=== PATIENT | female | born 1985 | race American Indian/Alaskan Native ===

== ENCOUNTER 2018-04-30 15:32 | Inpatient (IN) | payer MEDICAID ==
[2018-04-30] MEDS ORDERED: LACTATED RINGERS 1,000 ML ONE (16:04)
--- NOTE | 2018-04-30 16:22 | History and Physical Report ---
History of Present Illness Date of examination: 04/30/18 Date of admission: 04/30/18 15:32 Chief complaint: SIUP at 26 weeks with labor. History of present illness: Patient is a 32 year old , LMP 10/30/17, EDC 08/06/18 at 26 weeks gestation who was sent from the office for labor. This patient has been co-managed with [facility] for a history of cervical incompetence and she has a cerclage placed 2 months ago. She saw [facility] 2 weeks and sonogram showed funneling. She was offered Shelby and celestone for FLM. She did not start Shelby until today due to insurance issues. She went for a routine visit today and reported that she has been feeling pelvic pressure and abdominal tightening for 2 days. She denied any fluid leakage or bleeding. She reports good movement. Exam in the office showed the cervix to be dilated 3 cm with bulging membranes and the cerclage suture was in place. She was sent immediately to the hospital. She also has chronic HTN and has not been on any medication. 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 Social history: no significant social history - Obstetrical History Expected Date of Delivery: 08/06/18 Actual Gestation: 26 Week(s) 0 Day(s) : 3 Spontaneous Abortions: 2 #1 year: 2,017 Method of Delivery: Vaginal (delivered at 20 weeks, infant was nonviable.) Medications and Allergies Allergies Allergy/AdvReac Type Severity Reaction Status Date / Time No Known Allergies Allergy Unverified 04/30/18 16:04 Active Meds: Active Medications Acetaminophen (Tylenol) 650 mg PO Q4H PRN PRN Reason: Pain MILD(1-3)/Fever >100.5/LANDIN Docusate Sodium (Colace) 100 mg PO Q12H PRN PRN Reason: Constipation Lactated Ringer's (Lactated Ringers) 1,000 mls @ 125 mls/hr IV DIRECT EVELYN Multivitamins/Iron/Calcium ( Vitamin) 1 each PO QDAY EVELYN - Vital Signs Vital signs: Vital Signs Pulse BP 113 H 125/80 04/30/18 15:56 04/30/18 15:56 Temp Pulse Resp BP Pulse Ox 113 H 125/80 04/30/18 15:56 04/30/18 15:56 - Physical Exam Cardiovascular: Normal S1, Normal S2 Vulva: both: normal Results All other labs normal. Assessment and Plan - Patient Problems (1) 26 weeks gestation of Current Visit: Yes Status: Acute (2) labor Current Visit: Yes Status: Acute Plan to address problem: Admit to labor floor. Routine admitting labs. monitoring. Sonogram for presentation, EFW. Celestone for FLM. Magnesium sulfate for neuroprotection and tocolysis. IV antibiotics for GBS prophylaxis. [facility] and NICU consult. (3) Cervical incompetence Current Visit: Yes Status: Acute (4) Cervical cerclage suture present Current Visit: Yes Status: Acute (5) Obesity Current Visit: Yes Status: Acute (6) Chronic hypertension affecting Current Visit: Yes Status: Acute Plan to address problem: BP has been stable. If elevated, will start anti-HTN and do toxemia labs.
[2018-04-30] MEDS ORDERED: MAGNESIUM SULFATE 4GM/100ML 4 GM/100 ML BAG IV ONE (16:23)
[2018-04-30] MEDS ORDERED: DECADRON ONE (16:41)
[2018-04-30 16:44] LABS: Basophils % (Auto) 0.2 % (0.0-1.8); Eosinophils # (Auto) 0.1 K/mm3 (0.0-0.4); Eosinophils % (Auto) 0.7 % (0.0-4.3); Hematocrit 34.6 % (30.3-42.9); Hemoglobin 11.8 gm/dl (10.1-14.3); Lymphocytes # (Auto) 2.1 K/mm3 (1.2-5.4); Lymphocytes % (Auto) 17.9 % (13.4-35.0); Mean Corpuscular HGB Conc 34 % (30-34); Mean Corpuscular Volume 80 fl (79-97); Monocytes # (Auto) 0.7 K/mm3 (0.0-0.8); Monocytes % (Auto) 5.7 % (0.0-7.3); Platelet Count 240 K/mm3 (140-440); Red Blood Count 4.34 M/mm3 (3.65-5.03); Red Cell Distribution Width 15.2 % (13.2-15.2)
[2018-04-30 16:49] LABS: Bacteria,Urine 2+ /HPF (Negative); Bilirubin,Urine NEG (Negative); Blood,Urine SM (Negative); Color,Urine Yellow (Yellow); Mucus,Urine 1+ /HPF; Protein,Urine <15 mg/dL mg/dL (Negative); Urobilinogen,Urine < 2.0 mg/dL (<2.0)
--- NOTE | 2018-04-30 16:56 | Consultation ---
Consult Note - Parent Education I met with parent(s) and discussed the following:: Need for NICU admission, Poss ible need for intubation and surfactant or other resp support, Temperature regulation, Head ultrasounds to evaluate IVH, Eye exams for ROP screening, Possible need for IV fluids/TPN and IV antibiotics, Possible need for umbilical lines, Slow feeding advancement and monitoring of tolerance. NG/OG feeds, Need to monitor for jaundice, Data for survival & survival without significant co- morbidities Parent(s) demonstrated understanding of all the information:: Yes Additional Comment: 32 year old A2 with cervical incompetence. Cerclage in place. 3cm dilated with bulging membranes. Assessment and Plan - Assessment Gestation:: 26 (weeks) Baby's gender: Male Baby's name: Nuria - Plan Plan: Timing of delivery per OB/perinatology Agree with Mag & steroids Will attend delivery Please call NICU with questions
[2018-04-30] MEDS ORDERED: LACTATED RINGERS 1,000 ML IV SCH (17:00)
[2018-04-30] MEDS: LACTATED RINGERS 1,000 ML IV SCH (17:00)
[2018-04-30] MEDS: DECADRON IM SCH (17:01)
[2018-04-30] MEDS: MAGNESIUM SULFATE 40GM/1000ML 40 GM/1,000 ML BAG IV SCH (17:20)
--- NOTE | 2018-04-30 17:59 | Ultrasound Report ---
FINAL REPORT EXAM: US OB FOLLOW UP HISTORY: short cervix TECHNIQUE: Ultrasound obstetrical transabdominal PRIORS: There are no prior studies submitted for comparison FINDINGS: Single live intrauterine gestation present in cephalic position. cardiac activity is present with heart rate 145 beats per minute biometric measurements were obtained Biparietal diameter 27 weeks 3 days Head circumference 27 weeks 2 days Abdominal circumference 26 weeks 1 day Femur length 28 weeks 3 days Based on today's exam estimated gestational age 27 weeks 2 days estimated date of delivery July 28, 2018. Clinical age 26 weeks 0 days Cervix is suboptimally identified IMPRESSION: Single live intrauterine gestation estimated at twenty-seven weeks 2 days
[2018-04-30 18:04] LABS: Alanine Aminotransferase 49 units/L (7-56)
[2018-05-01] MEDS: TYLENOL PO PRN ×2 (00:59→18:51)
[2018-05-01] MEDS: LACTATED RINGERS 1,000 ML IV SCH ×2 (01:05→08:08)
[2018-05-01] MEDS: DECADRON IM SCH ×2 (05:12→17:19)
--- NOTE | 2018-05-01 08:49 | Progress Note ---
Assessment and Plan - Patient Problems (1) 26 weeks gestation of Current Visit: Yes Status: Acute Plan to address problem: steroids for lung maturity x 4 doses in progress Currently on magnesium sulfate for neuroprotection. Patient declines any IV medicine for back pain/contractions. Continuous monitoring Bedrest w bedpain. (2) Cervical incompetence Current Visit: Yes Status: Acute Subjective - Subjective Interval history: She denies loss of fluid, vaginal bleeding and reports good movement. Patient reports: other (episodic back pain) Objective - Vital Signs Vital Signs: Vital Signs - 12hr 04/30/18 04/30/18 04/30/18 20:54 20:59 21:00 Temperature Pulse Rate 120 H 120 H 118 H Respiratory Rate Blood Pressure 144/69 Blood Pressure [Left] O2 Sat by Pulse 98 98 Oximetry 04/30/18 04/30/18 04/30/18 21:04 21:09 21:14 Temperature Pulse Rate 118 H 119 H 121 H Respiratory Rate Blood Pressure Blood Pressure [Left] O2 Sat by Pulse 98 98 98 Oximetry 04/30/18 04/30/18 04/30/18 21:15 21:19 21:24 Temperature Pulse Rate 121 H 124 H 124 H Respiratory Rate Blood Pressure 133/70 Blood Pressure [Left] O2 Sat by Pulse 98 98 Oximetry 04/30/18 04/30/18 04/30/18 21:29 21:30 21:34 Temperature Pulse Rate 124 H 123 H 125 H Respiratory Rate Blood Pressure 123/74 Blood Pressure [Left] O2 Sat by Pulse 98 97 Oximetry 04/30/18 04/30/18 04/30/18 21:39 21:44 21:45 Temperature Pulse Rate 122 H 125 H 121 H Respiratory Rate Blood Pressure 127/68 Blood Pressure [Left] O2 Sat by Pulse 97 98 Oximetry 04/30/18 04/30/18 04/30/18 21:49 21:54 21:59 Temperature Pulse Rate 123 H 119 H 124 H Respiratory Rate Blood Pressure Blood Pressure [Left] O2 Sat by Pulse 98 98 98 Oximetry 04/30/18 04/30/18 04/30/18 22:04 22:09 22:14 Temperature Pulse Rate 121 H 117 H 117 H Respiratory Rate Blood Pressure Blood Pressure [Left] O2 Sat by Pulse 98 98 99 Oximetry 04/30/18 04/30/18 04/30/18 22:15 22:19 22:24 Temperature Pulse Rate 116 H 119 H 116 H Respiratory Rate Blood Pressure 151/71 Blood Pressure [Left] O2 Sat by Pulse 98 98 Oximetry 04/30/18 04/30/18 04/30/18 22:29 22:30 22:34 Temperature Pulse Rate 121 H 120 H 119 H Respiratory Rate Blood Pressure 133/59 Blood Pressure [Left] O2 Sat by Pulse 98 98 Oximetry 04/30/18 04/30/18 04/30/18 22:39 22:44 22:45 Temperature Pulse Rate 121 H 117 H 117 H Respiratory Rate Blood Pressure 94/59 Blood Pressure [Left] O2 Sat by Pulse 98 97 Oximetry 04/30/18 04/30/18 04/30/18 22:49 22:54 22:59 Temperature Pulse Rate 118 H 117 H 118 H Respiratory Rate Blood Pressure Blood Pressure [Left] O2 Sat by Pulse 98 98 98 Oximetry 04/30/18 04/30/18 04/30/18 23:00 23:04 23:09 Temperature Pulse Rate 118 H 118 H 119 H Respiratory Rate Blood Pressure 105/59 Blood Pressure [Left] O2 Sat by Pulse 97 97 Oximetry 04/30/18 04/30/18 04/30/18 23:14 23:15 23:19 Temperature Pulse Rate 116 H 116 H 121 H Respiratory Rate Blood Pressure 99/58 Blood Pressure [Left] O2 Sat by Pulse 97 98 Oximetry 04/30/18 04/30/18 04/30/18 23:24 23:29 23:30 Temperature Pulse Rate 122 H 120 H 122 H Respiratory Rate Blood Pressure 142/69 Blood Pressure [Left] O2 Sat by Pulse 98 98 Oximetry 04/30/18 04/30/18 04/30/18 23:34 23:39 23:44 Temperature Pulse Rate 113 H 111 H 117 H Respiratory Rate Blood Pressure Blood Pressure [Left] O2 Sat by Pulse 99 99 98 Oximetry 04/30/18 04/30/18 04/30/18 23:45 23:49 23:54 Temperature Pulse Rate 113 H 116 H 118 H Respiratory Rate Blood Pressure 132/63 Blood Pressure [Left] O2 Sat by Pulse 98 98 Oximetry 04/30/18 05/01/18 05/01/18 23:59 00:01 00:04 Temperature Pulse Rate 121 H 118 H 117 H Respiratory Rate Blood Pressure 128/65 Blood Pressure [Left] O2 Sat by Pulse 98 98 Oximetry 05/01/18 05/01/18 05/01/18 00:09 00:14 00:15 Temperature Pulse Rate 122 H 120 H 120 H Respiratory Rate Blood Pressure 117/60 Blood Pressure [Left] O2 Sat by Pulse 98 98 Oximetry 05/01/18 05/01/18 05/01/18 00:19 00:24 00:29 Temperature Pulse Rate 119 H 116 H 121 H Respiratory Rate Blood Pressure Blood Pressure [Left] O2 Sat by Pulse 97 98 98 Oximetry 05/01/18 05/01/18 05/01/18 00:30 00:34 00:39 Temperature 97.9 F Pulse Rate 115 H 117 H 116 H Respiratory 20 Rate Blood Pressure 121/59 Blood Pressure [Left] O2 Sat by Pulse 98 97 Oximetry 05/01/18 05/01/18 05/01/18 00:44 00:45 00:49 Temperature Pulse Rate 118 H 116 H 120 H Respiratory Rate Blood Pressure 126/60 Blood Pressure [Left] O2 Sat by Pulse 97 99 Oximetry 05/01/18 05/01/18 05/01/18 00:54 00:59 01:00 Temperature Pulse Rate 115 H 116 H 115 H Respiratory Rate Blood Pressure 111/58 Blood Pressure [Left] O2 Sat by Pulse 98 97 Oximetry 05/01/18 05/01/18 05/01/18 01:04 01:09 01:14 Temperature Pulse Rate 116 H 115 H 112 H Respiratory Rate Blood Pressure Blood Pressure [Left] O2 Sat by Pulse 98 98 97 Oximetry 05/01/18 05/01/18 05/01/18 01:15 01:19 01:24 Temperature Pulse Rate 112 H 110 H 111 H Respiratory Rate Blood Pressure 119/67 Blood Pressure [Left] O2 Sat by Pulse 98 98 Oximetry 05/01/18 05/01/18 05/01/18 01:29 01:30 01:34 Temperature Pulse Rate 111 H 108 H 110 H Respiratory Rate Blood Pressure 120/66 Blood Pressure [Left] O2 Sat by Pulse 97 97 Oximetry 05/01/18 05/01/18 05/01/18 01:39 01:44 01:45 Temperature Pulse Rate 108 H 109 H 107 H Respiratory Rate Blood Pressure 120/65 Blood Pressure [Left] O2 Sat by Pulse 97 97 Oximetry 05/01/18 05/01/18 05/01/18 01:49 01:54 01:59 Temperature Pulse Rate 108 H 106 H 107 H Respiratory Rate Blood Pressure Blood Pressure [Left] O2 Sat by Pulse 97 97 97 Oximetry 05/01/18 05/01/18 05/01/18 02:00 02:04 02:09 Temperature Pulse Rate 107 H 107 H 105 H Respiratory Rate Blood Pressure 123/65 Blood Pressure [Left] O2 Sat by Pulse 98 98 Oximetry 05/01/18 05/01/18 05/01/18 02:14 02:15 02:19 Temperature Pulse Rate 106 H 105 H 105 H Respiratory Rate Blood Pressure 126/71 Blood Pressure [Left] O2 Sat by Pulse 98 98 Oximetry 05/01/18 05/01/18 05/01/18 02:24 02:29 02:30 Temperature Pulse Rate 105 H 105 H 104 H Respiratory Rate Blood Pressure 128/70 Blood Pressure [Left] O2 Sat by Pulse 98 97 Oximetry 05/01/18 05/01/18 05/01/18 02:34 02:39 02:44 Temperature Pulse Rate 105 H 107 H 104 H Respiratory Rate Blood Pressure Blood Pressure [Left] O2 Sat by Pulse 98 97 98 Oximetry 05/01/18 05/01/18 05/01/18 02:45 02:49 02:54 Temperature Pulse Rate 100 H 106 H 102 H Respiratory Rate Blood Pressure 118/62 Blood Pressure [Left] O2 Sat by Pulse 98 98 Oximetry 05/01/18 05/01/18 05/01/18 02:59 03:00 03:04 Temperature Pulse Rate 103 H 61 105 H Respiratory Rate Blood Pressure 114/68 Blood Pressure [Left] O2 Sat by Pulse 98 97 Oximetry 05/01/18 05/01/18 05/01/18 03:09 03:14 03:15 Temperature Pulse Rate 102 H 99 H 99 H Respiratory Rate Blood Pressure 120/68 Blood Pressure [Left] O2 Sat by Pulse 99 98 Oximetry 05/01/18 05/01/18 05/01/18 03:19 03:24 03:29 Temperature Pulse Rate 102 H 101 H 101 H Respiratory Rate Blood Pressure Blood Pressure [Left] O2 Sat by Pulse 98 98 98 Oximetry 05/01/18 05/01/18 05/01/18 03:30 03:34 03:39 Temperature Pulse Rate 100 H 99 H 102 H Respiratory 18 Rate Blood Pressure 126/67 Blood Pressure 126/67 [Left] O2 Sat by Pulse 98 98 Oximetry 05/01/18 05/01/18 05/01/18 03:44 03:45 03:49 Temperature Pulse Rate 101 H 99 H 101 H Respiratory Rate Blood Pressure 131/68 Blood Pressure [Left] O2 Sat by Pulse 98 98 Oximetry 05/01/18 05/01/18 05/01/18 03:54 03:59 04:00 Temperature Pulse Rate 104 H 99 H 99 H Respiratory Rate Blood Pressure 126/67 Blood Pressure [Left] O2 Sat by Pulse 98 98 Oximetry 05/01/18 05/01/18 05/01/18 04:04 04:09 04:14 Temperature Pulse Rate 100 H 95 H 101 H Respiratory Rate Blood Pressure Blood Pressure [Left] O2 Sat by Pulse 98 99 98 Oximetry 05/01/18 05/01/18 05/01/18 04:15 04:19 04:24 Temperature Pulse Rate 98 H 105 H 94 H Respiratory Rate Blood Pressure 112/58 Blood Pressure [Left] O2 Sat by Pulse 99 97 Oximetry 05/01/18 05/01/18 05/01/18 04:29 04:30 04:34 Temperature Pulse Rate 97 H 95 H 98 H Respiratory Rate Blood Pressure 109/59 Blood Pressure [Left] O2 Sat by Pulse 97 97 Oximetry 05/01/18 05/01/18 05/01/18 04:39 04:44 04:45 Temperature Pulse Rate 99 H 98 H 97 H Respiratory Rate Blood Pressure 135/73 Blood Pressure [Left] O2 Sat by Pulse 96 97 Oximetry 05/01/18 05/01/18 05/01/18 04:49 04:54 04:59 Temperature Pulse Rate 99 H 96 H 96 H Respiratory Rate Blood Pressure Blood Pressure [Left] O2 Sat by Pulse 96 97 98 Oximetry 05/01/18 05/01/18 05/01/18 05:00 05:04 05:09 Temperature Pulse Rate 95 H 95 H 99 H Respiratory Rate Blood Pressure 122/64 Blood Pressure [Left] O2 Sat by Pulse 98 98 Oximetry 05/01/18 05/01/18 05/01/18 05:14 05:15 05:16 Temperature 98.2 F Pulse Rate 99 H 97 H 98 H Respiratory 20 Rate Blood Pressure 125/65 Blood Pressure [Left] O2 Sat by Pulse 97 Oximetry 05/01/18 05/01/1819 05:18 05:19 05:30 Temperature Pulse Rate 96 H 95 H 93 H Respiratory Rate Blood Pressure 129/77 Blood Pressure [Left] O2 Sat by Pulse 94 98 Oximetry 05/01/18 05/01/18 05/01/18 05:45 06:00 06:15 Temperature Pulse Rate 95 H 92 H 92 H Respiratory Rate Blood Pressure 123/74 124/71 129/74 Blood Pressure [Left] O2 Sat by Pulse Oximetry 05/01/18 05/01/18 05/01/18 06:30 06:45 07:00 Temperature Pulse Rate 94 H 103 H 96 H Respiratory Rate Blood Pressure 125/68 127/73 130/75 Blood Pressure [Left] O2 Sat by Pulse Oximetry 05/01/18 05/01/18 05/01/18 07:15 07:30 07:33 Temperature Pulse Rate 92 H 92 H 94 H Respiratory Rate Blood Pressure 110/56 124/73 Blood Pressure [Left] O2 Sat by Pulse 98 Oximetry 05/01/18 05/01/18 05/01/18 07:34 07:38 07:43 Temperature 98.0 F Pulse Rate 95 H 94 H Respiratory 18 Rate Blood Pressure Blood Pressure [Left] O2 Sat by Pulse 98 98 Oximetry 05/01/18 05/01/18 05/01/18 07:45 07:48 07:53 Temperature Pulse Rate 96 H 96 H 96 H Respiratory Rate Blood Pressure 122/71 Blood Pressure [Left] O2 Sat by Pulse 98 98 Oximetry 05/01/18 05/01/18 05/01/18 07:58 08:01 08:03 Temperature Pulse Rate 101 H 96 H 98 H Respiratory Rate Blood Pressure 133/65 Blood Pressure [Left] O2 Sat by Pulse 97 98 Oximetry 05/01/18 05/01/18 05/01/18 08:08 08:15 08:28 Temperature Pulse Rate 99 H 101 H 101 H Respiratory Rate Blood Pressure 138/70 Blood Pressure [Left] O2 Sat by Pulse 98 97 Oximetry 05/01/18 05/01/18 05/01/18 08:30 08:33 08:38 Temperature Pulse Rate 99 H 100 H 98 H Respiratory Rate Blood Pressure 126/66 Blood Pressure [Left] O2 Sat by Pulse 98 97 Oximetry 05/01/18 05/01/18 08:43 08:45 Temperature Pulse Rate 98 H 101 H Respiratory Rate Blood Pressure 127/62 Blood Pressure [Left] O2 Sat by Pulse 96 Oximetry - Exam Cervical Dilatation: 3 Cervical Effacement Percentage: 90 - Labs Labs: Abnormal Labs 04/30/18 04/30/18 04/30/18 16:20 16:20 16:20 WBC 11.8 H MCH 27 L Seg Neutrophils % 75.5 H Seg Neutrophils # 8.9 H Creatinine 0.6 L Urine WBC (Auto) 50.0 H U Epithel Cells (Auto) 135.0 H Laboratory Results - last 24 hr 04/30/18 04/30/18 04/30/18 16:20 16:20 16:20 WBC 11.8 H RBC 4.34 Hgb 11.8 Hct 34.6 MCV 80 MCH 27 L MCHC 34 RDW 15.2 Plt Count 240 Lymph % (Auto) 17.9 [place] % (Auto) 5.7 Eos % (Auto) 0.7 Baso % (Auto) 0.2 Lymph # 2.1 [place] # 0.7 Eos # 0.1 Baso # 0.0 Seg Neutrophils % 75.5 H Seg Neutrophils # 8.9 H Creatinine Estimated GFR AST ALT Lactate Dehydrogenase Urine Color Yellow Urine Turbidity Turbid Urine pH 5.0 Ur Specific [place] 1.015 Urine Protein <15 mg/dl Urine Glucose (UA) Neg Urine Ketones Neg Urine Blood Sm Urine Nitrite Neg Urine Bilirubin Neg Urine Urobilinogen < 2.0 Ur Leukocyte Esterase Lg Urine WBC (Auto) 50.0 H Urine RBC (Auto) 8.0 U Epithel Cells (Auto) 135.0 H Urine Bacteria (Auto) 2+ Urine Mucus 1+ Blood Type B POSITIVE Antibody Screen Negative 04/30/18 16:20 WBC RBC Hgb Hct MCV MCH MCHC RDW Plt Count Lymph % (Auto) [place] % (Auto) Eos % (Auto) Baso % (Auto) Lymph # [place] # Eos # Baso # Seg Neutrophils % Seg Neutrophils # Creatinine 0.6 L Estimated GFR > 60 AST 32 ALT 49 Lactate Dehydrogenase 151 Urine Color Urine Turbidity Urine pH Ur Specific [place] Urine Protein Urine Glucose (UA) Urine Ketones Urine Blood Urine Nitrite Urine Bilirubin Urine Urobilinogen Ur Leukocyte Esterase Urine WBC (Auto) Urine RBC (Auto) U Epithel Cells (Auto) Urine Bacteria (Auto) Urine Mucus Blood Type Antibody Screen - Results US- obstetric: report reviewed
[2018-05-01] MEDS: PRENATAL VITAMIN PO SCH (10:38)
--- NOTE | 2018-05-01 13:40 | Consultation ---
History of Present Illness Consult date: 05/01/18 Requesting physician: ASYA DE PAZ Reason for consult: contractions, other (short cervix) History of present illness: This is a 32 yo AA female, 26 1/7 weeks with RAQUEL 08/06/18, who was sent from her primary Ob's office with bulging membrane with cervical dilation of 3 per OB's report. Patient has a hx incompetent cervix and cerclage was placed. Cerclage in situ per OB's notes. Suboptimal view of cervix on ultrasound performed in hospital dated 04/30/18. Patient states that she was ordered 17-P but was unable to start until 2 days ago because of issue with her insurance. Sally denies contractions at present, leakage of fluid, vaginal bleeding. 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 Social history: no significant social history - Obstetrical History : 3 #1 year: 2,017 Method of Delivery: Vaginal (delivered at 20 weeks, was nonviable.) Medications and Allergies Allergies Allergy/AdvReac Type Severity Reaction Status Date / Time No Known Allergies Allergy Unverified 04/30/18 16:04 Home Medications Medication Instructions Recorded Confirmed Last Taken Type Multivitamin Tablet 1 tab PO QDAY 05/01/18 05/01/18 2 Days Ago History ~04/29/18 Active Meds: Active Medications Acetaminophen (Tylenol) 650 mg PO Q4H PRN PRN Reason: Pain MILD(1-3)/Fever >100.5/LANDIN Last Admin: 05/01/18 00:59 Dose: 650 mg Documented by: Dexamethasone (Decadron) 6 mg IM Q12HR EVELYN Stop: 05/02/18 10:01 Last Admin: 05/01/18 05:12 Dose: 6 mg Documented by: Docusate Sodium (Colace) 100 mg PO Q12H PRN PRN Reason: Constipation Lactated Ringer's (Lactated Ringers) 1,000 mls @ 125 mls/hr IV DIRECT EVELYN Last Admin: 05/01/18 08:08 Dose: 75 mls/hr Documented by: Lactated Ringer's (Lactated Ringers) 1,000 mls @ 125 mls/hr IV DIRECT EVELYN Magnesium Sulfate (Magnesium Sulfate 40gm/1000ml) 40 gm in 1,000 mls @ 50 mls/hr IV DIRECT EVELYN Last Admin: 04/30/18 17:20 Dose: 2 gm/hr, 50 mls/hr Documented by: Multivitamins/Iron/Calcium ( Vitamin) 1 each PO QDAY EVELYN Last Admin: 05/01/18 10:38 Dose: 1 each Documented by: Review of Systems Constitutional: other (denies chills, fever) Eyes: deferred Ears, nose, mouth and throat: deferred Cardiovascular: other (denies chest pain, , edema) Respiratory: other (denies shortness of breath) Gastrointestinal: other (gravid, deniea abdominal pain) - Vital Signs Vital signs: Vital Signs Pulse BP 113 H 125/80 04/30/18 15:56 04/30/18 15:56 Temp Pulse Resp BP Pulse Ox 98.0 F 104 H 18 153/79 97 05/01/18 07:34 05/01/18 13:30 05/01/18 07:34 05/01/18 13:30 05/01/18 09:23 - Physical Exam Breasts: Positive: deferred Cardiovascular: Regular rate Lungs: Positive: Normal air movement Abdomen: Positive: normal appearance, other (gravid) Results Result Diagrams: 04/30/18 16:20 04/30/18 16:20 Abnormal lab results 04/30/18 04/30/18 04/30/18 Range/Units 16:20 16:20 16:20 WBC 11.8 H (4.5-11.0) K/mm3 MCH 27 L (28-32) pg Seg Neutrophils % 75.5 H (40.0-70.0) % Seg Neutrophils # 8.9 H (1.8-7.7) K/mm3 Creatinine 0.6 L (0.7-1.2) mg/dL Urine WBC (Auto) 50.0 H (0.0-6.0) /HPF U Epithel Cells (Auto) 135.0 H (0-13.0) /HPF All other labs normal. Assessment and Plan Assessment 1. 26 1/7 weeks 2. Hx Incompetent cervix, cerclage in situ 3. Shelby/17P started 2 days ago 4. Dexamethasone in progress 5. Magnesium Sulfate therapy in progress 6. Short cervix; last exam 3 cm dilated 7. Per OB's report bulging membrane noted in office 8. Hx CHTN; not on meds, stable BPs Recommendations 1. [place] use of tocolytics 2. Antibiotics secondary to bulging membrane: Ampicillin and Erythromycin 3. Agrees with Dexamethasone for lung maturity 4. Agrees with Magnesium Sulfate for neuroprotection 5. [facility] to follow patient 6. Delivery recommended if compromise Call [facility] section leader Dr. Deborah OGLESBY for any questions or concerns.
[2018-05-01] MEDS: MAGNESIUM SULFATE 40GM/1000ML 40 GM/1,000 ML BAG IV SCH (14:30)
[2018-05-01] MEDS: ZITHROMAX 500 MG in NACL 0.9% 250ML 250 ML IV SCH (16:59)
[2018-05-01] MEDS: AMPICILLIN/NS 2 GM/100 ML 2 GM/100 ML BAG IV SCH (18:52)
[2018-05-02] MEDS: AMPICILLIN/NS 2 GM/100 ML 2 GM/100 ML BAG IV SCH ×4 (01:21→18:45)
[2018-05-02] MEDS: DECADRON IM SCH (05:15)
[2018-05-02] MEDS: BENADRYL PO PRN ×2 (05:22→19:51)
[2018-05-02] MEDS: PRENATAL VITAMIN PO SCH (10:18)
[2018-05-02] MEDS: MAGNESIUM SULFATE 40GM/1000ML 40 GM/1,000 ML BAG IV SCH (11:27)
[2018-05-02] MEDS: ZITHROMAX 500 MG in NACL 0.9% 250ML 250 ML IV SCH (11:34)
[2018-05-02] MEDS: LACTATED RINGERS 1,000 ML IV SCH (11:37)
--- NOTE | 2018-05-02 12:18 | Progress Note ---
Assessment and Plan - Patient Problems (1) 26 weeks gestation of Onset Date: 05/02/18 Current Visit: Yes Status: Acute Plan to address problem: A: IUP @ 26 2/7 weeks Hx Incompetent cervix, cerclage in situ [place]/17P started 2 days ago Dexamethasone in progress Magnesium Sulfate therapy in progress Short cervix; last exam 3 cm dilated Per OB's report bulging membrane noted in office Hx CHTN; not on meds, stable BPs P: [place] use of tocolytics Antibiotics secondary to bulging membrane: Ampicillin and Erythromycin Continue with Dexamethasone for lung maturity Continue with Magnesium Sulfate for neuroprotection Delivery recommended if compromise (2) Cervical cerclage suture present Onset Date: 05/02/18 Current Visit: Yes Status: Acute Qualifiers: Trimester: third trimester Qualified Code(s): O34.33 - Maternal care for cervical incompetence, third trimester (3) labor Onset Date: 05/02/18 Current Visit: Yes Status: Acute Qualifiers: labor trimester: third trimester labor delivery status: without delivery Qualified Code(s): O60.03 - labor without delivery, third trimester Subjective - Subjective Date of service: 05/02/18 Principal diagnosis: IUP @ 26 2/7 weeks; Incompetent cervix Interval history: Patient is a 32 year old , LMP 10/30/17, EDC 08/06/18 at 26 2/7weeks gestation who was sent from the office for labor. This patient has been co-managed with [facility] for a history of cervical incompetence and she has a cerclage placed 2 months ago. She saw [facility] 2 weeks and sonogram showed funneling. She was offered [place] and [place] for FLM. She did not start [place] due to insurance issues. She went for a routine visit and reported that she has been feeling pelvic pressure and abdominal tightening for 2 days. She denied any fluid leakage or bleeding. She reports good movement. Exam in the office showed the cervix to be dilated 3 cm with bulging membranes and the cerclage suture was in place. She also has chronic HTN and has not been on any medication. She has been hospitalized and currently on IV Magnesium sulfate , IV Ampicillin, IV Zithromax and IM steroids for FLM and denies contractions. Patient reports: movement normal, other (episodic back pain), no new complaints, no loss of fluid, no vaginal bleeding, no contractions Objective - Vital Signs Vital Signs: Vital Signs - 12hr 05/02/18 05/02/18 05/02/18 01:53 01:58 02:03 Temperature Pulse Rate 94 H 90 98 H Respiratory Rate Blood Pressure Blood Pressure [Left] O2 Sat by Pulse 97 98 98 Oximetry 05/02/18 05/02/18 05/02/18 02:08 02:13 02:18 Temperature Pulse Rate 98 H 96 H 99 H Respiratory Rate Blood Pressure Blood Pressure [Left] O2 Sat by Pulse 96 98 97 Oximetry 05/02/18 05/02/18 05/02/18 04:00 05:31 05:32 Temperature Pulse Rate 90 80 80 Respiratory 18 Rate Blood Pressure 113/55 Blood Pressure 128/78 [Left] O2 Sat by Pulse 98 Oximetry 05/02/18 05/02/18 05/02/18 05:36 05:41 05:45 Temperature Pulse Rate 82 88 78 Respiratory Rate Blood Pressure 115/56 Blood Pressure [Left] O2 Sat by Pulse 98 97 Oximetry 05/02/18 05/02/18 05/02/18 05:46 05:51 05:56 Temperature Pulse Rate 84 80 93 H Respiratory Rate Blood Pressure Blood Pressure [Left] O2 Sat by Pulse 97 97 96 Oximetry 05/02/18 05/02/18 05/02/18 06:00 06:01 06:06 Temperature Pulse Rate 88 83 84 Respiratory Rate Blood Pressure 119/59 Blood Pressure [Left] O2 Sat by Pulse 96 96 Oximetry 05/02/18 05/02/18 05/02/18 06:11 06:15 06:16 Temperature Pulse Rate 82 85 87 Respiratory Rate Blood Pressure 117/58 Blood Pressure [Left] O2 Sat by Pulse 97 97 Oximetry 05/02/18 05/02/18 05/02/18 06:21 06:26 06:30 Temperature Pulse Rate 86 85 81 Respiratory Rate Blood Pressure 110/58 Blood Pressure [Left] O2 Sat by Pulse 97 95 Oximetry 05/02/18 05/02/18 05/02/18 06:31 06:36 06:41 Temperature Pulse Rate 86 86 91 H Respiratory Rate Blood Pressure Blood Pressure [Left] O2 Sat by Pulse 96 96 95 Oximetry 05/02/18 05/02/18 05/02/18 06:45 06:46 06:51 Temperature Pulse Rate 87 86 87 Respiratory Rate Blood Pressure 111/57 Blood Pressure [Left] O2 Sat by Pulse 96 96 Oximetry 05/02/18 05/02/18 05/02/18 06:56 07:00 07:01 Temperature Pulse Rate 92 H 91 H 91 H Respiratory Rate Blood Pressure 112/59 Blood Pressure [Left] O2 Sat by Pulse 95 99 Oximetry 05/02/18 05/02/18 05/02/18 07:06 07:11 07:15 Temperature Pulse Rate 87 88 88 Respiratory Rate Blood Pressure 124/69 Blood Pressure [Left] O2 Sat by Pulse 99 97 Oximetry 05/02/18 05/02/18 05/02/18 07:16 07:21 07:26 Temperature Pulse Rate 85 87 87 Respiratory Rate Blood Pressure Blood Pressure [Left] O2 Sat by Pulse 96 96 96 Oximetry 05/02/18 05/02/18 05/02/18 07:30 07:31 07:35 Temperature Pulse Rate 89 87 86 Respiratory Rate Blood Pressure 127/69 Blood Pressure [Left] O2 Sat by Pulse 96 94 Oximetry 05/02/18 05/02/18 05/02/18 07:36 07:41 07:45 Temperature Pulse Rate 91 H 85 88 Respiratory Rate Blood Pressure 140/70 Blood Pressure [Left] O2 Sat by Pulse 94 94 Oximetry 05/02/18 05/02/18 05/02/18 07:46 07:51 07:56 Temperature Pulse Rate 88 90 91 H Respiratory Rate Blood Pressure Blood Pressure [Left] O2 Sat by Pulse 95 95 96 Oximetry 05/02/18 05/02/18 05/02/18 08:00 08:01 08:06 Temperature Pulse Rate 90 89 95 H Respiratory Rate Blood Pressure 111/62 Blood Pressure [Left] O2 Sat by Pulse 97 96 Oximetry 05/02/18 05/02/18 05/02/18 08:11 08:15 08:16 Temperature Pulse Rate 85 87 86 Respiratory Rate Blood Pressure 110/59 Blood Pressure [Left] O2 Sat by Pulse 95 95 Oximetry 05/02/18 05/02/18 05/02/18 08:21 08:22 08:25 Temperature Pulse Rate 88 92 H 90 Respiratory Rate Blood Pressure 112/66 Blood Pressure [Left] O2 Sat by Pulse 95 94 Oximetry 05/02/18 05/02/18 05/02/18 08:26 08:31 08:36 Temperature 98.3 F Pulse Rate 89 88 89 Respiratory 18 Rate Blood Pressure Blood Pressure 112/66 [Left] O2 Sat by Pulse 97 95 96 Oximetry 05/02/18 05/02/18 05/02/18 08:40 08:41 08:56 Temperature Pulse Rate 86 86 106 H Respiratory Rate Blood Pressure 112/62 131/80 Blood Pressure [Left] O2 Sat by Pulse 96 Oximetry 05/02/18 05/02/18 05/02/18 09:11 09:12 09:25 Temperature Pulse Rate 100 H 96 H 98 H Respiratory Rate Blood Pressure 108/66 109/60 117/69 Blood Pressure [Left] O2 Sat by Pulse Oximetry 05/02/18 05/02/18 05/02/18 09:40 09:57 10:10 Temperature Pulse Rate 97 H 100 H 97 H Respiratory Rate Blood Pressure 108/63 126/70 125/69 Blood Pressure [Left] O2 Sat by Pulse Oximetry 05/02/18 05/02/18 05/02/18 10:25 10:40 10:56 Temperature Pulse Rate 101 H 100 H 93 H Respiratory Rate Blood Pressure 128/68 126/65 108/61 Blood Pressure [Left] O2 Sat by Pulse Oximetry 05/02/18 05/02/18 05/02/18 11:10 11:25 11:41 Temperature Pulse Rate 96 H 93 H 95 H Respiratory Rate Blood Pressure 119/73 117/67 108/53 Blood Pressure [Left] O2 Sat by Pulse Oximetry 05/02/18 05/02/18 05/02/18 11:43 11:55 12:10 Temperature Pulse Rate 92 H 93 H 96 H Respiratory Rate Blood Pressure 95/55 103/58 100/57 Blood Pressure [Left] O2 Sat by Pulse Oximetry - Exam Abdomen: Present: normal appearance, soft FHR: category 1 Uterine Contraction Monitor Mode: External Uterine Contraction Pattern: Absent Uterine Tone Measurement Phase: Contraction - Labs Labs: Abnormal Labs 04/30/18 04/30/18 04/30/18 16:20 16:20 16:20 WBC 11.8 H MCH 27 L Seg Neutrophils % 75.5 H Seg Neutrophils # 8.9 H Creatinine 0.6 L Magnesium Urine WBC (Auto) 50.0 H U Epithel Cells (Auto) 135.0 H 05/01/18 05/01/18 05/02/18 14:32 19:56 07:54 WBC MCH Seg Neutrophils % Seg Neutrophils # Creatinine Magnesium 3.50 H 4.30 H 4.40 H Urine WBC (Auto) U Epithel Cells (Auto) 05/02/18 Unknown WBC MCH Seg Neutrophils % Seg Neutrophils # Creatinine Magnesium 4.30 H Urine WBC (Auto) U Epithel Cells (Auto) Laboratory Results - last 24 hr 05/01/18 05/01/18 05/02/18 14:32 19:56 07:54 Magnesium 3.50 H 4.30 H 4.40 H 05/02/18 Unknown Magnesium 4.30 H
[2018-05-03] MEDS: TYLENOL PO PRN ×3 (00:35→21:20)
[2018-05-03] MEDS: BENADRYL PO PRN ×2 (00:36→06:15)
[2018-05-03] MEDS: AMPICILLIN/NS 2 GM/100 ML 2 GM/100 ML BAG IV SCH ×5 (00:36→23:46)
[2018-05-03] MEDS: LACTATED RINGERS 1,000 ML IV SCH ×2 (06:15→21:39)
[2018-05-03] MEDS: MAGNESIUM SULFATE 40GM/1000ML 40 GM/1,000 ML BAG IV SCH (06:16)
[2018-05-03] MEDS: PRENATAL VITAMIN PO SCH (10:41)
[2018-05-03] MEDS: ZITHROMAX 500 MG in NACL 0.9% 250ML 250 ML IV SCH (10:41)
--- NOTE | 2018-05-03 12:15 | Progress Note ---
Assessment and Plan - Patient Problems (1) 26 weeks gestation of Onset Date: 05/02/18 Current Visit: Yes Status: Acute Plan to address problem: A: IUP @ 26 3/7 weeks Hx Incompetent cervix, cerclage in situ [place]/17P started 4 days ago Dexamethasone in progress Magnesium Sulfate therapy in progress Short cervix; last exam 3 cm dilated Per OB's report bulging membrane noted in office Hx CHTN; not on meds, stable BPs P: [place] use of tocolytics Antibiotics secondary to bulging membrane: Ampicillin and Erythromycin Dexamethasone for lung maturity Decrease Magnesium Sulfate Delivery recommended if compromise (2) Cervical cerclage suture present Onset Date: 05/02/18 Current Visit: Yes Status: Acute Qualifiers: Trimester: third trimester Qualified Code(s): O34.33 - Maternal care for cervical incompetence, third trimester (3) labor Onset Date: 05/02/18 Current Visit: Yes Status: Acute Qualifiers: labor trimester: third trimester labor delivery status: without delivery Qualified Code(s): O60.03 - labor without delivery, third trimester Subjective - Subjective Date of service: 05/03/18 Principal diagnosis: IUP @ 26 3/7 weeks; Incompetent cervix Interval history: Patient is a 32 year old , LMP 10/30/17, EDC 08/06/18 at 26 3/7weeks gestation who was sent from the office for labor. This patient has been co-managed with [facility] for a history of cervical incompetence and she has a cerclage placed 2 months ago. She saw [facility] 2 weeks and sonogram showed funneling. She was offered [place] and celestone for FLM. She did not start [place] due to insurance issues. She went for a routine visit and reported that she has been feeling pelvic pressure and abdominal tightening for 2 days. She denied any fluid leakage or bleeding. She reports good movement. Exam in the office showed the cervix to be dilated 3 cm with bulging membranes and the cerclage suture was in place. She also has chronic HTN and has not been on any medication. She has been hospitalized and currently on IV Magnesium sulfate , IV Ampicillin, IV Zithromax and IM steroids for FLM and denies contractions. Patient reports: movement normal, other (episodic back pain), no new complaints, no loss of fluid, no vaginal bleeding, no contractions Objective - Vital Signs Vital Signs: Vital Signs - 12hr 05/03/18 05/03/18 05/03/18 00:26 00:42 00:56 Temperature Pulse Rate 83 86 84 Respiratory Rate Blood Pressure 115/63 112/93 111/59 Blood Pressure [Left] 05/03/18 05/03/18 05/03/18 01:11 01:26 01:56 Temperature Pulse Rate 85 82 83 Respiratory Rate Blood Pressure 113/62 115/55 109/55 Blood Pressure [Left] 05/03/18 05/03/18 05/03/18 02:11 02:26 02:41 Temperature Pulse Rate 85 85 88 Respiratory Rate Blood Pressure 108/59 116/57 113/57 Blood Pressure [Left] 05/03/18 05/03/18 05/03/18 02:56 03:11 03:26 Temperature Pulse Rate 91 H 91 H 82 Respiratory Rate Blood Pressure 118/55 103/53 109/58 Blood Pressure [Left] 05/03/18 05/03/18 05/03/18 03:41 03:56 04:00 Temperature 98.6 F Pulse Rate 95 H 83 88 Respiratory 18 Rate Blood Pressure 102/51 120/59 Blood Pressure 135/80 [Left] 05/03/18 05/03/18 05/03/18 04:12 04:26 04:41 Temperature Pulse Rate 82 79 83 Respiratory Rate Blood Pressure 105/57 106/56 115/60 Blood Pressure [Left] 05/03/18 05/03/18 05/03/18 04:56 05:11 05:26 Temperature Pulse Rate 87 84 78 Respiratory Rate Blood Pressure 125/71 127/71 128/73 Blood Pressure [Left] 05/03/18 05/03/18 05/03/18 05:41 05:56 06:11 Temperature Pulse Rate 82 82 83 Respiratory Rate Blood Pressure 126/72 113/66 132/75 Blood Pressure [Left] 05/03/18 05/03/18 05/03/18 06:27 06:41 06:56 Temperature Pulse Rate 85 83 85 Respiratory Rate Blood Pressure 111/78 131/75 128/67 Blood Pressure [Left] 05/03/18 05/03/18 05/03/18 07:11 07:26 07:41 Temperature Pulse Rate 81 90 84 Respiratory Rate Blood Pressure 123/64 127/71 127/68 Blood Pressure [Left] 05/03/18 05/03/18 05/03/18 07:52 08:47 09:47 Temperature 97.5 F L Pulse Rate 88 87 Respiratory 18 Rate Blood Pressure 127/72 121/72 Blood Pressure [Left] 05/03/18 10:47 Temperature Pulse Rate 89 Respiratory Rate Blood Pressure 119/77 Blood Pressure [Left] - Exam Abdomen: Present: normal appearance, soft FHR: category 1 Uterine Contraction Monitor Mode: External Uterine Contraction Pattern: Absent - Labs Labs: Abnormal Labs 04/30/18 04/30/18 04/30/18 16:20 16:20 16:20 WBC 11.8 H MCH 27 L Seg Neutrophils % 75.5 H Seg Neutrophils # 8.9 H Creatinine 0.6 L Magnesium Urine WBC (Auto) 50.0 H U Epithel Cells (Auto) 135.0 H 05/01/18 05/01/18 05/02/18 14:32 19:56 07:54 WBC MCH Seg Neutrophils % Seg Neutrophils # Creatinine Magnesium 3.50 H 4.30 H 4.40 H Urine WBC (Auto) U Epithel Cells (Auto) 05/02/18 05/02/18 05/03/18 14:41 Unknown 04:50 WBC MCH Seg Neutrophils % Seg Neutrophils # Creatinine Magnesium 4.20 H 4.30 H 4.30 H Urine WBC (Auto) U Epithel Cells (Auto) 05/03/18 05:33 WBC MCH Seg Neutrophils % Seg Neutrophils # Creatinine Magnesium 4.30 H Urine WBC (Auto) U Epithel Cells (Auto) Laboratory Results - last 24 hr 05/02/18 05/03/18 05/03/18 14:41 04:50 05:33 Magnesium 4.20 H 4.30 H 4.30 H
[2018-05-03] MEDS: COLACE PO PRN ×2 (17:21→23:46)
[2018-05-03] MEDS: AMBIEN PO PRN (23:46)
[2018-05-04] MEDS: AMPICILLIN/NS 2 GM/100 ML 2 GM/100 ML BAG IV SCH ×2 (05:45→11:42)
--- NOTE | 2018-05-04 09:16 | Progress Note ---
Assessment and Plan - Patient Problems (1) 26 weeks gestation of Onset Date: 05/02/18 Current Visit: Yes Status: Acute (2) labor Onset Date: 05/02/18 Current Visit: Yes Status: Acute Qualifiers: labor trimester: third trimester labor delivery status: without delivery Qualified Code(s): O60.03 - labor without delivery, third trimester Plan to address problem: [place] for FLM completed. Magnesium sulfate for neuroprotection and tocolysis. IV antibiotics and PO erythromycin for GBS prophylaxis. [facility] and NICU consult done. Continous monitoring. (3) Cervical incompetence Current Visit: Yes Status: Acute (4) Cervical cerclage suture present Onset Date: 05/02/18 Current Visit: Yes Status: Acute Qualifiers: Trimester: third trimester Qualified Code(s): O34.33 - Maternal care for cervical incompetence, third trimester (5) Obesity Current Visit: Yes Status: Acute (6) Chronic hypertension affecting Current Visit: Yes Status: Acute Plan to address problem: BP has been stable. If elevated, will start anti-HTN and do toxemia labs. Subjective - Subjective Date of service: 05/04/18 Principal diagnosis: IUP @ 26 4/7 weeks; Incompetent cervix Interval history: Patient is a 32 year old , LMP 10/30/17, EDC 08/06/18 at 26 weeks and 4 days gestation who was sent from the office for labor. This patient has been co-managed with [facility] for a history of cervical incompetence and she has a cerclage placed 2 months ago. She saw [facility] 2 weeks and sonogram showed funneling. She was offered [place] and cel[place] for FLM. She did not start [place] until the day of her admission due to insurance issues. She went for a routine visit on 04/30 and reported that she has been feeling pelvic pressure and abdominal tightening for 2 days. She denied any fluid leakage or bleeding. She reports good movement. Exam in the office showed the cervix to be dilated 3 cm with bulging membranes and the cerclage suture was in place. She was sent immediately to the hospital. Sonogram showed the baby to be vertex, normal [id number]. She was treated with magnesium sulfate for tocolysis and neuroprotection, steroids for FLM, IV antibiotics for GBs prophylaxis. [facility] consult was done and agreed with above management. NICU consult was done. She also has chronic HTN and has not been on any medication. This AM, she denies any contractions, fluid leakage or bleeding. She reports good movement. Patient reports: movement normal, other (episodic back pain), no new complaints, no loss of fluid, no vaginal bleeding, no contractions Objective - Vital Signs Vital Signs: Vital Signs - 12hr 05/03/18 05/03/18 05/03/18 21:47 22:47 23:45 Temperature 99 F Pulse Rate 86 83 Respiratory 18 Rate Blood Pressure 107/56 117/71 05/03/18 05/04/18 05/04/18 23:48 00:47 01:47 Temperature Pulse Rate 77 81 85 Respiratory Rate Blood Pressure 111/58 118/59 115/67 05/04/18 05/04/18 05/04/18 02:48 03:44 03:47 Temperature 98.9 F Pulse Rate 86 87 Respiratory 18 Rate Blood Pressure 103/53 116/57 05/04/18 05/04/18 05/04/18 04:47 05:47 06:47 Temperature Pulse Rate 83 96 H 83 Respiratory Rate Blood Pressure 115/60 118/69 117/67 05/04/18 05/04/18 05/04/18 07:47 07:51 08:37 Temperature 97.9 F Pulse Rate 78 85 Respiratory 16 Rate Blood Pressure 123/66 128/70 - Exam Cardiovascular: Normal S1, Normal S2 Lungs: Clear to auscultation Vulva: both: normal FHR: category 1 Uterine Contraction Monitor Mode: External Uterine Contraction Pattern: Absent Deep Tendon Reflex Grade: Normal +2 - Labs Labs: Abnormal Labs 04/30/18 04/30/18 04/30/18 16:20 16:20 16:20 WBC 11.8 H MCH 27 L Seg Neutrophils % 75.5 H Seg Neutrophils # 8.9 H Creatinine 0.6 L Magnesium Urine WBC (Auto) 50.0 H U Epithel Cells (Auto) 135.0 H 05/01/18 05/01/18 05/02/18 14:32 19:56 07:54 WBC MCH Seg Neutrophils % Seg Neutrophils # Creatinine Magnesium 3.50 H 4.30 H 4.40 H Urine WBC (Auto) U Epithel Cells (Auto) 05/02/18 05/02/18 05/03/18 14:41 Unknown 04:50 WBC MCH Seg Neutrophils % Seg Neutrophils # Creatinine Magnesium 4.20 H 4.30 H 4.30 H Urine WBC (Auto) U Epithel Cells (Auto) 05/03/18 05/03/18 05/03/18 05:33 12:51 17:36 WBC MCH Seg Neutrophils % Seg Neutrophils # Creatinine Magnesium 4.30 H 4.10 H 3.40 H Urine WBC (Auto) U Epithel Cells (Auto) 05/04/18 05:58 WBC MCH Seg Neutrophils % Seg Neutrophils # Creatinine Magnesium 3.00 H Urine WBC (Auto) U Epithel Cells (Auto) Laboratory Results - last 24 hr 05/03/18 05/03/18 05/04/18 12:51 17:36 05:58 Magnesium 4.10 H 3.40 H 3.00 H - Results US- obstetric: report reviewed
--- NOTE | 2018-05-04 09:50 | Progress Note ---
Assessment and Plan Assessment 1. 26 4/7 weeks 2. Hx Incompetent cervix, cerclage in situ 3. [place]/17P started 2 days ago 4. Dexamethasone 5. Magnesium Sulfate therapy should be dc 6. Short cervix; last exam 3 cm dilated 7. Per OB's report bulging membrane noted in office 8. Hx CHTN; not on meds, stable BPs Now that the patient is stable she needs to be taken off IV meds, switched to PO and assessed for stability. I did not perform her initial exam was reported she is 3 cm dilated; she should have a repeat exam at some point to document cervical assessment, certainly with any contractions or further PTL the cerclage should be removed if labor is a concern. Once the patient has been assessed for stability from physical exam and standpoint she may be a candidate for DC Recommendations 1. [place] use of tocolytics, may stop Mag, may give indocin through steroid window 2. Antibiotics secondary to bulging membrane: Ampicillin and Erythromycin, may switch to PO 3. Agrees with Dexamethasone for lung maturity 4. Agrees with Magnesium Sulfate for neuroprotection 5. [facility] to follow patient 6. Delivery recommended if compromise 7. with labor remove cerclage 8. Please see above recommendations 9. Further clinical course pending off mag, IV meds, and assessment of patient status for dispo Subjective - Subjective Principal diagnosis: IUP @ 26 4/7 weeks; Incompetent cervix Interval history: patient is doing well and does not have any complaints at the moment, no contractions no LOF VB Patient reports: movement normal, other (episodic back pain), no new complaints, no loss of fluid, no vaginal bleeding, no contractions Objective - Vital Signs Vital Signs: Vital Signs - 12hr 05/03/18 05/03/18 05/03/18 21:47 22:47 23:45 Temperature 99 F Pulse Rate 86 83 Respiratory 18 Rate Blood Pressure 107/56 117/71 05/03/18 05/04/18 05/04/18 23:48 00:47 01:47 Temperature Pulse Rate 77 81 85 Respiratory Rate Blood Pressure 111/58 118/59 115/67 05/04/18 05/04/18 05/04/18 02:48 03:44 03:47 Temperature 98.9 F Pulse Rate 86 87 Respiratory 18 Rate Blood Pressure 103/53 116/57 05/04/18 05/04/18 05/04/18 04:47 05:47 06:47 Temperature Pulse Rate 83 96 H 83 Respiratory Rate Blood Pressure 115/60 118/69 117/67 05/04/18 05/04/18 05/04/18 07:47 07:51 08:37 Temperature 97.9 F Pulse Rate 78 85 Respiratory 16 Rate Blood Pressure 123/66 128/70 - Exam Cardiovascular: Regular rate Lungs: Normal air movement Abdomen: Present: soft. Absent: distention, tenderness, guarding Uterus: Present: normal. Absent: tenderness FHR: category 1 - Labs Labs: Abnormal Labs 04/30/18 04/30/18 04/30/18 16:20 16:20 16:20 WBC 11.8 H MCH 27 L Seg Neutrophils % 75.5 H Seg Neutrophils # 8.9 H Creatinine 0.6 L Magnesium Urine WBC (Auto) 50.0 H U Epithel Cells (Auto) 135.0 H 05/01/18 05/01/18 05/02/18 14:32 19:56 07:54 WBC MCH Seg Neutrophils % Seg Neutrophils # Creatinine Magnesium 3.50 H 4.30 H 4.40 H Urine WBC (Auto) U Epithel Cells (Auto) 05/02/18 05/02/18 05/03/18 14:41 Unknown 04:50 WBC MCH Seg Neutrophils % Seg Neutrophils # Creatinine Magnesium 4.20 H 4.30 H 4.30 H Urine WBC (Auto) U Epithel Cells (Auto) 05/03/18 05/03/18 05/03/18 05:33 12:51 17:36 WBC MCH Seg Neutrophils % Seg Neutrophils # Creatinine Magnesium 4.30 H 4.10 H 3.40 H Urine WBC (Auto) U Epithel Cells (Auto) 05/04/18 05:58 WBC MCH Seg Neutrophils % Seg Neutrophils # Creatinine Magnesium 3.00 H Urine WBC (Auto) U Epithel Cells (Auto) Laboratory Results - last 24 hr 05/03/18 05/03/18 05/04/18 12:51 17:36 05:58 Magnesium 4.10 H 3.40 H 3.00 H
[2018-05-04] MEDS: PRENATAL VITAMIN PO SCH (11:42)
[2018-05-04] MEDS: ZITHROMAX 500 MG in NACL 0.9% 250ML 250 ML IV SCH (12:24)
--- NOTE | 2018-05-04 15:58 | Progress Note ---
Assessment and Plan - Patient Problems (1) 26 weeks gestation of Onset Date: 05/02/18 Current Visit: Yes Status: Acute (2) labor Onset Date: 05/02/18 Current Visit: Yes Status: Acute Qualifiers: labor trimester: third trimester labor delivery status: without delivery Qualified Code(s): O60.03 - labor without delivery, third trimester Plan to address problem: Dexamethasone for FLM completed. Magnesium sulfate for neuroprotection and tocolysis discontinued. Will start procardia. IV antibiotics were switched to PO erythromycin and ampicillin. [facility] and NICU consult done. Continous monitoring. Cervix unchanged from admission. Will do sono to confirm presentation. (3) Cervical incompetence Current Visit: Yes Status: Acute (4) Cervical cerclage suture present Onset Date: 05/02/18 Current Visit: Yes Status: Acute Qualifiers: Trimester: third trimester Qualified Code(s): O34.33 - Maternal care for cervical incompetence, third trimester (5) Obesity Current Visit: Yes Status: Acute (6) Chronic hypertension affecting Current Visit: Yes Status: Acute Plan to address problem: BP has been stable. If elevated, will start anti-HTN and do toxemia labs. Subjective - Subjective Date of service: 05/04/18 Principal diagnosis: IUP @ 26 4/7 weeks; Incompetent cervix Interval history: Patient is a 32 year old , LMP 10/30/17, EDC 08/06/18 at 26 weeks and 4 days gestation who was admitted for labor ( 4days ago). This patient has been co-managed with [facility] for a history of cervical incompetence and she has a cerclage placed 2 months ago. She saw [facility] 2 weeks and sonogram showed funneling. She was offered [place] and [place] for FLM. She did not start [place] until the day of her admission due to insurance issues. She went for a routine visit on 04/30 and reported that she has been feeling pelvic pressure and abdominal tightening for 2 days. She denied any fluid leakage or bleeding. She reports good movement. Exam in the office showed the cervix to be dilated 3 cm with bulging membranes and the cerclage suture was in place. She was sent immediately to the hospital. Sonogram showed the baby to be vertex, normal ZACARIAS. She was treated with magnesium sulfate for tocolysis and neuroprotection which was discontinued yesterday, steroids for FLM completed, IV antibiotics for GBS prophylaxis which was switched to PO ampicillin and erythomycin. [facility] consult was done and agreed with above management. NICU consult was done. She also has chronic HTN and has not been on any medication. This AM, she denies any contractions, fluid leakage or bleeding. She reports good movement. Exam: cervix 3 cm/70%/high, cerclage in place. No more bulging membranes (unchanged from admission). Patient reports: movement normal, other (episodic back pain), no new complaints, no loss of fluid, no vaginal bleeding, no contractions Objective - Vital Signs Vital Signs: Vital Signs - 12hr 05/04/18 05/04/18 05/04/18 04:47 05:47 06:47 Temperature Pulse Rate 83 96 H 83 Respiratory Rate Blood Pressure 115/60 118/69 117/67 Blood Pressure [Left] 05/04/18 05/04/18 05/04/18 07:47 07:51 08:37 Temperature 97.9 F Pulse Rate 78 85 Respiratory 16 Rate Blood Pressure 123/66 128/70 Blood Pressure [Left] 05/04/18 05/04/18 05/04/18 11:42 11:46 15:29 Temperature 99.2 F 99.7 F H Pulse Rate 90 90 91 H Respiratory 18 18 Rate Blood Pressure 122/72 110/67 Blood Pressure 122/72 110/67 [Left] - Exam Cardiovascular: Normal S1, Normal S2 Vulva: both: normal FHR: category 1 Uterine Contraction Monitor Mode: External Cervical Dilatation: 3 Cervical Effacement Percentage: 70 station: -3 Uterine Contraction Pattern: Absent Deep Tendon Reflex Grade: Normal +2 - Labs Labs: Abnormal Labs 04/30/18 04/30/18 04/30/18 16:20 16:20 16:20 WBC 11.8 H MCH 27 L Seg Neutrophils % 75.5 H Seg Neutrophils # 8.9 H Creatinine 0.6 L Magnesium Urine WBC (Auto) 50.0 H U Epithel Cells (Auto) 135.0 H 05/01/18 05/01/18 05/02/18 14:32 19:56 07:54 WBC MCH Seg Neutrophils % Seg Neutrophils # Creatinine Magnesium 3.50 H 4.30 H 4.40 H Urine WBC (Auto) U Epithel Cells (Auto) 05/02/18 05/02/18 05/03/18 14:41 Unknown 04:50 WBC MCH Seg Neutrophils % Seg Neutrophils # Creatinine Magnesium 4.20 H 4.30 H 4.30 H Urine WBC (Auto) U Epithel Cells (Auto) 05/03/18 05/03/18 05/03/18 05:33 12:51 17:36 WBC MCH Seg Neutrophils % Seg Neutrophils # Creatinine Magnesium 4.30 H 4.10 H 3.40 H Urine WBC (Auto) U Epithel Cells (Auto) 05/04/18 05:58 WBC MCH Seg Neutrophils % Seg Neutrophils # Creatinine Magnesium 3.00 H Urine WBC (Auto) U Epithel Cells (Auto) Laboratory Results - last 24 hr 05/03/18 05/04/18 17:36 05:58 Magnesium 3.40 H 3.00 H - Results US- obstetric: report reviewed
[2018-05-04] MEDS: PROCARDIA*For Tocolysis only PO SCH (18:31)
[2018-05-04] MEDS: AMPICILLIN PO SCH (18:55)
--- NOTE | 2018-05-04 21:06 | Ultrasound Report ---
FINAL REPORT PROCEDURE: US OB LIMITED TECHNIQUE: Real-time limited sonographic examination was performed for evaluation of amniotic fluid volume and presentation for each fetus with image documentation (1 or more fetuses). CPT 17195 HISTORY: labor COMPARISON: No prior studies are available for comparison. FINDINGS: A single intrauterine gestation is identified with cephalic presentation. heart rate is 146 alissa ts per minute. Amniotic fluid index is 14.8 centimeters. IMPRESSION: Amniotic fluid index 14.8 centimeters Presentation is cephalic
[2018-05-04] MEDS: ERY-TAB PO SCH (22:11)
[2018-05-04] MEDS: AMBIEN PO PRN (22:12)
[2018-05-05] MEDS: PROCARDIA*For Tocolysis only PO SCH ×5 (00:20→23:33)
[2018-05-05] MEDS: AMPICILLIN PO SCH ×5 (00:20→23:33)
[2018-05-05] MEDS: ERY-TAB PO SCH ×3 (06:07→22:21)
[2018-05-05] MEDS: LACTATED RINGERS 1,000 ML IV SCH (06:09)
--- NOTE | 2018-05-05 09:15 | Progress Note ---
Assessment and Plan - Patient Problems (1) 26 weeks gestation of Onset Date: 05/02/18 Current Visit: Yes Status: Acute Plan to address problem: Continue current management. Ultrasound reveals cephalic presentation ZACARIAS 14.6 No signs of ROM. Will repeat CBC. Monitor WBC. Continue PO antibiotics. Continue Procardia. Expectant management. Monitor for contractions, cervical change. Last check 05/04 3cm, no bulging membranes. (2) Cervical incompetence Current Visit: Yes Status: Acute Subjective - Subjective Principal diagnosis: IUP @ 26 4/7 weeks; Incompetent cervix Interval history: She denies loss of fluid, vaginal bleeding and reports good movement. She denies contractions. She is sleeping comfortably in bed. Patient reports: movement normal, other (episodic back pain), no new complaints, no loss of fluid, no vaginal bleeding, no contractions Objective - Vital Signs Vital Signs: Vital Signs - 12hr 05/05/18 05/05/18 05/05/18 00:20 04:10 08:28 Temperature 98.7 F 98.2 F Pulse Rate 94 H 98 H Respiratory 18 Rate Blood Pressure 99/54 105/60 - Labs Labs: Abnormal Labs 04/30/18 04/30/18 04/30/18 16:20 16:20 16:20 WBC 11.8 H MCH 27 L Seg Neutrophils % 75.5 H Seg Neutrophils # 8.9 H Creatinine 0.6 L Magnesium Urine WBC (Auto) 50.0 H U Epithel Cells (Auto) 135.0 H 05/01/18 05/01/18 05/02/18 14:32 19:56 07:54 WBC MCH Seg Neutrophils % Seg Neutrophils # Creatinine Magnesium 3.50 H 4.30 H 4.40 H Urine WBC (Auto) U Epithel Cells (Auto) 05/02/18 05/02/18 05/03/18 14:41 Unknown 04:50 WBC MCH Seg Neutrophils % Seg Neutrophils # Creatinine Magnesium 4.20 H 4.30 H 4.30 H Urine WBC (Auto) U Epithel Cells (Auto) 05/03/18 05/03/18 05/03/18 05:33 12:51 17:36 WBC MCH Seg Neutrophils % Seg Neutrophils # Creatinine Magnesium 4.30 H 4.10 H 3.40 H Urine WBC (Auto) U Epithel Cells (Auto) 05/04/18 05:58 WBC MCH Seg Neutrophils % Seg Neutrophils # Creatinine Magnesium 3.00 H Urine WBC (Auto) U Epithel Cells (Auto)
[2018-05-05 09:53] LABS: Basophils % (Auto) 0.2 % (0.0-1.8); Eosinophils # (Auto) 0.1 K/mm3 (0.0-0.4); Eosinophils % (Auto) 0.9 % (0.0-4.3); Hematocrit 32.6 % (30.3-42.9); Hemoglobin 10.9 gm/dl (10.1-14.3); Lymphocytes # (Auto) 1.5 K/mm3 (1.2-5.4); Lymphocytes % (Auto) 14.3 % (13.4-35.0); Mean Corpuscular HGB Conc 33 % (30-34); Mean Corpuscular Volume 80 fl (79-97); Monocytes # (Auto) 0.4 K/mm3 (0.0-0.8); Monocytes % (Auto) 4.1 % (0.0-7.3); Platelet Count 214 K/mm3 (140-440); Red Blood Count 4.07 M/mm3 (3.65-5.03); Red Cell Distribution Width 14.9 % (13.2-15.2)
[2018-05-05] MEDS: PRENATAL VITAMIN PO SCH (10:05)
[2018-05-05] MEDS: AMBIEN PO PRN (22:21)
[2018-05-06] MEDS: PROCARDIA*For Tocolysis only PO SCH ×2 (05:45→12:50)
[2018-05-06] MEDS: AMPICILLIN PO SCH ×2 (05:46→12:50)
[2018-05-06] MEDS: ERY-TAB PO SCH ×2 (05:46→21:48)
[2018-05-06] MEDS: PRENATAL VITAMIN PO SCH (10:15)
[2018-05-06] MEDS: LACTATED RINGERS 1,000 ML IV SCH (10:17)
--- NOTE | 2018-05-06 10:46 | Progress Note ---
Assessment and Plan - Patient Problems (1) 26 weeks gestation of Onset Date: 05/02/18 Current Visit: Yes Status: Acute (2) labor Onset Date: 05/02/18 Current Visit: Yes Status: Acute Qualifiers: labor trimester: third trimester labor delivery status: without delivery Qualified Code(s): O60.03 - labor without delivery, third trimester Plan to address problem: Dexamethasone for FLM completed. Magnesium sulfate for neuroprotection and tocolysis discontinued. She is on procardia. IV antibiotics were switched to PO erythromycin and ampicillin. [facility] and NICU consult done. Continous monitoring. Cervix unchanged from admission. Sono done yesterday, baby is vertex, ZACARIAS normal. (3) Cervical incompetence Current Visit: Yes Status: Acute (4) Cervical cerclage suture present Onset Date: 05/02/18 Current Visit: Yes Status: Acute Qualifiers: Trimester: third trimester Qualified Code(s): O34.33 - Maternal care for cervical incompetence, third trimester (5) Obesity Current Visit: Yes Status: Acute (6) Chronic hypertension affecting Current Visit: Yes Status: Acute Plan to address problem: BP has been stable. If elevated, will start anti-HTN and do toxemia labs. Subjective - Subjective Date of service: 05/06/18 Principal diagnosis: IUP @ 26 4/7 weeks; Incompetent cervix Interval history: Patient is a 32 year old , LMP 10/30/17, EDC 08/06/18 at 26 weeks and 6 days gestation who was admitted for labor ( 6 days ago). This patient has been co-managed with [facility] for a history of cervical incompetence and she has a cerclage placed 2 months ago. She saw [facility] 2 weeks and sonogram showed funneling. She was offered [place] and [place] for FLM. She did not start [place] until the day of her admission due to insurance issues. She went for a routine visit on 04/30 and reported that she has been feeling pelvic pressure and abdominal tightening for 2 days. She denied any fluid leakage or bleeding. She reports good movement. Exam in the office showed the cervix to be dilated 3 cm with bulging membranes and the cerclage suture was in place. She was sent immediately to the hospital. Sonogram showed the baby to be vertex, normal ZACARIAS. She was treated with magnesium sulfate for tocolysis and neuroprotection, steroids for FLM completed, IV antibiotics for GBS prophylaxis which was switched to PO ampicillin and erythomycin. [facility] consult was done and agreed with above management. NICU consult was done. She also has chronic HTN and has not been on any medication. This AM, she denies any contractions, fluid leakage or bleeding. She reports good movement. Exam (05/04/18): cervix 3 cm/70%/high, cerclage in place. No more bulging membranes (unchanged from admission). Patient reports: movement normal, other (episodic back pain), no new complaints, no loss of fluid, no vaginal bleeding, no contractions Objective - Vital Signs Vital Signs: Vital Signs - 12hr 05/06/18 05/06/18 05/06/18 01:19 01:25 05:46 Temperature 98.1 F 98.1 F Pulse Rate 100 H 100 H 93 H Respiratory 16 16 Rate Blood Pressure 106/50 Blood Pressure 121/65 [Left] Blood Pressure 106/50 [Right] 05/06/18 05:48 Temperature Pulse Rate 93 H Respiratory Rate Blood Pressure 121/65 Blood Pressure [Left] Blood Pressure [Right] - Exam Cardiovascular: Normal S1, Normal S2 Lungs: Clear to auscultation Vulva: both: normal FHR: category 1 Uterine Contraction Monitor Mode: External Uterine Contraction Pattern: Absent Deep Tendon Reflex Grade: Normal +2 - Labs Labs: Abnormal Labs 04/30/18 04/30/18 04/30/18 16:20 16:20 16:20 WBC 11.8 H MCH 27 L Seg Neutrophils % 75.5 H Seg Neutrophils # 8.9 H Creatinine 0.6 L Magnesium Urine WBC (Auto) 50.0 H U Epithel Cells (Auto) 135.0 H 05/01/18 05/01/18 05/02/18 14:32 19:56 07:54 WBC MCH Seg Neutrophils % Seg Neutrophils # Creatinine Magnesium 3.50 H 4.30 H 4.40 H Urine WBC (Auto) U Epithel Cells (Auto) 05/02/18 05/02/18 05/03/18 14:41 Unknown 04:50 WBC MCH Seg Neutrophils % Seg Neutrophils # Creatinine Magnesium 4.20 H 4.30 H 4.30 H Urine WBC (Auto) U Epithel Cells (Auto) 05/03/18 05/03/18 05/03/18 05:33 12:51 17:36 WBC MCH Seg Neutrophils % Seg Neutrophils # Creatinine Magnesium 4.30 H 4.10 H 3.40 H Urine WBC (Auto) U Epithel Cells (Auto) 05/04/18 05/05/18 05:58 09:37 WBC MCH 27 L Seg Neutrophils % 80.5 H Seg Neutrophils # 8.5 H Creatinine Magnesium 3.00 H Urine WBC (Auto) U Epithel Cells (Auto) - Results US- obstetric: report reviewed
[2018-05-07] MEDS: AMBIEN PO PRN ×2 (00:23→23:53)
[2018-05-07] MEDS: PROCARDIA*For Tocolysis only PO SCH ×4 (00:24→18:22)
[2018-05-07] MEDS: ERY-TAB PO SCH ×3 (06:12→22:04)
[2018-05-07] MEDS: AMPICILLIN PO SCH ×4 (06:12→23:59)
--- NOTE | 2018-05-07 09:57 | Progress Note ---
Assessment and Plan 27 weeks gestation - Patient Problems (1) labor Onset Date: 05/02/18 Current Visit: Yes Status: Acute Qualifiers: labor trimester: third trimester labor delivery status: without delivery Qualified Code(s): O60.03 - labor without delivery, third trimester Plan to address problem: Dexamethasone for FLM completed. Magnesium sulfate for neuroprotection and tocolysis discontinued. She is on procardia. IV antibiotics were switched to PO erythromycin and ampicillin. [facility] and NICU consult done. Continous monitoring. Cervix unchanged from admission. Sono done on 05/05, baby is vertex, ZACARIAS normal. (2) Cervical incompetence Current Visit: Yes Status: Acute (3) Cervical cerclage suture present Onset Date: 05/02/18 Current Visit: Yes Status: Acute Qualifiers: Trimester: third trimester Qualified Code(s): O34.33 - Maternal care for cervical incompetence, third trimester (4) Obesity Current Visit: Yes Status: Acute (5) Chronic hypertension affecting Current Visit: Yes Status: Acute Plan to address problem: BP has been stable. If elevated, will start anti-HTN and do toxemia labs. (6) 27 weeks gestation of Current Visit: Yes Status: Acute Subjective - Subjective Date of service: 05/07/18 Principal diagnosis: IUP @ 26 4/7 weeks; Incompetent cervix Interval history: Patient is a 32 year old , LMP 10/30/17, EDC 08/06/18 at 27 weeks gestation who was admitted for labor (7 days ago). This patient has been co-managed with [facility] for a history of cervical incompetence and she has a cerclage placed 2 months ago. She saw [facility] 3 weeks ago and sonogram showed funneling. She was offered [place] and [place] for FLM. She did not start [place] until the day of her admission due to insurance issues. She went for a routine visit on 04/30 and reported that she has been feeling pelvic pressure and abdominal tightening for 2 days. She denied any fluid leakage or bleeding. She reports good movement. Exam in the office showed the cervix to be dilated 3 cm with bulging membranes and the cerclage suture was in place. She was sent immediately to the hospital. Sonogram showed the baby to be vertex, normal ZACARIAS. She was treated with magnesium sulfate for tocolysis and neuroprotection, steroids for FLM completed, IV antibiotics for GBS prophylaxis which was switched to PO ampicillin and erythomycin. [facility] consult was done and agreed with above management. NICU consult was done. She also has chronic HTN and has not been on any medication. This AM, she denies any contractions, fluid leakage or bleeding. She reports good movement. Exam (05/04/18): cervix 3 cm/70%/high, cerclage in place. No more bulging membranes (unchanged from admission). Patient reports: movement normal, other (episodic back pain), no new complaints, no loss of fluid, no vaginal bleeding, no contractions Objective - Vital Signs Vital Signs: Vital Signs - 12hr 05/07/18 05/07/18 05/07/18 00:31 04:10 04:11 Temperature 97 F L Pulse Rate 88 107 H Respiratory 18 Rate Blood Pressure 103/55 120/60 - Exam Cardiovascular: Normal S1, Normal S2 Lungs: Clear to auscultation Vulva: both: normal FHR: category 1 Uterine Contraction Monitor Mode: External Uterine Contraction Pattern: Absent - Labs Labs: Abnormal Labs 04/30/18 04/30/18 04/30/18 16:20 16:20 16:20 WBC 11.8 H MCH 27 L Seg Neutrophils % 75.5 H Seg Neutrophils # 8.9 H Creatinine 0.6 L Magnesium Urine WBC (Auto) 50.0 H U Epithel Cells (Auto) 135.0 H 05/01/18 05/01/18 05/02/18 14:32 19:56 07:54 WBC MCH Seg Neutrophils % Seg Neutrophils # Creatinine Magnesium 3.50 H 4.30 H 4.40 H Urine WBC (Auto) U Epithel Cells (Auto) 05/02/18 05/02/18 05/03/18 14:41 Unknown 04:50 WBC MCH Seg Neutrophils % Seg Neutrophils # Creatinine Magnesium 4.20 H 4.30 H 4.30 H Urine WBC (Auto) U Epithel Cells (Auto) 05/03/18 05/03/18 05/03/18 05:33 12:51 17:36 WBC MCH Seg Neutrophils % Seg Neutrophils # Creatinine Magnesium 4.30 H 4.10 H 3.40 H Urine WBC (Auto) U Epithel Cells (Auto) 05/04/18 05/05/18 05:58 09:37 WBC MCH 27 L Seg Neutrophils % 80.5 H Seg Neutrophils # 8.5 H Creatinine Magnesium 3.00 H Urine WBC (Auto) U Epithel Cells (Auto) - Results US- obstetric: report reviewed
[2018-05-07] MEDS: PRENATAL VITAMIN PO SCH (12:07)
--- NOTE | 2018-05-07 17:22 | Progress Note ---
Assessment and Plan ASSESSMENT / DIAGNOSIS 1. IUP at 26 weeks 6 days. 2. Hx Incompetent cervix, cerclage in situ 3. [place]/17P started 2 days ago 4. Status post steroids for lung maturity. 5. status post Magnesium Sulfate 6. labor. last exam 3 cm dilated 7. Per OB's report bulging membrane noted in office 8. Hx CHTN; not on meds, stable BPs RECOMMENDATIONS & ORDERS 1. See our previous consult. 2. [place] use of tocolytics consider Procardia. 3. Status post Antibiotics secondary to bulging membrane: Ampicillin and Erythromycin, may switch to PO 4. Status post steroids for lung maturity 5. status post Magnesium Sulfate 6. [facility] to follow patient 7. Delivery recommended if compromise 8. If there is evidence of labor remove cerclage 9. We recommend continued hospitalization at this point; however if patient remains quiescent and has NO change in vaginal exam we would recommend consideration of discharge home and outpatient follow-up. Thank you for allowing us to participate in the care of this patient. We look forward to the opportunity to assist in her continued management. If you have any questions, we may be reached at [phone]. Kushal Bryan M.D. Subjective - Subjective Date of service: 05/07/18 Principal diagnosis: IUP @ 26 4/7 weeks; Incompetent cervix Interval history: As you are aware, this is a 32 year old patient at 26 weeks 5 days gestation for whom I recently provided a perinatology consultation. Patient describes mild ongoing contractions. Patient reports: movement normal, other (episodic back pain), no new complaints, no loss of fluid, no vaginal bleeding, no contractions Objective - Vital Signs Vital Signs: Vital Signs - 12hr 05/07/18 05/07/18 12:12 17:13 Temperature 97.4 F L Pulse Rate 100 H 93 H Blood Pressure 101/62 113/66 Blood Pressure 101/62 [Right] - Labs Labs: Abnormal Labs 04/30/18 04/30/18 04/30/18 16:20 16:20 16:20 WBC 11.8 H MCH 27 L Seg Neutrophils % 75.5 H Seg Neutrophils # 8.9 H Creatinine 0.6 L Magnesium Urine WBC (Auto) 50.0 H U Epithel Cells (Auto) 135.0 H 05/01/18 05/01/18 05/02/18 14:32 19:56 07:54 WBC MCH Seg Neutrophils % Seg Neutrophils # Creatinine Magnesium 3.50 H 4.30 H 4.40 H Urine WBC (Auto) U Epithel Cells (Auto) 05/02/18 05/02/18 05/03/18 14:41 Unknown 04:50 WBC MCH Seg Neutrophils % Seg Neutrophils # Creatinine Magnesium 4.20 H 4.30 H 4.30 H Urine WBC (Auto) U Epithel Cells (Auto) 05/03/18 05/03/18 05/03/18 05:33 12:51 17:36 WBC MCH Seg Neutrophils % Seg Neutrophils # Creatinine Magnesium 4.30 H 4.10 H 3.40 H Urine WBC (Auto) U Epithel Cells (Auto) 05/04/18 05/05/18 05:58 09:37 WBC MCH 27 L Seg Neutrophils % 80.5 H Seg Neutrophils # 8.5 H Creatinine Magnesium 3.00 H Urine WBC (Auto) U Epithel Cells (Auto)
[2018-05-08] MEDS: AMPICILLIN PO SCH ×3 (06:14→20:30)
[2018-05-08] MEDS: ERY-TAB PO SCH ×3 (06:14→21:38)
[2018-05-08] MEDS: PROCARDIA*For Tocolysis only PO SCH ×5 (06:25→23:37)
[2018-05-08] MEDS: PRENATAL VITAMIN PO SCH (11:20)
--- NOTE | 2018-05-08 13:03 | Progress Note ---
Assessment and Plan - Patient Problems (1) Cervical incompetence Current Visit: Yes Status: Acute Plan to address problem: Continue routine care. Continue weekly ultrasounds. Continue Q8 monitoring. No signs of labor progression. Subjective - Subjective Principal diagnosis: IUP @ 26 4/7 weeks; Incompetent cervix Interval history: She denies loss of fluid, vaginal bleeding and reports good movement. She denies contractions. She is sleeping comfortably in bed. Patient reports: movement normal, other (episodic back pain), no new complaints, no loss of fluid, no vaginal bleeding, no contractions Objective - Vital Signs Vital Signs: Vital Signs - 12hr 05/08/18 05/08/18 05/08/18 01:20 01:26 05:53 Temperature 98.4 F Pulse Rate 106 H 94 H Respiratory Rate Blood Pressure 125/53 106/58 Blood Pressure [Right] 05/08/18 05/08/18 05/08/18 05:54 07:59 08:00 Temperature 98.7 F 98.4 F Pulse Rate 97 H 97 H Respiratory 18 Rate Blood Pressure 101/47 Blood Pressure 101/47 [Right] 05/08/18 12:23 Temperature 97.7 F Pulse Rate 99 H Respiratory 18 Rate Blood Pressure 108/53 Blood Pressure 108/53 [Right] - Labs Labs: Abnormal Labs 04/30/18 04/30/18 04/30/18 16:20 16:20 16:20 WBC 11.8 H MCH 27 L Seg Neutrophils % 75.5 H Seg Neutrophils # 8.9 H Creatinine 0.6 L Magnesium Urine WBC (Auto) 50.0 H U Epithel Cells (Auto) 135.0 H 05/01/18 05/01/18 05/02/18 14:32 19:56 07:54 WBC MCH Seg Neutrophils % Seg Neutrophils # Creatinine Magnesium 3.50 H 4.30 H 4.40 H Urine WBC (Auto) U Epithel Cells (Auto) 05/02/18 05/02/18 05/03/18 14:41 Unknown 04:50 WBC MCH Seg Neutrophils % Seg Neutrophils # Creatinine Magnesium 4.20 H 4.30 H 4.30 H Urine WBC (Auto) U Epithel Cells (Auto) 05/03/18 05/03/18 05/03/18 05:33 12:51 17:36 WBC MCH Seg Neutrophils % Seg Neutrophils # Creatinine Magnesium 4.30 H 4.10 H 3.40 H Urine WBC (Auto) U Epithel Cells (Auto) 05/04/18 05/05/18 05:58 09:37 WBC MCH 27 L Seg Neutrophils % 80.5 H Seg Neutrophils # 8.5 H Creatinine Magnesium 3.00 H Urine WBC (Auto) U Epithel Cells (Auto)
[2018-05-08] MEDS: HYDROXYPROGESTERONE CAPROATE IM SCH (21:05)
[2018-05-08] MEDS: MONISTAT-DERM TP SCH (21:42)
[2018-05-08] MEDS: AMBIEN PO PRN (23:43)
[2018-05-09] MEDS: AMPICILLIN PO SCH ×3 (02:37→19:50)
[2018-05-09] MEDS: PROCARDIA*For Tocolysis only PO SCH ×4 (06:24→19:50)
[2018-05-09] MEDS: ERY-TAB PO SCH ×3 (06:24→21:36)
[2018-05-09] MEDS: PRENATAL VITAMIN PO SCH (10:08)
--- NOTE | 2018-05-09 13:07 | Progress Note ---
Assessment and Plan - Patient Problems (1) labor Onset Date: 05/02/18 Current Visit: Yes Status: Acute Qualifiers: labor trimester: third trimester labor delivery status: without delivery Qualified Code(s): O60.03 - labor without delivery, third trimester Plan to address problem: Dexamethasone for FLM completed. Magnesium sulfate for neuroprotection and tocolysis discontinued. She is on procardia. IV antibiotics were switched to PO erythromycin and ampicillin. [facility] and NICU consult done. Continous monitoring. Cervix unchanged from admission. Sono done on 05/05, baby is vertex, ZACARIAS normal. (2) Cervical incompetence Current Visit: Yes Status: Acute (3) Cervical cerclage suture present Onset Date: 05/02/18 Current Visit: Yes Status: Acute Qualifiers: Trimester: third trimester Qualified Code(s): O34.33 - Maternal care for cervical incompetence, third trimester (4) Obesity Current Visit: Yes Status: Acute (5) Chronic hypertension affecting Current Visit: Yes Status: Acute Plan to address problem: BP has been stable. If elevated, will start anti-HTN and do toxemia labs. (6) 27 weeks gestation of Current Visit: Yes Status: Acute Subjective - Subjective Date of service: 05/09/18 Principal diagnosis: IUP @ 27 2/7 weeks; Incompetent cervix Interval history: Patient is a 32 year old , LMP 10/30/17, EDC 08/06/18 at 27 weeks and 2 days gestation who was admitted for labor (9 days ago). This patient has been co-managed with [facility] for a history of cervical incompetence and she has a cerclage placed 2 months ago. She saw [facility] 3 weeks ago and sonogram showed funneling. She was offered [place] and celestone for FLM. She did not start [place] until the day of her admission due to insurance issues. She went for a routine visit on 04/30 and reported that she has been feeling pelvic pressure and abdominal tightening for 2 days. She denied any fluid leakage or bleeding. She reports good movement. Exam in the office showed the cervix to be dilated 3 cm with bulging membranes and the cerclage suture was in place. She was sent immediately to the hospital. Sonogram showed the baby to be vertex, normal ZACARIAS. She was treated with magnesium sulfate for tocolysis and neuroprotection, steroids for FLM completed, IV antibiotics for GBS prophylaxis which was switched to PO ampicillin and erythomycin. [facility] consult was done and agreed with above management. NICU consult was done. She also has chronic HTN and has not been on any medication. This AM, she denies any contractions, fluid leakage or bleeding. She reports good movement. Exam (05/09/18): cervix 3 cm/70%/high, cerclage in place, unchanged from admission). Patient reports: movement normal, other (episodic back pain), no new complaints, no loss of fluid, no vaginal bleeding, no contractions Objective - Vital Signs Vital Signs: Vital Signs - 12hr 05/09/18 05/09/18 05/09/18 06:25 06:26 08:42 Temperature 97.3 F L Pulse Rate 100 H 100 H 108 H Respiratory 16 Rate Blood Pressure 105/62 101/53 Blood Pressure 105/62 [Right] 05/09/18 08:48 Temperature 97.6 F Pulse Rate 108 H Respiratory 18 Rate Blood Pressure Blood Pressure 101/53 [Right] - Exam Cardiovascular: Normal S1, Normal S2 Lungs: Clear to auscultation Vulva: both: normal FHR: category 1 Uterine Contraction Monitor Mode: External Cervical Dilatation: 3 Cervical Effacement Percentage: 70 station: -3 Uterine Contraction Pattern: Absent Deep Tendon Reflex Grade: Normal +2 - Labs Labs: Abnormal Labs 04/30/18 04/30/18 04/30/18 16:20 16:20 16:20 WBC 11.8 H MCH 27 L Seg Neutrophils % 75.5 H Seg Neutrophils # 8.9 H Creatinine 0.6 L Magnesium Urine WBC (Auto) 50.0 H U Epithel Cells (Auto) 135.0 H 05/01/18 05/01/18 05/02/18 14:32 19:56 07:54 WBC MCH Seg Neutrophils % Seg Neutrophils # Creatinine Magnesium 3.50 H 4.30 H 4.40 H Urine WBC (Auto) U Epithel Cells (Auto) 05/02/18 05/02/18 05/03/18 14:41 Unknown 04:50 WBC MCH Seg Neutrophils % Seg Neutrophils # Creatinine Magnesium 4.20 H 4.30 H 4.30 H Urine WBC (Auto) U Epithel Cells (Auto) 05/03/18 05/03/18 05/03/18 05:33 12:51 17:36 WBC MCH Seg Neutrophils % Seg Neutrophils # Creatinine Magnesium 4.30 H 4.10 H 3.40 H Urine WBC (Auto) U Epithel Cells (Auto) 05/04/18 05/05/18 05:58 09:37 WBC MCH 27 L Seg Neutrophils % 80.5 H Seg Neutrophils # 8.5 H Creatinine Magnesium 3.00 H Urine WBC (Auto) U Epithel Cells (Auto) - Results US- obstetric: report reviewed
[2018-05-09] MEDS: AMBIEN PO PRN (23:38)
[2018-05-10] MEDS: PROCARDIA*For Tocolysis only PO SCH ×3 (01:53→19:27)
[2018-05-10] MEDS: AMPICILLIN PO SCH ×4 (01:53→19:27)
[2018-05-10] MEDS: ERY-TAB PO SCH ×3 (05:26→22:37)
[2018-05-10] MEDS: PRENATAL VITAMIN PO SCH (10:12)
--- NOTE | 2018-05-10 10:26 | Progress Note ---
Assessment and Plan - Patient Problems (1) labor Onset Date: 05/02/18 Current Visit: Yes Status: Acute Qualifiers: labor trimester: third trimester labor delivery status: without delivery Qualified Code(s): O60.03 - labor without delivery, third trimester Plan to address problem: Dexamethasone for FLM completed. Magnesium sulfate for neuroprotection and tocolysis discontinued. She is on procardia. IV antibiotics were switched to PO erythromycin and ampicillin. [facility] and NICU consult done. Continous monitoring. Cervix unchanged from admission. Sono done on 05/05, baby is vertex, ZACARIAS normal. (2) Cervical incompetence Current Visit: Yes Status: Acute (3) Cervical cerclage suture present Onset Date: 05/02/18 Current Visit: Yes Status: Acute Qualifiers: Trimester: third trimester Qualified Code(s): O34.33 - Maternal care for cervical incompetence, third trimester (4) Obesity Current Visit: Yes Status: Acute (5) Chronic hypertension affecting Current Visit: Yes Status: Acute Plan to address problem: BP has been stable. If elevated, will start anti-HTN and do toxemia labs. (6) 27 weeks gestation of Current Visit: Yes Status: Acute Subjective - Subjective Date of service: 05/10/18 Principal diagnosis: IUP @ 27 3/7 weeks; Incompetent cervix Interval history: Patient is a 32 year old , LMP 10/30/17, EDC 08/06/18 at 27 weeks and 3 days gestation who was admitted for labor (10 days ago). This patient has been co-managed with [facility] for a history of cervical incompetence and she has a cerclage placed 2 months ago. She saw [facility] 3 weeks ago and sonogram showed funneling. She was offered [place] and [place] for FLM. She did not start [place] until the day of her admission due to insurance issues. She went for a routine visit on 04/30 and reported that she has been feeling pelvic pressure and abdominal tightening for 2 days. She denied any fluid leakage or bleeding. She reports good movement. Exam in the office showed the cervix to be dilated 3 cm with bulging membranes and the cerclage suture was in place. She was sent immediately to the hospital. Sonogram showed the baby to be vertex, normal ZACARIAS. She was treated with magnesium sulfate for tocolysis and neuroprotection, steroids for FLM completed, IV antibiotics for GBS prophylaxis which was switched to PO ampicillin and erythomycin. [facility] consult was done and agreed with above management. NICU consult was done. She also has chronic HTN and has not been on any medication. This AM, she denies any contractions, fluid leakage or bleeding. She reports good movement. Exam (05/09/18): cervix 3 cm/70%/high, cerclage in place, unchanged from admission). Patient reports: movement normal, other (episodic back pain), no new complaints, no loss of fluid, no vaginal bleeding, no contractions Objective - Vital Signs Vital Signs: Vital Signs - 12hr 05/10/18 05/10/18 05/10/18 06:16 06:17 08:07 Temperature 97.3 F L Pulse Rate 96 H 96 H Respiratory 18 Rate Blood Pressure 99/48 120/62 Blood Pressure 99/48 [Right] 05/10/18 05/10/18 08:50 08:57 Temperature 97 F L Pulse Rate 102 H 102 H Respiratory 16 Rate Blood Pressure 103/55 Blood Pressure 103/55 [Right] - Exam Cardiovascular: Normal S1, Normal S2 Lungs: Clear to auscultation Vulva: both: normal FHR: category 1 Uterine Contraction Monitor Mode: External Uterine Contraction Pattern: Absent - Labs Labs: Abnormal Labs 04/30/18 04/30/18 04/30/18 16:20 16:20 16:20 WBC 11.8 H MCH 27 L Seg Neutrophils % 75.5 H Seg Neutrophils # 8.9 H Creatinine 0.6 L Magnesium Urine WBC (Auto) 50.0 H U Epithel Cells (Auto) 135.0 H 05/01/18 05/01/18 05/02/18 14:32 19:56 07:54 WBC MCH Seg Neutrophils % Seg Neutrophils # Creatinine Magnesium 3.50 H 4.30 H 4.40 H Urine WBC (Auto) U Epithel Cells (Auto) 05/02/18 05/02/18 05/03/18 14:41 Unknown 04:50 WBC MCH Seg Neutrophils % Seg Neutrophils # Creatinine Magnesium 4.20 H 4.30 H 4.30 H Urine WBC (Auto) U Epithel Cells (Auto) 05/03/18 05/03/18 05/03/18 05:33 12:51 17:36 WBC MCH Seg Neutrophils % Seg Neutrophils # Creatinine Magnesium 4.30 H 4.10 H 3.40 H Urine WBC (Auto) U Epithel Cells (Auto) 05/04/18 05/05/18 05:58 09:37 WBC MCH 27 L Seg Neutrophils % 80.5 H Seg Neutrophils # 8.5 H Creatinine Magnesium 3.00 H Urine WBC (Auto) U Epithel Cells (Auto) - Results US- obstetric: report reviewed
[2018-05-10] MEDS: MONISTAT-DERM TP SCH (22:44)
[2018-05-11] MEDS: PROCARDIA*For Tocolysis only PO SCH ×4 (00:06→18:19)
[2018-05-11] MEDS: AMPICILLIN PO SCH ×4 (00:06→18:19)
[2018-05-11] MEDS: AMBIEN PO PRN (00:07)
[2018-05-11] MEDS: ERY-TAB PO SCH ×3 (06:17→22:30)
[2018-05-11] MEDS: PRENATAL VITAMIN PO SCH (10:11)
[2018-05-11] MEDS: COLACE PO PRN (12:26)
--- NOTE | 2018-05-11 12:50 | Progress Note ---
Assessment and Plan ASSESSMENT / DIAGNOSIS 1. IUP at 27 weeks 2 days. 2. Hx Incompetent cervix, cerclage in situ 3. [place]/17P started 2 days ago 4. Status post steroids for lung maturity. 5. status post Magnesium Sulfate 6. labor. last exam 3 cm dilated 7. Per OB's report bulging membrane noted in office 8. Hx CHTN; not on meds, stable BPs RECOMMENDATIONS & ORDERS 1. See our previous consult. 2. Drifting use of tocolytics consider Procardia. 3. Status post Antibiotics secondary to bulging membrane: Ampicillin and Erythromycin, may switch to PO 4. Status post steroids for lung maturity 5. status post Magnesium Sulfate 6. [facility] to follow patient 7. Delivery recommended if compromise 8. If there is evidence of labor remove cerclage 9. We recommend continued hospitalization at this point; however if patient remains quiescent and has NO change in vaginal exam we would recommend consideration of discharge home and outpatient follow-up. Thank you for allowing us to participate in the care of this patient. We look forward to the opportunity to assist in her continued management. If you have any questions, we may be reached at [phone]. Subjective - Subjective Date of service: 05/11/18 Principal diagnosis: IUP @ 27 3/7 weeks; Incompetent cervix Interval history: As you are aware, this is a 32 year old patient at 27 weeks 2 days gestation for whom I recently provided a perinatology consultation. Patient describes mild ongoing contractions. Patient reports: movement normal, other (episodic back pain), no new complaints, no loss of fluid, no vaginal bleeding, no contractions Objective - Vital Signs Vital Signs: Vital Signs - 12hr 05/11/18 05/11/18 05/11/18 04:10 04:11 08:26 Temperature 98.9 F 97.3 F L Pulse Rate 106 H 109 H Respiratory 18 18 Rate Blood Pressure 119/83 Blood Pressure 101/54 [Right] 05/11/18 05/11/18 08:27 12:14 Temperature 97.6 F Pulse Rate 109 H 100 H Respiratory 18 Rate Blood Pressure 101/54 104/49 Blood Pressure 104/49 [Right] - Labs Labs: Abnormal Labs 04/30/18 04/30/18 04/30/18 16:20 16:20 16:20 WBC 11.8 H MCH 27 L Seg Neutrophils % 75.5 H Seg Neutrophils # 8.9 H Creatinine 0.6 L Magnesium Urine WBC (Auto) 50.0 H U Epithel Cells (Auto) 135.0 H 05/01/18 05/01/18 05/02/18 14:32 19:56 07:54 WBC MCH Seg Neutrophils % Seg Neutrophils # Creatinine Magnesium 3.50 H 4.30 H 4.40 H Urine WBC (Auto) U Epithel Cells (Auto) 05/02/18 05/02/18 05/03/18 14:41 Unknown 04:50 WBC MCH Seg Neutrophils % Seg Neutrophils # Creatinine Magnesium 4.20 H 4.30 H 4.30 H Urine WBC (Auto) U Epithel Cells (Auto) 05/03/18 05/03/18 05/03/18 05:33 12:51 17:36 WBC MCH Seg Neutrophils % Seg Neutrophils # Creatinine Magnesium 4.30 H 4.10 H 3.40 H Urine WBC (Auto) U Epithel Cells (Auto) 05/04/18 05/05/18 05:58 09:37 WBC MCH 27 L Seg Neutrophils % 80.5 H Seg Neutrophils # 8.5 H Creatinine Magnesium 3.00 H Urine WBC (Auto) U Epithel Cells (Auto)
[2018-05-11] MEDS ORDERED: DIFLUCAN PO ONE (20:00)
[2018-05-12] MEDS: PROCARDIA*For Tocolysis only PO SCH ×5 (00:19→23:48)
[2018-05-12] MEDS: AMPICILLIN PO SCH ×2 (00:20→06:06)
[2018-05-12] MEDS: AMBIEN PO PRN ×2 (00:22→23:50)
[2018-05-12] MEDS: ERY-TAB PO SCH (06:06)
[2018-05-12] MEDS: COLACE PO PRN (10:18)
[2018-05-12] MEDS: PRENATAL VITAMIN PO SCH (10:18)
--- NOTE | 2018-05-12 17:48 | Progress Note ---
Assessment and Plan - Patient Problems (1) Cervical incompetence Current Visit: Yes Status: Acute Plan to address problem: Patient has not had further cervical change. Plan continued inpatient hospitalization. Continue bedrest and weekly 17-OHP injections. Subjective - Subjective Principal diagnosis: IUP @ 27 5/7 weeks; Incompetent cervix Interval history: She denies loss of fluid, vaginal bleeding and reports good movement. She denies contractions. Patient reports: movement normal, other (episodic back pain), no new complaints, no loss of fluid, no vaginal bleeding, no contractions Objective - Vital Signs Vital Signs: Vital Signs - 12hr 05/12/18 05/12/18 05/12/18 07:35 07:36 12:06 Temperature 98.0 F 98.3 F Pulse Rate 106 H 106 H 100 H Respiratory 18 18 Rate Blood Pressure 105/60 122/56 Blood Pressure 105/60 122/56 [Right] 05/12/18 16:10 Temperature 98.9 F Pulse Rate 101 H Respiratory 18 Rate Blood Pressure 105/51 Blood Pressure 105/51 [Right] - Labs Labs: Abnormal Labs 04/30/18 04/30/18 04/30/18 16:20 16:20 16:20 WBC 11.8 H MCH 27 L Seg Neutrophils % 75.5 H Seg Neutrophils # 8.9 H Creatinine 0.6 L Magnesium Urine WBC (Auto) 50.0 H U Epithel Cells (Auto) 135.0 H 05/01/18 05/01/18 05/02/18 14:32 19:56 07:54 WBC MCH Seg Neutrophils % Seg Neutrophils # Creatinine Magnesium 3.50 H 4.30 H 4.40 H Urine WBC (Auto) U Epithel Cells (Auto) 05/02/18 05/02/18 05/03/18 14:41 Unknown 04:50 WBC MCH Seg Neutrophils % Seg Neutrophils # Creatinine Magnesium 4.20 H 4.30 H 4.30 H Urine WBC (Auto) U Epithel Cells (Auto) 05/03/18 05/03/18 05/03/18 05:33 12:51 17:36 WBC MCH Seg Neutrophils % Seg Neutrophils # Creatinine Magnesium 4.30 H 4.10 H 3.40 H Urine WBC (Auto) U Epithel Cells (Auto) 05/04/18 05/05/18 05:58 09:37 WBC MCH 27 L Seg Neutrophils % 80.5 H Seg Neutrophils # 8.5 H Creatinine Magnesium 3.00 H Urine WBC (Auto) U Epithel Cells (Auto)
[2018-05-12] MEDS: MONISTAT-DERM TP SCH (22:00)
[2018-05-13] MEDS: PROCARDIA*For Tocolysis only PO SCH ×4 (05:31→23:26)
[2018-05-13] MEDS: MONISTAT-DERM TP SCH ×2 (06:22→23:27)
[2018-05-13] MEDS: PRENATAL VITAMIN PO SCH (09:59)
--- NOTE | 2018-05-13 11:39 | Progress Note ---
Assessment and Plan - Patient Problems (1) labor Onset Date: 05/02/18 Current Visit: Yes Status: Acute Qualifiers: labor trimester: third trimester labor delivery status: without delivery Qualified Code(s): O60.03 - labor without delivery, third trimester Plan to address problem: Dexamethasone for FLM completed. Magnesium sulfate for neuroprotection and tocolysis discontinued. She is on procardia. IV antibiotics were switched to PO erythromycin and ampicillin. [facility] and NICU consult done. Continous monitoring. Cervix unchanged from admission. Sono done on 05/05, baby is vertex, ZACARIAS normal. (2) Cervical incompetence Current Visit: Yes Status: Acute (3) Cervical cerclage suture present Onset Date: 05/02/18 Current Visit: Yes Status: Acute Qualifiers: Trimester: third trimester Qualified Code(s): O34.33 - Maternal care for cervical incompetence, third trimester (4) Obesity Current Visit: Yes Status: Acute (5) Chronic hypertension affecting Current Visit: Yes Status: Acute Plan to address problem: BP has been stable. If elevated, will start anti-HTN and do toxemia labs. (6) 27 weeks gestation of Current Visit: Yes Status: Acute Subjective - Subjective Date of service: 05/13/18 Principal diagnosis: IUP @ 27 6/7 weeks; Incompetent cervix Interval history: Patient is a 32 year old , LMP 10/30/17, EDC 08/06/18 at 27 weeks and 3 days gestation who was admitted for labor (10 days ago). This patient has been co-managed with [facility] for a history of cervical incompetence and she has a cerclage placed 2 months ago. She saw [facility] 3 weeks ago and sonogram showed funneling. She was offered [place] and [place] for FLM. She did not start [place] until the day of her admission due to insurance issues. She went for a routine visit on 04/30 and reported that she has been feeling pelvic pressure and abdominal tightening for 2 days. She denied any fluid leakage or bleeding. She reports good movement. Exam in the office showed the cervix to be dilated 3 cm with bulging membranes and the cerclage suture was in place. She was sent immediately to the hospital. Sonogram showed the baby to be vertex, normal ZACARIAS. She was treated with magnesium sulfate for tocolysis and neuroprotection, steroids for FLM completed, IV antibiotics for GBS prophylaxis which was switched to PO ampicillin and erythomycin. [facility] consult was done and agreed with above management. NICU consult was done. She also has chronic HTN and has not been on any medication. This AM, she denies any contractions, fluid leakage or bleeding. She reports good movement. Exam (05/09/18): cervix 3 cm/70%/high, cerclage in place, unchanged from admission). Patient reports: movement normal, other (episodic back pain), no new complaints, no loss of fluid, no vaginal bleeding, no contractions Objective - Vital Signs Vital Signs: Vital Signs - 12hr 05/13/18 05/13/18 05/13/18 04:23 08:14 08:16 Temperature 99.1 F 98.1 F Pulse Rate 108 H 99 H 102 H Respiratory 14 Rate Blood Pressure 124/58 106/54 Blood Pressure 124/58 [Left] Blood Pressure 106/54 [Right] O2 Sat by Pulse 100 Oximetry - Exam Cardiovascular: Normal S1, Normal S2 Lungs: Clear to auscultation Vulva: both: normal FHR: category 1 Uterine Contraction Monitor Mode: External Uterine Contraction Pattern: Absent Deep Tendon Reflex Grade: Normal +2 - Labs Labs: Abnormal Labs 04/30/18 04/30/18 04/30/18 16:20 16:20 16:20 WBC 11.8 H MCH 27 L Seg Neutrophils % 75.5 H Seg Neutrophils # 8.9 H Creatinine 0.6 L Magnesium Urine WBC (Auto) 50.0 H U Epithel Cells (Auto) 135.0 H 05/01/18 05/01/18 05/02/18 14:32 19:56 07:54 WBC MCH Seg Neutrophils % Seg Neutrophils # Creatinine Magnesium 3.50 H 4.30 H 4.40 H Urine WBC (Auto) U Epithel Cells (Auto) 05/02/18 05/02/18 05/03/18 14:41 Unknown 04:50 WBC MCH Seg Neutrophils % Seg Neutrophils # Creatinine Magnesium 4.20 H 4.30 H 4.30 H Urine WBC (Auto) U Epithel Cells (Auto) 05/03/18 05/03/18 05/03/18 05:33 12:51 17:36 WBC MCH Seg Neutrophils % Seg Neutrophils # Creatinine Magnesium 4.30 H 4.10 H 3.40 H Urine WBC (Auto) U Epithel Cells (Auto) 05/04/18 05/05/18 05:58 09:37 WBC MCH 27 L Seg Neutrophils % 80.5 H Seg Neutrophils # 8.5 H Creatinine Magnesium 3.00 H Urine WBC (Auto) U Epithel Cells (Auto) - Results US- obstetric: report reviewed
[2018-05-13 12:47] LABS: Basophils % (Auto) 0.3 % (0.0-1.8); Eosinophils # (Auto) 0.1 K/mm3 (0.0-0.4); Eosinophils % (Auto) 1.2 % (0.0-4.3); Hematocrit 35.3 % (30.3-42.9); Hemoglobin 11.7 gm/dl (10.1-14.3); Lymphocytes # (Auto) 1.5 K/mm3 (1.2-5.4); Lymphocytes % (Auto) 13.6 % (13.4-35.0); Mean Corpuscular HGB Conc 33 % (30-34); Mean Corpuscular Volume 80 fl (79-97); Monocytes # (Auto) 0.6 K/mm3 (0.0-0.8); Monocytes % (Auto) 5.9 % (0.0-7.3); Platelet Count 237 K/mm3 (140-440); Red Blood Count 4.44 M/mm3 (3.65-5.03); Red Cell Distribution Width 15.1 % (13.2-15.2)
[2018-05-13] MEDS: COLACE PO PRN (12:54)
[2018-05-13] MEDS: AMBIEN PO PRN (23:26)
[2018-05-14] MEDS: PROCARDIA*For Tocolysis only PO SCH ×3 (05:00→23:48)
--- NOTE | 2018-05-14 09:49 | Progress Note ---
Assessment and Plan - Patient Problems (1) labor Onset Date: 05/02/18 Current Visit: Yes Status: Acute Qualifiers: labor trimester: third trimester labor delivery status: without delivery Qualified Code(s): O60.03 - labor without delivery, third trimester Plan to address problem: Dexamethasone for FLM completed. Magnesium sulfate for neuroprotection and tocolysis discontinued. She is on procardia. IV antibiotics were switched to PO erythromycin and ampicillin. [facility] and NICU consult done. Continous monitoring. Cervix unchanged from admission. Sono done on 05/05, baby is vertex, ZACARIAS normal. (2) Cervical incompetence Current Visit: Yes Status: Acute (3) Cervical cerclage suture present Onset Date: 05/02/18 Current Visit: Yes Status: Acute Qualifiers: Trimester: third trimester Qualified Code(s): O34.33 - Maternal care for cervical incompetence, third trimester (4) Obesity Current Visit: Yes Status: Acute (5) Chronic hypertension affecting Current Visit: Yes Status: Acute Plan to address problem: BP has been stable. If elevated, will start anti-HTN and do toxemia labs. (6) 27 weeks gestation of Current Visit: Yes Status: Acute Subjective - Subjective Date of service: 05/14/18 Principal diagnosis: IUP @ 28 weeks; Incompetent cervix Interval history: Patient is a 32 year old , LMP 10/30/17, EDC 08/06/18 at 27 weeks and 3 days gestation who was admitted for labor (10 days ago). This patient has been co-managed with [facility] for a history of cervical incompetence and she has a cerclage placed 2 months ago. She saw [facility] 3 weeks ago and sonogram showed funneling. She was offered [place] and [place] for FLM. She did not start [place] until the day of her admission due to insurance issues. She went for a routine visit on 04/30 and reported that she has been feeling pelvic pressure and abdominal tightening for 2 days. She denied any fluid leakage or bleeding. She reports good movement. Exam in the office showed the cervix to be dilated 3 cm with bulging membranes and the cerclage suture was in place. She was sent immediately to the hospital. Sonogram showed the baby to be vertex, normal ZACARIAS. She was treated with magnesium sulfate for tocolysis and neuroprotection, steroids for FLM completed, IV antibiotics for GBS prophylaxis which was switched to PO ampicillin and erythomycin. [facility] consult was done and agreed with above management. NICU consult was done. She also has chronic HTN and has not been on any medication. This AM, she denies any contractions, fluid leakage or bleeding. She reports good movement. Exam (05/09/18): cervix 3 cm/70%/high, cerclage in place, unchanged from admission). Patient reports: movement normal, other (episodic back pain), no new complaints, no loss of fluid, no vaginal bleeding, no contractions Objective - Vital Signs Vital Signs: Vital Signs - 12hr 05/14/18 05/14/18 08:27 08:34 Temperature 97.7 F Pulse Rate 102 H Respiratory 16 Rate Blood Pressure 103/54 - Exam Cardiovascular: Normal S1, Normal S2 Lungs: Clear to auscultation Vulva: both: normal FHR: category 1 Uterine Contraction Monitor Mode: External Uterine Contraction Pattern: Absent Deep Tendon Reflex Grade: Normal +2 - Labs Labs: Abnormal Labs 04/30/18 04/30/18 04/30/18 16:20 16:20 16:20 WBC 11.8 H MCH 27 L Seg Neutrophils % 75.5 H Seg Neutrophils # 8.9 H Creatinine 0.6 L Magnesium Urine WBC (Auto) 50.0 H U Epithel Cells (Auto) 135.0 H 05/01/18 05/01/18 05/02/18 14:32 19:56 07:54 WBC MCH Seg Neutrophils % Seg Neutrophils # Creatinine Magnesium 3.50 H 4.30 H 4.40 H Urine WBC (Auto) U Epithel Cells (Auto) 05/02/18 05/02/18 05/03/18 14:41 Unknown 04:50 WBC MCH Seg Neutrophils % Seg Neutrophils # Creatinine Magnesium 4.20 H 4.30 H 4.30 H Urine WBC (Auto) U Epithel Cells (Auto) 05/03/18 05/03/18 05/03/18 05:33 12:51 17:36 WBC MCH Seg Neutrophils % Seg Neutrophils # Creatinine Magnesium 4.30 H 4.10 H 3.40 H Urine WBC (Auto) U Epithel Cells (Auto) 05/04/18 05/05/18 05/13/18 05:58 09:37 12:37 WBC MCH 27 L 26 L Seg Neutrophils % 80.5 H 79.0 H Seg Neutrophils # 8.5 H 8.5 H Creatinine Magnesium 3.00 H Urine WBC (Auto) U Epithel Cells (Auto) Laboratory Results - last 24 hr 05/13/18 12:37 WBC 10.8 RBC 4.44 Hgb 11.7 Hct 35.3 MCV 80 MCH 26 L MCHC 33 RDW 15.1 Plt Count 237 Lymph % (Auto) 13.6 [place] % (Auto) 5.9 Eos % (Auto) 1.2 Baso % (Auto) 0.3 Lymph # 1.5 [place] # 0.6 Eos # 0.1 Baso # 0.0 Seg Neutrophils % 79.0 H Seg Neutrophils # 8.5 H
--- NOTE | 2018-05-14 14:52 | Ultrasound Report ---
ULTRASOUND BIOPHYSICAL PROFILE: History: labor Technique: Transabdominal ultrasound with Doppler interrogation. 2 - breathing movements 2 - movements 2 - posture and tone 2 - Qualitative amniotic fluid volume 8 - TOTAL SCORE OF POSSIBLE 8 Heart Rate (bpm) 141
--- NOTE | 2018-05-14 14:52 | Ultrasound Report ---
ULTRASOUND OB VELOCIMETRY UMBILICAL ARTERY HISTORY: labor. TECHNIQUE: Transabdominal ultrasound. Spectral Doppler interrogation was performed on 3 segments of the umbilical cord. FINDINGS: heart rate measures 141 beats per minute. The spectral waveforms are normal and persistent. No evidence for loss or reversal of end-diastolic flow. The resistive index average measures 0.72. The systolic/diastolic ratio average measures 3.76. IMPRESSION: Elevated resistive indices.
--- NOTE | 2018-05-14 14:57 | Ultrasound Report ---
OB ULTRASOUND History: labor. Technique: Transabdominal ultrasound with Doppler interrogation. Gestation: Single Position: Cephalic Amniotic Fluid: Normal ZACARIAS = 14.6 cm Heart Rate: 141 BPM BPD: 7.2 cm = 28 w 5 d HC: 25.9 cm = 28 w 1 d AC: 22.8 cm = 27 w 2 d FL: 5.4 cm = 28 w 3 d HC/AC Ratio: 1.13 Cephalic Index: 84.2 Estimated Weight: 1129 grams Clinical age = 28 w 0 d EDC: 08/06/18 US Gest. Age = 28 w 1 d EDC: 08/05/18 IMPRESSION: Viable, single intrauterine as described.
[2018-05-14] MEDS: MONISTAT-DERM TP SCH (22:10)
[2018-05-14] MEDS: AMBIEN PO PRN (23:48)
[2018-05-14] MEDS: COLACE PO PRN (23:51)
[2018-05-15] MEDS: PROCARDIA*For Tocolysis only PO SCH ×4 (06:00→23:34)
[2018-05-15] MEDS: PRENATAL VITAMIN PO SCH (10:47)
[2018-05-15] MEDS: COLACE PO PRN (12:31)
--- NOTE | 2018-05-15 14:01 | Progress Note ---
Assessment and Plan Assessment 1. 28 1/7 weeks, SIUP 2. Hx Incompetent cervix, cerclage in situ 3. [place]/17P started 2 days prior to admission 4. S/P steroid for lung maturity 5. S/P Magnesium Sulfate therapy 6. Short cervix; last exam 3 cm dilated 7. Per OB's report bulging membrane noted in office 8. Hx CHTN; not on meds, stable BPs Recommendations 1. [place] use of tocolytics consider Procardia 2. Antibiotics secondary to bulging membrane: Ampicillin and Erythromycin 3. S/P Dexamethasone for lung maturity 4. S/P Magnesium Sulfate for neuroprotection 5. [facility] to follow patient 6. Delivery recommended if compromise 7. Remove cerclage with evidence of labor 8. We recommend continued hospitalization at this point; if no change in vaginal exam we recommend consideration of outpatient follow-up Call [facility] outside installation machinist MD, for any questions or concerns. Subjective - Subjective Date of service: 05/15/18 Principal diagnosis: IUP @ 28 weeks; Incompetent cervix Interval history: Ms Chung is a 32 year old patient at 28 1/7 weeks gestation for whom I recently provided a perinatology consultation secondary to incompetent cervix, cerclage in situ with dilation of 3 cm. Patient describes mild ongoing contractions with episodic back pain. She denies LOF, contraction at present, vaginal bleeding. Patient reports: movement normal, other (episodic back pain), no new complaints, no loss of fluid, no vaginal bleeding, no contractions Objective - Vital Signs Vital Signs: Vital Signs - 12hr 05/15/18 05/15/18 05/15/18 03:55 04:32 07:44 Temperature Pulse Rate 95 H 96 H 102 H Respiratory Rate Blood Pressure 117/66 102/55 Blood Pressure [Right] O2 Sat by Pulse 98 Oximetry 05/15/18 05/15/18 05/15/18 07:49 07:54 12:11 Temperature 100.0 F H 98.7 F Pulse Rate 98 H 98 H 91 H Respiratory 18 18 Rate Blood Pressure 109/66 113/54 Blood Pressure 109/66 113/54 [Right] O2 Sat by Pulse 99 97 Oximetry - Exam Breasts: deferred Cardiovascular: Regular rate Lungs: Normal air movement Abdomen: Present: normal appearance, other (gravid, nontender) Uterus: Present: normal - Labs Labs: Abnormal Labs 0104/30/18 04/30/18 16:20 16:20 16:20 WBC 11.8 H MCH 27 L Seg Neutrophils % 75.5 H Seg Neutrophils # 8.9 H Creatinine 0.6 L Magnesium Urine WBC (Auto) 50.0 H U Epithel Cells (Auto) 135.0 H 05/01/18 05/01/18 05/02/18 14:32 19:56 07:54 WBC MCH Seg Neutrophils % Seg Neutrophils # Creatinine Magnesium 3.50 H 4.30 H 4.40 H Urine WBC (Auto) U Epithel Cells (Auto) 05/02/18 05/02/18 05/03/18 14:41 Unknown 04:50 WBC MCH Seg Neutrophils % Seg Neutrophils # Creatinine Magnesium 4.20 H 4.30 H 4.30 H Urine WBC (Auto) U Epithel Cells (Auto) 05/03/18 05/03/18 05/03/18 05:33 12:51 17:36 WBC MCH Seg Neutrophils % Seg Neutrophils # Creatinine Magnesium 4.30 H 4.10 H 3.40 H Urine WBC (Auto) U Epithel Cells (Auto) 05/04/18 05/05/18 05/13/18 05:58 09:37 12:37 WBC MCH 27 L 26 L Seg Neutrophils % 80.5 H 79.0 H Seg Neutrophils # 8.5 H 8.5 H Creatinine Magnesium 3.00 H Urine WBC (Auto) U Epithel Cells (Auto)
--- NOTE | 2018-05-15 19:17 | Progress Note ---
Assessment and Plan - Patient Problems (1) Cervical incompetence Current Visit: Yes Status: Acute Plan to address problem: Continue routine care. Continue weekly ultrasounds. Continue Q8 monitoring. No signs of labor progression. Continue weekly progesterone injections. Plan 1hr OGTT tomorrow morning. Subjective - Subjective Principal diagnosis: IUP @ 26 4/7 weeks; Incompetent cervix Interval history: She denies loss of fluid, vaginal bleeding and reports good movement. She denies contractions. She is resting comfortably in bed. Patient reports: movement normal, other (episodic back pain), no new complaints, no loss of fluid, no vaginal bleeding, no contractions Objective - Vital Signs Vital Signs: Vital Signs - 12hr 05/15/18 05/15/18 05/15/18 07:44 07:49 07:54 Temperature 100.0 F H Pulse Rate 102 H 98 H 98 H Respiratory 18 Rate Blood Pressure 109/66 Blood Pressure 109/66 [Right] O2 Sat by Pulse 98 99 97 Oximetry 05/15/18 05/15/18 05/15/18 12:11 15:48 15:50 Temperature 98.7 F 98.1 F Pulse Rate 91 H 102 H 102 H Respiratory 18 18 Rate Blood Pressure 113/54 107/59 Blood Pressure 113/54 107/59 [Right] O2 Sat by Pulse Oximetry - Exam FHR: category 1 - Labs Labs: Abnormal Labs 04/30/18 04/30/18 04/30/18 16:20 16:20 16:20 WBC 11.8 H MCH 27 L Seg Neutrophils % 75.5 H Seg Neutrophils # 8.9 H Creatinine 0.6 L Magnesium Urine WBC (Auto) 50.0 H U Epithel Cells (Auto) 135.0 H 05/01/18 05/01/18 05/02/18 14:32 19:56 07:54 WBC MCH Seg Neutrophils % Seg Neutrophils # Creatinine Magnesium 3.50 H 4.30 H 4.40 H Urine WBC (Auto) U Epithel Cells (Auto) 05/02/18 05/02/18 05/03/18 14:41 Unknown 04:50 WBC MCH Seg Neutrophils % Seg Neutrophils # Creatinine Magnesium 4.20 H 4.30 H 4.30 H Urine WBC (Auto) U Epithel Cells (Auto) 05/03/18 05/03/18 05/03/18 05:33 12:51 17:36 WBC MCH Seg Neutrophils % Seg Neutrophils # Creatinine Magnesium 4.30 H 4.10 H 3.40 H Urine WBC (Auto) U Epithel Cells (Auto) 05/04/18 05/05/18 05/13/18 05:58 09:37 12:37 WBC MCH 27 L 26 L Seg Neutrophils % 80.5 H 79.0 H Seg Neutrophils # 8.5 H 8.5 H Creatinine Magnesium 3.00 H Urine WBC (Auto) U Epithel Cells (Auto)
[2018-05-15] MEDS: HYDROXYPROGESTERONE CAPROATE IM SCH (20:27)
[2018-05-15] MEDS: AMBIEN PO PRN (23:35)
[2018-05-16] MEDS: PROCARDIA*For Tocolysis only PO SCH ×3 (06:04→18:10)
[2018-05-16] MEDS: PRENATAL VITAMIN PO SCH ×2 (10:08→10:09)
[2018-05-16] MEDS: TYLENOL PO PRN (10:12)
--- NOTE | 2018-05-16 13:17 | Consultation ---
Consult Note - Parent Education I met with parent(s) and discussed the following:: Need for NICU admission, Poss ible need for intubation and surfactant or other resp support, Temperature regulation, Head ultrasounds to evaluate IVH, Eye exams for ROP screening, Possible need for IV fluids/TPN and IV antibiotics, Possible need for umbilical lines, Importance of providing breast milk & encouraged pumping aft delivery, Donor breast milk if baby meets criteria after , Slow feeding advancement and monitoring of tolerance. NG/OG feeds, Need to monitor for jaundice, Data for survival & survival without significant co-morbidities Parent(s) demonstrated understanding of all the information:: Yes Additional Comment: Second meeting with mother now at 28 weeks gestation Assessment and Plan - Assessment Gestation:: 28 (weeks) Estimated Weight: 1129 grams on 05/04/18 Baby's gender: Male Baby's name: Navi - Plan Plan: Agree with Mag & steroids Will attend delivery Please call NICU with questions
--- NOTE | 2018-05-16 15:17 | Progress Note ---
Assessment and Plan - Patient Problems (1) Cervical incompetence Current Visit: Yes Status: Acute Plan to address problem: Continue routine care. Continue weekly ultrasounds. Continue Q8 monitoring. No signs of labor progression. Continue weekly progesterone injections. Subjective - Subjective Principal diagnosis: IUP @ 26 4/7 weeks; Incompetent cervix Interval history: She denies loss of fluid, vaginal bleeding and reports good movement. She denies contractions. She is resting comfortably in bed. Patient reports: movement normal, other (episodic back pain), no new complaints, no loss of fluid, no vaginal bleeding, no contractions Objective - Vital Signs Vital Signs: Vital Signs - 12hr 05/16/18 05/16/18 05/16/18 05:02 05:07 05:12 Temperature Pulse Rate 110 H 104 H 109 H Respiratory Rate Blood Pressure 115/62 O2 Sat by Pulse 99 98 98 Oximetry 05/16/18 05/16/18 05/16/18 05:17 05:22 07:25 Temperature 97.5 F L Pulse Rate 108 H 102 H Respiratory 18 Rate Blood Pressure O2 Sat by Pulse 99 98 Oximetry 05/16/18 05/16/18 07:27 12:33 Temperature Pulse Rate 91 H 99 H Respiratory Rate Blood Pressure 131/60 131/69 O2 Sat by Pulse Oximetry - Labs Labs: Abnormal Labs 04/30/18 04/30/18 04/30/18 16:20 16:20 16:20 WBC 11.8 H MCH 27 L Seg Neutrophils % 75.5 H Seg Neutrophils # 8.9 H Creatinine 0.6 L Magnesium Urine WBC (Auto) 50.0 H U Epithel Cells (Auto) 135.0 H 05/01/18 05/01/18 05/02/18 14:32 19:56 07:54 WBC MCH Seg Neutrophils % Seg Neutrophils # Creatinine Magnesium 3.50 H 4.30 H 4.40 H Urine WBC (Auto) U Epithel Cells (Auto) 05/02/18 05/02/18 05/03/18 14:41 Unknown 04:50 WBC MCH Seg Neutrophils % Seg Neutrophils # Creatinine Magnesium 4.20 H 4.30 H 4.30 H Urine WBC (Auto) U Epithel Cells (Auto) 05/03/18 05/03/18 05/03/18 05:33 12:51 17:36 WBC MCH Seg Neutrophils % Seg Neutrophils # Creatinine Magnesium 4.30 H 4.10 H 3.40 H Urine WBC (Auto) U Epithel Cells (Auto) 05/04/18 05/05/18 05/13/18 05:58 09:37 12:37 WBC MCH 27 L 26 L Seg Neutrophils % 80.5 H 79.0 H Seg Neutrophils # 8.5 H 8.5 H Creatinine Magnesium 3.00 H Urine WBC (Auto) U Epithel Cells (Auto) Laboratory Results - last 24 hr 05/16/18 07:20 Gest Glucose Tolerance
[2018-05-16] MEDS: AMBIEN PO PRN (20:40)
[2018-05-17] MEDS: PROCARDIA*For Tocolysis only PO SCH ×4 (00:10→18:13)
[2018-05-17] MEDS: PRENATAL VITAMIN PO SCH (10:15)
[2018-05-17] MEDS: TYLENOL PO PRN (12:10)
--- NOTE | 2018-05-17 19:25 | Progress Note ---
Assessment and Plan - Patient Problems (1) Cervical incompetence Current Visit: Yes Status: Acute Plan to address problem: Continue routine care. Continue weekly ultrasounds. Continue Q8 monitoring. No signs of labor progression. Continue weekly progesterone injections. NPO after midnight. Plan 3hr OGTT tomorrow morning. Subjective - Subjective Principal diagnosis: IUP @ 28 3/7 weeks; Incompetent cervix Interval history: She denies loss of fluid, vaginal bleeding and reports good movement. She denies contractions. She was notified of abnormal 1hr glucose tolerance test and need for 3hr glucose tolerance test. Discussed diet. Patient reports: movement normal, other (episodic back pain), no new complaints, no loss of fluid, no vaginal bleeding, no contractions Objective - Vital Signs Vital Signs: Vital Signs - 12hr 05/17/18 05/17/18 05/17/18 08:14 08:15 12:18 Temperature 99.4 F Pulse Rate 100 H 99 H Respiratory 18 Rate Blood Pressure 134/63 106/54 Blood Pressure [Right] O2 Sat by Pulse Oximetry 05/17/18 05/17/18 05/17/18 12:22 15:46 15:47 Temperature 97.5 F L 97.4 F L Pulse Rate 98 H 98 H Respiratory 18 20 Rate Blood Pressure 131/72 Blood Pressure 131/72 [Right] O2 Sat by Pulse 99 Oximetry - Exam Uterine Contraction Pattern: Absent - Labs Labs: Abnormal Labs 04/30/18 04/30/18 04/30/18 16:20 16:20 16:20 WBC 11.8 H MCH 27 L Seg Neutrophils % 75.5 H Seg Neutrophils # 8.9 H Creatinine 0.6 L Magnesium Urine WBC (Auto) 50.0 H U Epithel Cells (Auto) 135.0 H 05/01/18 05/01/18 05/02/18 14:32 19:56 07:54 WBC MCH Seg Neutrophils % Seg Neutrophils # Creatinine Magnesium 3.50 H 4.30 H 4.40 H Urine WBC (Auto) U Epithel Cells (Auto) 05/02/18 05/02/18 05/03/18 14:41 Unknown 04:50 WBC MCH Seg Neutrophils % Seg Neutrophils # Creatinine Magnesium 4.20 H 4.30 H 4.30 H Urine WBC (Auto) U Epithel Cells (Auto) 05/03/18 05/03/18 05/03/18 05:33 12:51 17:36 WBC MCH Seg Neutrophils % Seg Neutrophils # Creatinine Magnesium 4.30 H 4.10 H 3.40 H Urine WBC (Auto) U Epithel Cells (Auto) 05/04/18 05/05/18 05/13/18 05:58 09:37 12:37 WBC MCH 27 L 26 L Seg Neutrophils % 80.5 H 79.0 H Seg Neutrophils # 8.5 H 8.5 H Creatinine Magnesium 3.00 H Urine WBC (Auto) U Epithel Cells (Auto)
[2018-05-18] MEDS: AMBIEN PO PRN (00:01)
[2018-05-18] MEDS: PROCARDIA*For Tocolysis only PO SCH ×3 (00:01→12:18)
--- NOTE | 2018-05-18 08:21 | Progress Note ---
Assessment and Plan - Patient Problems (1) Cervical cerclage suture present Onset Date: 05/02/18 Current Visit: Yes Status: Acute Qualifiers: Trimester: third trimester Qualified Code(s): O34.33 - Maternal care for cervical incompetence, third trimester (2) labor Onset Date: 05/02/18 Current Visit: Yes Status: Acute Qualifiers: labor trimester: third trimester labor delivery status: without delivery Qualified Code(s): O60.03 - labor without delivery, third trimester (3) 28 weeks gestation of Onset Date: 05/18/18 Current Visit: Yes Status: Acute Plan to address problem: A: IUP @ 28 4/7 weeks Hx Incompetent cervix, cerclage in situ [place]/17P started 2 days prior to admission S/P steroid for lung maturity S/P Magnesium Sulfate therapy Short cervix; last exam 3 cm dilated Per OB's report bulging membrane noted in office Hx CHTN; not on meds, stable BPs P: Continue present management and use of tocolytics consider Procardia Antibiotics secondary to bulging membrane: Ampicillin and Erythromycin S/P Dexamethasone for lung maturity S/P Magnesium Sulfate for neuroprotection [facility] to follow patient Delivery recommended if compromise Remove cerclage with evidence of labor Continued hospitalization at this point; if no change in vaginal exam we recommend consideration of outpatient follow-up Subjective - Subjective Date of service: 05/18/18 Principal diagnosis: IUP @ 28 4/7 weeks; Incompetent cervix Interval history: Patient is a 32 year old , LMP 10/30/17, EDC 08/06/18 at 28 4/7weeks gestation who was sent from the office for labor. This patient has been co-managed with [facility] for a history of cervical incompetence and she has a cerclage placed 2 months ago. She saw [facility] 2 weeks and sonogram showed funneling. She was offered [place] and [place] for FLM. She did not start [place] due to insurance issues. She went for a routine visit and reported that she has been feeling pelvic pressure and abdominal tightening for 2 days. She denied any fluid leakage or bleeding. She reports good movement. Exam in the office showed the cervix to be dilated 3 cm with bulging membranes and the cerclage suture was in place. She also has chronic HTN and has not been on any medication. She has been hospitalized and currently s/p IV Magnesium sulfate , IV Ampicillin, IV Zithromax and IM steroids for FLM and denies contractions. Today she tolerated the 3 OGTT Glucola. Patient reports: movement normal, other (episodic back pain), no new complaints, no loss of fluid, no vaginal bleeding, no contractions Objective - Vital Signs Vital Signs: Vital Signs - 12hr 05/17/18 05/17/18 05/17/18 20:26 20:31 20:36 Temperature Pulse Rate 93 H 98 H 101 H Respiratory Rate Blood Pressure O2 Sat by Pulse 98 99 99 Oximetry 05/17/18 05/17/18 05/17/18 20:41 20:46 23:55 Temperature 99 F Pulse Rate 96 H 96 H Respiratory 16 Rate Blood Pressure O2 Sat by Pulse 99 98 Oximetry 05/17/18 05/17/18 05/18/18 23:57 23:58 00:03 Temperature Pulse Rate 100 H 99 H 99 H Respiratory Rate Blood Pressure 120/59 O2 Sat by Pulse 99 99 Oximetry 05/18/18 05/18/18 05/18/18 00:08 00:13 00:18 Temperature Pulse Rate 93 H 94 H 95 H Respiratory Rate Blood Pressure O2 Sat by Pulse 100 99 100 Oximetry 05/18/18 05/18/18 05/18/18 04:20 04:22 04:27 Temperature 97.7 F Pulse Rate 96 H 102 H 101 H Respiratory 18 Rate Blood Pressure 102/55 O2 Sat by Pulse 99 99 Oximetry 05/18/18 05/18/18 05/18/18 04:32 04:36 07:36 Temperature Pulse Rate 103 H 95 H 105 H Respiratory Rate Blood Pressure O2 Sat by Pulse 99 99 98 Oximetry 05/18/18 05/18/18 07:37 07:51 Temperature Pulse Rate 100 H 100 H Respiratory Rate Blood Pressure 152/56 118/58 O2 Sat by Pulse Oximetry - Exam Abdomen: Present: normal appearance, soft Uterus: Present: normal FHR: category 1 Uterine Contraction Monitor Mode: External Uterine Contraction Pattern: Absent - Labs Labs: Abnormal Labs 04/30/18 04/30/18 04/30/18 16:20 16:20 16:20 WBC 11.8 H MCH 27 L Seg Neutrophils % 75.5 H Seg Neutrophils # 8.9 H Creatinine 0.6 L Magnesium Urine WBC (Auto) 50.0 H U Epithel Cells (Auto) 135.0 H 05/01/18 05/01/18 05/02/18 14:32 19:56 07:54 WBC MCH Seg Neutrophils % Seg Neutrophils # Creatinine Magnesium 3.50 H 4.30 H 4.40 H Urine WBC (Auto) U Epithel Cells (Auto) 05/02/18 05/02/18 05/03/18 14:41 Unknown 04:50 WBC MCH Seg Neutrophils % Seg Neutrophils # Creatinine Magnesium 4.20 H 4.30 H 4.30 H Urine WBC (Auto) U Epithel Cells (Auto) 05/03/18 05/03/18 05/03/18 05:33 12:51 17:36 WBC MCH Seg Neutrophils % Seg Neutrophils # Creatinine Magnesium 4.30 H 4.10 H 3.40 H Urine WBC (Auto) U Epithel Cells (Auto) 05/04/18 05/05/18 05/13/18 05:58 09:37 12:37 WBC MCH 27 L 26 L Seg Neutrophils % 80.5 H 79.0 H Seg Neutrophils # 8.5 H 8.5 H Creatinine Magnesium 3.00 H Urine WBC (Auto) U Epithel Cells (Auto) Laboratory Results - last 24 hr 05/18/18 06:00 Gest Glucose Tolerance
[2018-05-18] MEDS: PRENATAL VITAMIN PO SCH (12:16)
[2018-05-18] MEDS: COLACE PO PRN (12:16)
--- NOTE | 2018-05-18 13:19 | Progress Note ---
Assessment and Plan A: IUP @ 28 4/7 weeks History of Incompetent cervix, Cerclage in situ 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 05/14/18 [facility] BPP 805/14/18 [facility] U/S VTX 28.1 weeks ( AUA) EFW 1129 gm @ 31 % ZACARIAS of 14.6cm P: Continue present management and use of tocolytics consider Procardia Antibiotics secondary to bulging membrane: Ampicillin and Erythromycin Speculum Pelvic exam for Clinical assessment of reported vaginal discharge and for cervical dilation assessment PO antibiotics Document her baseline PIH labs Document negative cultures Continue [place] until 36 weeks Delivery recommended if compromise Remove cerclage with evidence of labor Continued hospitalization at this point; if no change in vaginal exam and contraction remains quiescent we recommend consideration of outpatient follow- up Subjective - Subjective Principal diagnosis: IUP @ 28 4/7 weeks; Incompetent cervix Patient reports: movement normal, other (Patient reports vaginal discharge ), no new complaints, no loss of fluid, no vaginal bleeding, no contractions Objective - Vital Signs Vital Signs: Vital Signs - 12hr 05/18/18 05/18/18 05/18/18 04:20 04:22 04:27 Temperature 97.7 F Pulse Rate 96 H 102 H 101 H Respiratory 18 Rate Blood Pressure 102/55 Blood Pressure [Right] O2 Sat by Pulse 99 99 Oximetry 05/18/18 05/18/18 05/18/18 04:32 04:36 07:35 Temperature 98.5 F Pulse Rate 103 H 95 H 100 H Respiratory 20 Rate Blood Pressure Blood Pressure 118/58 [Right] O2 Sat by Pulse 99 99 97 Oximetry 05/18/18 05/18/18 05/18/18 07:36 07:37 07:51 Temperature Pulse Rate 105 H 100 H 100 H Respiratory Rate Blood Pressure 152/56 118/58 Blood Pressure [Right] O2 Sat by Pulse 98 Oximetry 05/18/18 05/18/18 12:10 12:12 Temperature 97.8 F Pulse Rate 90 90 Respiratory 20 Rate Blood Pressure 127/74 Blood Pressure 127/74 [Right] O2 Sat by Pulse Oximetry - Exam Breasts: deferred Cardiovascular: Regular rate Lungs: Normal air movement Abdomen: Present: other (gravid). Absent: tenderness, guarding Uterus: Absent: tenderness FHR: category 1 (for 28 weeks ) Uterine Contraction Pattern: Absent (during consult this am) Uterine Contraction Intensity: Mild - Labs Labs: Abnormal Labs 04/30/18 04/30/18 04/30/18 16:20 16:20 16:20 WBC 11.8 H MCH 27 L Seg Neutrophils % 75.5 H Seg Neutrophils # 8.9 H Creatinine 0.6 L Magnesium Urine WBC (Auto) 50.0 H U Epithel Cells (Auto) 135.0 H 05/01/18 05/01/18 05/02/18 14:32 19:56 07:54 WBC MCH Seg Neutrophils % Seg Neutrophils # Creatinine Magnesium 3.50 H 4.30 H 4.40 H Urine WBC (Auto) U Epithel Cells (Auto) 05/02/18 05/02/18 05/03/18 14:41 Unknown 04:50 WBC MCH Seg Neutrophils % Seg Neutrophils # Creatinine Magnesium 4.20 H 4.30 H 4.30 H Urine WBC (Auto) U Epithel Cells (Auto) 05/03/18 05/03/18 05/03/18 05:33 12:51 17:36 WBC MCH Seg Neutrophils % Seg Neutrophils # Creatinine Magnesium 4.30 H 4.10 H 3.40 H Urine WBC (Auto) U Epithel Cells (Auto) 05/04/18 05/05/18 05/13/18 05:58 09:37 12:37 WBC MCH 27 L 26 L Seg Neutrophils % 80.5 H 79.0 H Seg Neutrophils # 8.5 H 8.5 H Creatinine Magnesium 3.00 H Urine WBC (Auto) U Epithel Cells (Auto) Laboratory Results - last 24 hr 05/18/18 06:00 Gest Glucose Tolerance - Results US- obstetric: report reviewed (please see [facility] for full report )
[2018-05-19] MEDS: PROCARDIA*For Tocolysis only PO SCH ×4 (00:03→18:01)
[2018-05-19] MEDS: AMBIEN PO PRN (00:07)
--- NOTE | 2018-05-19 08:40 | Progress Note ---
Assessment and Plan - Patient Problems (1) Cervical incompetence Current Visit: Yes Status: Acute Plan to address problem: Continue routine care. Continue weekly ultrasounds. Continue Q8 monitoring. No signs of labor progression. Continue weekly progesterone injections. NPO after midnight. Plan 3hr OGTT tomorrow morning. (2) Gestational diabetes mellitus (GDM) Current Visit: Yes Status: Acute Plan to address problem: 1. ADA, 2200kcal diet 2. Project Control Analyst consult 3. Begin glucose checks fasting and 2hr postprandial. 4. Will evaluate for medication after glucose log obtained. (3) Chronic hypertension affecting Current Visit: Yes Status: Acute Plan to address problem: BP stable. No medications. Subjective - Subjective Principal diagnosis: IUP @ 28 4/7 weeks; Incompetent cervix Interval history: She denies loss of fluid, vaginal bleeding and reports good movement. She denies contractions. She was notified of abnormal 1hr glucose tolerance test and need for 3hr glucose tolerance test. Discussed diet. Patient reports: movement normal, other (Patient reports vaginal discharge ), no new complaints, no loss of fluid, no vaginal bleeding, no contractions Objective - Vital Signs Vital Signs: Vital Signs - 12hr 05/18/18 05/18/18 05/18/18 20:49 20:54 20:59 Temperature 98.1 F Pulse Rate 93 H 98 H Respiratory 18 Rate Blood Pressure 121/60 Blood Pressure [Right] O2 Sat by Pulse 99 98 Oximetry 05/18/18 05/18/18 05/18/18 21:04 21:09 21:14 Temperature Pulse Rate 97 H 91 H 90 Respiratory Rate Blood Pressure Blood Pressure [Right] O2 Sat by Pulse 98 99 98 Oximetry 05/18/18 05/18/18 05/18/18 21:19 23:53 23:59 Temperature 99.1 F Pulse Rate 88 96 H Respiratory 18 Rate Blood Pressure 125/56 Blood Pressure [Right] O2 Sat by Pulse 99 Oximetry 05/19/18 05/19/18 05/19/18 00:01 00:06 00:11 Temperature Pulse Rate 95 H 100 H 94 H Respiratory Rate Blood Pressure Blood Pressure [Right] O2 Sat by Pulse 98 99 100 Oximetry 05/19/18 05/19/18 05/19/18 00:16 04:42 04:43 Temperature 97.2 F L Pulse Rate 93 H 89 90 Respiratory 18 Rate Blood Pressure 101/59 Blood Pressure [Right] O2 Sat by Pulse 100 100 Oximetry 05/19/18 05/19/18 04:48 07:45 Temperature 97.7 F Pulse Rate 92 H 96 H Respiratory 18 Rate Blood Pressure 96/50 Blood Pressure 96/50 [Right] O2 Sat by Pulse 99 99 Oximetry - Labs Labs: Abnormal Labs 04/30/18 04/30/18 04/30/18 16:20 16:20 16:20 WBC 11.8 H MCH 27 L Seg Neutrophils % 75.5 H Seg Neutrophils # 8.9 H Creatinine 0.6 L Magnesium Urine WBC (Auto) 50.0 H U Epithel Cells (Auto) 135.0 H 05/01/18 05/01/18 05/02/18 14:32 19:56 07:54 WBC MCH Seg Neutrophils % Seg Neutrophils # Creatinine Magnesium 3.50 H 4.30 H 4.40 H Urine WBC (Auto) U Epithel Cells (Auto) 05/02/18 05/02/18 05/03/18 14:41 Unknown 04:50 WBC MCH Seg Neutrophils % Seg Neutrophils # Creatinine Magnesium 4.20 H 4.30 H 4.30 H Urine WBC (Auto) U Epithel Cells (Auto) 05/03/18 05/03/18 05/03/18 05:33 12:51 17:36 WBC MCH Seg Neutrophils % Seg Neutrophils # Creatinine Magnesium 4.30 H 4.10 H 3.40 H Urine WBC (Auto) U Epithel Cells (Auto) 05/04/18 05/05/18 05/13/18 05:58 09:37 12:37 WBC MCH 27 L 26 L Seg Neutrophils % 80.5 H 79.0 H Seg Neutrophils # 8.5 H 8.5 H Creatinine Magnesium 3.00 H Urine WBC (Auto) U Epithel Cells (Auto) Laboratory Results - last 24 hr 05/18/18 06:00 Gest Glucose Tolerance
[2018-05-19] MEDS: PRENATAL VITAMIN PO SCH (10:52)
[2018-05-19] MEDS: COLACE PO PRN (12:35)
[2018-05-20] MEDS: PROCARDIA*For Tocolysis only PO SCH ×6 (06:14→23:38)
[2018-05-20] MEDS: LACTATED RINGERS 1,000 ML IV SCH ×2 (06:30→20:18)
--- NOTE | 2018-05-20 08:59 | Progress Note ---
Assessment and Plan - Patient Problems (1) labor Onset Date: 05/02/18 Current Visit: Yes Status: Acute Qualifiers: labor trimester: third trimester labor delivery status: without delivery Qualified Code(s): O60.03 - labor without delivery, third trimester Plan to address problem: Dexamethasone for FLM completed. Magnesium sulfate for neuroprotection and tocolysis discontinued. She is on procardia. Continue PO erythromycin and ampicillin. [facility] and NICU consult done. Continous monitoring. Cervix unchanged from admission. Sono done on 05/14, baby is vertex, ZACARIAS normal, BPP 8/8. (2) Cervical incompetence Current Visit: Yes Status: Acute (3) Cervical cerclage suture present Onset Date: 05/02/18 Current Visit: Yes Status: Acute Qualifiers: Trimester: third trimester Qualified Code(s): O34.33 - Maternal care for cervical incompetence, third trimester (4) Obesity Current Visit: Yes Status: Acute (5) Chronic hypertension affecting Current Visit: Yes Status: Acute Plan to address problem: BP has been stable. If elevated, will start anti-HTN and do toxemia labs. (6) 27 weeks gestation of Current Visit: Yes Status: Acute (7) Gestational diabetes Current Visit: Yes Status: Acute Plan to address problem: Continue FS monitoring fasting and 2-hr PP. Continue ADA diet. Subjective - Subjective Date of service: 05/20/18 Principal diagnosis: IUP @ 28 6/7 weeks; Incompetent cervix Interval history: Patient is a 32 year old , LMP 10/30/17, EDC 08/06/18 at 27 weeks and 3 days gestation who was admitted for labor (10 days ago). This patient has been co-managed with [facility] for a history of cervical incompetence and she has a cerclage placed 2 months ago. She saw [facility] 3 weeks ago and sonogram showed funneling. She was offered [place] and celestone for FLM. She did not start [place] until the day of her admission due to insurance issues. She went for a routine visit on 04/30 and reported that she has been feeling pelvic pressure and abdominal tightening for 2 days. She denied any fluid leakage or bleeding. She reports good movement. Exam in the office showed the cervix to be dilated 3 cm with bulging membranes and the cerclage suture was in place. She was sent immediately to the hospital. Sonogram showed the baby to be vertex, normal ZACARIAS. She was treated with magnesium sulfate for tocolysis and neuroprotection, steroids for FLM completed, IV antibiotics for GBS prophylaxis which was switched to PO ampicillin and erythomycin. [facility] consult was done and agreed with above management. NICU consult was done. She also has chronic HTN and has not been on any medication. This AM, she denies any contractions, fluid leakage or bleeding. She reports good movement. Exam (05/09/18): cervix 3 cm/70%/high, cerclage in place, unchanged from admission). She also was diagnosed with GDM. Glucose has been controlled with ADA diet. Patient reports: movement normal, other (Patient reports vaginal discharge ), no new complaints, no loss of fluid, no vaginal bleeding, no contractions Objective - Vital Signs Vital Signs: Vital Signs - 12hr 05/19/18 05/19/18 05/20/18 21:45 23:00 00:09 Temperature 98.6 F Pulse Rate 99 H Respiratory 18 18 Rate Blood Pressure 115/70 Blood Pressure [Right] O2 Sat by Pulse Oximetry 05/20/18 05/20/18 05/20/18 00:15 00:45 04:10 Temperature 98.6 F 98.6 F Pulse Rate 93 H Respiratory 18 20 Rate Blood Pressure 106/59 Blood Pressure [Right] O2 Sat by Pulse Oximetry 05/20/18 05/20/18 05/20/18 04:15 06:30 08:12 Temperature 98.4 F 97.8 F 98.5 F Pulse Rate 74 Respiratory 20 18 16 Rate Blood Pressure Blood Pressure 112/68 [Right] O2 Sat by Pulse 98 Oximetry - Exam Cardiovascular: Normal S1, Normal S2 Lungs: Clear to auscultation Vulva: both: normal FHR: category 1 Uterine Contraction Monitor Mode: External Uterine Contraction Pattern: Absent Deep Tendon Reflex Grade: Normal +2 - Labs Labs: Abnormal Labs 04/30/18 04/30/18 04/30/18 16:20 16:20 16:20 WBC 11.8 H MCH 27 L Seg Neutrophils % 75.5 H Seg Neutrophils # 8.9 H Creatinine 0.6 L POC Glucose Magnesium Urine WBC (Auto) 50.0 H U Epithel Cells (Auto) 135.0 H 05/01/18 05/01/1819 14:32 19:56 07:54 WBC MCH Seg Neutrophils % Seg Neutrophils # Creatinine POC Glucose Magnesium 3.50 H 4.30 H 4.40 H Urine WBC (Auto) U Epithel Cells (Auto) 05/02/18 05/02/18 05/03/18 14:41 Unknown 04:50 WBC MCH Seg Neutrophils % Seg Neutrophils # Creatinine POC Glucose Magnesium 4.20 H 4.30 H 4.30 H Urine WBC (Auto) U Epithel Cells (Auto) 05/03/18 05/03/18 05/03/18 05:33 12:51 17:36 WBC MCH Seg Neutrophils % Seg Neutrophils # Creatinine POC Glucose Magnesium 4.30 H 4.10 H 3.40 H Urine WBC (Auto) U Epithel Cells (Auto) 05/04/18 05/05/18 05/13/18 05:58 09:37 12:37 WBC MCH 27 L 26 L Seg Neutrophils % 80.5 H 79.0 H Seg Neutrophils # 8.5 H 8.5 H Creatinine POC Glucose Magnesium 3.00 H Urine WBC (Auto) U Epithel Cells (Auto) 05/20/18 06:56 WBC MCH Seg Neutrophils % Seg Neutrophils # Creatinine POC Glucose 61 L Magnesium Urine WBC (Auto) U Epithel Cells (Auto) Laboratory Results - last 24 hr 05/19/18 05/19/18 05/19/18 10:51 14:37 18:53 POC Glucose 85 73 99 05/19/18 05/20/18 22:18 06:56 POC Glucose 81 61 L - Results US- obstetric: report reviewed
[2018-05-20] MEDS: PRENATAL VITAMIN PO SCH (10:54)
--- NOTE | 2018-05-20 13:35 | Ultrasound Report ---
ULTRASOUND OB VELOCIMETRY UMBILICAL ARTERY HISTORY: labor. TECHNIQUE: Transabdominal ultrasound. Spectral Doppler interrogation was performed on 3 segments of the umbilical cord. FINDINGS: heart rate measures 144 beats per minute. The spectral waveforms are normal and persistent. No evidence for loss or reversal of end-diastolic flow. The resistive index average measures 0.7. The systolic/diastolic ratio average measures 3.42. IMPRESSION: Mildly elevated resistive indices.
--- NOTE | 2018-05-20 13:46 | Progress Note ---
Assessment and Plan Assessment 1. 28 6/7 weeks, SIUP 2. Hx Incompetent cervix, cerclage in situ 3. [place]/17P started 2 days prior to admission 4. S/P steroid for lung maturity 5. S/P Magnesium Sulfate therapy 6. Short cervix; last exam 3 cm dilated 7. Per OB's report bulging membrane noted in office 8. Hx CHTN; not on meds, stable BPs 9. GDM; glucose 85-99 Recommendations 1. [place] use of tocolytics consider Procardia 2. Antibiotics secondary to bulging membrane: Ampicillin and Erythromycin 3. S/P Dexamethasone for lung maturity 4. S/P Magnesium Sulfate for neuroprotection 5. [facility] to follow patient 6. Delivery recommended if compromise 7. Remove cerclage with evidence of labor 8. We recommend continued hospitalization at this point; if no change in vaginal exam we recommend consideration of outpatient follow-up 9. Diabetic Teaching/education 10. Monitor blood glucose 2 hours after meals and fasting 11. Continue [place]/17-P to 36 weeks Call [facility] lubrication supervisor MD, for any questions or concerns. Subjective - Subjective Principal diagnosis: IUP @ 28 6/7 weeks; Incompetent cervix Interval history: Ms Chung is a 32 year old patient at 28 6/7 weeks gestation for whom I recently provided a perinatology consultation secondary to incompetent cervix, cerclage in situ with dilation of 3 cm. Patient newly diagnosed with GDM and currently on ADA diet. Blood glucose has been 85-99. Reports that she has been receiving [place] weekly. Patient denies contractions, leakage of fluid, contraction at present, vaginal bleeding. Patient reports: movement normal, other (Patient reports vaginal discharge ), no new complaints, no loss of fluid, no vaginal bleeding, no contractions Objective - Vital Signs Vital Signs: Vital Signs - 12hr 05/20/18 05/20/18 05/20/18 04:10 04:15 06:30 Temperature 98.4 F 97.8 F Pulse Rate 93 H Respiratory 20 18 Rate Blood Pressure 106/59 Blood Pressure [Right] O2 Sat by Pulse Oximetry 05/20/18 08:12 Temperature 98.5 F Pulse Rate 74 Respiratory 16 Rate Blood Pressure Blood Pressure 112/68 [Right] O2 Sat by Pulse 98 Oximetry - Exam Breasts: deferred Cardiovascular: Regular rate Lungs: Normal air movement Abdomen: Present: normal appearance, other (gravid) Uterine Contraction Pattern: Absent - Labs Labs: Abnormal Labs 04/30/18 04/30/18 04/30/18 16:20 16:20 16:20 WBC 11.8 H MCH 27 L Seg Neutrophils % 75.5 H Seg Neutrophils # 8.9 H Creatinine 0.6 L POC Glucose Magnesium Urine WBC (Auto) 50.0 H U Epithel Cells (Auto) 135.0 H 05/01/18 05/01/18 05/02/18 14:32 19:56 07:54 WBC MCH Seg Neutrophils % Seg Neutrophils # Creatinine POC Glucose Magnesium 3.50 H 4.30 H 4.40 H Urine WBC (Auto) U Epithel Cells (Auto) 05/02/18 05/02/18 05/03/18 14:41 Unknown 04:50 WBC MCH Seg Neutrophils % Seg Neutrophils # Creatinine POC Glucose Magnesium 4.20 H 4.30 H 4.30 H Urine WBC (Auto) U Epithel Cells (Auto) 05/03/18 05/03/18 05/03/18 05:33 12:51 17:36 WBC MCH Seg Neutrophils % Seg Neutrophils # Creatinine POC Glucose Magnesium 4.30 H 4.10 H 3.40 H Urine WBC (Auto) U Epithel Cells (Auto) 05/04/18 05/05/18 05/13/18 05:58 09:37 12:37 WBC MCH 27 L 26 L Seg Neutrophils % 80.5 H 79.0 H Seg Neutrophils # 8.5 H 8.5 H Creatinine POC Glucose Magnesium 3.00 H Urine WBC (Auto) U Epithel Cells (Auto) 05/20/18 06:56 WBC MCH Seg Neutrophils % Seg Neutrophils # Creatinine POC Glucose 61 L Magnesium Urine WBC (Auto) U Epithel Cells (Auto) Laboratory Results - last 24 hr 05/19/18 05/19/18 05/19/18 14:37 18:53 22:18 POC Glucose 73 99 81 05/20/18 06:56 POC Glucose 61 L
[2018-05-20] MEDS: COLACE PO PRN (14:59)
--- NOTE | 2018-05-20 15:12 | Ultrasound Report ---
OB ULTRASOUND History: labor. Technique: Transabdominal ultrasound with Doppler interrogation. Gestation: Single Position: Cephalic Amniotic Fluid: Normal ZACARIAS = 9.9 cm Placenta: Anterior Placental Grade: 1 Heart Rate: 145 BPM BPD: 7.3 cm = 29 w 3 d HC: 26.5 cm = 28 w 6 d AC: 24.8 cm = 29 w 0 d FL: 5.9 cm = 30 w 4 d HC/AC Ratio: 1.1 Cephalic Index: 85.0 Estimated Weight: 1412 grams Clinical age = 28 w 6 d EDC: 08/06/18 US Gest. Age = 29 w 3 d EDC: 08/02/18 IMPRESSION: Viable, single intrauterine as described.
[2018-05-20] MEDS: AMBIEN PO PRN (23:38)
[2018-05-21] MEDS: LACTATED RINGERS 1,000 ML IV SCH ×3 (03:40→22:38)
[2018-05-21] MEDS: PROCARDIA*For Tocolysis only PO SCH ×4 (05:34→23:43)
--- NOTE | 2018-05-21 09:12 | Progress Note ---
Assessment and Plan - Patient Problems (1) labor Onset Date: 05/02/18 Current Visit: Yes Status: Acute Qualifiers: labor trimester: third trimester labor delivery status: without delivery Qualified Code(s): O60.03 - labor without delivery, third trimester Plan to address problem: Dexamethasone for FLM completed. Magnesium sulfate for neuroprotection and tocolysis discontinued. She is on procardia. Continue PO erythromycin and ampicillin. [facility] and NICU consult done. Continous monitoring. Cervix unchanged from admission. Sono done on 05/20, baby is vertex, ZACARIAS normal, BPP 8/8. (2) Cervical incompetence Current Visit: Yes Status: Acute (3) Cervical cerclage suture present Onset Date: 05/02/18 Current Visit: Yes Status: Acute Qualifiers: Trimester: third trimester Qualified Code(s): O34.33 - Maternal care for cervical incompetence, third trimester (4) Obesity Current Visit: Yes Status: Acute (5) Chronic hypertension affecting Current Visit: Yes Status: Acute Plan to address problem: BP has been stable. If elevated, will start anti-HTN and do toxemia labs. (6) 27 weeks gestation of Current Visit: Yes Status: Acute (7) Gestational diabetes Current Visit: Yes Status: Acute Plan to address problem: Continue FS monitoring fasting and 2-hr PP. Continue ADA diet. Subjective - Subjective Date of service: 05/21/18 Principal diagnosis: IUP @ 29 weeks; Incompetent cervix Interval history: Patient is a 32 year old , LMP 10/30/17, EDC 08/06/18 at 29 weeks gestation who was admitted for labor. This patient has been co-managed with [facility] for a history of cervical incompetence and she has a cerclage placed 2 months ago. She saw [facility] 3 weeks ago and sonogram showed funneling. She was offered [place] and celestone for FLM. She did not start [place] until the day of her admission due to insurance issues. She went for a routine visit on 04/30 and reported that she has been feeling pelvic pressure and abdominal tightening for 2 days. She denied any fluid leakage or bleeding. She reports good movement. Exam in the office showed the cervix to be dilated 3 cm with bulging membranes and the cerclage suture was in place. She was sent immediately to the hospital. Sonogram showed the baby to be vertex, normal ZACARIAS. She was treated with magnesium sulfate for tocolysis and neuroprotection, steroids for FLM completed, IV antibiotics for GBS prophylaxis which was switched to PO ampicillin and erythomycin. [facility] consult was done and agreed with above management. NICU consult was done. She also has chronic HTN and has not been on any medication. This AM, she denies any contractions, fluid leakage or bleeding. She reports good movement. Exam (05/09/18): cervix 3 cm/70%/high, cerclage in place, unchanged from admission). She also was diagnosed with GDM. Glucose has been controlled with ADA diet. Patient reports: movement normal, other (Patient reports vaginal discharge ), no new complaints, no loss of fluid, no vaginal bleeding, no contractions Objective - Vital Signs Vital Signs: Vital Signs - 12hr 05/20/18 05/21/18 05/21/18 23:37 03:46 07:30 Temperature 98.6 F 98.2 F 98 F Pulse Rate 99 H 100 H 96 H Respiratory 20 20 20 Rate Blood Pressure 108/56 120/63 Blood Pressure 108/56 120/63 140/77 [Right] 05/21/18 07:34 Temperature Pulse Rate 96 H Respiratory Rate Blood Pressure 140/77 Blood Pressure [Right] - Exam Cardiovascular: Normal S1, Normal S2 Lungs: Clear to auscultation Vulva: both: normal FHR: category 1 Uterine Contraction Monitor Mode: External Deep Tendon Reflex Grade: Normal +2 - Labs Labs: Abnormal Labs 04/30/18 04/30/18 04/30/18 16:20 16:20 16:20 WBC 11.8 H MCH 27 L Seg Neutrophils % 75.5 H Seg Neutrophils # 8.9 H Creatinine 0.6 L POC Glucose Magnesium Urine WBC (Auto) 50.0 H U Epithel Cells (Auto) 135.0 H 05/01/18 05/01/18 05/02/18 14:32 19:56 07:54 WBC MCH Seg Neutrophils % Seg Neutrophils # Creatinine POC Glucose Magnesium 3.50 H 4.30 H 4.40 H Urine WBC (Auto) U Epithel Cells (Auto) 05/02/18 05/02/18 05/03/18 14:41 Unknown 04:50 WBC MCH Seg Neutrophils % Seg Neutrophils # Creatinine POC Glucose Magnesium 4.20 H 4.30 H 4.30 H Urine WBC (Auto) U Epithel Cells (Auto) 05/03/18 05/03/18 05/03/18 05:33 12:51 17:36 WBC MCH Seg Neutrophils % Seg Neutrophils # Creatinine POC Glucose Magnesium 4.30 H 4.10 H 3.40 H Urine WBC (Auto) U Epithel Cells (Auto) 05/04/18 05/05/18 05/13/18 05:58 09:37 12:37 WBC MCH 27 L 26 L Seg Neutrophils % 80.5 H 79.0 H Seg Neutrophils # 8.5 H 8.5 H Creatinine POC Glucose Magnesium 3.00 H Urine WBC (Auto) U Epithel Cells (Auto) 05/20/18 05/20/18 05/21/18 06:56 17:01 06:15 WBC MCH Seg Neutrophils % Seg Neutrophils # Creatinine POC Glucose 61 L 62 L 68 L Magnesium Urine WBC (Auto) U Epithel Cells (Auto) Laboratory Results - last 24 hr 05/20/18 05/20/18 05/21/18 17:01 21:59 06:15 POC Glucose 62 L 105 68 L - Results US- obstetric: report reviewed
[2018-05-21] MEDS: PRENATAL VITAMIN PO SCH (11:40)
[2018-05-22] MEDS: PROCARDIA*For Tocolysis only PO SCH ×3 (07:33→18:02)
[2018-05-22] MEDS: LACTATED RINGERS 1,000 ML IV SCH (07:33)
--- NOTE | 2018-05-22 08:49 | Progress Note ---
Assessment and Plan - Patient Problems (1) Cervical incompetence Current Visit: Yes Status: Acute Plan to address problem: Continue routine care. Continue weekly ultrasounds. Continue Q8 monitoring. No signs of labor progression. Continue weekly progesterone injections. (2) Gestational diabetes mellitus (GDM) Current Visit: Yes Status: Acute Plan to address problem: Glucose log - blood sugar stable. One elevation after breakfast 128. Fasting 68, Postprandial 67-91 (3) Chronic hypertension affecting Current Visit: Yes Status: Acute Plan to address problem: BP Stable - no meds Subjective - Subjective Principal diagnosis: IUP @ 28 6/7 weeks; Incompetent cervix, CHTN, gestational DMA1 Interval history: She denies loss of fluid, vaginal bleeding and reports good movement. She denies contractions. She states she is following a strict diet. Patient reports: movement normal, other (Patient reports vaginal discharge ), no new complaints, no loss of fluid, no vaginal bleeding, no contractions Objective - Vital Signs Vital Signs: Vital Signs - 12hr 05/21/18 05/22/18 05/22/18 23:45 04:44 08:36 Temperature 98.6 F 98.2 F Pulse Rate 92 H 96 H 96 H Respiratory 18 18 Rate Blood Pressure 107/59 102/62 122/55 Blood Pressure 107/59 102/62 [Right] - Exam FHR: auscultation normal Uterine Contraction Pattern: Absent - Labs Labs: Abnormal Labs 04/30/18 04/30/18 04/30/18 16:20 16:20 16:20 WBC 11.8 H MCH 27 L Seg Neutrophils % 75.5 H Seg Neutrophils # 8.9 H Creatinine 0.6 L POC Glucose Magnesium Urine WBC (Auto) 50.0 H U Epithel Cells (Auto) 135.0 H 05/01/18 05/01/18 05/02/18 14:32 19:56 07:54 WBC MCH Seg Neutrophils % Seg Neutrophils # Creatinine POC Glucose Magnesium 3.50 H 4.30 H 4.40 H Urine WBC (Auto) U Epithel Cells (Auto) 05/02/18 05/02/18 05/03/18 14:41 Unknown 04:50 WBC MCH Seg Neutrophils % Seg Neutrophils # Creatinine POC Glucose Magnesium 4.20 H 4.30 H 4.30 H Urine WBC (Auto) U Epithel Cells (Auto) 0105/03/18 05/03/18 05:33 12:51 17:36 WBC MCH Seg Neutrophils % Seg Neutrophils # Creatinine POC Glucose Magnesium 4.30 H 4.10 H 3.40 H Urine WBC (Auto) U Epithel Cells (Auto) 05/04/18 05/05/18 05/13/18 05:58 09:37 12:37 WBC MCH 27 L 26 L Seg Neutrophils % 80.5 H 79.0 H Seg Neutrophils # 8.5 H 8.5 H Creatinine POC Glucose Magnesium 3.00 H Urine WBC (Auto) U Epithel Cells (Auto) 05/20/18 05/20/18 05/21/18 06:56 17:01 06:15 WBC MCH Seg Neutrophils % Seg Neutrophils # Creatinine POC Glucose 61 L 62 L 68 L Magnesium Urine WBC (Auto) U Epithel Cells (Auto) 05/21/18 05/21/18 11:12 16:45 WBC MCH Seg Neutrophils % Seg Neutrophils # Creatinine POC Glucose 128 H 67 L Magnesium Urine WBC (Auto) U Epithel Cells (Auto) Laboratory Results - last 24 hr 05/21/18 05/21/18 05/21/18 11:12 16:45 23:57 POC Glucose 128 H 67 L 91
[2018-05-22] MEDS: PRENATAL VITAMIN PO SCH (12:39)
--- NOTE | 2018-05-22 13:37 | Progress Note ---
Assessment and Plan Assessment 1. 29 1/7 weeks, SIUP 2. Hx Incompetent cervix, cerclage in situ 3. [place]/17P started 2 days prior to admission 4. S/P steroid for lung maturity 5. S/P Magnesium Sulfate therapy 6. Short cervix; last exam 3 cm dilated 7. Per OB's report bulging membrane noted in office 8. Hx CHTN; not on meds, stable BPs 9. GDM; glucose 91-105 (outlier 128) Recommendations 1. [place] use of tocolytics consider Procardia 2. Antibiotics secondary to bulging membrane: Ampicillin and Erythromycin 3. S/P Dexamethasone for lung maturity 4. S/P Magnesium Sulfate for neuroprotection 5. [facility] to follow patient 6. Delivery recommended if compromise 7. Remove cerclage with evidence of labor 8. We recommend continued hospitalization at this point; if no change in vaginal exam we recommend consideration of outpatient follow-up 9. S/P Diabetic Teaching/education 10. Continue blood glucose monitoring 2 hours after meals and fasting 11. Continue [place]/17-P to 36 weeks Call [facility] sharepoint application developer MD, for any questions or concerns. Subjective - Subjective Principal diagnosis: IUP @ 28 6/7 weeks; Incompetent cervix, CHTN, gestational DMA1 Interval history: Ms Chung is a 32 year old patient at 29 1/7 weeks gestation for whom I recently provided a perinatology consultation secondary to incompetent cervix, cerclage in situ with dilation of 3 cm. Patient has GDM and currently on ADA diet. Blood glucose 91-105 (outlier 128). Receiving [place] weekly. Patient denies contractions, leakage of fluid, contraction at present, vaginal bleeding. Patient reports: movement normal, other (Patient reports vaginal discharge ), no new complaints, no loss of fluid, no vaginal bleeding, no contractions Objective - Vital Signs Vital Signs: Vital Signs - 12hr 05/22/18 05/22/18 05/22/18 04:44 08:35 08:36 Temperature 98.2 F 98.4 F Pulse Rate 96 H 96 H Respiratory 18 18 Rate Blood Pressure 102/62 122/55 Blood Pressure 102/62 [Right] 05/22/18 12:36 Temperature Pulse Rate 96 H Respiratory Rate Blood Pressure 113/68 Blood Pressure [Right] - Exam Cardiovascular: Normal S1 Lungs: Normal air movement Abdomen: Present: normal appearance (gravid) - Labs Labs: Abnormal Labs 04/30/18 04/30/18 04/30/18 16:20 16:20 16:20 WBC 11.8 H MCH 27 L Seg Neutrophils % 75.5 H Seg Neutrophils # 8.9 H Creatinine 0.6 L POC Glucose Magnesium Urine WBC (Auto) 50.0 H U Epithel Cells (Auto) 135.0 H 05/01/18 05/01/18 05/02/18 14:32 19:56 07:54 WBC MCH Seg Neutrophils % Seg Neutrophils # Creatinine POC Glucose Magnesium 3.50 H 4.30 H 4.40 H Urine WBC (Auto) U Epithel Cells (Auto) 05/02/18 05/02/18 05/03/18 14:41 Unknown 04:50 WBC MCH Seg Neutrophils % Seg Neutrophils # Creatinine POC Glucose Magnesium 4.20 H 4.30 H 4.30 H Urine WBC (Auto) U Epithel Cells (Auto) 05/03/18 05/03/18 05/03/18 05:33 12:51 17:36 WBC MCH Seg Neutrophils % Seg Neutrophils # Creatinine POC Glucose Magnesium 4.30 H 4.10 H 3.40 H Urine WBC (Auto) U Epithel Cells (Auto) 05/04/18 05/05/18 05/13/18 05:58 09:37 12:37 WBC MCH 27 L 26 L Seg Neutrophils % 80.5 H 79.0 H Seg Neutrophils # 8.5 H 8.5 H Creatinine POC Glucose Magnesium 3.00 H Urine WBC (Auto) U Epithel Cells (Auto) 05/20/18 05/20/18 05/21/18 06:56 17:01 06:15 WBC MCH Seg Neutrophils % Seg Neutrophils # Creatinine POC Glucose 61 L 62 L 68 L Magnesium Urine WBC (Auto) U Epithel Cells (Auto) 05/21/18 05/21/18 11:12 16:45 WBC MCH Seg Neutrophils % Seg Neutrophils # Creatinine POC Glucose 128 H 67 L Magnesium Urine WBC (Auto) U Epithel Cells (Auto) Laboratory Results - last 24 hr 05/21/18 05/21/18 16:45 23:57 POC Glucose 67 L 91
[2018-05-23] MEDS: PRENATAL VITAMIN PO SCH (10:12)
--- NOTE | 2018-05-23 11:12 | Progress Note ---
Assessment and Plan - Patient Problems (1) Cervical cerclage suture present Onset Date: 05/02/18 Current Visit: Yes Status: Acute Qualifiers: Trimester: third trimester Qualified Code(s): O34.33 - Maternal care for cervical incompetence, third trimester (2) labor Onset Date: 05/02/18 Current Visit: Yes Status: Acute Qualifiers: labor trimester: third trimester labor delivery status: without delivery Qualified Code(s): O60.03 - labor without delivery, third trimester (3) 28 weeks gestation of Onset Date: 05/18/18 Current Visit: Yes Status: Resolved (4) 29 weeks gestation of Onset Date: 05/23/18 Current Visit: Yes Status: Acute Plan to address problem: Assessment 1. 29 2/7 weeks, SIUP 2. Hx Incompetent cervix, cerclage in situ 3. [place]/17P started 2 days prior to admission 4. S/P steroid for lung maturity 5. S/P Magnesium Sulfate therapy 6. Short cervix; last exam 3 cm dilated 7. Per OB's report bulging membrane noted in office 8. Hx CHTN; not on meds, stable BPs 9. GDM; glucose 91-105 (outlier 128) Recommendations 1. [place] use of tocolytics consider Procardia 2. Antibiotics secondary to bulging membrane: Ampicillin and Erythromycin 3. S/P Dexamethasone for lung maturity 4. S/P Magnesium Sulfate for neuroprotection 5. [facility] to follow patient 6. Delivery recommended if compromise 7. Remove cerclage with evidence of labor 8. We recommend continued hospitalization at this point; if no change in vaginal exam we recommend consideration of outpatient follow-up 9. S/P Diabetic Teaching/education 10. Continue blood glucose monitoring 2 hours after meals and fasting 11. Continue [place]/17-P to 36 weeks (5) Gestational diabetes mellitus (GDM) Onset Date: 05/23/18 Current Visit: Yes Status: Acute Qualifiers: Gestational diabetes mellitus control: diet-controlled Subjective - Subjective Date of service: 05/23/18 Principal diagnosis: IUP @ 29 2/7 weeks; Incompetent cervix, CHTN, gestational DMA1 Interval history: Patient is a 32 year old , LMP 10/30/17, EDC 08/06/18 at 29 2/7weeks gestation who was sent from the office for labor. This patient has been co-managed with VERONICA for a history of cervical incompetence and she has a cerclage placed 2 months ago. She saw [facility] 2 weeks and sonogram showed funneling. She was offered [place] and cel[place] for FLM. She did not start [place] due to insurance issues. She went for a routine visit and reported that she has been feeling pelvic pressure and abdominal tightening for 2 days. She denied any fluid leakage or bleeding. She reports good movement. Exam in the office showed the cervix to be dilated 3 cm with bulging membranes and the cerclage suture was in place. She also has chronic HTN and has not been on any medication. She has been hospitalized and currently s/p IV Magnesium sulfate , IV Ampicillin, IV Zithromax and IM steroids for FLM and denies contractions. This morning she denies any contractions, fluid leakage or bleeding. She reports good movement, but complains of round ligament pains. Exam (05/09/18): cervix 3 cm/70%/high, cerclage in place, unchanged from admission). She also was diagnosed with GDM. Glucose has been controlled with ADA diet. Patient reports: movement normal, other (Patient reports vaginal discharge ), no new complaints, no loss of fluid, no vaginal bleeding, no contractions Objective - Vital Signs Vital Signs: Vital Signs - 12hr 05/23/18 05/23/18 05/23/18 00:37 04:15 04:16 Temperature 98.6 F Pulse Rate 101 H 100 H 73 Respiratory 14 Rate Blood Pressure 129/75 115/57 Blood Pressure 115/57 [Right] 05/23/18 05/23/18 08:30 08:35 Temperature 97.8 F Pulse Rate 96 H Respiratory Rate Blood Pressure 122/58 Blood Pressure [Right] - Exam Abdomen: Present: normal appearance, soft Uterus: Present: normal FHR: category 1 Uterine Contraction Monitor Mode: External Uterine Contraction Pattern: Absent - Labs Labs: Abnormal Labs 04/30/18 04/30/18 04/30/18 16:20 16:20 16:20 WBC 11.8 H MCH 27 L Seg Neutrophils % 75.5 H Seg Neutrophils # 8.9 H Creatinine 0.6 L POC Glucose Magnesium Urine WBC (Auto) 50.0 H U Epithel Cells (Auto) 135.0 H 0105/01/18 05/02/18 14:32 19:56 07:54 WBC MCH Seg Neutrophils % Seg Neutrophils # Creatinine POC Glucose Magnesium 3.50 H 4.30 H 4.40 H Urine WBC (Auto) U Epithel Cells (Auto) 05/02/18 05/02/18 05/03/18 14:41 Unknown 04:50 WBC MCH Seg Neutrophils % Seg Neutrophils # Creatinine POC Glucose Magnesium 4.20 H 4.30 H 4.30 H Urine WBC (Auto) U Epithel Cells (Auto) 05/03/18 05/03/18 05/03/18 05:33 12:51 17:36 WBC MCH Seg Neutrophils % Seg Neutrophils # Creatinine POC Glucose Magnesium 4.30 H 4.10 H 3.40 H Urine WBC (Auto) U Epithel Cells (Auto) 05/04/18 05/05/18 05/13/18 05:58 09:37 12:37 WBC MCH 27 L 26 L Seg Neutrophils % 80.5 H 79.0 H Seg Neutrophils # 8.5 H 8.5 H Creatinine POC Glucose Magnesium 3.00 H Urine WBC (Auto) U Epithel Cells (Auto) 05/20/18 05/20/18 05/21/18 06:56 17:01 06:15 WBC MCH Seg Neutrophils % Seg Neutrophils # Creatinine POC Glucose 61 L 62 L 68 L Magnesium Urine WBC (Auto) U Epithel Cells (Auto) 05/21/18 05/21/18 05/22/18 11:12 16:45 19:02 WBC MCH Seg Neutrophils % Seg Neutrophils # Creatinine POC Glucose 128 H 67 L 129 H Magnesium Urine WBC (Auto) U Epithel Cells (Auto) 05/23/18 08:43 WBC MCH Seg Neutrophils % Seg Neutrophils # Creatinine POC Glucose 129 H Magnesium Urine WBC (Auto) U Epithel Cells (Auto) Laboratory Results - last 24 hr 05/22/18 05/23/18 19:02 08:43 POC Glucose 129 H 129 H
[2018-05-23] MEDS: PROCARDIA*For Tocolysis only PO SCH ×2 (12:00→19:04)
[2018-05-24] MEDS: AMBIEN PO PRN (00:40)
[2018-05-24] MEDS: PRENATAL VITAMIN PO SCH (10:02)
[2018-05-24] MEDS: COLACE PO PRN (10:02)
--- NOTE | 2018-05-24 10:13 | Progress Note ---
Assessment and Plan - Patient Problems (1) Cervical cerclage suture present Onset Date: 05/02/18 Current Visit: Yes Status: Acute Qualifiers: Trimester: third trimester Qualified Code(s): O34.33 - Maternal care for cervical incompetence, third trimester (2) labor Onset Date: 05/02/18 Current Visit: Yes Status: Acute Qualifiers: labor trimester: third trimester labor delivery status: without delivery Qualified Code(s): O60.03 - labor without delivery, third trimester (3) 28 weeks gestation of Onset Date: 05/18/18 Current Visit: Yes Status: Resolved (4) 29 weeks gestation of Onset Date: 05/23/18 Current Visit: Yes Status: Acute Plan to address problem: Assessment 1. 29 3/7 weeks, SIUP 2. Hx Incompetent cervix, cerclage in situ 3. [place]/17P started 2 days prior to admission 4. S/P steroid for lung maturity 5. S/P Magnesium Sulfate therapy 6. Short cervix; last exam 3 cm dilated 7. Per OB's report bulging membrane noted in office 8. Hx CHTN; not on meds, stable BPs 9. GDM; glucose 91-105 (outlier 128) Recommendations 1. [place] use of tocolytics consider Procardia 2. Antibiotics secondary to bulging membrane: Ampicillin and Erythromycin 3. S/P Dexamethasone for lung maturity 4. S/P Magnesium Sulfate for neuroprotection 5. [facility] to follow patient 6. Delivery recommended if compromise 7. Remove cerclage with evidence of labor 8. We recommend continued hospitalization at this point; if no change in vaginal exam we recommend consideration of outpatient follow-up 9. S/P Diabetic Teaching/education 10. Continue blood glucose monitoring 2 hours after meals and fasting 11. Continue [place]/17-P to 36 weeks (5) Gestational diabetes mellitus (GDM) Onset Date: 05/23/18 Current Visit: Yes Status: Acute Qualifiers: Gestational diabetes mellitus control: diet-controlled Subjective - Subjective Date of service: 05/24/18 Principal diagnosis: IUP @ 29 3/7 weeks; Incompetent cervix, CHTN, gestational DMA1 Interval history: Patient is a 32 year old , LMP 10/30/17, EDC 08/06/18 at 29 3/7weeks gestation who was sent from the office for labor. This patient has been co-managed with VERONICA for a history of cervical incompetence and she has a cerclage placed 2 months ago. She saw [facility] 2 weeks and sonogram showed funneling. She was offered [place] and [place] for FLM. She did not start [place] due to insurance issues. She went for a routine visit and reported that she has been feeling pelvic pressure and abdominal tightening for 2 days. She denied any fluid leakage or bleeding. She reports good movement. Exam in the office showed the cervix to be dilated 3 cm with bulging membranes and the cerclage suture was in place. She also has chronic HTN and has not been on any medication. She has been hospitalized and currently s/p IV Magnesium sulfate , IV Ampicillin, IV Zithromax and IM steroids for FLM and denies contractions. This morning she denies any contractions, fluid leakage or bleeding. She reports good movement, but complains of round ligament pains. Exam (05/09/18): cervix 3 cm/70%/high, cerclage in place, unchanged from admission). She also was diagnosed with GDM. Glucose has been controlled with ADA diet. Patient reports: movement normal, other (Patient reports vaginal discharge ), no new complaints, no loss of fluid, no vaginal bleeding, no contractions Objective - Vital Signs Vital Signs: Vital Signs - 12hr 05/24/18 05/24/18 07:46 07:47 Temperature 98.8 F Pulse Rate 95 H 95 H Respiratory 18 Rate Blood Pressure 108/51 Blood Pressure 108/51 [Right] - Exam Abdomen: Present: normal appearance, soft FHR: category 1 Uterine Contraction Monitor Mode: External Uterine Contraction Pattern: Absent - Labs Labs: Abnormal Labs 04/30/18 04/30/18 04/30/18 16:20 16:20 16:20 WBC 11.8 H MCH 27 L Seg Neutrophils % 75.5 H Seg Neutrophils # 8.9 H Creatinine 0.6 L POC Glucose Magnesium Urine WBC (Auto) 50.0 H U Epithel Cells (Auto) 135.0 H 05/01/18 05/01/18 05/02/18 14:32 19:56 07:54 WBC MCH Seg Neutrophils % Seg Neutrophils # Creatinine POC Glucose Magnesium 3.50 H 4.30 H 4.40 H Urine WBC (Auto) U Epithel Cells (Auto) 05/02/18 05/02/18 05/03/18 14:41 Unknown 04:50 WBC MCH Seg Neutrophils % Seg Neutrophils # Creatinine POC Glucose Magnesium 4.20 H 4.30 H 4.30 H Urine WBC (Auto) U Epithel Cells (Auto) 05/03/18 05/03/18 05/03/18 05:33 12:51 17:36 WBC MCH Seg Neutrophils % Seg Neutrophils # Creatinine POC Glucose Magnesium 4.30 H 4.10 H 3.40 H Urine WBC (Auto) U Epithel Cells (Auto) 05/04/18 05/05/18 05/13/18 05:58 09:37 12:37 WBC MCH 27 L 26 L Seg Neutrophils % 80.5 H 79.0 H Seg Neutrophils # 8.5 H 8.5 H Creatinine POC Glucose Magnesium 3.00 H Urine WBC (Auto) U Epithel Cells (Auto) 05/20/18 05/20/18 05/21/18 06:56 17:01 06:15 WBC MCH Seg Neutrophils % Seg Neutrophils # Creatinine POC Glucose 61 L 62 L 68 L Magnesium Urine WBC (Auto) U Epithel Cells (Auto) 05/21/18 05/21/18 05/22/18 11:12 16:45 19:02 WBC MCH Seg Neutrophils % Seg Neutrophils # Creatinine POC Glucose 128 H 67 L 129 H Magnesium Urine WBC (Auto) U Epithel Cells (Auto) 05/23/18 05/23/18 05/24/18 08:43 16:52 07:59 WBC MCH Seg Neutrophils % Seg Neutrophils # Creatinine POC Glucose 129 H 68 L 63 L Magnesium Urine WBC (Auto) U Epithel Cells (Auto) 05/24/18 10:09 WBC MCH Seg Neutrophils % Seg Neutrophils # Creatinine POC Glucose 117 H Magnesium Urine WBC (Auto) U Epithel Cells (Auto) Laboratory Results - last 24 hr 05/23/18 05/23/18 05/24/18 16:52 21:16 07:59 POC Glucose 68 L 95 63 L 05/24/18 10:09 POC Glucose 117 H
[2018-05-24] MEDS: PROCARDIA*For Tocolysis only PO SCH ×2 (12:17→18:03)
[2018-05-25] MEDS: PROCARDIA*For Tocolysis only PO SCH ×3 (00:38→18:04)
[2018-05-25] MEDS: AMBIEN PO PRN (01:00)
--- NOTE | 2018-05-25 09:31 | Progress Note ---
Assessment and Plan - Patient Problems (1) labor Onset Date: 05/02/18 Current Visit: Yes Status: Acute Qualifiers: labor trimester: third trimester labor delivery status: without delivery Qualified Code(s): O60.03 - labor without delivery, third trimester Plan to address problem: Dexamethasone for FLM completed. Magnesium sulfate for neuroprotection and tocolysis discontinued. She is on procardia. Continue PO erythromycin and ampicillin. [facility] and NICU consult done. Continous monitoring. Cervix unchanged from admission. Sono done on 05/20, baby is vertex, ZACARIAS normal, BPP 8/8. (2) Cervical incompetence Current Visit: Yes Status: Acute (3) Cervical cerclage suture present Onset Date: 05/02/18 Current Visit: Yes Status: Acute Qualifiers: Trimester: third trimester Qualified Code(s): O34.33 - Maternal care for cervical incompetence, third trimester (4) Obesity Current Visit: Yes Status: Acute (5) Chronic hypertension affecting Current Visit: Yes Status: Acute Plan to address problem: BP has been stable. If elevated, will start anti-HTN and do toxemia labs. (6) 27 weeks gestation of Current Visit: Yes Status: Acute (7) Gestational diabetes Current Visit: Yes Status: Acute Plan to address problem: Continue FS monitoring fasting and 2-hr PP. Continue ADA diet. Subjective - Subjective Date of service: 05/25/18 Principal diagnosis: IUP @ 29 4/7 weeks; Incompetent cervix, CHTN, gestational DMA1 Interval history: Patient is a 32 year old , LMP 10/30/17, EDC 08/06/18 at 29 weeks and 4 days gestation who was admitted for labor. This patient has been co- managed with VERONICA for a history of cervical incompetence and she has a cerclage placed 2 months ago. She saw [facility] 3 weeks ago and sonogram showed funneling. She was offered [place] and [place] for FLM. She did not start [place] until the day of her admission due to insurance issues. She went for a routine visit on 04/30 and reported that she has been feeling pelvic pressure and abdominal tightening for 2 days. She denied any fluid leakage or bleeding. She reports good movement. Exam in the office showed the cervix to be dilated 3 cm with bulging membranes and the cerclage suture was in place. She was sent immediately to the hospital. Sonogram showed the baby to be vertex, normal ZACARIAS. She was treated with magnesium sulfate for tocolysis and neuroprotection, steroids for FLM completed, IV antibiotics for GBS prophylaxis which was switched to PO ampicillin and erythomycin. [facility] consult was done and agreed with above management. NICU consult was done. She also has chronic HTN and has not been on any medication. This AM, she denies any contractions, fluid leakage or bleeding. She reports good movement. Exam (05/09/18): cervix 3 cm/70%/high, cerclage in place, unchanged from admission). She also was diagnosed with GDM. Glucose has been controlled with ADA diet. Patient reports: movement normal, other (Patient reports vaginal discharge ), no new complaints, no loss of fluid, no vaginal bleeding, no contractions Objective - Vital Signs Vital Signs: Vital Signs - 12hr 05/25/18 05/25/18 05/25/18 00:29 00:33 04:02 Temperature 98.4 F Pulse Rate 103 H 101 H Respiratory 18 Rate Blood Pressure 128/61 124/56 Blood Pressure [Right] O2 Sat by Pulse Oximetry 05/25/18 05/25/18 04:05 07:41 Temperature 97.9 F 98.2 F Pulse Rate 97 H Respiratory 16 18 Rate Blood Pressure 117/57 Blood Pressure 117/57 [Right] O2 Sat by Pulse 99 Oximetry - Exam Cardiovascular: Normal S1, Normal S2 Lungs: Clear to auscultation Vulva: both: normal FHR: category 1 Uterine Contraction Monitor Mode: External Deep Tendon Reflex Grade: Normal +2 - Labs Labs: Abnormal Labs 04/30/18 04/30/18 04/30/18 16:20 16:20 16:20 WBC 11.8 H MCH 27 L Seg Neutrophils % 75.5 H Seg Neutrophils # 8.9 H Creatinine 0.6 L POC Glucose Magnesium Urine WBC (Auto) 50.0 H U Epithel Cells (Auto) 135.0 H 05/01/18 05/01/18 05/02/18 14:32 19:56 07:54 WBC MCH Seg Neutrophils % Seg Neutrophils # Creatinine POC Glucose Magnesium 3.50 H 4.30 H 4.40 H Urine WBC (Auto) U Epithel Cells (Auto) 05/02/18 05/02/18 05/03/18 14:41 Unknown 04:50 WBC MCH Seg Neutrophils % Seg Neutrophils # Creatinine POC Glucose Magnesium 4.20 H 4.30 H 4.30 H Urine WBC (Auto) U Epithel Cells (Auto) 05/03/18 05/03/18 05/03/18 05:33 12:51 17:36 WBC MCH Seg Neutrophils % Seg Neutrophils # Creatinine POC Glucose Magnesium 4.30 H 4.10 H 3.40 H Urine WBC (Auto) U Epithel Cells (Auto) 05/04/18 05/05/18 05/13/18 05:58 09:37 12:37 WBC MCH 27 L 26 L Seg Neutrophils % 80.5 H 79.0 H Seg Neutrophils # 8.5 H 8.5 H Creatinine POC Glucose Magnesium 3.00 H Urine WBC (Auto) U Epithel Cells (Auto) 05/20/18 05/20/18 05/21/18 06:56 17:01 06:15 WBC MCH Seg Neutrophils % Seg Neutrophils # Creatinine POC Glucose 61 L 62 L 68 L Magnesium Urine WBC (Auto) U Epithel Cells (Auto) 05/21/18 05/21/18 05/22/18 11:12 16:45 19:02 WBC MCH Seg Neutrophils % Seg Neutrophils # Creatinine POC Glucose 128 H 67 L 129 H Magnesium Urine WBC (Auto) U Epithel Cells (Auto) 05/23/18 05/23/18 05/24/18 08:43 16:52 07:59 WBC MCH Seg Neutrophils % Seg Neutrophils # Creatinine POC Glucose 129 H 68 L 63 L Magnesium Urine WBC (Auto) U Epithel Cells (Auto) 05/24/18 05/24/18 05/25/18 10:09 14:56 07:45 WBC MCH Seg Neutrophils % Seg Neutrophils # Creatinine POC Glucose 117 H 120 H 48 L Magnesium Urine WBC (Auto) U Epithel Cells (Auto) Laboratory Results - last 24 hr 05/24/18 05/24/18 05/24/18 10:09 14:56 19:01 POC Glucose 117 H 120 H 83 05/25/18 07:45 POC Glucose 48 L - Results US- obstetric: report reviewed
[2018-05-25] MEDS: PRENATAL VITAMIN PO SCH (10:44)
[2018-05-25] MEDS: COLACE PO PRN (10:45)
[2018-05-26] MEDS: AMBIEN PO PRN (00:01)
[2018-05-26] MEDS: PROCARDIA*For Tocolysis only PO SCH ×3 (05:57→23:59)
--- NOTE | 2018-05-26 09:08 | Progress Note ---
Assessment and Plan - Patient Problems (1) Cervical incompetence Current Visit: Yes Status: Acute Plan to address problem: Continue routine care. Continue weekly ultrasounds. Continue Q8 monitoring. No signs of labor progression. Continue weekly progesterone injections. (2) Gestational diabetes mellitus (GDM) Onset Date: 05/23/18 Current Visit: Yes Status: Acute Qualifiers: Gestational diabetes mellitus control: diet-controlled Plan to address problem: No medications. Blood glucose well controlled. Repeat US/BPP for well being, presentation. (3) Chronic hypertension affecting Current Visit: Yes Status: Acute Plan to address problem: BP Stable - continue Labetolol Subjective - Subjective Principal diagnosis: IUP @ 29 6/7 weeks; Incompetent cervix, CHTN, gestational DMA1 Interval history: She denies loss of fluid, vaginal bleeding and reports good movement. She denies contractions. She states her cousin had a in the family and has to leave the state and she wants to be discharged home so she can take care of her children. Patient reports: movement normal, other (Patient reports vaginal discharge ), no new complaints, no loss of fluid, no vaginal bleeding, no contractions Objective - Vital Signs Vital Signs: Vital Signs - 12hr 05/26/18 07:29 Pulse Rate 92 H Blood Pressure 125/71 - Exam Cervical Dilatation: 3 Cervical Effacement Percentage: 90 station: -4 - Labs Labs: Abnormal Labs 04/30/18 04/30/18 04/30/18 16:20 16:20 16:20 WBC 11.8 H MCH 27 L Seg Neutrophils % 75.5 H Seg Neutrophils # 8.9 H Creatinine 0.6 L POC Glucose Magnesium Urine WBC (Auto) 50.0 H U Epithel Cells (Auto) 135.0 H 05/01/18 05/01/18 05/02/18 14:32 19:56 07:54 WBC MCH Seg Neutrophils % Seg Neutrophils # Creatinine POC Glucose Magnesium 3.50 H 4.30 H 4.40 H Urine WBC (Auto) U Epithel Cells (Auto) 05/02/18 05/02/18 05/03/18 14:41 Unknown 04:50 WBC MCH Seg Neutrophils % Seg Neutrophils # Creatinine POC Glucose Magnesium 4.20 H 4.30 H 4.30 H Urine WBC (Auto) U Epithel Cells (Auto) 01/05/03/18 05/03/18 05:33 12:51 17:36 WBC MCH Seg Neutrophils % Seg Neutrophils # Creatinine POC Glucose Magnesium 4.30 H 4.10 H 3.40 H Urine WBC (Auto) U Epithel Cells (Auto) 05/04/18 05/05/18 05/13/18 05:58 09:37 12:37 WBC MCH 27 L 26 L Seg Neutrophils % 80.5 H 79.0 H Seg Neutrophils # 8.5 H 8.5 H Creatinine POC Glucose Magnesium 3.00 H Urine WBC (Auto) U Epithel Cells (Auto) 05/20/18 05/20/18 05/21/18 06:56 17:01 06:15 WBC MCH Seg Neutrophils % Seg Neutrophils # Creatinine POC Glucose 61 L 62 L 68 L Magnesium Urine WBC (Auto) U Epithel Cells (Auto) 05/21/18 05/21/18 05/22/18 11:12 16:45 19:02 WBC MCH Seg Neutrophils % Seg Neutrophils # Creatinine POC Glucose 128 H 67 L 129 H Magnesium Urine WBC (Auto) U Epithel Cells (Auto) 05/23/18 05/23/18 05/24/18 08:43 16:52 07:59 WBC MCH Seg Neutrophils % Seg Neutrophils # Creatinine POC Glucose 129 H 68 L 63 L Magnesium Urine WBC (Auto) U Epithel Cells (Auto) 05/24/18 05/24/18 05/25/18 10:09 14:56 07:45 WBC MCH Seg Neutrophils % Seg Neutrophils # Creatinine POC Glucose 117 H 120 H 48 L Magnesium Urine WBC (Auto) U Epithel Cells (Auto) 05/25/18 05/25/18 05/26/18 10:42 22:08 08:28 WBC MCH Seg Neutrophils % Seg Neutrophils # Creatinine POC Glucose 126 H 112 H 63 L Magnesium Urine WBC (Auto) U Epithel Cells (Auto) Laboratory Results - last 24 hr 05/25/18 05/25/18 05/25/18 10:42 14:33 20:12 POC Glucose 126 H 101 88 05/25/18 05/26/18 05/26/18 22:08 06:03 08:28 POC Glucose 112 H 70 63 L
--- NOTE | 2018-05-27 09:13 | Progress Note ---
Assessment and Plan - Patient Problems (1) labor Onset Date: 05/02/18 Current Visit: Yes Status: Acute Qualifiers: labor trimester: third trimester labor delivery status: without delivery Qualified Code(s): O60.03 - labor without delivery, third trimester Plan to address problem: Dexamethasone for FLM completed. Magnesium sulfate for neuroprotection and tocolysis discontinued. She is on procardia. Continue PO erythromycin and ampicillin. [facility] and NICU consult done. Continous monitoring. Continue M[place] weekly. Cervix unchanged from admission. Sono done on 05/20, baby is vertex, ZACARIAS normal, BPP 8/8. Follow sono today for BPP, ZACARIAS. (2) Cervical incompetence Current Visit: Yes Status: Acute (3) Cervical cerclage suture present Onset Date: 05/02/18 Current Visit: Yes Status: Acute Qualifiers: Trimester: third trimester Qualified Code(s): O34.33 - Maternal care for c ervical incompetence, third trimester (4) Obesity Current Visit: Yes Status: Acute (5) Chronic hypertension affecting Current Visit: Yes Status: Acute Plan to address problem: BP has been stable. If elevated, will start anti-HTN and do toxemia labs. (6) 27 weeks gestation of Current Visit: Yes Status: Acute (7) Gestational diabetes Current Visit: Yes Status: Acute Plan to address problem: Continue FS monitoring fasting and 2-hr PP. Continue ADA diet. Subjective - Subjective Date of service: 05/27/18 Principal diagnosis: IUP @ 29 6/7 weeks; Incompetent cervix, CHTN, gestational DMA1 Interval history: Patient is a 32 year old , LMP 10/30/17, EDC 08/06/18 at 29 weeks and 6 days gestation who was admitted for labor. This patient has been co- managed with [facility] for a history of cervical incompetence and she has a cerclage placed 2 months ago. She saw [facility] 3 weeks ago and sonogram showed funneling. She was offered [place] and celestone for FLM. She did not start [place] until the day of her admission due to insurance issues. She went for a routine visit on 04/30 and reported that she has been feeling pelvic pressure and abdominal tightening for 2 days. She denied any fluid leakage or bleeding. She reports good movement. Exam in the office showed the cervix to be dilated 3 cm with bulging membranes and the cerclage suture was in place. She was sent immediately to the hospital. Sonogram showed the baby to be vertex, normal ZACARIAS. She was treated with magnesium sulfate for tocolysis and neuroprotection, steroids for FLM completed, IV antibiotics for GBS prophylaxis which was switched to PO ampicillin and erythomycin. [facility] consult was done and agreed with above management. NICU consult was done. She also has chronic HTN and has not been on any medication. This AM, she denies any contractions, fluid leakage or bleeding. She reports good movement. Exam (05/26/18): cervix 3 cm/70%/high, cerclage in place, unchanged from admission). She also was diagnosed with GDM. Glucose has been controlled with ADA diet. Patient reports: movement normal, other (Patient reports vaginal discharge ), no new complaints, no loss of fluid, no vaginal bleeding, no contractions Objective - Vital Signs Vital Signs: Vital Signs - 12hr 05/27/18 05/27/18 07:10 08:31 Temperature 98.5 F Pulse Rate 90 Respiratory 18 Rate Blood Pressure 109/63 - Exam Cardiovascular: Normal S1, Normal S2 Lungs: Clear to auscultation Vulva: both: normal FHR: category 1 Uterine Contraction Monitor Mode: External Uterine Contraction Pattern: Absent Deep Tendon Reflex Grade: Normal +2 - Labs Labs: Abnormal Labs 04/30/18 04/30/18 04/30/18 16:20 16:20 16:20 WBC 11.8 H MCH 27 L Seg Neutrophils % 75.5 H Seg Neutrophils # 8.9 H Creatinine 0.6 L POC Glucose Magnesium Urine WBC (Auto) 50.0 H U Epithel Cells (Auto) 135.0 H 05/01/18 05/01/18 05/02/18 14:32 19:56 07:54 WBC MCH Seg Neutrophils % Seg Neutrophils # Creatinine POC Glucose Magnesium 3.50 H 4.30 H 4.40 H Urine WBC (Auto) U Epithel Cells (Auto) 05/02/18 05/02/18 05/03/18 14:41 Unknown 04:50 WBC MCH Seg Neutrophils % Seg Neutrophils # Creatinine POC Glucose Magnesium 4.20 H 4.30 H 4.30 H Urine WBC (Auto) U Epithel Cells (Auto) 05/03/18 05/03/1819 05:33 12:51 17:36 WBC MCH Seg Neutrophils % Seg Neutrophils # Creatinine POC Glucose Magnesium 4.30 H 4.10 H 3.40 H Urine WBC (Auto) U Epithel Cells (Auto) 05/04/18 05/05/18 05/13/18 05:58 09:37 12:37 WBC MCH 27 L 26 L Seg Neutrophils % 80.5 H 79.0 H Seg Neutrophils # 8.5 H 8.5 H Creatinine POC Glucose Magnesium 3.00 H Urine WBC (Auto) U Epithel Cells (Auto) 05/20/18 05/20/18 05/21/18 06:56 17:01 06:15 WBC MCH Seg Neutrophils % Seg Neutrophils # Creatinine POC Glucose 61 L 62 L 68 L Magnesium Urine WBC (Auto) U Epithel Cells (Auto) 05/21/18 05/21/18 05/22/18 11:12 16:45 19:02 WBC MCH Seg Neutrophils % Seg Neutrophils # Creatinine POC Glucose 128 H 67 L 129 H Magnesium Urine WBC (Auto) U Epithel Cells (Auto) 05/23/18 05/23/18 05/24/18 08:43 16:52 07:59 WBC MCH Seg Neutrophils % Seg Neutrophils # Creatinine POC Glucose 129 H 68 L 63 L Magnesium Urine WBC (Auto) U Epithel Cells (Auto) 05/24/18 05/24/18 05/25/18 10:09 14:56 07:45 WBC MCH Seg Neutrophils % Seg Neutrophils # Creatinine POC Glucose 117 H 120 H 48 L Magnesium Urine WBC (Auto) U Epithel Cells (Auto) 05/25/18 05/25/18 05/26/18 10:42 22:08 08:28 WBC MCH Seg Neutrophils % Seg Neutrophils # Creatinine POC Glucose 126 H 112 H 63 L Magnesium Urine WBC (Auto) U Epithel Cells (Auto) Laboratory Results - last 24 hr 05/26/18 05/26/18 05/26/18 12:19 17:53 21:00 POC Glucose 83 103 84 05/27/18 06:08 POC Glucose 77 - Results US- obstetric: pending
[2018-05-27] MEDS: PRENATAL VITAMIN PO SCH (11:52)
[2018-05-27] MEDS: PROCARDIA*For Tocolysis only PO SCH ×2 (11:52→18:51)
--- NOTE | 2018-05-27 11:59 | Ultrasound Report ---
BIOPHYSICAL PROFILE: INDICATION: well being. COMPARISON: 05/20/2018. TECHNIQUE: Transabdominal ultrasound with Doppler interrogation. 2 - breathing movements 2 - movements 2 - posture and tone 2 - Qualitative amniotic fluid volume 8 - TOTAL SCORE OF POSSIBLE 8 Heart Rate (bpm) 133 CONCLUSION: Findings, as above.
--- NOTE | 2018-05-27 14:35 | Ultrasound Report ---
OB ULTRASOUND GREATER THAN 14 WEEKS INDICATION: ZACARIAS, presentation, EFW. COMPARISON: 05/20/2018 TECHNIQUE: Transabdominal grayscale ultrasound with Doppler interrogation. Gestation: Price Position: Cephalic Amniotic Fluid: WNL (7-24 cm) ZACARIAS = 8.8 cm Heart Rate: 138 BPM BPD: 7.45 cm = 29 w 6 d HC: 27.8 cm = 30 w 3 d AC: 25.34 cm = 29 w 4 d FL: 5.76 cm = 30 w 1 d HC/AC Ratio: 1.1 Cephalic Index: 84.2 Estimated Weight: 1465 grams LMP: 10/30/2017 Clinical age = 29 w 6 d EDC: 08/06/2018 US Gest. Age = 30 w 0 d EDC: 08/05/2018 CONCLUSION: Single, viable intrauterine gestation with ultrasound estimated age of 30 weeks and zero days and EDC of 08/05/2018, currently in cephalic lie with details, as above. Thank you for the opportunity to participate in this patient's care.
[2018-05-27 15:41] LABS: Basophils % (Auto) 0.2 % (0.0-1.8); Eosinophils # (Auto) 0.2 K/mm3 (0.0-0.4); Eosinophils % (Auto) 1.8 % (0.0-4.3); Hematocrit 33.4 % (30.3-42.9); Hemoglobin 11.1 gm/dl (10.1-14.3); Lymphocytes # (Auto) 1.5 K/mm3 (1.2-5.4); Lymphocytes % (Auto) 17.9 % (13.4-35.0); Mean Corpuscular HGB Conc 33 % (30-34); Mean Corpuscular Volume 81 fl (79-97); Monocytes # (Auto) 0.6 K/mm3 (0.0-0.8); Monocytes % (Auto) 6.8 % (0.0-7.3); Platelet Count 228 K/mm3 (140-440); Red Blood Count 4.12 M/mm3 (3.65-5.03); Red Cell Distribution Width 15.1 % (13.2-15.2)
[2018-05-28] MEDS: PROCARDIA*For Tocolysis only PO SCH ×11 (00:41→20:08)
[2018-05-28] MEDS: AMBIEN PO PRN (00:41)
--- NOTE | 2018-05-28 10:17 | Progress Note ---
Assessment and Plan - Patient Problems (1) labor Onset Date: 05/02/18 Current Visit: Yes Status: Acute Qualifiers: labor trimester: third trimester labor delivery status: without delivery Qualified Code(s): O60.03 - labor without delivery, third trimester Plan to address problem: Dexamethasone for FLM completed. Magnesium sulfate for neuroprotection and tocolysis discontinued. She is on procardia. Continue PO erythromycin and ampicillin. [facility] and NICU consult done. Continous monitoring. Continue Mekena weekly. Cervix unchanged from admission. Sono done on 05/27, baby is vertex, ZACARIAS normal, BPP 8/8. (2) Cervical incompetence Current Visit: Yes Status: Acute (3) Cervical cerclage suture present Onset Date: 05/02/18 Current Visit: Yes Status: Acute Qualifiers: Trimester: third trimester Qualified Code(s): O34.33 - Maternal care for cervical incompetence, third trimester (4) Obesity Current Visit: Yes Status: Acute (5) Chronic hypertension affecting Current Visit: Yes Status: Acute Plan to address problem: BP has been stable. If elevated, will start anti-HTN and do toxemia labs. (6) 27 weeks gestation of Current Visit: Yes Status: Acute (7) Gestational diabetes Current Visit: Yes Status: Acute Plan to address problem: Continue FS monitoring fasting and 2-hr PP. Continue ADA diet. Subjective - Subjective Date of service: 05/28/18 Principal diagnosis: IUP @ 30 weeks; Incompetent cervix, CHTN, gestational DMA1 Interval history: Patient is a 32 year old , LMP 10/30/17, EDC 08/06/18 at 30 weeks gestation who was admitted for labor. This patient has been co-managed with [facility] for a history of cervical incompetence and she has a cerclage placed 2 months ago. She saw [facility] 3 weeks ago and sonogram showed funneling. She was offered [place] and celestone for FLM. She did not start [place] until the day of her admission due to insurance issues. She went for a routine visit on 04/30 and reported that she has been feeling pelvic pressure and abdominal tightening for 2 days. She denied any fluid leakage or bleeding. She reports good movement. Exam in the office showed the cervix to be dilated 3 cm with bulging membranes and the cerclage suture was in place. She was sent immediately to the hospital. Sonogram showed the baby to be vertex, normal ZACARIAS. She was treated with magnesium sulfate for tocolysis and neuroprotection, steroids for FLM completed, IV antibiotics for GBS prophylaxis which was switched to PO ampicillin and erythomycin. [facility] consult was done and agreed with above management. NICU consult was done. She also has chronic HTN and has not been on any medication. This AM, she denies any contractions, fluid leakage or bleeding. She reports good movement. Exam (05/26/18): cervix 3 cm/70%/high, cerclage in place, unchanged from admis tata). She also was diagnosed with GDM. Glucose has been controlled with ADA diet. Patient reports: movement normal, other (Patient reports vaginal discharge ), no new complaints, no loss of fluid, no vaginal bleeding, no contractions Objective - Vital Signs Vital Signs: Vital Signs - 12hr 05/28/18 05/28/18 00:39 05:55 Pulse Rate 96 H 92 H Blood Pressure 106/59 119/64 - Exam Cardiovascular: Normal S1, Normal S2 Lungs: Clear to auscultation Vulva: both: normal FHR: category 1 Uterine Contraction Monitor Mode: External Uterine Contraction Pattern: Absent Deep Tendon Reflex Grade: Normal +2 - Labs Labs: Abnormal Labs 04/30/18 04/30/18 04/30/18 16:20 16:20 16:20 WBC 11.8 H MCH 27 L Seg Neutrophils % 75.5 H Seg Neutrophils # 8.9 H Creatinine 0.6 L POC Glucose Magnesium Urine WBC (Auto) 50.0 H U Epithel Cells (Auto) 135.0 H 05/01/18 05/01/18 05/02/18 14:32 19:56 07:54 WBC MCH Seg Neutrophils % Seg Neutrophils # Creatinine POC Glucose Magnesium 3.50 H 4.30 H 4.40 H Urine WBC (Auto) U Epithel Cells (Auto) 05/02/18 05/02/18 05/03/18 14:41 Unknown 04:50 WBC MCH Seg Neutrophils % Seg Neutrophils # Creatinine POC Glucose Magnesium 4.20 H 4.30 H 4.30 H Urine WBC (Auto) U Epithel Cells (Auto) 05/03/18 05/03/18 05/03/18 05:33 12:51 17:36 WBC MCH Seg Neutrophils % Seg Neutrophils # Creatinine POC Glucose Magnesium 4.30 H 4.10 H 3.40 H Urine WBC (Auto) U Epithel Cells (Auto) 05/04/18 05/05/18 05/13/18 05:58 09:37 12:37 WBC MCH 27 L 26 L Seg Neutrophils % 80.5 H 79.0 H Seg Neutrophils # 8.5 H 8.5 H Creatinine POC Glucose Magnesium 3.00 H Urine WBC (Auto) U Epithel Cells (Auto) 05/20/18 05/20/18 05/21/18 06:56 17:01 06:15 WBC MCH Seg Neutrophils % Seg Neutrophils # Creatinine POC Glucose 61 L 62 L 68 L Magnesium Urine WBC (Auto) U Epithel Cells (Auto) 05/21/18 05/21/18 05/22/18 11:12 16:45 19:02 WBC MCH Seg Neutrophils % Seg Neutrophils # Creatinine POC Glucose 128 H 67 L 129 H Magnesium Urine WBC (Auto) U Epithel Cells (Auto) 05/23/18 05/23/18 05/24/18 08:43 16:52 07:59 WBC MCH Seg Neutrophils % Seg Neutrophils # Creatinine POC Glucose 129 H 68 L 63 L Magnesium Urine WBC (Auto) U Epithel Cells (Auto) 05/24/18 05/24/18 05/25/18 10:09 14:56 07:45 WBC MCH Seg Neutrophils % Seg Neutrophils # Creatinine POC Glucose 117 H 120 H 48 L Magnesium Urine WBC (Auto) U Epithel Cells (Auto) 05/25/18 05/25/18 05/26/18 10:42 22:08 08:28 WBC MCH Seg Neutrophils % Seg Neutrophils # Creatinine POC Glucose 126 H 112 H 63 L Magnesium Urine WBC (Auto) U Epithel Cells (Auto) 05/27/18 05/27/18 08:32 15:08 WBC MCH 27 L Seg Neutrophils % 73.3 H Seg Neutrophils # Creatinine POC Glucose 67 L Magnesium Urine WBC (Auto) U Epithel Cells (Auto) Laboratory Results - last 24 hr 05/27/18 05/27/18 05/27/18 08:32 12:39 15:08 WBC 8.5 RBC 4.12 Hgb 11.1 Hct 33.4 MCV 81 MCH 27 L MCHC 33 RDW 15.1 Plt Count 228 Lymph % (Auto) 17.9 George % (Auto) 6.8 Eos % (Auto) 1.8 Baso % (Auto) 0.2 Lymph # 1.5 George # 0.6 Eos # 0.2 Baso # 0.0 Seg Neutrophils % 73.3 H Seg Neutrophils # 6.3 POC Glucose 67 L 82 05/27/18 05/27/18 05/28/18 16:42 21:47 08:15 WBC RBC Hgb Hct MCV MCH MCHC RDW Plt Count Lymph % (Auto) George % (Auto) Eos % (Auto) Baso % (Auto) Lymph # George # Eos # Baso # Seg Neutrophils % Seg Neutrophils # POC Glucose 77 73 70 - Results US- obstetric: report reviewed
[2018-05-28] MEDS: PRENATAL VITAMIN PO SCH (10:30)
[2018-05-29] MEDS: AMBIEN PO PRN (00:59)
[2018-05-29] MEDS: PROCARDIA*For Tocolysis only PO SCH ×4 (07:24→23:18)
--- NOTE | 2018-05-29 09:06 | Progress Note ---
Assessment and Plan - Patient Problems (1) Cervical incompetence Current Visit: Yes Status: Acute Plan to address problem: Continue routine care. Continue weekly ultrasounds. Continue Q8 monitoring. No signs of labor progression. Continue weekly progesterone injections. (2) Gestational diabetes mellitus (GDM) Onset Date: 05/23/18 Current Visit: Yes Status: Acute Qualifiers: Gestational diabetes mellitus control: diet-controlled Plan to address problem: No medications. Blood glucose well controlled. . (3) Chronic hypertension affecting Current Visit: Yes Status: Acute Plan to address problem: BP Stable - continue Labetolol (4) 30 weeks gestation of Current Visit: Yes Status: Acute Plan to address problem: Low normal ZACARIAS - trending down 14--> 9--> 8.8 Start IVF continuous Subjective - Subjective Principal diagnosis: IUP @ 30 weeks; Incompetent cervix, CHTN, gestational DMA1 Interval history: She denies loss of fluid, vaginal bleeding and reports good movement. She denies contractions. Patient reports: movement normal, other (Patient reports vaginal discharge ), no new complaints, no loss of fluid, no vaginal bleeding, no contractions Objective - Vital Signs Vital Signs: Vital Signs - 12hr 05/28/18 05/29/18 05/29/18 23:15 00:54 04:10 Temperature 97.3 F L 97.6 F Pulse Rate 95 H Respiratory 20 18 Rate Blood Pressure 117/63 Blood Pressure [Right] 05/29/18 05/29/18 05/29/18 06:15 06:37 08:20 Temperature 97.1 F L 98.1 F Pulse Rate 89 93 H Respiratory 18 Rate Blood Pressure 116/70 119/56 Blood Pressure 119/56 [Right] - Exam FHR: auscultation normal - Labs Labs: Abnormal Labs 04/30/18 04/30/18 04/30/18 16:20 16:20 16:20 WBC 11.8 H MCH 27 L Seg Neutrophils % 75.5 H Seg Neutrophils # 8.9 H Creatinine 0.6 L POC Glucose Magnesium Urine WBC (Auto) 50.0 H U Epithel Cells (Auto) 135.0 H 05/01/18 05/01/18 05/02/18 14:32 19:56 07:54 WBC MCH Seg Neutrophils % Seg Neutrophils # Creatinine POC Glucose Magnesium 3.50 H 4.30 H 4.40 H Urine WBC (Auto) U Epithel Cells (Auto) 05/02/18 05/02/18 05/03/18 14:41 Unknown 04:50 WBC MCH Seg Neutrophils % Seg Neutrophils # Creatinine POC Glucose Magnesium 4.20 H 4.30 H 4.30 H Urine WBC (Auto) U Epithel Cells (Auto) 05/03/18 05/03/18 05/03/18 05:33 12:51 17:36 WBC MCH Seg Neutrophils % Seg Neutrophils # Creatinine POC Glucose Magnesium 4.30 H 4.10 H 3.40 H Urine WBC (Auto) U Epithel Cells (Auto) 05/04/18 05/05/18 05/13/18 05:58 09:37 12:37 WBC MCH 27 L 26 L Seg Neutrophils % 80.5 H 79.0 H Seg Neutrophils # 8.5 H 8.5 H Creatinine POC Glucose Magnesium 3.00 H Urine WBC (Auto) U Epithel Cells (Auto) 05/20/18 05/20/18 05/21/18 06:56 17:01 06:15 WBC MCH Seg Neutrophils % Seg Neutrophils # Creatinine POC Glucose 61 L 62 L 68 L Magnesium Urine WBC (Auto) U Epithel Cells (Auto) 05/21/18 05/21/18 05/22/18 11:12 16:45 19:02 WBC MCH Seg Neutrophils % Seg Neutrophils # Creatinine POC Glucose 128 H 67 L 129 H Magnesium Urine WBC (Auto) U Epithel Cells (Auto) 05/23/18 05/23/18 05/24/18 08:43 16:52 07:59 WBC MCH Seg Neutrophils % Seg Neutrophils # Creatinine POC Glucose 129 H 68 L 63 L Magnesium Urine WBC (Auto) U Epithel Cells (Auto) 05/24/18 05/24/18 05/25/18 10:09 14:56 07:45 WBC MCH Seg Neutrophils % Seg Neutrophils # Creatinine POC Glucose 117 H 120 H 48 L Magnesium Urine WBC (Auto) U Epithel Cells (Auto) 05/25/18 05/25/18 05/26/18 10:42 22:08 08:28 WBC MCH Seg Neutrophils % Seg Neutrophils # Creatinine POC Glucose 126 H 112 H 63 L Magnesium Urine WBC (Auto) U Epithel Cells (Auto) 05/27/18 05/27/18 05/29/18 08:32 15:08 07:26 WBC MCH 27 L Seg Neutrophils % 73.3 H Seg Neutrophils # Creatinine POC Glucose 67 L 68 L Magnesium Urine WBC (Auto) U Epithel Cells (Auto) Laboratory Results - last 24 hr 05/28/18 05/29/18 17:13 07:26 POC Glucose 76 68 L
[2018-05-29] MEDS: PRENATAL VITAMIN PO SCH (10:55)
[2018-05-29 11:51] LABS: Bilirubin,Urine NEG (Negative); Blood,Urine NEG (Negative); Color,Urine Straw (Yellow); Protein,Urine <15 mg/dL mg/dL (Negative); Urobilinogen,Urine < 2.0 mg/dL (<2.0)
[2018-05-29 11:56] LABS: RBC,Urine < 1.0 /HPF (0.0-6.0)
[2018-05-29] MEDS: HYDROXYPROGESTERONE CAPROATE IM SCH (20:18)
[2018-05-29] MEDS: LACTATED RINGERS 1,000 ML IV SCH (20:28)
[2018-05-29] MEDS: PEPCID PO SCH (23:19)
[2018-05-30] MEDS: AMBIEN PO PRN ×2 (01:09→23:33)
[2018-05-30] MEDS: LACTATED RINGERS 1,000 ML IV SCH ×3 (02:59→18:38)
[2018-05-30] MEDS: PROCARDIA*For Tocolysis only PO SCH ×3 (05:39→23:32)
[2018-05-30] MEDS: PRENATAL VITAMIN PO SCH (11:06)
--- NOTE | 2018-05-30 12:47 | Progress Note ---
Assessment and Plan - Patient Problems (1) Cervical cerclage suture present Onset Date: 05/02/18 Current Visit: Yes Status: Acute Qualifiers: Trimester: third trimester Qualified Code(s): O34.33 - Maternal care for cervical incompetence, third trimester (2) labor Onset Date: 05/02/18 Current Visit: Yes Status: Acute Qualifiers: labor trimester: third trimester labor delivery status: without delivery Qualified Code(s): O60.03 - labor without delivery, third trimester (3) 28 weeks gestation of Onset Date: 05/18/18 Current Visit: Yes Status: Resolved (4) 29 weeks gestation of Onset Date: 05/23/18 Current Visit: Yes Status: Resolved (5) Gestational diabetes mellitus (GDM) Onset Date: 05/23/18 Current Visit: Yes Status: Acute Qualifiers: Gestational diabetes mellitus control: diet-controlled (6) 30 weeks gestation of Onset Date: 05/30/18 Current Visit: Yes Status: Acute Plan to address problem: Assessment 1. 30 2/7 weeks, SIUP 2. Hx Incompetent cervix, cerclage in situ 3. [place]/17P started 2 days prior to admission 4. S/P steroid for lung maturity 5. S/P Magnesium Sulfate therapy 6. Short cervix; last exam 3 cm dilated 7. Per OB's report bulging membrane noted in office 8. Hx CHTN; not on meds, stable BPs 9. GDM; glucose 91-105 (outlier 128) Recommendations 1. Presently on Procardia 2. Antibiotics secondary to bulging membrane: Ampicillin and Erythromycin 3. S/P Dexamethasone for lung maturity 4. S/P Magnesium Sulfate for neuroprotection 5. [facility] to follow patient 6. Delivery recommended if compromise 7. Remove cerclage with evidence of labor 8. We recommend continued hospitalization at this point; if no change in vaginal exam we recommend consideration of outpatient follow-up 9. S/P Diabetic Teaching/education 10. Continue blood glucose monitoring 2 hours after meals and fasting 11. Continue [place]/17-P to 36 weeks Subjective - Subjective Date of service: 05/30/18 Principal diagnosis: IUP @ 30 2/7weeks; Incompetent cervix, CHTN, gestational DMA1 Interval history: Patient is a 32 year old , LMP 10/30/17, EDC 08/06/18 at 30 2/7weeks gestation who was sent from the office for labor. This patient has been co-managed with [facility] for a history of cervical incompetence and she has a cerclage placed 2 months ago. She saw [facility] 2 weeks and sonogram showed funneling. She was offered [place] and celestone for FLM. She did not start [place] due to insurance issues. She went for a routine visit and reported that she has been feeling pelvic pressure and abdominal tightening for 2 days. She denied any fluid leakage or bleeding. She reports good movement. Exam in the office showed the cervix to be dilated 3 cm with bulging membranes and the cerclage suture was in place. She also has chronic HTN and has not been on any medication. She has been hospitalized and currently s/p IV Magnesium sulfate , IV Ampicillin, IV Zithromax and IM steroids for FLM and denies contractions. This morning she denies any contractions, fluid leakage or bleeding. She reports good movement, but complains of round ligament pains. Exam (05/09/18): cervix 3 cm/70%/high, cerclage in place, unchanged from admission). She also was diagnosed with GDM. Glucose has been controlled with ADA diet. Patient reports: movement normal, other (Patient reports vaginal discharge ), no new complaints, no loss of fluid, no vaginal bleeding, no contractions Objective - Vital Signs Vital Signs: Vital Signs - 12hr 05/30/18 05/30/18 05:42 08:40 Pulse Rate 93 H 91 H Blood Pressure 133/88 117/75 - Exam Abdomen: Present: normal appearance, soft Uterus: Present: normal FHR: category 1 Uterine Contraction Monitor Mode: External Uterine Contraction Pattern: Absent - Labs Labs: Abnormal Labs 04/30/18 04/30/18 04/30/18 16:20 16:20 16:20 WBC 11.8 H MCH 27 L Seg Neutrophils % 75.5 H Seg Neutrophils # 8.9 H Creatinine 0.6 L POC Glucose Magnesium Urine pH Ur Specific [place] Urine WBC (Auto) 50.0 H U Epithel Cells (Auto) 135.0 H 05/01/18 05/01/18 05/02/18 14:32 19:56 07:54 WBC MCH Seg Neutrophils % Seg Neutrophils # Creatinine POC Glucose Magnesium 3.50 H 4.30 H 4.40 H Urine pH Ur Specific [place] Urine WBC (Auto) U Epithel Cells (Auto) 05/02/18 05/02/18 05/03/18 14:41 Unknown 04:50 WBC MCH Seg Neutrophils % Seg Neutrophils # Creatinine POC Glucose Magnesium 4.20 H 4.30 H 4.30 H Urine pH Ur Specific [place] Urine WBC (Auto) U Epithel Cells (Auto) 05/03/18 05/03/18 05/03/18 05:33 12:51 17:36 WBC MCH Seg Neutrophils % Seg Neutrophils # Creatinine POC Glucose Magnesium 4.30 H 4.10 H 3.40 H Urine pH Ur Specific [place] Urine WBC (Auto) U Epithel Cells (Auto) 05/04/18 05/05/18 05/13/18 05:58 09:37 12:37 WBC MCH 27 L 26 L Seg Neutrophils % 80.5 H 79.0 H Seg Neutrophils # 8.5 H 8.5 H Creatinine POC Glucose Magnesium 3.00 H Urine pH Ur Specific [place] Urine WBC (Auto) U Epithel Cells (Auto) 05/20/18 05/20/18 05/21/18 06:56 17:01 06:15 WBC MCH Seg Neutrophils % Seg Neutrophils # Creatinine POC Glucose 61 L 62 L 68 L Magnesium Urine pH Ur Specific [place] Urine WBC (Auto) U Epithel Cells (Auto) 05/21/18 05/21/18 05/22/18 11:12 16:45 19:02 WBC MCH Seg Neutrophils % Seg Neutrophils # Creatinine POC Glucose 128 H 67 L 129 H Magnesium Urine pH Ur Specific [place] Urine WBC (Auto) U Epithel Cells (Auto) 05/23/18 05/23/18 05/24/18 08:43 16:52 07:59 WBC MCH Seg Neutrophils % Seg Neutrophils # Creatinine POC Glucose 129 H 68 L 63 L Magnesium Urine pH Ur Specific [place] Urine WBC (Auto) U Epithel Cells (Auto) 05/24/18 05/24/18 05/25/18 10:09 14:56 07:45 WBC MCH Seg Neutrophils % Seg Neutrophils # Creatinine POC Glucose 117 H 120 H 48 L Magnesium Urine pH Ur Specific [place] Urine WBC (Auto) U Epithel Cells (Auto) 05/25/18 05/25/18 05/26/18 10:42 22:08 08:28 WBC MCH Seg Neutrophils % Seg Neutrophils # Creatinine POC Glucose 126 H 112 H 63 L Magnesium Urine pH Ur Specific [place] Urine WBC (Auto) U Epithel Cells (Auto) 05/27/18 05/27/18 05/29/18 08:32 15:08 07:26 WBC MCH 27 L Seg Neutrophils % 73.3 H Seg Neutrophils # Creatinine POC Glucose 67 L 68 L Magnesium Urine pH Ur Specific [place] Urine WBC (Auto) U Epithel Cells (Auto) 05/29/18 05/29/18 05/30/18 11:26 19:03 05:53 WBC MCH Seg Neutrophils % Seg Neutrophils # Creatinine POC Glucose 115 H 63 L Magnesium Urine pH 8.0 H Ur Specific [place] 1.001 L Urine WBC (Auto) U Epithel Cells (Auto) Laboratory Results - last 24 hr 05/29/18 05/29/18 05/29/18 15:36 19:03 23:26 POC Glucose 99 115 H 78 05/30/18 05/30/18 05:53 12:30 POC Glucose 63 L 75
[2018-05-30] MEDS: PEPCID PO SCH ×2 (18:24→23:33)
[2018-05-31] MEDS: LACTATED RINGERS 1,000 ML IV SCH (05:57)
[2018-05-31] MEDS: PROCARDIA*For Tocolysis only PO SCH ×2 (05:57→13:33)
[2018-05-31] MEDS: PEPCID PO SCH (10:55)
[2018-05-31] MEDS: PRENATAL VITAMIN PO SCH (10:55)
--- NOTE | 2018-05-31 12:27 | Progress Note ---
Assessment and Plan - Patient Problems (1) Cervical cerclage suture present Onset Date: 05/02/18 Current Visit: Yes Status: Acute Qualifiers: Trimester: third trimester Qualified Code(s): O34.33 - Maternal care for cervical incompetence, third trimester (2) labor Onset Date: 05/02/18 Current Visit: Yes Status: Acute Qualifiers: labor trimester: third trimester labor delivery status: without delivery Qualified Code(s): O60.03 - labor without delivery, third trimester (3) 28 weeks gestation of Onset Date: 05/18/18 Current Visit: Yes Status: Resolved (4) 29 weeks gestation of Onset Date: 05/23/18 Current Visit: Yes Status: Resolved (5) Gestational diabetes mellitus (GDM) Onset Date: 05/23/18 Current Visit: Yes Status: Acute Qualifiers: Gestational diabetes mellitus control: diet-controlled (6) 30 weeks gestation of Onset Date: 05/30/18 Current Visit: Yes Status: Acute Plan to address problem: Assessment 1. 30 3/7 weeks, SIUP 2. Hx Incompetent cervix, cerclage in situ 3. [place]/17P started 2 days prior to admission 4. S/P steroid for lung maturity 5. S/P Magnesium Sulfate therapy 6. Short cervix; last exam 3 cm dilated 7. Per OB's report bulging membrane noted in office 8. Hx CHTN; not on meds, stable BPs 9. GDM; glucose 91-105 (outlier 128) Recommendations 1. Presently on Procardia 2. Antibiotics secondary to bulging membrane: Ampicillin and Erythromycin 3. S/P Dexamethasone for lung maturity 4. S/P Magnesium Sulfate for neuroprotection 5. [facility] to follow patient 6. Delivery recommended if compromise 7. Remove cerclage with evidence of labor 8. We recommend continued hospitalization at this point; if no change in vaginal exam we recommend consideration of outpatient follow-up 9. S/P Diabetic Teaching/education 10. Continue blood glucose monitoring 2 hours after meals and fasting 11. Continue [place]/17-P to 36 weeks Subjective - Subjective Date of service: 05/31/18 Principal diagnosis: IUP @ 30 3/7weeks; Incompetent cervix, CHTN, gestational DMA1 Interval history: Patient is a 32 year old , LMP 10/30/17, EDC 08/06/18 at 30 3/7weeks gestation who was sent from the office for labor. This patient has been co-managed with VERONICA for a history of cervical incompetence and she has a cerclage placed 2 months ago. She saw [facility] 2 weeks and sonogram showed funneling. She was offered [place] and celestone for FLM. She did not start [place] due to insurance issues. She went for a routine visit and reported that she has been feeling pelvic pressure and abdominal tightening for 2 days. She denied any fluid leakage or bleeding. She reports good movement. Exam in the office showed the cervix to be dilated 3 cm with bulging membranes and the cerclage suture was in place. She also has chronic HTN and has not been on any medication. She has been hospitalized and currently s/p IV Magnesium sulfate , IV Ampicillin, IV Zithromax and IM steroids for FLM and denies contractions. This morning she denies any contractions, fluid leakage or bleeding. She reports good movement, but complains of round ligament pains. Exam (05/09/18): cervix 3 cm/70%/high, cerclage in place, unchanged from admission). She also was diagnosed with GDM. Glucose has been controlled with ADA diet. Patient reports: movement normal, other (Patient reports vaginal discharge ), no new complaints, no loss of fluid, no vaginal bleeding, no contractions Objective - Vital Signs Vital Signs: Vital Signs - 12hr 05/31/18 05/31/18 05/31/18 06:05 06:08 10:58 Temperature 97.6 F 97.6 F Pulse Rate 85 85 83 Respiratory 20 15 Rate Blood Pressure 111/68 Blood Pressure 111/68 100/58 [Right] 05/31/18 10:59 Temperature Pulse Rate 83 Respiratory Rate Blood Pressure 100/58 Blood Pressure [Right] - Exam Abdomen: Present: normal appearance, soft Uterus: Present: normal FHR: category 1 Uterine Contraction Monitor Mode: External Uterine Contraction Pattern: Absent - Labs Labs: Abnormal Labs 04/30/18 04/30/18 04/30/18 16:20 16:20 16:20 WBC 11.8 H MCH 27 L Seg Neutrophils % 75.5 H Seg Neutrophils # 8.9 H Creatinine 0.6 L POC Glucose Magnesium Urine pH Ur Specific [place] Urine WBC (Auto) 50.0 H U Epithel Cells (Auto) 135.0 H 05/01/18 05/01/18 05/02/18 14:32 19:56 07:54 WBC MCH Seg Neutrophils % Seg Neutrophils # Creatinine POC Glucose Magnesium 3.50 H 4.30 H 4.40 H Urine pH Ur Specific [place] Urine WBC (Auto) U Epithel Cells (Auto) 05/02/18 05/02/18 05/03/18 14:41 Unknown 04:50 WBC MCH Seg Neutrophils % Seg Neutrophils # Creatinine POC Glucose Magnesium 4.20 H 4.30 H 4.30 H Urine pH Ur Specific [place] Urine WBC (Auto) U Epithel Cells (Auto) 05/03/18 05/03/18 05/03/18 05:33 12:51 17:36 WBC MCH Seg Neutrophils % Seg Neutrophils # Creatinine POC Glucose Magnesium 4.30 H 4.10 H 3.40 H Urine pH Ur Specific [place] Urine WBC (Auto) U Epithel Cells (Auto) 05/04/18 05/05/18 05/13/18 05:58 09:37 12:37 WBC MCH 27 L 26 L Seg Neutrophils % 80.5 H 79.0 H Seg Neutrophils # 8.5 H 8.5 H Creatinine POC Glucose Magnesium 3.00 H Urine pH Ur Specific [place] Urine WBC (Auto) U Epithel Cells (Auto) 05/20/18 05/20/18 05/21/18 06:56 17:01 06:15 WBC MCH Seg Neutrophils % Seg Neutrophils # Creatinine POC Glucose 61 L 62 L 68 L Magnesium Urine pH Ur Specific [place] Urine WBC (Auto) U Epithel Cells (Auto) 05/21/18 05/21/18 05/22/18 11:12 16:45 19:02 WBC MCH Seg Neutrophils % Seg Neutrophils # Creatinine POC Glucose 128 H 67 L 129 H Magnesium Urine pH Ur Specific [place] Urine WBC (Auto) U Epithel Cells (Auto) 05/23/18 05/23/18 05/24/18 08:43 16:52 07:59 WBC MCH Seg Neutrophils % Seg Neutrophils # Creatinine POC Glucose 129 H 68 L 63 L Magnesium Urine pH Ur Specific [place] Urine WBC (Auto) U Epithel Cells (Auto) 05/24/18 05/24/18 05/25/18 10:09 14:56 07:45 WBC MCH Seg Neutrophils % Seg Neutrophils # Creatinine POC Glucose 117 H 120 H 48 L Magnesium Urine pH Ur Specific [place] Urine WBC (Auto) U Epithel Cells (Auto) 05/25/18 05/25/18 05/26/18 10:42 22:08 08:28 WBC MCH Seg Neutrophils % Seg Neutrophils # Creatinine POC Glucose 126 H 112 H 63 L Magnesium Urine pH Ur Specific [place] Urine WBC (Auto) U Epithel Cells (Auto) 05/27/18 05/27/18 05/29/18 08:32 15:08 07:26 WBC MCH 27 L Seg Neutrophils % 73.3 H Seg Neutrophils # Creatinine POC Glucose 67 L 68 L Magnesium Urine pH Ur Specific [place] Urine WBC (Auto) U Epithel Cells (Auto) 05/29/18 05/29/18 05/30/18 11:26 19:03 05:53 WBC MCH Seg Neutrophils % Seg Neutrophils # Creatinine POC Glucose 115 H 63 L Magnesium Urine pH 8.0 H Ur Specific [place] 1.001 L Urine WBC (Auto) U Epithel Cells (Auto) 05/30/18 23:41 WBC MCH Seg Neutrophils % Seg Neutrophils # Creatinine POC Glucose 56 L Magnesium Urine pH Ur Specific [place] Urine WBC (Auto) U Epithel Cells (Auto) Laboratory Results - last 24 hr 05/30/18 05/30/18 05/30/18 12:30 17:08 23:41 POC Glucose 75 74 56 L 05/31/18 08:10 POC Glucose 88
[2018-06-01] MEDS: AMBIEN PO PRN ×2 (00:18→23:46)
[2018-06-01] MEDS: PROCARDIA*For Tocolysis only PO SCH ×5 (00:18→23:47)
[2018-06-01] MEDS: LACTATED RINGERS 1,000 ML IV SCH ×3 (04:30→22:51)
--- NOTE | 2018-06-01 09:06 | Progress Note ---
Assessment and Plan - Patient Problems (1) Cervical incompetence Current Visit: Yes Status: Acute Plan to address problem: Continue routine care. Continue weekly ultrasounds. Continue Q8 monitoring. No signs of labor progression. Continue weekly progesterone injections. (2) Gestational diabetes mellitus (GDM) Onset Date: 05/23/18 Current Visit: Yes Status: Acute Qualifiers: Gestational diabetes mellitus control: diet-controlled Plan to address problem: No medications. Blood glucose well controlled. . (3) Chronic hypertension affecting Current Visit: Yes Status: Acute (4) 30 weeks gestation of Onset Date: 05/30/18 Current Visit: Yes Status: Acute Plan to address problem: Subjective - Subjective Principal diagnosis: IUP @ 30 3/7weeks; Incompetent cervix, CHTN, gestational DMA1 Interval history: She denies loss of fluid, vaginal bleeding and reports good movement. She denies contractions. She reports an intermittent headache and pelvic pressure when getting up to use restroom. Patient reports: movement normal, other (Patient reports vaginal discharge ), no new complaints, no loss of fluid, no vaginal bleeding, no contractions Objective - Vital Signs Vital Signs: Vital Signs - 12hr 06/01/18 06/01/18 06/01/18 00:17 00:21 04:15 Temperature 98.5 F 98.2 F Pulse Rate 96 H Respiratory 18 16 Rate Blood Pressure 113/72 Blood Pressure [Right] O2 Sat by Pulse Oximetry 06/01/18 06/01/18 06/01/18 04:20 07:52 07:56 Temperature 97.9 F Pulse Rate 85 86 86 Respiratory 18 Rate Blood Pressure 111/68 Blood Pressure 135/72 [Right] O2 Sat by Pulse 99 99 Oximetry 06/01/18 07:57 Temperature Pulse Rate 88 Respiratory Rate Blood Pressure 135/72 Blood Pressure [Right] O2 Sat by Pulse Oximetry - Exam FHR: auscultation normal - Labs Labs: Abnormal Labs 04/30/18 04/30/18 04/30/18 16:20 16:20 16:20 WBC 11.8 H MCH 27 L Seg Neutrophils % 75.5 H Seg Neutrophils # 8.9 H Creatinine 0.6 L POC Glucose Magnesium Urine pH Ur Specific [place] Urine WBC (Auto) 50.0 H U Epithel Cells (Auto) 135.0 H 05/01/18 05/01/18 05/02/18 14:32 19:56 07:54 WBC MCH Seg Neutrophils % Seg Neutrophils # Creatinine POC Glucose Magnesium 3.50 H 4.30 H 4.40 H Urine pH Ur Specific [place] Urine WBC (Auto) U Epithel Cells (Auto) 05/02/18 05/02/18 05/03/18 14:41 Unknown 04:50 WBC MCH Seg Neutrophils % Seg Neutrophils # Creatinine POC Glucose Magnesium 4.20 H 4.30 H 4.30 H Urine pH Ur Specific [place] Urine WBC (Auto) U Epithel Cells (Auto) 05/03/18 05/03/18 05/03/18 05:33 12:51 17:36 WBC MCH Seg Neutrophils % Seg Neutrophils # Creatinine POC Glucose Magnesium 4.30 H 4.10 H 3.40 H Urine pH Ur Specific [place] Urine WBC (Auto) U Epithel Cells (Auto) 05/04/18 05/05/18 05/13/18 05:58 09:37 12:37 WBC MCH 27 L 26 L Seg Neutrophils % 80.5 H 79.0 H Seg Neutrophils # 8.5 H 8.5 H Creatinine POC Glucose Magnesium 3.00 H Urine pH Ur Specific [place] Urine WBC (Auto) U Epithel Cells (Auto) 05/20/18 05/20/18 05/21/18 06:56 17:01 06:15 WBC MCH Seg Neutrophils % Seg Neutrophils # Creatinine POC Glucose 61 L 62 L 68 L Magnesium Urine pH Ur Specific [place] Urine WBC (Auto) U Epithel Cells (Auto) 05/21/18 05/21/18 05/22/18 11:12 16:45 19:02 WBC MCH Seg Neutrophils % Seg Neutrophils # Creatinine POC Glucose 128 H 67 L 129 H Magnesium Urine pH Ur Specific [place] Urine WBC (Auto) U Epithel Cells (Auto) 05/23/18 05/23/18 05/24/18 08:43 16:52 07:59 WBC MCH Seg Neutrophils % Seg Neutrophils # Creatinine POC Glucose 129 H 68 L 63 L Magnesium Urine pH Ur Specific [place] Urine WBC (Auto) U Epithel Cells (Auto) 05/24/18 05/24/18 05/25/18 10:09 14:56 07:45 WBC MCH Seg Neutrophils % Seg Neutrophils # Creatinine POC Glucose 117 H 120 H 48 L Magnesium Urine pH Ur Specific [place] Urine WBC (Auto) U Epithel Cells (Auto) 05/25/18 05/25/18 05/26/18 10:42 22:08 08:28 WBC MCH Seg Neutrophils % Seg Neutrophils # Creatinine POC Glucose 126 H 112 H 63 L Magnesium Urine pH Ur Specific [place] Urine WBC (Auto) U Epithel Cells (Auto) 05/27/18 05/27/18 05/29/18 08:32 15:08 07:26 WBC MCH 27 L Seg Neutrophils % 73.3 H Seg Neutrophils # Creatinine POC Glucose 67 L 68 L Magnesium Urine pH Ur Specific [place] Urine WBC (Auto) U Epithel Cells (Auto) 05/29/18 05/29/18 05/30/18 11:26 19:03 05:53 WBC MCH Seg Neutrophils % Seg Neutrophils # Creatinine POC Glucose 115 H 63 L Magnesium Urine pH 8.0 H Ur Specific [place] 1.001 L Urine WBC (Auto) U Epithel Cells (Auto) 05/30/18 05/31/18 23:41 23:17 WBC MCH Seg Neutrophils % Seg Neutrophils # Creatinine POC Glucose 56 L 68 L Magnesium Urine pH Ur Specific [place] Urine WBC (Auto) U Epithel Cells (Auto) Laboratory Results - last 24 hr 05/31/18 05/31/18 05/31/18 12:05 17:14 23:17 POC Glucose 75 91 68 L 06/01/18 08:09 POC Glucose 73
[2018-06-01] MEDS: PRENATAL VITAMIN PO SCH (10:57)
[2018-06-01] MEDS: PEPCID PO SCH ×2 (10:57→22:51)
[2018-06-01] MEDS: COLACE PO PRN (10:58)
[2018-06-01] MEDS: TYLENOL PO PRN (17:17)
[2018-06-02] MEDS: LACTATED RINGERS 1,000 ML IV SCH ×2 (06:02→13:43)
[2018-06-02] MEDS: PROCARDIA*For Tocolysis only PO SCH ×3 (06:03→18:53)
--- NOTE | 2018-06-02 09:34 | Progress Note ---
Assessment and Plan - Patient Problems (1) Cervical incompetence Current Visit: Yes Status: Acute Plan to address problem: Continue routine care. Continue weekly ultrasounds. Continue Q8 monitoring. No signs of labor progression. Continue weekly progesterone injections. (2) Gestational diabetes mellitus (GDM) Onset Date: 05/23/18 Current Visit: Yes Status: Acute Qualifiers: Gestational diabetes mellitus control: diet-controlled Plan to address problem: No medications. Blood glucose well controlled. . (3) Chronic hypertension affecting Current Visit: Yes Status: Acute Plan to address problem: BP Stable - continue Labetolol (4) 30 weeks gestation of Onset Date: 05/30/18 Current Visit: Yes Status: Acute Subjective - Subjective Principal diagnosis: IUP @ 30 3/7weeks; Incompetent cervix, CHTN, gestational DMA1 Interval history: She denies loss of fluid, vaginal bleeding and reports good movement. She denies contractions. Patient reports: movement normal, other (Patient reports vaginal discharge ), no new complaints, no loss of fluid, no vaginal bleeding, no contractions Objective - Vital Signs Vital Signs: Vital Signs - 12hr 06/01/18 06/02/18 06/02/18 23:50 04:55 04:57 Temperature 98.2 F 98.7 F Pulse Rate 85 83 83 Respiratory 18 18 Rate Blood Pressure 121/56 114/58 Blood Pressure 121/56 114/58 [Right] 06/02/18 07:52 Temperature 98.2 F Pulse Rate 90 Respiratory 18 Rate Blood Pressure 115/59 Blood Pressure 115/59 [Right] - Labs Labs: Abnormal Labs 04/30/18 04/30/18 04/30/18 16:20 16:20 16:20 WBC 11.8 H MCH 27 L Seg Neutrophils % 75.5 H Seg Neutrophils # 8.9 H Creatinine 0.6 L POC Glucose Magnesium Urine pH Ur Specific [place] Urine WBC (Auto) 50.0 H U Epithel Cells (Auto) 135.0 H 05/01/18 05/01/18 05/02/18 14:32 19:56 07:54 WBC MCH Seg Neutrophils % Seg Neutrophils # Creatinine POC Glucose Magnesium 3.50 H 4.30 H 4.40 H Urine pH Ur Specific [place] Urine WBC (Auto) U Epithel Cells (Auto) 05/02/18 05/02/18 05/03/18 14:41 Unknown 04:50 WBC MCH Seg Neutrophils % Seg Neutrophils # Creatinine POC Glucose Magnesium 4.20 H 4.30 H 4.30 H Urine pH Ur Specific [place] Urine WBC (Auto) U Epithel Cells (Auto) 05/03/18 05/03/18 05/03/18 05:33 12:51 17:36 WBC MCH Seg Neutrophils % Seg Neutrophils # Creatinine POC Glucose Magnesium 4.30 H 4.10 H 3.40 H Urine pH Ur Specific [place] Urine WBC (Auto) U Epithel Cells (Auto) 05/04/18 05/05/18 05/13/18 05:58 09:37 12:37 WBC MCH 27 L 26 L Seg Neutrophils % 80.5 H 79.0 H Seg Neutrophils # 8.5 H 8.5 H Creatinine POC Glucose Magnesium 3.00 H Urine pH Ur Specific [place] Urine WBC (Auto) U Epithel Cells (Auto) 05/20/18 05/20/18 05/21/18 06:56 17:01 06:15 WBC MCH Seg Neutrophils % Seg Neutrophils # Creatinine POC Glucose 61 L 62 L 68 L Magnesium Urine pH Ur Specific [place] Urine WBC (Auto) U Epithel Cells (Auto) 05/21/18 05/21/18 05/22/18 11:12 16:45 19:02 WBC MCH Seg Neutrophils % Seg Neutrophils # Creatinine POC Glucose 128 H 67 L 129 H Magnesium Urine pH Ur Specific [place] Urine WBC (Auto) U Epithel Cells (Auto) 05/23/18 05/23/18 05/24/18 08:43 16:52 07:59 WBC MCH Seg Neutrophils % Seg Neutrophils # Creatinine POC Glucose 129 H 68 L 63 L Magnesium Urine pH Ur Specific [place] Urine WBC (Auto) U Epithel Cells (Auto) 05/24/18 05/24/18 05/25/18 10:09 14:56 07:45 WBC MCH Seg Neutrophils % Seg Neutrophils # Creatinine POC Glucose 117 H 120 H 48 L Magnesium Urine pH Ur Specific [place] Urine WBC (Auto) U Epithel Cells (Auto) 05/25/18 05/25/18 05/26/18 10:42 22:08 08:28 WBC MCH Seg Neutrophils % Seg Neutrophils # Creatinine POC Glucose 126 H 112 H 63 L Magnesium Urine pH Ur Specific [place] Urine WBC (Auto) U Epithel Cells (Auto) 05/27/18 05/27/18 05/29/18 08:32 15:08 07:26 WBC MCH 27 L Seg Neutrophils % 73.3 H Seg Neutrophils # Creatinine POC Glucose 67 L 68 L Magnesium Urine pH Ur Specific [place] Urine WBC (Auto) U Epithel Cells (Auto) 05/29/18 05/29/18 05/30/18 11:26 19:03 05:53 WBC MCH Seg Neutrophils % Seg Neutrophils # Creatinine POC Glucose 115 H 63 L Magnesium Urine pH 8.0 H Ur Specific [place] 1.001 L Urine WBC (Auto) U Epithel Cells (Auto) 05/30/18 05/31/18 06/02/18 23:41 23:17 06:12 WBC MCH Seg Neutrophils % Seg Neutrophils # Creatinine POC Glucose 56 L 68 L 61 L Magnesium Urine pH Ur Specific [place] Urine WBC (Auto) U Epithel Cells (Auto) Laboratory Results - last 24 hr 06/01/18 06/01/18 06/01/18 11:11 14:48 20:36 POC Glucose 93 86 99 06/01/18 06/02/18 23:00 06:12 POC Glucose 79 61 L
[2018-06-02] MEDS: COLACE PO PRN (10:11)
[2018-06-02] MEDS: PRENATAL VITAMIN PO SCH (10:11)
[2018-06-02] MEDS: PEPCID PO SCH (10:11)
[2018-06-02] MEDS: ALUM-MAG HYDROX-SIMETH 200-200-20MG/5ML PO PRN (12:57)
[2018-06-03] MEDS: PROCARDIA*For Tocolysis only PO SCH ×3 (07:45→18:23)
--- NOTE | 2018-06-03 08:59 | Progress Note ---
Assessment and Plan - Patient Problems (1) labor Onset Date: 05/02/18 Current Visit: Yes Status: Acute Qualifiers: labor trimester: third trimester labor delivery status: without delivery Qualified Code(s): O60.03 - labor without delivery, third trimester Plan to address problem: Dexamethasone for FLM completed. Magnesium sulfate for neuroprotection and tocolysis discontinued. She is on procardia. S/P PO erythromycin and ampicillin. [facility] and NICU consult done. Continous monitoring. Continue [place] weekly. Cervix unchanged from admission. Sono done on 05/27, baby is vertex, ZACARIAS normal, BPP 8/8. F/U sono today with ZACARIAS. (2) Cervical incompetence Current Visit: Yes Status: Acute (3) Cervical cerclage suture present Onset Date: 05/02/18 Current Visit: Yes Status: Acute Qualifiers: Trimester: third trimester Qualified Code(s): O34.33 - Maternal care for cervical incompetence, third trimester (4) Obesity Current Visit: Yes Status: Acute (5) Chronic hypertension affecting Current Visit: Yes Status: Acute Plan to address problem: BP has been stable. If elevated, will start anti-HTN and do toxemia labs. (6) 27 weeks gestation of Current Visit: Yes Status: Acute (7) Gestational diabetes Current Visit: Yes Status: Acute Plan to address problem: Continue FS monitoring fasting and 2-hr PP. Continue ADA diet. (8) UTI (urinary tract infection) Current Visit: Yes Status: Acute Plan to address problem: Urine culture. Ancef IV Q8 hrs x 3 doses. Subjective - Subjective Date of service: 06/03/18 Principal diagnosis: IUP @ 30 6/7weeks; Incompetent cervix, CHTN, gestational DMA1 Interval history: Patient is a 32 year old , LMP 10/30/17, EDC 08/06/18 at 30 weeks and 6 days gestation who was admitted for labor at 26 weeks gestation. This patient has been co-managed with VERONICA for a history of cervical incompetence and she has a cerclage placed 2 months ago. She saw [facility] 3 weeks ago and sonogram showed funneling. She was offered [place] and [place] for FLM. She did not start [place] until the day of her admission due to insurance issues. She went for a routine visit on 04/30 and reported that she has been feeling pelvic pressure and abdominal tightening for 2 days. She denied any fluid leakage or bleeding. She reports good movement. Exam in the office showed the cervix to be dilated 3 cm with bulging membranes and the cerclage suture was in place. She was sent immediately to the hospital. Sonogram showed the baby to be vertex, normal ZACARIAS. She was treated with magnesium sulfate for tocolysis and neuroprotection, steroids for FLM completed, IV antibiotics for GBS prophylaxis which was switched to PO ampicillin and erythomycin. [facility] consult was done and agreed with above management. NICU consult was done. She also has chronic HTN and has not been on any medication. This AM, she complains of lower abdominal cramps, but denies fluid leakage or bleeding. She reports good movement. Exam (06/03/18): cervix 3 cm/70%/high, cerclage in place (unchanged from admission). She also was diagnosed with GDM. Glucose has been controlled with ADA diet. Patient reports: movement normal, other (Patient reports vaginal discharge ), no new complaints, no loss of fluid, no vaginal bleeding, no contractions Objective - Vital Signs Vital Signs: Vital Signs - 12hr 06/03/18 07:19 Temperature 97.7 F Pulse Rate 86 Respiratory 18 Rate Blood Pressure 104/55 Blood Pressure 104/55 [Right] - Exam Cardiovascular: Normal S1, Normal S2 Lungs: Clear to auscultation Vulva: both: normal FHR: category 1 Uterine Contraction Monitor Mode: External Cervical Dilatation: 3 Cervical Effacement Percentage: 70 station: -3 Uterine Contraction Pattern: Absent Deep Tendon Reflex Grade: Normal +2 - Labs Labs: Abnormal Labs 04/30/18 04/30/18 04/30/18 16:20 16:20 16:20 WBC 11.8 H MCH 27 L Seg Neutrophils % 75.5 H Seg Neutrophils # 8.9 H Creatinine 0.6 L POC Glucose Magnesium Urine pH Ur Specific [place] Urine WBC (Auto) 50.0 H U Epithel Cells (Auto) 135.0 H 05/01/18 05/01/18 05/02/18 14:32 19:56 07:54 WBC MCH Seg Neutrophils % Seg Neutrophils # Creatinine POC Glucose Magnesium 3.50 H 4.30 H 4.40 H Urine pH Ur Specific [place] Urine WBC (Auto) U Epithel Cells (Auto) 05/02/18 05/02/18 05/03/18 14:41 Unknown 04:50 WBC MCH Seg Neutrophils % Seg Neutrophils # Creatinine POC Glucose Magnesium 4.20 H 4.30 H 4.30 H Urine pH Ur Specific [place] Urine WBC (Auto) U Epithel Cells (Auto) 05/03/18 05/03/18 05/03/18 05:33 12:51 17:36 WBC MCH Seg Neutrophils % Seg Neutrophils # Creatinine POC Glucose Magnesium 4.30 H 4.10 H 3.40 H Urine pH Ur Specific [place] Urine WBC (Auto) U Epithel Cells (Auto) 05/04/18 05/05/18 05/13/18 05:58 09:37 12:37 WBC MCH 27 L 26 L Seg Neutrophils % 80.5 H 79.0 H Seg Neutrophils # 8.5 H 8.5 H Creatinine POC Glucose Magnesium 3.00 H Urine pH Ur Specific [place] Urine WBC (Auto) U Epithel Cells (Auto) 05/20/18 05/20/18 05/21/18 06:56 17:01 06:15 WBC MCH Seg Neutrophils % Seg Neutrophils # Creatinine POC Glucose 61 L 62 L 68 L Magnesium Urine pH Ur Specific [place] Urine WBC (Auto) U Epithel Cells (Auto) 05/21/18 05/21/18 05/22/18 11:12 16:45 19:02 WBC MCH Seg Neutrophils % Seg Neutrophils # Creatinine POC Glucose 128 H 67 L 129 H Magnesium Urine pH Ur Specific [place] Urine WBC (Auto) U Epithel Cells (Auto) 05/23/18 05/23/18 05/24/18 08:43 16:52 07:59 WBC MCH Seg Neutrophils % Seg Neutrophils # Creatinine POC Glucose 129 H 68 L 63 L Magnesium Urine pH Ur Specific [place] Urine WBC (Auto) U Epithel Cells (Auto) 05/24/18 05/24/18 05/25/18 10:09 14:56 07:45 WBC MCH Seg Neutrophils % Seg Neutrophils # Creatinine POC Glucose 117 H 120 H 48 L Magnesium Urine pH Ur Specific [place] Urine WBC (Auto) U Epithel Cells (Auto) 05/25/18 05/25/18 05/26/18 10:42 22:08 08:28 WBC MCH Seg Neutrophils % Seg Neutrophils # Creatinine POC Glucose 126 H 112 H 63 L Magnesium Urine pH Ur Specific [place] Urine WBC (Auto) U Epithel Cells (Auto) 05/27/18 05/27/18 05/29/18 08:32 15:08 07:26 WBC MCH 27 L Seg Neutrophils % 73.3 H Seg Neutrophils # Creatinine POC Glucose 67 L 68 L Magnesium Urine pH Ur Specific [place] Urine WBC (Auto) U Epithel Cells (Auto) 05/29/18 05/29/18 05/30/18 11:26 19:03 05:53 WBC MCH Seg Neutrophils % Seg Neutrophils # Creatinine POC Glucose 115 H 63 L Magnesium Urine pH 8.0 H Ur Specific [place] 1.001 L Urine WBC (Auto) U Epithel Cells (Auto) 05/30/18 05/31/18 06/02/18 23:41 23:17 06:12 WBC MCH Seg Neutrophils % Seg Neutrophils # Creatinine POC Glucose 56 L 68 L 61 L Magnesium Urine pH Ur Specific [place] Urine WBC (Auto) U Epithel Cells (Auto) 06/02/18 06/03/18 19:43 07:30 WBC MCH Seg Neutrophils % Seg Neutrophils # Creatinine POC Glucose 107 H 64 L Magnesium Urine pH Ur Specific [place] Urine WBC (Auto) U Epithel Cells (Auto) Laboratory Results - last 24 hr 06/02/18 06/02/18 06/02/18 10:21 14:07 19:43 POC Glucose 91 84 107 H 06/03/18 07:30 POC Glucose 64 L - Results US- obstetric: report reviewed
[2018-06-03] MEDS: PEPCID PO SCH ×2 (10:28→22:00)
[2018-06-03] MEDS: PRENATAL VITAMIN PO SCH (10:28)
[2018-06-03] MEDS ORDERED: ceFAZolin 2 GM in NACL 0.9% 100 ML IV ONE (10:30)
--- NOTE | 2018-06-03 13:03 | Ultrasound Report ---
OB ULTRASOUND History: labor. Technique: Transabdominal ultrasound with Doppler interrogation. Gestation: Single Position: Cephalic Amniotic Fluid: Normal ZACARIAS = 15.9 cm Heart Rate: 138 BPM BPD: 7.7 cm = 31 w 0 d HC: 27.8 cm = 30 w 3 d AC: 27.7 cm = 31 w 5 d FL: 5.8 cm = 30 w 2 d HC/AC Ratio: 1.01 Cephalic Index: 87.3 Estimated Weight: 1703 grams Clinical age = 30 w 6 d EDC: 08/06/18 US Gest. Age = 30 w 6 d EDC: 08/06/18 IMPRESSION: Viable, single intrauterine as described.
[2018-06-03] MEDS: ANCEF/NS 1 GM/50 ML 1 GM/50 ML BAG IV SCH (19:30)
[2018-06-04] MEDS: PROCARDIA*For Tocolysis only PO SCH ×8 (00:07→18:21)
[2018-06-04] MEDS: PEPCID PO SCH ×3 (00:07→23:45)
[2018-06-04] MEDS: AMBIEN PO PRN (01:03)
[2018-06-04] MEDS: ANCEF/NS 1 GM/50 ML 1 GM/50 ML BAG IV SCH (03:27)
--- NOTE | 2018-06-04 09:35 | Progress Note ---
Assessment and Plan - Patient Problems (1) labor Onset Date: 05/02/18 Current Visit: Yes Status: Acute Qualifiers: labor trimester: third trimester labor delivery status: without delivery Qualified Code(s): O60.03 - labor without delivery, third trimester Plan to address problem: Dexamethasone for FLM completed. Magnesium sulfate for neuroprotection and tocolysis discontinued. She is on procardia. S/P PO erythromycin and ampicillin. [facility] and NICU consult done. Continous monitoring. Continue M[place] weekly. Cervix unchanged from admission. Sono done on 06/03, baby is vertex, ZACARIAS normal, BPP 8/8. (2) Cervical incompetence Current Visit: Yes Status: Acute (3) Cervical cerclage suture present Onset Date: 05/02/18 Current Visit: Yes Status: Acute Qualifiers: Trimester: third trimester Qualified Code(s): O34.33 - Maternal care for cervical incompetence, third trimester (4) Obesity Current Visit: Yes Status: Acute (5) Chronic hypertension affecting Current Visit: Yes Status: Acute Plan to address problem: BP has been stable. If elevated, will start anti-HTN and do toxemia labs. (6) 27 weeks gestation of Current Visit: Yes Status: Acute (7) Gestational diabetes Current Visit: Yes Status: Acute Plan to address problem: Continue FS monitoring fasting and 2-hr PP. Continue ADA diet. (8) UTI (urinary tract infection) Current Visit: Yes Status: Acute Plan to address problem: Urine culture. Ancef IV was given. Symptoms have subsided. Subjective - Subjective Date of service: 06/04/18 Principal diagnosis: IUP @ 31 weeks; Incompetent cervix, CHTN, gestational DMA1 Interval history: Patient is a 32 year old , LMP 10/30/17, EDC 08/06/18 at 31 weeks gestation who was admitted for labor at 26 weeks gestation. This patient has been co-managed with VERONICA for a history of cervical incompetence and she has a cerclage placed 2 months ago. She saw [facility] 3 weeks ago and sonogram showed funneling. She was offered [place] and [place] for FLM. She did not start [place] until the day of her admission due to insurance issues. She went for a routine visit on 04/30 and reported that she has been feeling pelvic pressure and abdominal tightening for 2 days. She denied any fluid leakage or bleeding. She reports good movement. Exam in the office showed the cervix to be dilated 3 cm with bulging membranes and the cerclage suture was in place. She was sent immediately to the hospital. Sonogram showed the baby to be vertex, normal ZACARIAS. She was treated with magnesium sulfate for tocolysis and neuroprotection, steroids for FLM completed, IV antibiotics for GBS prophylaxis which was switched to PO ampicillin and erythomycin. [facility] consult was done and agreed with above management. NICU consult was done. She also has chronic HTN and has not been on any medication. This AM, she complains of lower abdominal cramps, but denies fluid leakage or bleeding. She reports good movement. Exam (06/03/18): cervix 3 cm/70%/high, cerclage in place (unchanged from admission). She also was diagnosed with GDM. Glucose has been controlled with ADA diet. Patient reports: movement normal, other (Patient reports vaginal discharge ), no new complaints, no loss of fluid, no vaginal bleeding, no contractions Objective - Vital Signs Vital Signs: Vital Signs - 12hr 06/04/18 00:18 Pulse Rate 88 Blood Pressure 111/53 - Exam Cardiovascular: Normal S1, Normal S2 Lungs: Clear to auscultation Vulva: both: normal FHR: category 1 Uterine Contraction Monitor Mode: External Uterine Contraction Pattern: Absent Deep Tendon Reflex Grade: Normal +2 - Labs Labs: Abnormal Labs 04/30/18 04/30/18 04/30/18 16:20 16:20 16:20 WBC 11.8 H MCH 27 L Seg Neutrophils % 75.5 H Seg Neutrophils # 8.9 H Creatinine 0.6 L POC Glucose Magnesium Urine pH Ur Specific [place] Urine WBC (Auto) 50.0 H U Epithel Cells (Auto) 135.0 H 05/01/18 05/01/18 05/02/18 14:32 19:56 07:54 WBC MCH Seg Neutrophils % Seg Neutrophils # Creatinine POC Glucose Magnesium 3.50 H 4.30 H 4.40 H Urine pH Ur Specific [place] Urine WBC (Auto) U Epithel Cells (Auto) 05/02/18 05/02/18 05/03/18 14:41 Unknown 04:50 WBC MCH Seg Neutrophils % Seg Neutrophils # Creatinine POC Glucose Magnesium 4.20 H 4.30 H 4.30 H Urine pH Ur Specific [place] Urine WBC (Auto) U Epithel Cells (Auto) 05/03/18 05/03/18 05/03/18 05:33 12:51 17:36 WBC MCH Seg Neutrophils % Seg Neutrophils # Creatinine POC Glucose Magnesium 4.30 H 4.10 H 3.40 H Urine pH Ur Specific [place] Urine WBC (Auto) U Epithel Cells (Auto) 05/04/18 05/05/18 05/13/18 05:58 09:37 12:37 WBC MCH 27 L 26 L Seg Neutrophils % 80.5 H 79.0 H Seg Neutrophils # 8.5 H 8.5 H Creatinine POC Glucose Magnesium 3.00 H Urine pH Ur Specific [place] Urine WBC (Auto) U Epithel Cells (Auto) 05/20/18 05/20/18 05/21/18 06:56 17:01 06:15 WBC MCH Seg Neutrophils % Seg Neutrophils # Creatinine POC Glucose 61 L 62 L 68 L Magnesium Urine pH Ur Specific [place] Urine WBC (Auto) U Epithel Cells (Auto) 05/21/18 05/21/18 05/22/18 11:12 16:45 19:02 WBC MCH Seg Neutrophils % Seg Neutrophils # Creatinine POC Glucose 128 H 67 L 129 H Magnesium Urine pH Ur Specific [place] Urine WBC (Auto) U Epithel Cells (Auto) 05/23/18 05/23/18 05/24/18 08:43 16:52 07:59 WBC MCH Seg Neutrophils % Seg Neutrophils # Creatinine POC Glucose 129 H 68 L 63 L Magnesium Urine pH Ur Specific [place] Urine WBC (Auto) U Epithel Cells (Auto) 05/24/18 05/24/18 05/25/18 10:09 14:56 07:45 WBC MCH Seg Neutrophils % Seg Neutrophils # Creatinine POC Glucose 117 H 120 H 48 L Magnesium Urine pH Ur Specific [place] Urine WBC (Auto) U Epithel Cells (Auto) 05/25/18 05/25/18 05/26/18 10:42 22:08 08:28 WBC MCH Seg Neutrophils % Seg Neutrophils # Creatinine POC Glucose 126 H 112 H 63 L Magnesium Urine pH Ur Specific [place] Urine WBC (Auto) U Epithel Cells (Auto) 05/27/18 05/27/18 05/29/18 08:32 15:08 07:26 WBC MCH 27 L Seg Neutrophils % 73.3 H Seg Neutrophils # Creatinine POC Glucose 67 L 68 L Magnesium Urine pH Ur Specific [place] Urine WBC (Auto) U Epithel Cells (Auto) 05/29/18 05/29/18 05/30/18 11:26 19:03 05:53 WBC MCH Seg Neutrophils % Seg Neutrophils # Creatinine POC Glucose 115 H 63 L Magnesium Urine pH 8.0 H Ur Specific [place] 1.001 L Urine WBC (Auto) U Epithel Cells (Auto) 05/30/18 05/31/18 06/02/18 23:41 23:17 06:12 WBC MCH Seg Neutrophils % Seg Neutrophils # Creatinine POC Glucose 56 L 68 L 61 L Magnesium Urine pH Ur Specific [place] Urine WBC (Auto) U Epithel Cells (Auto) 06/02/18 06/03/18 06/03/18 19:43 07:30 10:47 WBC MCH Seg Neutrophils % Seg Neutrophils # Creatinine POC Glucose 107 H 64 L 135 H Magnesium Urine pH Ur Specific [place] Urine WBC (Auto) U Epithel Cells (Auto) 06/04/18 00:08 WBC MCH Seg Neutrophils % Seg Neutrophils # Creatinine POC Glucose 111 H Magnesium Urine pH Ur Specific [place] Urine WBC (Auto) U Epithel Cells (Auto) Laboratory Results - last 24 hr 06/03/18 06/03/18 06/03/18 10:47 14:38 19:52 POC Glucose 135 H 95 95 06/04/18 00:08 POC Glucose 111 H - Results US- obstetric: report reviewed
[2018-06-04] MEDS: PRENATAL VITAMIN PO SCH (09:44)
[2018-06-05] MEDS: AMBIEN PO PRN (00:30)
[2018-06-05] MEDS: PROCARDIA*For Tocolysis only PO SCH ×4 (00:41→18:42)
[2018-06-05] MEDS: PEPCID PO SCH (10:27)
[2018-06-05] MEDS: PRENATAL VITAMIN PO SCH (10:27)
[2018-06-05] MEDS: COLACE PO PRN (10:28)
--- NOTE | 2018-06-05 10:57 | Progress Note ---
Assessment and Plan - Patient Problems (1) labor Onset Date: 05/02/18 Current Visit: Yes Status: Acute Qualifiers: labor trimester: third trimester labor delivery status: without delivery Qualified Code(s): O60.03 - labor without delivery, third trimester Plan to address problem: Dexamethasone for FLM completed. Magnesium sulfate for neuroprotection and tocolysis discontinued. She is on procardia. S/P PO erythromycin and ampicillin. [facility] and NICU consult done. Continous monitoring. Continue [place] weekly. Cervix unchanged from admission. Sono done on 06/03, baby is vertex, ZACARIAS normal, BPP 8/8. (2) Cervical incompetence Current Visit: Yes Status: Acute (3) Cervical cerclage suture present Onset Date: 05/02/18 Current Visit: Yes Status: Acute Qualifiers: Trimester: third trimester Qualified Code(s): O34.33 - Maternal care for cervical incompetence, third trimester (4) Obesity Current Visit: Yes Status: Acute (5) Chronic hypertension affecting Current Visit: Yes Status: Acute Plan to address problem: BP has been stable. If elevated, will start anti-HTN and do toxemia labs. (6) 27 weeks gestation of Current Visit: Yes Status: Acute (7) Gestational diabetes Current Visit: Yes Status: Acute Plan to address problem: Continue FS monitoring fasting and 2-hr PP. Continue ADA diet. (8) UTI (urinary tract infection) Current Visit: Yes Status: Acute Plan to address problem: Urine culture. Ancef IV was given. Symptoms have subsided. Subjective - Subjective Date of service: 06/05/18 Principal diagnosis: IUP @ 31 weeks; Incompetent cervix, CHTN, gestational DMA1 Interval history: Patient is a 32 year old , LMP 10/30/17, EDC 08/06/18 at 31 weeks gestation who was admitted for labor at 26 weeks gestation. This patient has been co-managed with VERONICA for a history of cervical incompetence and she has a cerclage placed 2 months ago. She saw [facility] 3 weeks ago and sonogram showed funneling. She was offered [place] and [place] for FLM. She did not start [place] until the day of her admission due to insurance issues. She went for a routine visit on 04/30 and reported that she has been feeling pelvic pressure and abdominal tightening for 2 days. She denied any fluid leakage or bleeding. She reports good movement. Exam in the office showed the cervix to be dilated 3 cm with bulging membranes and the cerclage suture was in place. She was sent immediately to the hospital. Sonogram showed the baby to be vertex, normal ZACARIAS. She was treated with magnesium sulfate for tocolysis and neuroprotection, steroids for FLM completed, IV antibiotics for GBS prophylaxis which was switched to PO ampicillin and erythomycin. [facility] consult was done and agreed with above management. NICU consult was done. She also has chronic HTN and has not been on any medication. This AM, she denies any contractions, fluid leakage or bleeding. She reports good movement. Exam (06/03/18): cervix 3 cm/70%/high, cerclage in place (unchanged from admission). She also was diagnosed with GDM. Glucose has been controlled with ADA diet. Patient reports: movement normal, other (Patient reports vaginal discharge ), no new complaints, no loss of fluid, no vaginal bleeding, no contractions Objective - Vital Signs Vital Signs: Vital Signs - 12hr 06/05/18 06/05/18 00:34 08:02 Pulse Rate 89 90 Blood Pressure 124/63 121/62 O2 Sat by Pulse 99 Oximetry - Exam Cardiovascular: Normal S1, Normal S2 Lungs: Clear to auscultation Vulva: both: normal FHR: category 1 Uterine Contraction Monitor Mode: External Uterine Contraction Pattern: Absent Deep Tendon Reflex Grade: Normal +2 - Labs Labs: Abnormal Labs 04/30/18 04/30/18 04/30/18 16:20 16:20 16:20 WBC 11.8 H MCH 27 L Seg Neutrophils % 75.5 H Seg Neutrophils # 8.9 H Creatinine 0.6 L POC Glucose Magnesium Urine pH Ur Specific [place] Urine WBC (Auto) 50.0 H U Epithel Cells (Auto) 135.0 H 05/01/18 05/01/18 05/02/18 14:32 19:56 07:54 WBC MCH Seg Neutrophils % Seg Neutrophils # Creatinine POC Glucose Magnesium 3.50 H 4.30 H 4.40 H Urine pH Ur Specific [place] Urine WBC (Auto) U Epithel Cells (Auto) 05/02/18 05/02/18 05/03/18 14:41 Unknown 04:50 WBC MCH Seg Neutrophils % Seg Neutrophils # Creatinine POC Glucose Magnesium 4.20 H 4.30 H 4.30 H Urine pH Ur Specific [place] Urine WBC (Auto) U Epithel Cells (Auto) 05/03/18 05/03/18 05/03/18 05:33 12:51 17:36 WBC MCH Seg Neutrophils % Seg Neutrophils # Creatinine POC Glucose Magnesium 4.30 H 4.10 H 3.40 H Urine pH Ur Specific [place] Urine WBC (Auto) U Epithel Cells (Auto) 05/04/18 05/05/18 05/13/18 05:58 09:37 12:37 WBC MCH 27 L 26 L Seg Neutrophils % 80.5 H 79.0 H Seg Neutrophils # 8.5 H 8.5 H Creatinine POC Glucose Magnesium 3.00 H Urine pH Ur Specific [place] Urine WBC (Auto) U Epithel Cells (Auto) 05/20/18 05/20/18 05/21/18 06:56 17:01 06:15 WBC MCH Seg Neutrophils % Seg Neutrophils # Creatinine POC Glucose 61 L 62 L 68 L Magnesium Urine pH Ur Specific [place] Urine WBC (Auto) U Epithel Cells (Auto) 05/21/18 05/21/18 05/22/18 11:12 16:45 19:02 WBC MCH Seg Neutrophils % Seg Neutrophils # Creatinine POC Glucose 128 H 67 L 129 H Magnesium Urine pH Ur Specific [place] Urine WBC (Auto) U Epithel Cells (Auto) 05/23/18 05/23/18 05/24/18 08:43 16:52 07:59 WBC MCH Seg Neutrophils % Seg Neutrophils # Creatinine POC Glucose 129 H 68 L 63 L Magnesium Urine pH Ur Specific [place] Urine WBC (Auto) U Epithel Cells (Auto) 05/24/18 05/24/18 05/25/18 10:09 14:56 07:45 WBC MCH Seg Neutrophils % Seg Neutrophils # Creatinine POC Glucose 117 H 120 H 48 L Magnesium Urine pH Ur Specific [place] Urine WBC (Auto) U Epithel Cells (Auto) 05/25/18 05/25/18 05/26/18 10:42 22:08 08:28 WBC MCH Seg Neutrophils % Seg Neutrophils # Creatinine POC Glucose 126 H 112 H 63 L Magnesium Urine pH Ur Specific [place] Urine WBC (Auto) U Epithel Cells (Auto) 05/27/18 05/27/18 05/29/18 08:32 15:08 07:26 WBC MCH 27 L Seg Neutrophils % 73.3 H Seg Neutrophils # Creatinine POC Glucose 67 L 68 L Magnesium Urine pH Ur Specific [place] Urine WBC (Auto) U Epithel Cells (Auto) 05/29/18 05/29/18 05/30/18 11:26 19:03 05:53 WBC MCH Seg Neutrophils % Seg Neutrophils # Creatinine POC Glucose 115 H 63 L Magnesium Urine pH 8.0 H Ur Specific [place] 1.001 L Urine WBC (Auto) U Epithel Cells (Auto) 05/30/18 05/31/18 06/02/18 23:41 23:17 06:12 WBC MCH Seg Neutrophils % Seg Neutrophils # Creatinine POC Glucose 56 L 68 L 61 L Magnesium Urine pH Ur Specific [place] Urine WBC (Auto) U Epithel Cells (Auto) 06/02/18 06/03/18 06/03/18 19:43 07:30 10:47 WBC MCH Seg Neutrophils % Seg Neutrophils # Creatinine POC Glucose 107 H 64 L 135 H Magnesium Urine pH Ur Specific [place] Urine WBC (Auto) U Epithel Cells (Auto) 06/04/18 06/04/18 00:08 20:55 WBC MCH Seg Neutrophils % Seg Neutrophils # Creatinine POC Glucose 111 H 132 H Magnesium Urine pH Ur Specific [place] Urine WBC (Auto) U Epithel Cells (Auto) Laboratory Results - last 24 hr 06/04/18 06/04/18 06/04/18 12:00 14:15 20:55 POC Glucose 84 98 132 H 06/05/18 00:32 POC Glucose 93 - Results US- obstetric: report reviewed
[2018-06-05] MEDS: HYDROXYPROGESTERONE CAPROATE IM SCH (12:29)
[2018-06-05] MEDS ORDERED: DIFLUCAN PO ONE (20:00)
[2018-06-06] MEDS: AMBIEN PO PRN (00:07)
[2018-06-06] MEDS: PEPCID PO SCH ×3 (00:08→22:15)
[2018-06-06] MEDS: PROCARDIA*For Tocolysis only PO SCH ×4 (00:08→18:44)
[2018-06-06] MEDS: PRENATAL VITAMIN PO SCH (12:32)
--- NOTE | 2018-06-06 14:47 | Progress Note ---
Assessment and Plan - Patient Problems (1) Cervical cerclage suture present Onset Date: 05/02/18 Current Visit: Yes Status: Acute Qualifiers: Trimester: third trimester Qualified Code(s): O34.33 - Maternal care for cervical incompetence, third trimester (2) labor Onset Date: 05/02/18 Current Visit: Yes Status: Acute Qualifiers: labor trimester: third trimester labor delivery status: without delivery Qualified Code(s): O60.03 - labor without delivery, third trimester (3) 28 weeks gestation of Onset Date: 05/18/18 Current Visit: Yes Status: Resolved (4) 29 weeks gestation of Onset Date: 05/23/18 Current Visit: Yes Status: Resolved (5) Gestational diabetes mellitus (GDM) Onset Date: 05/23/18 Current Visit: Yes Status: Acute Qualifiers: Gestational diabetes mellitus control: diet-controlled (6) 30 weeks gestation of Onset Date: 05/30/18 Current Visit: Yes Status: Resolved (7) 31 weeks gestation of Onset Date: 06/06/18 Current Visit: Yes Status: Acute Plan to address problem: Assessment 1. 31 2/7 weeks, SIUP 2. Hx Incompetent cervix, cerclage in situ 3. [place]/17P started 2 days prior to admission 4. S/P steroid for lung maturity 5. S/P Magnesium Sulfate therapy 6. Short cervix; last exam 3 cm dilated 7. Per OB's report bulging membrane noted in office 8. Hx CHTN; not on meds, stable BPs 9. GDM; glucose 91-105 (outlier 128) Recommendations 1. Presently on Procardia 2. Antibiotics secondary to bulging membrane: Ampicillin and Erythromycin 3. S/P Dexamethasone for lung maturity 4. S/P Magnesium Sulfate for neuroprotection 5. [facility] to follow patient 6. Delivery recommended if compromise 7. Remove cerclage with evidence of labor 8. We recommend continued hospitalization at this point; if no change in vaginal exam we recommend consideration of outpatient follow-up 9. S/P Diabetic Teaching/education 10. Continue blood glucose monitoring 2 hours after meals and fasting 11. Continue [place]/17-P to 36 weeks Subjective - Subjective Date of service: 06/06/18 Principal diagnosis: IUP @ 31 2/7 weeks; Incompetent cervix, CHTN, gestational DMA1 Interval history: Patient is a 32 year old , LMP 10/30/17, EDC 08/06/18 at 31 2/7weeks gestation who was sent from the office for labor. This patient has been co-managed with VERONICA for a history of cervical incompetence and she has a cerclage placed 2 months ago. She saw [facility] 2 weeks and sonogram showed funneling. She was offered [place] and [place] for FLM. She did not start [place] due to insurance issues. She went for a routine visit and reported that she has been feeling pelvic pressure and abdominal tightening for 2 days. She denied any fluid leakage or bleeding. She reports good movement. Exam in the office showed the cervix to be dilated 3 cm with bulging membranes and the cerclage suture was in place. She also has chronic HTN and has not been on any medication. She has been hospitalized and currently s/p IV Magnesium sulfate , IV Ampicillin, IV Zithromax and IM steroids for FLM and denies contractions. This morning she denies any contractions, fluid leakage or bleeding. She reports good movement, but complains of round ligament pains. Exam (05/09/18): cervix 3 cm/70%/high, cerclage in place, unchanged from admi ssion). She also was diagnosed with GDM. Glucose has been controlled with ADA diet. Patient reports: movement normal, other (Patient reports vaginal discharge ), no new complaints, no loss of fluid, no vaginal bleeding, no contractions Objective - Vital Signs Vital Signs: Vital Signs - 12hr 06/06/18 06/06/18 06/06/18 04:10 04:12 12:30 Temperature 98.1 F 98.1 F Pulse Rate 100 H Respiratory 18 Rate Blood Pressure 113/60 06/06/18 14:24 Temperature Pulse Rate 100 H Respiratory Rate Blood Pressure 111/54 - Exam Abdomen: Present: normal appearance, soft Uterus: Present: normal FHR: category 1 Uterine Contraction Monitor Mode: External Uterine Contraction Pattern: Absent - Labs Labs: Abnormal Labs 04/30/18 04/30/18 04/30/18 16:20 16:20 16:20 WBC 11.8 H MCH 27 L Seg Neutrophils % 75.5 H Seg Neutrophils # 8.9 H Creatinine 0.6 L POC Glucose Magnesium Urine pH Ur Specific [place] Urine WBC (Auto) 50.0 H U Epithel Cells (Auto) 135.0 H 05/01/18 05/01/18 05/02/18 14:32 19:56 07:54 WBC MCH Seg Neutrophils % Seg Neutrophils # Creatinine POC Glucose Magnesium 3.50 H 4.30 H 4.40 H Urine pH Ur Specific [place] Urine WBC (Auto) U Epithel Cells (Auto) 05/02/18 05/02/18 05/03/18 14:41 Unknown 04:50 WBC MCH Seg Neutrophils % Seg Neutrophils # Creatinine POC Glucose Magnesium 4.20 H 4.30 H 4.30 H Urine pH Ur Specific [place] Urine WBC (Auto) U Epithel Cells (Auto) 05/03/18 05/03/18 05/03/18 05:33 12:51 17:36 WBC MCH Seg Neutrophils % Seg Neutrophils # Creatinine POC Glucose Magnesium 4.30 H 4.10 H 3.40 H Urine pH Ur Specific [place] Urine WBC (Auto) U Epithel Cells (Auto) 05/04/18 05/05/18 05/13/18 05:58 09:37 12:37 WBC MCH 27 L 26 L Seg Neutrophils % 80.5 H 79.0 H Seg Neutrophils # 8.5 H 8.5 H Creatinine POC Glucose Magnesium 3.00 H Urine pH Ur Specific [place] Urine WBC (Auto) U Epithel Cells (Auto) 05/20/18 05/20/18 05/21/18 06:56 17:01 06:15 WBC MCH Seg Neutrophils % Seg Neutrophils # Creatinine POC Glucose 61 L 62 L 68 L Magnesium Urine pH Ur Specific [place] Urine WBC (Auto) U Epithel Cells (Auto) 05/21/18 05/21/18 05/22/18 11:12 16:45 19:02 WBC MCH Seg Neutrophils % Seg Neutrophils # Creatinine POC Glucose 128 H 67 L 129 H Magnesium Urine pH Ur Specific [place] Urine WBC (Auto) U Epithel Cells (Auto) 05/23/18 05/23/18 05/24/18 08:43 16:52 07:59 WBC MCH Seg Neutrophils % Seg Neutrophils # Creatinine POC Glucose 129 H 68 L 63 L Magnesium Urine pH Ur Specific [place] Urine WBC (Auto) U Epithel Cells (Auto) 05/24/18 05/24/18 05/25/18 10:09 14:56 07:45 WBC MCH Seg Neutrophils % Seg Neutrophils # Creatinine POC Glucose 117 H 120 H 48 L Magnesium Urine pH Ur Specific [place] Urine WBC (Auto) U Epithel Cells (Auto) 05/25/18 05/25/18 05/26/18 10:42 22:08 08:28 WBC MCH Seg Neutrophils % Seg Neutrophils # Creatinine POC Glucose 126 H 112 H 63 L Magnesium Urine pH Ur Specific [place] Urine WBC (Auto) U Epithel Cells (Auto) 05/27/18 05/27/18 05/29/18 08:32 15:08 07:26 WBC MCH 27 L Seg Neutrophils % 73.3 H Seg Neutrophils # Creatinine POC Glucose 67 L 68 L Magnesium Urine pH Ur Specific [place] Urine WBC (Auto) U Epithel Cells (Auto) 05/29/18 05/29/18 05/30/18 11:26 19:03 05:53 WBC MCH Seg Neutrophils % Seg Neutrophils # Creatinine POC Glucose 115 H 63 L Magnesium Urine pH 8.0 H Ur Specific [place] 1.001 L Urine WBC (Auto) U Epithel Cells (Auto) 05/30/18 05/31/18 06/02/18 23:41 23:17 06:12 WBC MCH Seg Neutrophils % Seg Neutrophils # Creatinine POC Glucose 56 L 68 L 61 L Magnesium Urine pH Ur Specific [place] Urine WBC (Auto) U Epithel Cells (Auto) 06/02/18 06/03/18 06/03/18 19:43 07:30 10:47 WBC MCH Seg Neutrophils % Seg Neutrophils # Creatinine POC Glucose 107 H 64 L 135 H Magnesium Urine pH Ur Specific [place] Urine WBC (Auto) U Epithel Cells (Auto) 06/04/18 06/04/18 06/05/18 00:08 20:55 10:23 WBC MCH Seg Neutrophils % Seg Neutrophils # Creatinine POC Glucose 111 H 132 H 117 H Magnesium Urine pH Ur Specific [place] Urine WBC (Auto) U Epithel Cells (Auto) 06/06/18 06/06/18 06:40 14:24 WBC MCH Seg Neutrophils % Seg Neutrophils # Creatinine POC Glucose 62 L 113 H Magnesium Urine pH Ur Specific [place] Urine WBC (Auto) U Epithel Cells (Auto) Laboratory Results - last 24 hr 06/05/18 06/05/18 06/06/18 14:25 20:57 06:40 POC Glucose 73 73 62 L 06/06/18 14:24 POC Glucose 113 H
[2018-06-07] MEDS: AMBIEN PO PRN (00:01)
[2018-06-07] MEDS: PROCARDIA*For Tocolysis only PO SCH ×3 (05:32→12:07)
[2018-06-07] MEDS: PRENATAL VITAMIN PO SCH (10:57)
--- NOTE | 2018-06-07 12:35 | Progress Note ---
Assessment and Plan - Patient Problems (1) Cervical cerclage suture present Onset Date: 05/02/18 Current Visit: Yes Status: Acute Qualifiers: Trimester: third trimester Qualified Code(s): O34.33 - Maternal care for cervical incompetence, third trimester (2) labor Onset Date: 05/02/18 Current Visit: Yes Status: Acute Qualifiers: labor trimester: third trimester labor delivery status: without delivery Qualified Code(s): O60.03 - labor without delivery, third trimester (3) 28 weeks gestation of Onset Date: 05/18/18 Current Visit: Yes Status: Resolved (4) 29 weeks gestation of Onset Date: 05/23/18 Current Visit: Yes Status: Resolved (5) Gestational diabetes mellitus (GDM) Onset Date: 05/23/18 Current Visit: Yes Status: Acute Qualifiers: Gestational diabetes mellitus control: diet-controlled (6) 30 weeks gestation of Onset Date: 05/30/18 Current Visit: Yes Status: Resolved (7) 31 weeks gestation of Onset Date: 06/06/18 Current Visit: Yes Status: Acute Plan to address problem: Assessment 1. 31 3/7 weeks, SIUP 2. Hx Incompetent cervix, cerclage in situ 3. [place]/17P started 2 days prior to admission 4. S/P steroid for lung maturity 5. S/P Magnesium Sulfate therapy 6. Short cervix; last exam 3 cm dilated 7. Per OB's report bulging membrane noted in office 8. Hx CHTN; not on meds, stable BPs 9. GDM; glucose 91-105 (outlier 128) Recommendations 1. Presently on Procardia 2. Antibiotics secondary to bulging membrane: Ampicillin and Erythromycin 3. S/P Dexamethasone for lung maturity 4. S/P Magnesium Sulfate for neuroprotection 5. [facility] to follow patient 6. Delivery recommended if compromise 7. Remove cerclage with evidence of labor 8. We recommend continued hospitalization at this point; if no change in vaginal exam we recommend consideration of outpatient follow-up 9. S/P Diabetic Teaching/education 10. Continue blood glucose monitoring 2 hours after meals and fasting 11. Continue [place]/17-P to 36 weeks Subjective - Subjective Date of service: 06/07/18 Principal diagnosis: IUP @ 31 3/7 weeks; Incompetent cervix, CHTN, gestational DMA1 Interval history: Patient is a 32 year old , LMP 10/30/17, EDC 08/06/18 at 31 3/7weeks gestation who was sent from the office for labor. This patient has been co-managed with VERONICA for a history of cervical incompetence and she has a cerclage placed 2 months ago. She saw [facility] 2 weeks and sonogram showed funneling. She was offered [facility] for FLM. She did not start [place] due to insurance issues. She went for a routine visit and reported that she has been feeling pelvic pressure and abdominal tightening for 2 days. She denied any fluid leakage or bleeding. She reports good movement. Exam in the office showed the cervix to be dilated 3 cm with bulging membranes and the cerclage suture was in place. She also has chronic HTN and has not been on any medication. She has been hospitalized and currently s/p IV Magnesium sulfate , IV Ampicillin, IV Zithromax and IM steroids for FLM and denies contractions. This morning she denies any contractions, fluid leakage or bleeding. She reports good movement, but complains of round ligament pains. Exam (05/09/18): cervix 3 cm/70%/high, cerclage in place, unchanged from admi ssion). She also was diagnosed with GDM. Glucose has been controlled with ADA diet. Patient reports: movement normal, other (Patient reports vaginal discharge ), no new complaints, no loss of fluid, no vaginal bleeding, no contractions Objective - Vital Signs Vital Signs: Vital Signs - 12hr 06/07/18 06/07/18 06/07/18 05:30 05:42 05:43 Temperature 97.9 F Pulse Rate 88 90 Respiratory 18 Rate Blood Pressure 111/60 O2 Sat by Pulse 98 Oximetry 06/07/18 06/07/18 06/07/18 05:47 05:52 05:57 Temperature Pulse Rate 96 H 94 H 89 Respiratory Rate Blood Pressure O2 Sat by Pulse 97 98 100 Oximetry 06/07/18 06/07/18 06:02 11:53 Temperature Pulse Rate 84 94 H Respiratory Rate Blood Pressure 110/60 O2 Sat by Pulse 99 97 Oximetry - Exam Abdomen: Present: normal appearance, soft Uterus: Present: normal FHR: category 1 Uterine Contraction Monitor Mode: External Uterine Contraction Pattern: Absent - Labs Labs: Abnormal Labs 04/30/18 04/30/18 04/30/18 16:20 16:20 16:20 WBC 11.8 H MCH 27 L Seg Neutrophils % 75.5 H Seg Neutrophils # 8.9 H Creatinine 0.6 L POC Glucose Magnesium Urine pH Ur Specific [place] Urine WBC (Auto) 50.0 H U Epithel Cells (Auto) 135.0 H 05/01/18 05/01/18 05/02/18 14:32 19:56 07:54 WBC MCH Seg Neutrophils % Seg Neutrophils # Creatinine POC Glucose Magnesium 3.50 H 4.30 H 4.40 H Urine pH Ur Specific [place] Urine WBC (Auto) U Epithel Cells (Auto) 05/02/18 05/02/18 05/03/18 14:41 Unknown 04:50 WBC MCH Seg Neutrophils % Seg Neutrophils # Creatinine POC Glucose Magnesium 4.20 H 4.30 H 4.30 H Urine pH Ur Specific [place] Urine WBC (Auto) U Epithel Cells (Auto) 05/03/18 05/03/18 05/03/18 05:33 12:51 17:36 WBC MCH Seg Neutrophils % Seg Neutrophils # Creatinine POC Glucose Magnesium 4.30 H 4.10 H 3.40 H Urine pH Ur Specific [place] Urine WBC (Auto) U Epithel Cells (Auto) 05/04/18 05/05/18 05/13/18 05:58 09:37 12:37 WBC MCH 27 L 26 L Seg Neutrophils % 80.5 H 79.0 H Seg Neutrophils # 8.5 H 8.5 H Creatinine POC Glucose Magnesium 3.00 H Urine pH Ur Specific [place] Urine WBC (Auto) U Epithel Cells (Auto) 05/20/18 05/20/18 05/21/18 06:56 17:01 06:15 WBC MCH Seg Neutrophils % Seg Neutrophils # Creatinine POC Glucose 61 L 62 L 68 L Magnesium Urine pH Ur Specific [place] Urine WBC (Auto) U Epithel Cells (Auto) 05/21/18 05/21/18 05/22/18 11:12 16:45 19:02 WBC MCH Seg Neutrophils % Seg Neutrophils # Creatinine POC Glucose 128 H 67 L 129 H Magnesium Urine pH Ur Specific [place] Urine WBC (Auto) U Epithel Cells (Auto) 05/23/18 05/23/18 05/24/18 08:43 16:52 07:59 WBC MCH Seg Neutrophils % Seg Neutrophils # Creatinine POC Glucose 129 H 68 L 63 L Magnesium Urine pH Ur Specific [place] Urine WBC (Auto) U Epithel Cells (Auto) 05/24/18 05/24/18 05/25/18 10:09 14:56 07:45 WBC MCH Seg Neutrophils % Seg Neutrophils # Creatinine POC Glucose 117 H 120 H 48 L Magnesium Urine pH Ur Specific [place] Urine WBC (Auto) U Epithel Cells (Auto) 05/25/18 05/25/18 05/26/18 10:42 22:08 08:28 WBC MCH Seg Neutrophils % Seg Neutrophils # Creatinine POC Glucose 126 H 112 H 63 L Magnesium Urine pH Ur Specific [place] Urine WBC (Auto) U Epithel Cells (Auto) 05/27/18 05/27/18 05/29/18 08:32 15:08 07:26 WBC MCH 27 L Seg Neutrophils % 73.3 H Seg Neutrophils # Creatinine POC Glucose 67 L 68 L Magnesium Urine pH Ur Specific [place] Urine WBC (Auto) U Epithel Cells (Auto) 05/29/18 05/29/18 05/30/18 11:26 19:03 05:53 WBC MCH Seg Neutrophils % Seg Neutrophils # Creatinine POC Glucose 115 H 63 L Magnesium Urine pH 8.0 H Ur Specific [place] 1.001 L Urine WBC (Auto) U Epithel Cells (Auto) 05/30/18 05/31/18 06/02/18 23:41 23:17 06:12 WBC MCH Seg Neutrophils % Seg Neutrophils # Creatinine POC Glucose 56 L 68 L 61 L Magnesium Urine pH Ur Specific [place] Urine WBC (Auto) U Epithel Cells (Auto) 06/02/18 06/03/18 06/03/18 19:43 07:30 10:47 WBC MCH Seg Neutrophils % Seg Neutrophils # Creatinine POC Glucose 107 H 64 L 135 H Magnesium Urine pH Ur Specific [place] Urine WBC (Auto) U Epithel Cells (Auto) 06/04/18 06/04/18 06/05/18 00:08 20:55 10:23 WBC MCH Seg Neutrophils % Seg Neutrophils # Creatinine POC Glucose 111 H 132 H 117 H Magnesium Urine pH Ur Specific [place] Urine WBC (Auto) U Epithel Cells (Auto) 06/06/18 06/06/18 06/06/18 06:40 14:24 18:24 WBC MCH Seg Neutrophils % Seg Neutrophils # Creatinine POC Glucose 62 L 113 H 126 H Magnesium Urine pH Ur Specific [place] Urine WBC (Auto) U Epithel Cells (Auto) 06/06/18 06/07/18 22:24 05:41 WBC MCH Seg Neutrophils % Seg Neutrophils # Creatinine POC Glucose 56 L 64 L Magnesium Urine pH Ur Specific [place] Urine WBC (Auto) U Epithel Cells (Auto) Laboratory Results - last 24 hr 06/06/18 06/06/18 06/06/18 14:24 18:24 22:24 POC Glucose 113 H 126 H 56 L 06/07/18 05:41 POC Glucose 64 L
[2018-06-07] MEDS: PEPCID PO SCH ×2 (12:58→22:05)
[2018-06-07] MEDS: COLACE PO PRN (21:09)
[2018-06-08] MEDS: PROCARDIA*For Tocolysis only PO SCH ×3 (00:38→12:20)
[2018-06-08] MEDS: AMBIEN PO PRN (00:38)
--- NOTE | 2018-06-08 09:17 | Progress Note ---
Assessment and Plan - Patient Problems (1) Cervical incompetence Current Visit: Yes Status: Acute Plan to address problem: Continue routine care. Continue weekly ultrasounds. Continue Q8 monitoring. No signs of labor progression. Continue weekly progesterone injections. (2) Gestational diabetes mellitus (GDM) Onset Date: 05/23/18 Current Visit: Yes Status: Acute Qualifiers: Gestational diabetes mellitus control: diet-controlled Plan to address problem: No medications. Blood glucose well controlled. . (3) Chronic hypertension affecting Current Visit: Yes Status: Acute Plan to address problem: BP Stable - continue Labetolol (4) 30 weeks gestation of Onset Date: 05/30/18 Current Visit: Yes Status: Resolved Subjective - Subjective Principal diagnosis: IUP @ 31 3/7 weeks; Incompetent cervix, CHTN, gestational DMA1 Interval history: She denies loss of fluid, vaginal bleeding and reports good movement. She denies contractions. Patient reports: movement normal, other (Patient reports vaginal discharge ), no new complaints, no loss of fluid, no vaginal bleeding, no contractions Objective - Vital Signs Vital Signs: Vital Signs - 12hr 06/08/18 06/08/18 06/08/18 00:38 00:43 04:03 Temperature 98.5 F Pulse Rate 88 96 H Respiratory 18 Rate Blood Pressure 112/58 118/65 O2 Sat by Pulse Oximetry 06/08/18 06/08/18 06/08/18 04:04 04:09 04:14 Temperature Pulse Rate 94 H 97 H 94 H Respiratory Rate Blood Pressure O2 Sat by Pulse 99 98 99 Oximetry 06/08/18 06/08/18 06/08/18 04:19 04:24 04:29 Temperature Pulse Rate 92 H 94 H 99 H Respiratory Rate Blood Pressure O2 Sat by Pulse 98 98 98 Oximetry 06/08/18 07:30 Temperature 98.2 F Pulse Rate Respiratory Rate Blood Pressure O2 Sat by Pulse Oximetry - Labs Labs: Abnormal Labs 04/30/18 04/30/18 04/30/18 16:20 16:20 16:20 WBC 11.8 H MCH 27 L Seg Neutrophils % 75.5 H Seg Neutrophils # 8.9 H Creatinine 0.6 L POC Glucose Magnesium Urine pH Ur Specific [place] Urine WBC (Auto) 50.0 H U Epithel Cells (Auto) 135.0 H 05/01/18 05/01/1819 14:32 19:56 07:54 WBC MCH Seg Neutrophils % Seg Neutrophils # Creatinine POC Glucose Magnesium 3.50 H 4.30 H 4.40 H Urine pH Ur Specific [place] Urine WBC (Auto) U Epithel Cells (Auto) 05/02/18 05/02/18 05/03/18 14:41 Unknown 04:50 WBC MCH Seg Neutrophils % Seg Neutrophils # Creatinine POC Glucose Magnesium 4.20 H 4.30 H 4.30 H Urine pH Ur Specific [place] Urine WBC (Auto) U Epithel Cells (Auto) 05/03/18 05/03/18 05/03/18 05:33 12:51 17:36 WBC MCH Seg Neutrophils % Seg Neutrophils # Creatinine POC Glucose Magnesium 4.30 H 4.10 H 3.40 H Urine pH Ur Specific [place] Urine WBC (Auto) U Epithel Cells (Auto) 05/04/18 05/05/18 05/13/18 05:58 09:37 12:37 WBC MCH 27 L 26 L Seg Neutrophils % 80.5 H 79.0 H Seg Neutrophils # 8.5 H 8.5 H Creatinine POC Glucose Magnesium 3.00 H Urine pH Ur Specific [place] Urine WBC (Auto) U Epithel Cells (Auto) 05/20/18 05/20/18 05/21/18 06:56 17:01 06:15 WBC MCH Seg Neutrophils % Seg Neutrophils # Creatinine POC Glucose 61 L 62 L 68 L Magnesium Urine pH Ur Specific [place] Urine WBC (Auto) U Epithel Cells (Auto) 05/21/18 05/21/18 05/22/18 11:12 16:45 19:02 WBC MCH Seg Neutrophils % Seg Neutrophils # Creatinine POC Glucose 128 H 67 L 129 H Magnesium Urine pH Ur Specific [place] Urine WBC (Auto) U Epithel Cells (Auto) 05/23/18 05/23/18 05/24/18 08:43 16:52 07:59 WBC MCH Seg Neutrophils % Seg Neutrophils # Creatinine POC Glucose 129 H 68 L 63 L Magnesium Urine pH Ur Specific [place] Urine WBC (Auto) U Epithel Cells (Auto) 05/24/18 05/24/18 05/25/18 10:09 14:56 07:45 WBC MCH Seg Neutrophils % Seg Neutrophils # Creatinine POC Glucose 117 H 120 H 48 L Magnesium Urine pH Ur Specific [place] Urine WBC (Auto) U Epithel Cells (Auto) 05/25/18 05/25/18 05/26/18 10:42 22:08 08:28 WBC MCH Seg Neutrophils % Seg Neutrophils # Creatinine POC Glucose 126 H 112 H 63 L Magnesium Urine pH Ur Specific [place] Urine WBC (Auto) U Epithel Cells (Auto) 05/27/18 05/27/18 05/29/18 08:32 15:08 07:26 WBC MCH 27 L Seg Neutrophils % 73.3 H Seg Neutrophils # Creatinine POC Glucose 67 L 68 L Magnesium Urine pH Ur Specific [place] Urine WBC (Auto) U Epithel Cells (Auto) 05/29/18 05/29/18 05/30/18 11:26 19:03 05:53 WBC MCH Seg Neutrophils % Seg Neutrophils # Creatinine POC Glucose 115 H 63 L Magnesium Urine pH 8.0 H Ur Specific [place] 1.001 L Urine WBC (Auto) U Epithel Cells (Auto) 05/30/18 05/31/18 06/02/18 23:41 23:17 06:12 WBC MCH Seg Neutrophils % Seg Neutrophils # Creatinine POC Glucose 56 L 68 L 61 L Magnesium Urine pH Ur Specific [place] Urine WBC (Auto) U Epithel Cells (Auto) 06/02/18 06/03/18 06/03/18 19:43 07:30 10:47 WBC MCH Seg Neutrophils % Seg Neutrophils # Creatinine POC Glucose 107 H 64 L 135 H Magnesium Urine pH Ur Specific [place] Urine WBC (Auto) U Epithel Cells (Auto) 06/04/18 06/04/18 06/05/18 00:08 20:55 10:23 WBC MCH Seg Neutrophils % Seg Neutrophils # Creatinine POC Glucose 111 H 132 H 117 H Magnesium Urine pH Ur Specific [place] Urine WBC (Auto) U Epithel Cells (Auto) 06/06/18 06/06/18 06/06/18 06:40 14:24 18:24 WBC MCH Seg Neutrophils % Seg Neutrophils # Creatinine POC Glucose 62 L 113 H 126 H Magnesium Urine pH Ur Specific [place] Urine WBC (Auto) U Epithel Cells (Auto) 06/06/18 06/07/18 06/07/18 22:24 05:41 22:12 WBC MCH Seg Neutrophils % Seg Neutrophils # Creatinine POC Glucose 56 L 64 L 52 L Magnesium Urine pH Ur Specific [place] Urine WBC (Auto) U Epithel Cells (Auto) Laboratory Results - last 24 hr 06/07/18 06/07/18 11:55 22:12 POC Glucose 73 52 L
[2018-06-08] MEDS: PRENATAL VITAMIN PO SCH (09:51)
[2018-06-08] MEDS: PEPCID PO SCH (09:51)
[2018-06-09] MEDS: PROCARDIA*For Tocolysis only PO SCH ×2 (00:14→12:24)
[2018-06-09] MEDS: AMBIEN PO PRN (00:14)
--- NOTE | 2018-06-09 08:49 | Progress Note ---
Assessment and Plan - Patient Problems (1) Cervical incompetence Current Visit: Yes Status: Acute Plan to address problem: Continue routine care. Continue weekly ultrasounds. Continue Q8 monitoring. No signs of labor progression. Continue weekly progesterone injections. (2) Gestational diabetes mellitus (GDM) Onset Date: 05/23/18 Current Visit: Yes Status: Acute Qualifiers: Gestational diabetes mellitus control: diet-controlled Plan to address problem: No medications. Blood glucose well controlled. . (3) Chronic hypertension affecting Current Visit: Yes Status: Acute Subjective - Subjective Principal diagnosis: IUP @ 31 3/7 weeks; Incompetent cervix, CHTN, gestational DMA1 Interval history: She denies loss of fluid, vaginal bleeding and reports good movement. She denies contractions. Patient reports: movement normal, other (Patient reports vaginal discharge ), no new complaints, no loss of fluid, no vaginal bleeding, no contractions Objective - Vital Signs Vital Signs: Vital Signs - 12hr 06/09/18 07:12 Temperature 97.4 F L Pulse Rate 89 Respiratory 16 Rate Blood Pressure 117/70 - Labs Labs: Abnormal Labs 04/30/18 04/30/18 04/30/18 16:20 16:20 16:20 WBC 11.8 H MCH 27 L Seg Neutrophils % 75.5 H Seg Neutrophils # 8.9 H Creatinine 0.6 L POC Glucose Magnesium Urine pH Ur Specific [place] Urine WBC (Auto) 50.0 H U Epithel Cells (Auto) 135.0 H 05/01/18 05/01/18 05/02/18 14:32 19:56 07:54 WBC MCH Seg Neutrophils % Seg Neutrophils # Creatinine POC Glucose Magnesium 3.50 H 4.30 H 4.40 H Urine pH Ur Specific [place] Urine WBC (Auto) U Epithel Cells (Auto) 05/02/18 05/02/18 05/03/18 14:41 Unknown 04:50 WBC MCH Seg Neutrophils % Seg Neutrophils # Creatinine POC Glucose Magnesium 4.20 H 4.30 H 4.30 H Urine pH Ur Specific [place] Urine WBC (Auto) U Epithel Cells (Auto) 05/03/18 05/03/18 05/03/18 05:33 12:51 17:36 WBC MCH Seg Neutrophils % Seg Neutrophils # Creatinine POC Glucose Magnesium 4.30 H 4.10 H 3.40 H Urine pH Ur Specific [place] Urine WBC (Auto) U Epithel Cells (Auto) 05/04/18 05/05/18 05/13/18 05:58 09:37 12:37 WBC MCH 27 L 26 L Seg Neutrophils % 80.5 H 79.0 H Seg Neutrophils # 8.5 H 8.5 H Creatinine POC Glucose Magnesium 3.00 H Urine pH Ur Specific [place] Urine WBC (Auto) U Epithel Cells (Auto) 05/20/18 05/20/18 05/21/18 06:56 17:01 06:15 WBC MCH Seg Neutrophils % Seg Neutrophils # Creatinine POC Glucose 61 L 62 L 68 L Magnesium Urine pH Ur Specific [place] Urine WBC (Auto) U Epithel Cells (Auto) 05/21/18 05/21/18 05/22/18 11:12 16:45 19:02 WBC MCH Seg Neutrophils % Seg Neutrophils # Creatinine POC Glucose 128 H 67 L 129 H Magnesium Urine pH Ur Specific [place] Urine WBC (Auto) U Epithel Cells (Auto) 05/23/18 05/23/18 05/24/18 08:43 16:52 07:59 WBC MCH Seg Neutrophils % Seg Neutrophils # Creatinine POC Glucose 129 H 68 L 63 L Magnesium Urine pH Ur Specific [place] Urine WBC (Auto) U Epithel Cells (Auto) 05/24/18 05/24/18 05/25/18 10:09 14:56 07:45 WBC MCH Seg Neutrophils % Seg Neutrophils # Creatinine POC Glucose 117 H 120 H 48 L Magnesium Urine pH Ur Specific [place] Urine WBC (Auto) U Epithel Cells (Auto) 05/25/18 05/25/18 05/26/18 10:42 22:08 08:28 WBC MCH Seg Neutrophils % Seg Neutrophils # Creatinine POC Glucose 126 H 112 H 63 L Magnesium Urine pH Ur Specific [place] Urine WBC (Auto) U Epithel Cells (Auto) 05/27/18 05/27/18 05/29/18 08:32 15:08 07:26 WBC MCH 27 L Seg Neutrophils % 73.3 H Seg Neutrophils # Creatinine POC Glucose 67 L 68 L Magnesium Urine pH Ur Specific [place] Urine WBC (Auto) U Epithel Cells (Auto) 05/29/18 05/29/18 05/30/18 11:26 19:03 05:53 WBC MCH Seg Neutrophils % Seg Neutrophils # Creatinine POC Glucose 115 H 63 L Magnesium Urine pH 8.0 H Ur Specific [place] 1.001 L Urine WBC (Auto) U Epithel Cells (Auto) 05/30/18 05/31/18 06/02/18 23:41 23:17 06:12 WBC MCH Seg Neutrophils % Seg Neutrophils # Creatinine POC Glucose 56 L 68 L 61 L Magnesium Urine pH Ur Specific [place] Urine WBC (Auto) U Epithel Cells (Auto) 06/02/18 06/03/18 06/03/18 19:43 07:30 10:47 WBC MCH Seg Neutrophils % Seg Neutrophils # Creatinine POC Glucose 107 H 64 L 135 H Magnesium Urine pH Ur Specific [place] Urine WBC (Auto) U Epithel Cells (Auto) 06/04/18 06/04/18 06/05/18 00:08 20:55 10:23 WBC MCH Seg Neutrophils % Seg Neutrophils # Creatinine POC Glucose 111 H 132 H 117 H Magnesium Urine pH Ur Specific [place] Urine WBC (Auto) U Epithel Cells (Auto) 06/06/18 06/06/18 06/06/18 06:40 14:24 18:24 WBC MCH Seg Neutrophils % Seg Neutrophils # Creatinine POC Glucose 62 L 113 H 126 H Magnesium Urine pH Ur Specific [place] Urine WBC (Auto) U Epithel Cells (Auto) 06/06/18 06/07/18 06/07/18 22:24 05:41 22:12 WBC MCH Seg Neutrophils % Seg Neutrophils # Creatinine POC Glucose 56 L 64 L 52 L Magnesium Urine pH Ur Specific [place] Urine WBC (Auto) U Epithel Cells (Auto) 06/08/18 17:36 WBC MCH Seg Neutrophils % Seg Neutrophils # Creatinine POC Glucose 110 H Magnesium Urine pH Ur Specific [place] Urine WBC (Auto) U Epithel Cells (Auto) Laboratory Results - last 24 hr 06/08/18 06/08/18 06/08/18 08:57 12:22 17:36 POC Glucose 70 88 110 H 06/08/18 06/09/18 22:37 07:15 POC Glucose 101 70
[2018-06-09] MEDS: PRENATAL VITAMIN PO SCH (09:45)
[2018-06-09] MEDS: PEPCID PO SCH ×4 (09:45→23:04)
[2018-06-09] MEDS: COLACE PO PRN ×2 (09:51→21:12)
[2018-06-10] MEDS: PROCARDIA*For Tocolysis only PO SCH ×4 (00:38→19:10)
[2018-06-10] MEDS: AMBIEN PO PRN (00:38)
[2018-06-10] MEDS: PRENATAL VITAMIN PO SCH (10:10)
[2018-06-10] MEDS: PEPCID PO SCH ×2 (10:10→22:39)
--- NOTE | 2018-06-10 11:24 | Progress Note ---
Assessment and Plan - Patient Problems (1) Cervical cerclage suture present Onset Date: 05/02/18 Current Visit: Yes Status: Acute Qualifiers: Trimester: third trimester Qualified Code(s): O34.33 - Maternal care for cervical incompetence, third trimester (2) labor Onset Date: 05/02/18 Current Visit: Yes Status: Acute Qualifiers: labor trimester: third trimester labor delivery status: without delivery Qualified Code(s): O60.03 - labor without delivery, third trimester (3) 28 weeks gestation of Onset Date: 05/18/18 Current Visit: Yes Status: Resolved (4) 29 weeks gestation of Onset Date: 05/23/18 Current Visit: Yes Status: Resolved (5) Gestational diabetes mellitus (GDM) Onset Date: 05/23/18 Current Visit: Yes Status: Acute Qualifiers: Gestational diabetes mellitus control: diet-controlled (6) 30 weeks gestation of Onset Date: 05/30/18 Current Visit: Yes Status: Resolved (7) 31 weeks gestation of Onset Date: 06/06/18 Current Visit: Yes Status: Acute Plan to address problem: Assessment 1. 31 6/7 weeks, SIUP 2. Hx Incompetent cervix, cerclage in situ 3. [place]/17P started 2 days prior to admission 4. S/P steroid for lung maturity 5. S/P Magnesium Sulfate therapy 6. Short cervix; last exam 3 cm dilated 7. Per OB's report bulging membrane noted in office 8. Hx CHTN; not on meds, stable BPs 9. GDM; glucose 91-105 (outlier 128) Recommendations 1. Presently on Procardia 2. Antibiotics secondary to bulging membrane: Ampicillin and Erythromycin 3. S/P Dexamethasone for lung maturity 4. S/P Magnesium Sulfate for neuroprotection 5. [facility] to follow patient 6. Delivery recommended if compromise 7. Remove cerclage with evidence of labor 8. We recommend continued hospitalization at this point; if no change in vaginal exam we recommend consideration of outpatient follow-up 9. S/P Diabetic Teaching/education 10. Continue blood glucose monitoring 2 hours after meals and fasting 11. Continue [place]/17-P to 36 weeks Subjective - Subjective Date of service: 06/10/18 Principal diagnosis: IUP @ 31 6/7 weeks; Incompetent cervix, CHTN, gestational DMA1 Interval history: Patient is a 32 year old , LMP 10/30/17, EDC 08/06/18 at 31 6/7weeks gestation who was sent from the office for labor. This patient has been co-managed with VERONICA for a history of cervical incompetence and she has a cerclage placed 2 months ago. She saw [facility] 2 weeks and sonogram showed funneling. She was offered [place] [facility] for FLM. She did not start [place] due to insurance issues. She went for a routine visit and reported that she has been feeling pelvic pressure and abdominal tightening for 2 days. She denied any fluid leakage or bleeding. She reports good movement. Exam in the office showed the cervix to be dilated 3 cm with bulging membranes and the cerclage suture was in place. She also has chronic HTN and has not been on any medication. She has been hospitalized and currently s/p IV Magnesium sulfate , IV Ampicillin, IV Zithromax and IM steroids for FLM and denies contractions. This morning she denies any contractions, fluid leakage or bleeding. She reports good movement, but complains of round ligament pains. Exam (05/09/18): cervix 3 cm/70%/high, cerclage in place, unchanged from admi ssion). She also was diagnosed with GDM. Glucose has been controlled with ADA diet. Patient reports: movement normal, other (Patient reports vaginal discharge ), no new complaints, no loss of fluid, no vaginal bleeding, no contractions Objective - Vital Signs Vital Signs: Vital Signs - 12hr 06/10/18 06/10/18 06/10/18 00:32 03:45 06:07 Temperature 98.6 F Pulse Rate 96 H 98 H 97 H Blood Pressure 119/59 107/58 109/65 O2 Sat by Pulse Oximetry 06/10/18 06/10/18 06/10/18 08:25 08:26 08:30 Temperature Pulse Rate 102 H 98 H 98 H Blood Pressure 111/62 O2 Sat by Pulse 99 99 Oximetry 06/10/18 06/10/18 06/10/18 08:35 08:40 08:45 Temperature Pulse Rate 101 H 96 H 102 H Blood Pressure O2 Sat by Pulse 99 98 99 Oximetry 06/10/18 08:50 Temperature Pulse Rate 97 H Blood Pressure O2 Sat by Pulse 98 Oximetry - Exam Abdomen: Present: normal appearance, soft Uterus: Present: normal FHR: category 1 Uterine Contraction Monitor Mode: External Uterine Contraction Pattern: Absent - Labs Labs: Abnormal Labs 04/30/18 04/30/18 04/30/18 16:20 16:20 16:20 WBC 11.8 H MCH 27 L Seg Neutrophils % 75.5 H Seg Neutrophils # 8.9 H Creatinine 0.6 L POC Glucose Magnesium Urine pH Ur Specific [place] Urine WBC (Auto) 50.0 H U Epithel Cells (Auto) 135.0 H 05/01/18 05/01/18 05/02/18 14:32 19:56 07:54 WBC MCH Seg Neutrophils % Seg Neutrophils # Creatinine POC Glucose Magnesium 3.50 H 4.30 H 4.40 H Urine pH Ur Specific [place] Urine WBC (Auto) U Epithel Cells (Auto) 05/02/18 05/02/18 05/03/18 14:41 Unknown 04:50 WBC MCH Seg Neutrophils % Seg Neutrophils # Creatinine POC Glucose Magnesium 4.20 H 4.30 H 4.30 H Urine pH Ur Specific [place] Urine WBC (Auto) U Epithel Cells (Auto) 05/03/18 05/03/18 05/03/18 05:33 12:51 17:36 WBC MCH Seg Neutrophils % Seg Neutrophils # Creatinine POC Glucose Magnesium 4.30 H 4.10 H 3.40 H Urine pH Ur Specific [place] Urine WBC (Auto) U Epithel Cells (Auto) 05/04/18 05/05/18 05/13/18 05:58 09:37 12:37 WBC MCH 27 L 26 L Seg Neutrophils % 80.5 H 79.0 H Seg Neutrophils # 8.5 H 8.5 H Creatinine POC Glucose Magnesium 3.00 H Urine pH Ur Specific [place] Urine WBC (Auto) U Epithel Cells (Auto) 05/20/18 05/20/18 05/21/18 06:56 17:01 06:15 WBC MCH Seg Neutrophils % Seg Neutrophils # Creatinine POC Glucose 61 L 62 L 68 L Magnesium Urine pH Ur Specific [place] Urine WBC (Auto) U Epithel Cells (Auto) 05/21/18 05/21/18 05/22/18 11:12 16:45 19:02 WBC MCH Seg Neutrophils % Seg Neutrophils # Creatinine POC Glucose 128 H 67 L 129 H Magnesium Urine pH Ur Specific [place] Urine WBC (Auto) U Epithel Cells (Auto) 05/23/18 05/23/18 05/24/18 08:43 16:52 07:59 WBC MCH Seg Neutrophils % Seg Neutrophils # Creatinine POC Glucose 129 H 68 L 63 L Magnesium Urine pH Ur Specific [place] Urine WBC (Auto) U Epithel Cells (Auto) 05/24/18 05/24/18 05/25/18 10:09 14:56 07:45 WBC MCH Seg Neutrophils % Seg Neutrophils # Creatinine POC Glucose 117 H 120 H 48 L Magnesium Urine pH Ur Specific [place] Urine WBC (Auto) U Epithel Cells (Auto) 05/25/18 05/25/18 05/26/18 10:42 22:08 08:28 WBC MCH Seg Neutrophils % Seg Neutrophils # Creatinine POC Glucose 126 H 112 H 63 L Magnesium Urine pH Ur Specific [place] Urine WBC (Auto) U Epithel Cells (Auto) 05/27/18 05/27/18 05/29/18 08:32 15:08 07:26 WBC MCH 27 L Seg Neutrophils % 73.3 H Seg Neutrophils # Creatinine POC Glucose 67 L 68 L Magnesium Urine pH Ur Specific [place] Urine WBC (Auto) U Epithel Cells (Auto) 05/29/18 05/29/18 05/30/18 11:26 19:03 05:53 WBC MCH Seg Neutrophils % Seg Neutrophils # Creatinine POC Glucose 115 H 63 L Magnesium Urine pH 8.0 H Ur Specific [place] 1.001 L Urine WBC (Auto) U Epithel Cells (Auto) 05/30/18 05/31/18 06/02/18 23:41 23:17 06:12 WBC MCH Seg Neutrophils % Seg Neutrophils # Creatinine POC Glucose 56 L 68 L 61 L Magnesium Urine pH Ur Specific [place] Urine WBC (Auto) U Epithel Cells (Auto) 06/02/18 06/03/18 06/03/18 19:43 07:30 10:47 WBC MCH Seg Neutrophils % Seg Neutrophils # Creatinine POC Glucose 107 H 64 L 135 H Magnesium Urine pH Ur Specific [place] Urine WBC (Auto) U Epithel Cells (Auto) 06/04/18 06/04/18 06/05/18 00:08 20:55 10:23 WBC MCH Seg Neutrophils % Seg Neutrophils # Creatinine POC Glucose 111 H 132 H 117 H Magnesium Urine pH Ur Specific [place] Urine WBC (Auto) U Epithel Cells (Auto) 06/06/18 06/06/18 06/06/18 06:40 14:24 18:24 WBC MCH Seg Neutrophils % Seg Neutrophils # Creatinine POC Glucose 62 L 113 H 126 H Magnesium Urine pH Ur Specific [place] Urine WBC (Auto) U Epithel Cells (Auto) 06/06/18 06/07/18 06/07/18 22:24 05:41 22:12 WBC MCH Seg Neutrophils % Seg Neutrophils # Creatinine POC Glucose 56 L 64 L 52 L Magnesium Urine pH Ur Specific [place] Urine WBC (Auto) U Epithel Cells (Auto) 06/08/18 06/10/18 17:36 06:40 WBC MCH Seg Neutrophils % Seg Neutrophils # Creatinine POC Glucose 110 H 64 L Magnesium Urine pH Ur Specific [place] Urine WBC (Auto) U Epithel Cells (Auto) Laboratory Results - last 24 hr 06/09/18 06/09/18 06/09/18 10:52 17:10 21:21 POC Glucose 105 84 79 Blood Type Antibody Screen 06/10/18 06/10/18 06:10 06:40 POC Glucose 64 L Blood Type B POSITIVE Antibody Screen Negative
[2018-06-10 11:40] LABS: Hematocrit 30.8 % (30.3-42.9); Hemoglobin 10.5 gm/dl (10.1-14.3); Mean Corpuscular HGB Conc 34 % (30-34); Mean Corpuscular Volume 80 fl (79-97); Platelet Count 202 K/mm3 (140-440); Red Blood Count 3.88 M/mm3 (3.65-5.03); Red Cell Distribution Width 14.8 % (13.2-15.2)
[2018-06-11] MEDS: PROCARDIA*For Tocolysis only PO SCH ×4 (00:26→21:01)
[2018-06-11] MEDS: AMBIEN PO PRN (00:26)
[2018-06-11] MEDS: COLACE PO PRN ×2 (00:28→09:19)
[2018-06-11] MEDS: PEPCID PO SCH ×2 (09:18→22:30)
[2018-06-11] MEDS: PRENATAL VITAMIN PO SCH (09:18)
--- NOTE | 2018-06-11 10:38 | Progress Note ---
Assessment and Plan - Patient Problems (1) Cervical incompetence Current Visit: Yes Status: Acute Plan to address problem: Continue routine care. Continue weekly ultrasounds. Continue Q8 monitoring. No signs of labor progression. Continue weekly progesterone injections. (2) Gestational diabetes mellitus (GDM) Onset Date: 05/23/18 Current Visit: Yes Status: Acute Qualifiers: Gestational diabetes mellitus control: diet-controlled Plan to address problem: No medications. Blood glucose well controlled. Weekly BPP today (3) Chronic hypertension affecting Current Visit: Yes Status: Acute Plan to address problem: BP Stable - continue Labetolol (4) 32 weeks gestation of Current Visit: Yes Status: Acute Subjective - Subjective Principal diagnosis: IUP @ 31 6/7 weeks; Incompetent cervix, CHTN, gestational DMA1 Interval history: She denies loss of fluid, vaginal bleeding and reports good movement. She denies contractions. Patient reports: movement normal, other (Patient reports vaginal discharge ), no new complaints, no loss of fluid, no vaginal bleeding, no contractions Objective - Vital Signs Vital Signs: Vital Signs - 12hr 06/11/18 06/11/18 06:25 07:00 Temperature 98.0 F Pulse Rate 83 Blood Pressure 116/67 - Labs Labs: Abnormal Labs 04/30/18 04/30/18 04/30/18 16:20 16:20 16:20 WBC 11.8 H MCH 27 L Seg Neutrophils % 75.5 H Seg Neutrophils # 8.9 H Creatinine 0.6 L POC Glucose Magnesium Urine pH Ur Specific [place] Urine WBC (Auto) 50.0 H U Epithel Cells (Auto) 135.0 H 05/01/18 05/01/18 05/02/18 14:32 19:56 07:54 WBC MCH Seg Neutrophils % Seg Neutrophils # Creatinine POC Glucose Magnesium 3.50 H 4.30 H 4.40 H Urine pH Ur Specific [place] Urine WBC (Auto) U Epithel Cells (Auto) 05/02/18 05/02/18 05/03/18 14:41 Unknown 04:50 WBC MCH Seg Neutrophils % Seg Neutrophils # Creatinine POC Glucose Magnesium 4.20 H 4.30 H 4.30 H Urine pH Ur Specific [place] Urine WBC (Auto) U Epithel Cells (Auto) 05/03/18 05/03/18 05/03/18 05:33 12:51 17:36 WBC MCH Seg Neutrophils % Seg Neutrophils # Creatinine POC Glucose Magnesium 4.30 H 4.10 H 3.40 H Urine pH Ur Specific [place] Urine WBC (Auto) U Epithel Cells (Auto) 05/04/18 05/05/18 05/13/18 05:58 09:37 12:37 WBC MCH 27 L 26 L Seg Neutrophils % 80.5 H 79.0 H Seg Neutrophils # 8.5 H 8.5 H Creatinine POC Glucose Magnesium 3.00 H Urine pH Ur Specific [place] Urine WBC (Auto) U Epithel Cells (Auto) 05/20/18 05/20/18 05/21/18 06:56 17:01 06:15 WBC MCH Seg Neutrophils % Seg Neutrophils # Creatinine POC Glucose 61 L 62 L 68 L Magnesium Urine pH Ur Specific [place] Urine WBC (Auto) U Epithel Cells (Auto) 05/21/18 05/21/18 05/22/18 11:12 16:45 19:02 WBC MCH Seg Neutrophils % Seg Neutrophils # Creatinine POC Glucose 128 H 67 L 129 H Magnesium Urine pH Ur Specific [place] Urine WBC (Auto) U Epithel Cells (Auto) 05/23/18 05/23/18 05/24/18 08:43 16:52 07:59 WBC MCH Seg Neutrophils % Seg Neutrophils # Creatinine POC Glucose 129 H 68 L 63 L Magnesium Urine pH Ur Specific [place] Urine WBC (Auto) U Epithel Cells (Auto) 05/24/18 05/24/18 05/25/18 10:09 14:56 07:45 WBC MCH Seg Neutrophils % Seg Neutrophils # Creatinine POC Glucose 117 H 120 H 48 L Magnesium Urine pH Ur Specific [place] Urine WBC (Auto) U Epithel Cells (Auto) 05/25/18 05/25/18 05/26/18 10:42 22:08 08:28 WBC MCH Seg Neutrophils % Seg Neutrophils # Creatinine POC Glucose 126 H 112 H 63 L Magnesium Urine pH Ur Specific [place] Urine WBC (Auto) U Epithel Cells (Auto) 05/27/18 05/27/18 05/29/18 08:32 15:08 07:26 WBC MCH 27 L Seg Neutrophils % 73.3 H Seg Neutrophils # Creatinine POC Glucose 67 L 68 L Magnesium Urine pH Ur Specific [place] Urine WBC (Auto) U Epithel Cells (Auto) 05/29/18 05/29/18 05/30/18 11:26 19:03 05:53 WBC MCH Seg Neutrophils % Seg Neutrophils # Creatinine POC Glucose 115 H 63 L Magnesium Urine pH 8.0 H Ur Specific [place] 1.001 L Urine WBC (Auto) U Epithel Cells (Auto) 05/30/18 05/31/18 06/02/18 23:41 23:17 06:12 WBC MCH Seg Neutrophils % Seg Neutrophils # Creatinine POC Glucose 56 L 68 L 61 L Magnesium Urine pH Ur Specific [place] Urine WBC (Auto) U Epithel Cells (Auto) 06/02/18 06/03/18 06/03/18 19:43 07:30 10:47 WBC MCH Seg Neutrophils % Seg Neutrophils # Creatinine POC Glucose 107 H 64 L 135 H Magnesium Urine pH Ur Specific [place] Urine WBC (Auto) U Epithel Cells (Auto) 06/04/18 06/04/18 06/05/18 00:08 20:55 10:23 WBC MCH Seg Neutrophils % Seg Neutrophils # Creatinine POC Glucose 111 H 132 H 117 H Magnesium Urine pH Ur Specific [place] Urine WBC (Auto) U Epithel Cells (Auto) 06/06/18 06/06/18 06/06/18 06:40 14:24 18:24 WBC MCH Seg Neutrophils % Seg Neutrophils # Creatinine POC Glucose 62 L 113 H 126 H Magnesium Urine pH Ur Specific [place] Urine WBC (Auto) U Epithel Cells (Auto) 06/06/18 06/07/18 06/07/18 22:24 05:41 22:12 WBC MCH Seg Neutrophils % Seg Neutrophils # Creatinine POC Glucose 56 L 64 L 52 L Magnesium Urine pH Ur Specific [place] Urine WBC (Auto) U Epithel Cells (Auto) 06/08/18 06/10/18 06/10/18 17:36 06:40 11:23 WBC MCH 27 L Seg Neutrophils % Seg Neutrophils # Creatinine POC Glucose 110 H 64 L Magnesium Urine pH Ur Specific [place] Urine WBC (Auto) U Epithel Cells (Auto) 06/10/18 06/11/18 14:49 08:37 WBC MCH Seg Neutrophils % Seg Neutrophils # Creatinine POC Glucose 112 H 69 L Magnesium Urine pH Ur Specific [place] Urine WBC (Auto) U Epithel Cells (Auto) Laboratory Results - last 24 hr 06/10/18 06/10/18 06/10/18 11:23 11:26 14:49 WBC 8.9 RBC 3.88 Hgb 10.5 Hct 30.8 MCV 80 MCH 27 L MCHC 34 RDW 14.8 Plt Count 202 POC Glucose 83 112 H 06/10/18 06/11/18 21:04 08:37 WBC RBC Hgb Hct MCV MCH MCHC RDW Plt Count POC Glucose 77 69 L
[2018-06-12] MEDS: AMBIEN PO PRN (00:17)
--- NOTE | 2018-06-12 01:50 | Ultrasound Report ---
PROCEDURE: US OB BPP WO NON-STRESS HISTORY: well being FINDINGS: Ultrasound the pelvis was performed with attention to the gravid uterus. There is a live intrauterine gestation. Biophysical profile was 8 out of 8. cardiac activity is present 133 bpm. IMPRESSION: Biophysical profile 8 out of 8 This document is electronically signed by Torin Quinones MD., June 12 2018 01:48:13 AM ET
[2018-06-12] MEDS: PROCARDIA*For Tocolysis only PO SCH ×3 (06:06→18:31)
[2018-06-12] MEDS: PRENATAL VITAMIN PO SCH (10:00)
[2018-06-12] MEDS: PEPCID PO SCH (10:00)
[2018-06-12] MEDS: COLACE PO PRN (10:00)
--- NOTE | 2018-06-12 11:29 | Progress Note ---
Assessment and Plan - Patient Problems (1) Cervical incompetence Current Visit: Yes Status: Acute Plan to address problem: Continue routine care. Continue weekly ultrasounds. Continue Q8 monitoring. No signs of labor progression. Continue weekly progesterone injections. (2) Gestational diabetes mellitus (GDM) Onset Date: 05/23/18 Current Visit: Yes Status: Acute Qualifiers: Gestational diabetes mellitus control: diet-controlled Plan to address problem: No medications. Blood glucose well controlled. Weekly BPP today (3) Chronic hypertension affecting Current Visit: Yes Status: Acute (4) 32 weeks gestation of Onset Date: 06/14/18 Current Visit: Yes Status: Acute Subjective - Subjective Principal diagnosis: IUP @ 31 6/7 weeks; Incompetent cervix, CHTN, gestational DMA1 Interval history: She denies loss of fluid, vaginal bleeding and reports good movement. She denies contractions. Patient reports: movement normal, other (Patient reports vaginal discharge ), no new complaints, no loss of fluid, no vaginal bleeding, no contractions Objective - Vital Signs Vital Signs: Vital Signs - 12hr 06/12/18 06/12/18 06/12/18 05:56 06:00 10:00 Temperature 98.1 F 98.7 F Pulse Rate 87 87 Respiratory 20 18 Rate Blood Pressure 120/79 Blood Pressure 120/79 [Right] 06/12/18 10:02 Temperature Pulse Rate 86 Respiratory Rate Blood Pressure 113/55 Blood Pressure [Right] - Labs Labs: Abnormal Labs 04/30/18 04/30/18 04/30/18 16:20 16:20 16:20 WBC 11.8 H MCH 27 L Seg Neutrophils % 75.5 H Seg Neutrophils # 8.9 H Creatinine 0.6 L POC Glucose Magnesium Urine pH Ur Specific [place] Urine WBC (Auto) 50.0 H U Epithel Cells (Auto) 135.0 H 05/01/18 05/01/18 05/02/18 14:32 19:56 07:54 WBC MCH Seg Neutrophils % Seg Neutrophils # Creatinine POC Glucose Magnesium 3.50 H 4.30 H 4.40 H Urine pH Ur Specific [place] Urine WBC (Auto) U Epithel Cells (Auto) 05/02/18 05/02/18 05/03/18 14:41 Unknown 04:50 WBC MCH Seg Neutrophils % Seg Neutrophils # Creatinine POC Glucose Magnesium 4.20 H 4.30 H 4.30 H Urine pH Ur Specific [place] Urine WBC (Auto) U Epithel Cells (Auto) 05/03/18 05/03/18 05/03/18 05:33 12:51 17:36 WBC MCH Seg Neutrophils % Seg Neutrophils # Creatinine POC Glucose Magnesium 4.30 H 4.10 H 3.40 H Urine pH Ur Specific [place] Urine WBC (Auto) U Epithel Cells (Auto) 05/04/18 05/05/18 05/13/18 05:58 09:37 12:37 WBC MCH 27 L 26 L Seg Neutrophils % 80.5 H 79.0 H Seg Neutrophils # 8.5 H 8.5 H Creatinine POC Glucose Magnesium 3.00 H Urine pH Ur Specific [place] Urine WBC (Auto) U Epithel Cells (Auto) 05/20/18 05/20/18 05/21/18 06:56 17:01 06:15 WBC MCH Seg Neutrophils % Seg Neutrophils # Creatinine POC Glucose 61 L 62 L 68 L Magnesium Urine pH Ur Specific [place] Urine WBC (Auto) U Epithel Cells (Auto) 05/21/18 05/21/18 05/22/18 11:12 16:45 19:02 WBC MCH Seg Neutrophils % Seg Neutrophils # Creatinine POC Glucose 128 H 67 L 129 H Magnesium Urine pH Ur Specific [place] Urine WBC (Auto) U Epithel Cells (Auto) 05/23/18 05/23/18 05/24/18 08:43 16:52 07:59 WBC MCH Seg Neutrophils % Seg Neutrophils # Creatinine POC Glucose 129 H 68 L 63 L Magnesium Urine pH Ur Specific [place] Urine WBC (Auto) U Epithel Cells (Auto) 05/24/18 05/24/18 05/25/18 10:09 14:56 07:45 WBC MCH Seg Neutrophils % Seg Neutrophils # Creatinine POC Glucose 117 H 120 H 48 L Magnesium Urine pH Ur Specific [place] Urine WBC (Auto) U Epithel Cells (Auto) 05/25/18 05/25/18 05/26/18 10:42 22:08 08:28 WBC MCH Seg Neutrophils % Seg Neutrophils # Creatinine POC Glucose 126 H 112 H 63 L Magnesium Urine pH Ur Specific [place] Urine WBC (Auto) U Epithel Cells (Auto) 05/27/18 05/27/18 05/29/18 08:32 15:08 07:26 WBC MCH 27 L Seg Neutrophils % 73.3 H Seg Neutrophils # Creatinine POC Glucose 67 L 68 L Magnesium Urine pH Ur Specific [place] Urine WBC (Auto) U Epithel Cells (Auto) 05/29/18 05/29/18 05/30/18 11:26 19:03 05:53 WBC MCH Seg Neutrophils % Seg Neutrophils # Creatinine POC Glucose 115 H 63 L Magnesium Urine pH 8.0 H Ur Specific [place] 1.001 L Urine WBC (Auto) U Epithel Cells (Auto) 05/30/18 05/31/18 06/02/18 23:41 23:17 06:12 WBC MCH Seg Neutrophils % Seg Neutrophils # Creatinine POC Glucose 56 L 68 L 61 L Magnesium Urine pH Ur Specific [place] Urine WBC (Auto) U Epithel Cells (Auto) 06/02/18 06/03/18 06/03/18 19:43 07:30 10:47 WBC MCH Seg Neutrophils % Seg Neutrophils # Creatinine POC Glucose 107 H 64 L 135 H Magnesium Urine pH Ur Specific [place] Urine WBC (Auto) U Epithel Cells (Auto) 06/04/18 06/04/18 06/05/18 00:08 20:55 10:23 WBC MCH Seg Neutrophils % Seg Neutrophils # Creatinine POC Glucose 111 H 132 H 117 H Magnesium Urine pH Ur Specific [place] Urine WBC (Auto) U Epithel Cells (Auto) 06/06/18 06/06/18 06/06/18 06:40 14:24 18:24 WBC MCH Seg Neutrophils % Seg Neutrophils # Creatinine POC Glucose 62 L 113 H 126 H Magnesium Urine pH Ur Specific [place] Urine WBC (Auto) U Epithel Cells (Auto) 06/06/18 06/07/18 06/07/18 22:24 05:41 22:12 WBC MCH Seg Neutrophils % Seg Neutrophils # Creatinine POC Glucose 56 L 64 L 52 L Magnesium Urine pH Ur Specific [place] Urine WBC (Auto) U Epithel Cells (Auto) 06/08/18 06/10/18 06/10/18 17:36 06:40 11:23 WBC MCH 27 L Seg Neutrophils % Seg Neutrophils # Creatinine POC Glucose 110 H 64 L Magnesium Urine pH Ur Specific [place] Urine WBC (Auto) U Epithel Cells (Auto) 06/10/18 06/11/18 06/12/18 14:49 08:37 05:59 WBC MCH Seg Neutrophils % Seg Neutrophils # Creatinine POC Glucose 112 H 69 L 61 L Magnesium Urine pH Ur Specific [place] Urine WBC (Auto) U Epithel Cells (Auto) Laboratory Results - last 24 hr 06/11/18 06/12/18 06/12/18 19:46 05:59 10:15 POC Glucose 101 61 L 98
[2018-06-12] MEDS: ALUM-MAG HYDROX-SIMETH 200-200-20MG/5ML PO PRN ×2 (12:09→16:00)
[2018-06-13] MEDS: ALUM-MAG HYDROX-SIMETH 200-200-20MG/5ML PO PRN ×2 (08:13→19:26)
[2018-06-13] MEDS: PRENATAL VITAMIN PO SCH (10:29)
[2018-06-13] MEDS: PEPCID PO SCH ×2 (10:30→22:07)
[2018-06-13] MEDS: PROCARDIA*For Tocolysis only PO SCH ×2 (12:02→18:16)
--- NOTE | 2018-06-13 12:02 | Progress Note ---
Assessment and Plan - Patient Problems (1) 31 weeks gestation of Onset Date: 06/06/18 Current Visit: Yes Status: Acute Plan to address problem: Assessment 1. 32 2/7 weeks, SIUP 2. Hx Incompetent cervix, cerclage in situ 3. [place]/17P started 2 days prior to admission 4. S/P steroid for lung maturity 5. S/P Magnesium Sulfate therapy 6. Short cervix; last exam 3 cm dilated 7. Per OB's report bulging membrane noted in office 8. Hx CHTN; not on meds, stable BPs 9. GDM; glucose 91-105 (outlier 128) Recommendations 1. Presently on Procardia 2. Antibiotics secondary to bulging membrane: Ampicillin and Erythromycin 3. S/P Dexamethasone for lung maturity 4. S/P Magnesium Sulfate for neuroprotection 5. [facility] to follow patient 6. Delivery recommended if compromise 7. Remove cerclage with evidence of labor 8. We recommend continued hospitalization at this point; if no change in vaginal exam we recommend consideration of outpatient follow-up 9. S/P Diabetic Teaching/education 10. Continue blood glucose monitoring 2 hours after meals and fasting 11. Continue [place]/17-P to 36 weeks (2) Cervical cerclage suture present Onset Date: 05/02/18 Current Visit: Yes Status: Acute Qualifiers: Trimester: third trimester Qualified Code(s): O34.33 - Maternal care for cervical incompetence, third trimester (3) labor Onset Date: 05/02/18 Current Visit: Yes Status: Acute Qualifiers: labor trimester: third trimester labor delivery status: [facility] delivery Qualified Code(s): O60.03 - labor without delivery, third trimester (4) 28 weeks gestation of Onset Date: 05/18/18 Current Visit: Yes Status: Resolved (5) 29 weeks gestation of Onset Date: 05/23/18 Current Visit: Yes Status: Resolved (6) Gestational diabetes mellitus (GDM) Onset Date: 05/23/18 Current Visit: Yes Status: Acute Qualifiers: Gestational diabetes mellitus control: diet-controlled (7) 30 weeks gestation of Onset Date: 05/30/18 Current Visit: Yes Status: Resolved Subjective - Subjective Date of service: 06/13/18 Principal diagnosis: IUP @ 32 2/7 weeks; Incompetent cervix, CHTN, gestational DMA1 Interval history: Patient is a 32 year old , LMP 10/30/17, EDC 08/06/18 at 32 2/7weeks gestation who was sent from the office for labor. This patient has been co-managed with [facility] for a history of cervical incompetence and she has a cerclage placed 2 months ago. She saw [facility] 2 weeks and sonogram showed funneling. She was offered Shelby and celestone for FLM. She did not start Shelby due to insurance issues. She went for a routine visit and reported that she has been feeling pelvic pressure and abdominal tightening for 2 days. She denied any fluid leakage or bleeding. She reports good movement. Exam in the office showed the cervix to be dilated 3 cm with bulging membranes and the cerclage suture was in place. She also has chronic HTN and has not been on any medication. She has been hospitalized and currently s/p IV Magnesium sulfate , IV Ampicillin, IV Zithromax and IM steroids for FLM and denies contractions. This morning she denies any contractions, fluid leakage or bleeding. She reports good movement, but complains of round ligament pains. Exam (05/09/18): cervix 3 cm/70%/high, cerclage in place, unchanged from admi ssion). She also was diagnosed with GDM. Glucose has been controlled with ADA diet. Patient reports: movement normal, other (Patient reports vaginal discharge ), no new complaints, no loss of fluid, no vaginal bleeding, no contractions Objective - Vital Signs Vital Signs: Vital Signs - 12hr 06/13/18 06/13/18 06/13/18 06:27 10:38 10:41 Temperature 97.6 F Pulse Rate 88 90 Respiratory 16 Rate Blood Pressure 122/55 97/54 - Exam Abdomen: Present: normal appearance, soft Uterus: Present: normal FHR: category 1 Uterine Contraction Monitor Mode: External - Labs Labs: Abnormal Labs 04/30/18 04/30/18 04/30/18 16:20 16:20 16:20 WBC 11.8 H MCH 27 L Seg Neutrophils % 75.5 H Seg Neutrophils # 8.9 H Creatinine 0.6 L POC Glucose Magnesium Urine pH Ur Specific [place] Urine WBC (Auto) 50.0 H U Epithel Cells (Auto) 135.0 H 05/01/18 05/01/1805/02/19 14:32 19:56 07:54 WBC MCH Seg Neutrophils % Seg Neutrophils # Creatinine POC Glucose Magnesium 3.50 H 4.30 H 4.40 H Urine pH Ur Specific [place] Urine WBC (Auto) U Epithel Cells (Auto) 05/02/18 05/02/18 05/03/18 14:41 Unknown 04:50 WBC MCH Seg Neutrophils % Seg Neutrophils # Creatinine POC Glucose Magnesium 4.20 H 4.30 H 4.30 H Urine pH Ur Specific [place] Urine WBC (Auto) U Epithel Cells (Auto) 05/03/18 05/03/18 05/03/18 05:33 12:51 17:36 WBC MCH Seg Neutrophils % Seg Neutrophils # Creatinine POC Glucose Magnesium 4.30 H 4.10 H 3.40 H Urine pH Ur Specific [place] Urine WBC (Auto) U Epithel Cells (Auto) 05/04/18 05/05/18 05/13/18 05:58 09:37 12:37 WBC MCH 27 L 26 L Seg Neutrophils % 80.5 H 79.0 H Seg Neutrophils # 8.5 H 8.5 H Creatinine POC Glucose Magnesium 3.00 H Urine pH Ur Specific [place] Urine WBC (Auto) U Epithel Cells (Auto) 05/20/18 05/20/18 05/21/18 06:56 17:01 06:15 WBC MCH Seg Neutrophils % Seg Neutrophils # Creatinine POC Glucose 61 L 62 L 68 L Magnesium Urine pH Ur Specific [place] Urine WBC (Auto) U Epithel Cells (Auto) 05/21/18 05/21/18 05/22/18 11:12 16:45 19:02 WBC MCH Seg Neutrophils % Seg Neutrophils # Creatinine POC Glucose 128 H 67 L 129 H Magnesium Urine pH Ur Specific [place] Urine WBC (Auto) U Epithel Cells (Auto) 05/23/18 05/23/18 05/24/18 08:43 16:52 07:59 WBC MCH Seg Neutrophils % Seg Neutrophils # Creatinine POC Glucose 129 H 68 L 63 L Magnesium Urine pH Ur Specific [place] Urine WBC (Auto) U Epithel Cells (Auto) 05/24/18 05/24/18 05/25/18 10:09 14:56 07:45 WBC MCH Seg Neutrophils % Seg Neutrophils # Creatinine POC Glucose 117 H 120 H 48 L Magnesium Urine pH Ur Specific [place] Urine WBC (Auto) U Epithel Cells (Auto) 05/25/18 05/25/18 05/26/18 10:42 22:08 08:28 WBC MCH Seg Neutrophils % Seg Neutrophils # Creatinine POC Glucose 126 H 112 H 63 L Magnesium Urine pH Ur Specific [place] Urine WBC (Auto) U Epithel Cells (Auto) 05/27/18 05/27/18 05/29/18 08:32 15:08 07:26 WBC MCH 27 L Seg Neutrophils % 73.3 H Seg Neutrophils # Creatinine POC Glucose 67 L 68 L Magnesium Urine pH Ur Specific [place] Urine WBC (Auto) U Epithel Cells (Auto) 05/29/18 05/29/18 05/30/18 11:26 19:03 05:53 WBC MCH Seg Neutrophils % Seg Neutrophils # Creatinine POC Glucose 115 H 63 L Magnesium Urine pH 8.0 H Ur Specific [place] 1.001 L Urine WBC (Auto) U Epithel Cells (Auto) 05/30/18 05/31/18 06/02/18 23:41 23:17 06:12 WBC MCH Seg Neutrophils % Seg Neutrophils # Creatinine POC Glucose 56 L 68 L 61 L Magnesium Urine pH Ur Specific [place] Urine WBC (Auto) U Epithel Cells (Auto) 06/02/18 06/03/18 06/03/18 19:43 07:30 10:47 WBC MCH Seg Neutrophils % Seg Neutrophils # Creatinine POC Glucose 107 H 64 L 135 H Magnesium Urine pH Ur Specific [place] Urine WBC (Auto) U Epithel Cells (Auto) 06/04/18 06/04/18 06/05/18 00:08 20:55 10:23 WBC MCH Seg Neutrophils % Seg Neutrophils # Creatinine POC Glucose 111 H 132 H 117 H Magnesium Urine pH Ur Specific [place] Urine WBC (Auto) U Epithel Cells (Auto) 06/06/18 06/06/18 06/06/18 06:40 14:24 18:24 WBC MCH Seg Neutrophils % Seg Neutrophils # Creatinine POC Glucose 62 L 113 H 126 H Magnesium Urine pH Ur Specific [place] Urine WBC (Auto) U Epithel Cells (Auto) 06/06/18 06/07/18 06/07/18 22:24 05:41 22:12 WBC MCH Seg Neutrophils % Seg Neutrophils # Creatinine POC Glucose 56 L 64 L 52 L Magnesium Urine pH Ur Specific [place] Urine WBC (Auto) U Epithel Cells (Auto) 06/08/18 06/10/18 06/10/18 17:36 06:40 11:23 WBC MCH 27 L Seg Neutrophils % Seg Neutrophils # Creatinine POC Glucose 110 H 64 L Magnesium Urine pH Ur Specific [place] Urine WBC (Auto) U Epithel Cells (Auto) 06/10/18 06/11/18 06/12/18 14:49 08:37 05:59 WBC MCH Seg Neutrophils % Seg Neutrophils # Creatinine POC Glucose 112 H 69 L 61 L Magnesium Urine pH Ur Specific [place] Urine WBC (Auto) U Epithel Cells (Auto) 06/12/18 06/13/18 14:04 06:24 WBC MCH Seg Neutrophils % Seg Neutrophils # Creatinine POC Glucose 109 H 68 L Magnesium Urine pH Ur Specific [place] Urine WBC (Auto) U Epithel Cells (Auto) Laboratory Results - last 24 hr 06/12/18 06/13/18 06/13/18 14:04 06:24 10:41 POC Glucose 109 H 68 L 92 - Results US- obstetric: report reviewed ([facility] 11/12 on 06/11/18)
[2018-06-14] MEDS: AMBIEN PO PRN (00:06)
[2018-06-14] MEDS: PROCARDIA*For Tocolysis only PO SCH ×4 (00:06→18:56)
[2018-06-14] MEDS: PRENATAL VITAMIN PO SCH (10:08)
--- NOTE | 2018-06-14 10:08 | Progress Note ---
Assessment and Plan - Patient Problems (1) 31 weeks gestation of Onset Date: 06/06/18 Current Visit: Yes Status: Resolved (2) Cervical cerclage suture present Onset Date: 05/02/18 Current Visit: Yes Status: Acute Qualifiers: Trimester: third trimester Qualified Code(s): O34.33 - Maternal care for cervical incompetence, third trimester (3) labor Onset Date: 05/02/18 Current Visit: Yes Status: Acute Qualifiers: labor trimester: third trimester labor delivery status: without delivery Qualified Code(s): O60.03 - labor without delivery, third trimester (4) 28 weeks gestation of Onset Date: 05/18/18 Current Visit: Yes Status: Resolved (5) 29 weeks gestation of Onset Date: 05/23/18 Current Visit: Yes Status: Resolved (6) Gestational diabetes mellitus (GDM) Onset Date: 05/23/18 Current Visit: Yes Status: Acute Qualifiers: Gestational diabetes mellitus control: diet-controlled (7) 30 weeks gestation of Onset Date: 05/30/18 Current Visit: Yes Status: Resolved (8) 32 weeks gestation of Onset Date: 06/14/18 Current Visit: Yes Status: Acute Plan to address problem: Assessment 1. 32 3/7 weeks, SIUP 2. Hx Incompetent cervix, cerclage in situ 3. [place]/17P started 2 days prior to admission 4. S/P steroid for lung maturity 5. S/P Magnesium Sulfate therapy 6. Short cervix; last exam 3 cm dilated 7. Per OB's report bulging membrane noted in office 8. Hx CHTN; not on meds, stable BPs 9. GDM; glucose 91-105 (outlier 128) Recommendations 1. Presently on Procardia 2. Antibiotics secondary to bulging membrane: Ampicillin and Erythromycin 3. S/P Dexamethasone for lung maturity 4. S/P Magnesium Sulfate for neuroprotection 5. [facility] to follow patient 6. Delivery recommended if compromise 7. Remove cerclage with evidence of labor 8. We recommend continued hospitalization at this point; if no change in vaginal exam we recommend consideration of outpatient follow-up 9. S/P Diabetic Teaching/education 10. Continue blood glucose monitoring 2 hours after meals and fasting 11. Continue [place]/17-P to 36 weeks Subjective - Subjective Date of service: 06/14/18 Principal diagnosis: IUP @ 32 3/7 weeks; Incompetent cervix, CHTN, gestational DMA1 Interval history: Patient is a 32 year old , LMP 10/30/17, EDC 08/06/18 at 32 3/7weeks gestation who was sent from the office for labor. This patient has been co-managed with [facility] for a history of cervical incompetence and she has a cerclage placed 2 months ago. She saw [facility] 2 weeks and sonogram showed funneling. She was offered Shelby and celestone for FLM. She did not start Shelby due to insurance issues. She went for a routine visit and reported that she has been feeling pelvic pressure and abdominal tightening for 2 days. She denied any fluid leakage or bleeding. She reports good movement. Exam in the office showed the cervix to be dilated 3 cm with bulging membranes and the cerclage suture was in place. She also has chronic HTN and has not been on any medication. She has been hospitalized and currently s/p IV Magnesium sulfate , IV Ampicillin, IV Zithromax and IM steroids for FLM and denies contractions. This morning she denies any contractions, fluid leakage or bleeding. She reports good movement, but complains of round ligament pains. Exam (05/09/18): cervix 3 cm/70%/high, cerclage in place, unchanged from admission). She also was diagnosed with GDM. Glucose has been controlled with ADA diet. Patient reports: movement normal, other (Patient reports vaginal discharge ), no new complaints, no loss of fluid, no vaginal bleeding, no contractions Objective - Exam Abdomen: Present: normal appearance Uterus: Present: normal FHR: category 1 Uterine Contraction Monitor Mode: External Uterine Contraction Pattern: Absent - Labs Labs: Abnormal Labs 04/30/18 04/30/18 04/30/18 16:20 16:20 16:20 WBC 11.8 H MCH 27 L Seg Neutrophils % 75.5 H Seg Neutrophils # 8.9 H Creatinine 0.6 L POC Glucose Magnesium Urine pH Ur Specific [place] Urine WBC (Auto) 50.0 H U Epithel Cells (Auto) 135.0 H 05/01/18 05/01/18 05/02/18 14:32 19:56 07:54 WBC MCH Seg Neutrophils % Seg Neutrophils # Creatinine POC Glucose Magnesium 3.50 H 4.30 H 4.40 H Urine pH Ur Specific [place] Urine WBC (Auto) U Epithel Cells (Auto) 05/02/18 05/02/18 05/03/18 14:41 Unknown 04:50 WBC MCH Seg Neutrophils % Seg Neutrophils # Creatinine POC Glucose Magnesium 4.20 H 4.30 H 4.30 H Urine pH Ur Specific [place] Urine WBC (Auto) U Epithel Cells (Auto) 05/03/18 05/03/18 05/03/18 05:33 12:51 17:36 WBC MCH Seg Neutrophils % Seg Neutrophils # Creatinine POC Glucose Magnesium 4.30 H 4.10 H 3.40 H Urine pH Ur Specific [place] Urine WBC (Auto) U Epithel Cells (Auto) 05/04/18 05/05/18 05/13/18 05:58 09:37 12:37 WBC MCH 27 L 26 L Seg Neutrophils % 80.5 H 79.0 H Seg Neutrophils # 8.5 H 8.5 H Creatinine POC Glucose Magnesium 3.00 H Urine pH Ur Specific [place] Urine WBC (Auto) U Epithel Cells (Auto) 05/20/18 05/20/18 05/21/18 06:56 17:01 06:15 WBC MCH Seg Neutrophils % Seg Neutrophils # Creatinine POC Glucose 61 L 62 L 68 L Magnesium Urine pH Ur Specific [place] Urine WBC (Auto) U Epithel Cells (Auto) 05/21/18 05/21/18 05/22/18 11:12 16:45 19:02 WBC MCH Seg Neutrophils % Seg Neutrophils # Creatinine POC Glucose 128 H 67 L 129 H Magnesium Urine pH Ur Specific [place] Urine WBC (Auto) U Epithel Cells (Auto) 05/23/18 05/23/18 05/24/18 08:43 16:52 07:59 WBC MCH Seg Neutrophils % Seg Neutrophils # Creatinine POC Glucose 129 H 68 L 63 L Magnesium Urine pH Ur Specific [place] Urine WBC (Auto) U Epithel Cells (Auto) 05/24/18 05/24/18 05/25/18 10:09 14:56 07:45 WBC MCH Seg Neutrophils % Seg Neutrophils # Creatinine POC Glucose 117 H 120 H 48 L Magnesium Urine pH Ur Specific [place] Urine WBC (Auto) U Epithel Cells (Auto) 05/25/18 05/25/18 05/26/18 10:42 22:08 08:28 WBC MCH Seg Neutrophils % Seg Neutrophils # Creatinine POC Glucose 126 H 112 H 63 L Magnesium Urine pH Ur Specific [place] Urine WBC (Auto) U Epithel Cells (Auto) 05/27/18 05/27/18 05/29/18 08:32 15:08 07:26 WBC MCH 27 L Seg Neutrophils % 73.3 H Seg Neutrophils # Creatinine POC Glucose 67 L 68 L Magnesium Urine pH Ur Specific [place] Urine WBC (Auto) U Epithel Cells (Auto) 05/29/18 05/29/18 05/30/18 11:26 19:03 05:53 WBC MCH Seg Neutrophils % Seg Neutrophils # Creatinine POC Glucose 115 H 63 L Magnesium Urine pH 8.0 H Ur Specific [place] 1.001 L Urine WBC (Auto) U Epithel Cells (Auto) 05/30/18 05/31/18 06/02/18 23:41 23:17 06:12 WBC MCH Seg Neutrophils % Seg Neutrophils # Creatinine POC Glucose 56 L 68 L 61 L Magnesium Urine pH Ur Specific [place] Urine WBC (Auto) U Epithel Cells (Auto) 06/02/18 06/03/18 06/03/18 19:43 07:30 10:47 WBC MCH Seg Neutrophils % Seg Neutrophils # Creatinine POC Glucose 107 H 64 L 135 H Magnesium Urine pH Ur Specific [place] Urine WBC (Auto) U Epithel Cells (Auto) 06/04/18 06/04/18 06/05/18 00:08 20:55 10:23 WBC MCH Seg Neutrophils % Seg Neutrophils # Creatinine POC Glucose 111 H 132 H 117 H Magnesium Urine pH Ur Specific [place] Urine WBC (Auto) U Epithel Cells (Auto) 06/06/18 06/06/18 06/06/18 06:40 14:24 18:24 WBC MCH Seg Neutrophils % Seg Neutrophils # Creatinine POC Glucose 62 L 113 H 126 H Magnesium Urine pH Ur Specific [place] Urine WBC (Auto) U Epithel Cells (Auto) 06/06/18 06/07/18 06/07/18 22:24 05:41 22:12 WBC MCH Seg Neutrophils % Seg Neutrophils # Creatinine POC Glucose 56 L 64 L 52 L Magnesium Urine pH Ur Specific [place] Urine WBC (Auto) U Epithel Cells (Auto) 06/08/18 06/10/18 06/10/18 17:36 06:40 11:23 WBC MCH 27 L Seg Neutrophils % Seg Neutrophils # Creatinine POC Glucose 110 H 64 L Magnesium Urine pH Ur Specific [place] Urine WBC (Auto) U Epithel Cells (Auto) 06/10/18 06/11/18 06/12/18 14:49 08:37 05:59 WBC MCH Seg Neutrophils % Seg Neutrophils # Creatinine POC Glucose 112 H 69 L 61 L Magnesium Urine pH Ur Specific [place] Urine WBC (Auto) U Epithel Cells (Auto) 06/12/18 06/13/18 06/13/18 14:04 06:24 14:31 WBC MCH Seg Neutrophils % Seg Neutrophils # Creatinine POC Glucose 109 H 68 L 134 H Magnesium Urine pH Ur Specific [place] Urine WBC (Auto) U Epithel Cells (Auto) Laboratory Results - last 24 hr 06/13/18 06/13/18 06/13/18 10:41 14:31 21:15 POC Glucose 92 134 H 94
[2018-06-14] MEDS: PEPCID PO SCH ×2 (10:09→22:16)
[2018-06-15] MEDS: PROCARDIA*For Tocolysis only PO SCH ×5 (00:11→21:32)
[2018-06-15] MEDS: AMBIEN PO PRN (00:12)
[2018-06-15] MEDS: LACTATED RINGERS 1,000 ML IV SCH ×2 (05:21→13:26)
--- NOTE | 2018-06-15 09:24 | Progress Note ---
Assessment and Plan - Patient Problems (1) Cervical incompetence Current Visit: Yes Status: Acute Plan to address problem: Continue routine care. Continue weekly ultrasounds. Continue Q8 monitoring. No signs of labor progression. Continue weekly progesterone injections. (2) Gestational diabetes mellitus (GDM) Onset Date: 05/23/18 Current Visit: Yes Status: Acute Qualifiers: Gestational diabetes mellitus control: diet-controlled (3) Chronic hypertension affecting Current Visit: Yes Status: Acute Plan to address problem: BP Stable - continue Labetolol (4) 32 weeks gestation of Onset Date: 06/14/18 Current Visit: Yes Status: Acute Subjective - Subjective Principal diagnosis: IUP @ 32 3/7 weeks; Incompetent cervix, CHTN, gestational DMA1 Interval history: She denies loss of fluid, vaginal bleeding and reports good movement. She denies contractions. Patient reports: movement normal, other (Patient reports vaginal discharge ), no new complaints, no loss of fluid, no vaginal bleeding, no contractions Objective - Vital Signs Vital Signs: Vital Signs - 12hr 06/15/18 06/15/18 06/15/18 00:16 04:25 04:29 Temperature 98 F 98.2 F Pulse Rate 101 H 96 H Respiratory 16 18 Rate Blood Pressure 136/65 122/65 O2 Sat by Pulse Oximetry 06/15/18 06/15/18 06/15/18 04:33 04:38 04:43 Temperature Pulse Rate 97 H 99 H 98 H Respiratory Rate Blood Pressure O2 Sat by Pulse 99 99 98 Oximetry 06/15/18 04:48 Temperature Pulse Rate 97 H Respiratory Rate Blood Pressure O2 Sat by Pulse 99 Oximetry - Labs Labs: Abnormal Labs 04/30/18 04/30/18 04/30/18 16:20 16:20 16:20 WBC 11.8 H MCH 27 L Seg Neutrophils % 75.5 H Seg Neutrophils # 8.9 H Creatinine 0.6 L POC Glucose Magnesium Urine pH Ur Specific [place] Urine WBC (Auto) 50.0 H U Epithel Cells (Auto) 135.0 H 05/01/18 05/01/18 05/02/18 14:32 19:56 07:54 WBC MCH Seg Neutrophils % Seg Neutrophils # Creatinine POC Glucose Magnesium 3.50 H 4.30 H 4.40 H Urine pH Ur Specific [place] Urine WBC (Auto) U Epithel Cells (Auto) 05/02/18 05/02/18 05/03/18 14:41 Unknown 04:50 WBC MCH Seg Neutrophils % Seg Neutrophils # Creatinine POC Glucose Magnesium 4.20 H 4.30 H 4.30 H Urine pH Ur Specific [place] Urine WBC (Auto) U Epithel Cells (Auto) 05/03/18 05/03/18 05/03/18 05:33 12:51 17:36 WBC MCH Seg Neutrophils % Seg Neutrophils # Creatinine POC Glucose Magnesium 4.30 H 4.10 H 3.40 H Urine pH Ur Specific [place] Urine WBC (Auto) U Epithel Cells (Auto) 05/04/18 05/05/18 05/13/18 05:58 09:37 12:37 WBC MCH 27 L 26 L Seg Neutrophils % 80.5 H 79.0 H Seg Neutrophils # 8.5 H 8.5 H Creatinine POC Glucose Magnesium 3.00 H Urine pH Ur Specific [place] Urine WBC (Auto) U Epithel Cells (Auto) 05/20/18 05/20/18 05/21/18 06:56 17:01 06:15 WBC MCH Seg Neutrophils % Seg Neutrophils # Creatinine POC Glucose 61 L 62 L 68 L Magnesium Urine pH Ur Specific [place] Urine WBC (Auto) U Epithel Cells (Auto) 05/21/18 05/21/18 05/22/18 11:12 16:45 19:02 WBC MCH Seg Neutrophils % Seg Neutrophils # Creatinine POC Glucose 128 H 67 L 129 H Magnesium Urine pH Ur Specific [place] Urine WBC (Auto) U Epithel Cells (Auto) 05/23/18 05/23/18 05/24/18 08:43 16:52 07:59 WBC MCH Seg Neutrophils % Seg Neutrophils # Creatinine POC Glucose 129 H 68 L 63 L Magnesium Urine pH Ur Specific [place] Urine WBC (Auto) U Epithel Cells (Auto) 05/24/18 05/24/18 05/25/18 10:09 14:56 07:45 WBC MCH Seg Neutrophils % Seg Neutrophils # Creatinine POC Glucose 117 H 120 H 48 L Magnesium Urine pH Ur Specific [place] Urine WBC (Auto) U Epithel Cells (Auto) 05/25/18 05/25/18 05/26/18 10:42 22:08 08:28 WBC MCH Seg Neutrophils % Seg Neutrophils # Creatinine POC Glucose 126 H 112 H 63 L Magnesium Urine pH Ur Specific [place] Urine WBC (Auto) U Epithel Cells (Auto) 05/27/18 05/27/18 05/29/18 08:32 15:08 07:26 WBC MCH 27 L Seg Neutrophils % 73.3 H Seg Neutrophils # Creatinine POC Glucose 67 L 68 L Magnesium Urine pH Ur Specific [place] Urine WBC (Auto) U Epithel Cells (Auto) 05/29/18 05/29/18 05/30/18 11:26 19:03 05:53 WBC MCH Seg Neutrophils % Seg Neutrophils # Creatinine POC Glucose 115 H 63 L Magnesium Urine pH 8.0 H Ur Specific [place] 1.001 L Urine WBC (Auto) U Epithel Cells (Auto) 05/30/18 05/31/18 06/02/18 23:41 23:17 06:12 WBC MCH Seg Neutrophils % Seg Neutrophils # Creatinine POC Glucose 56 L 68 L 61 L Magnesium Urine pH Ur Specific [place] Urine WBC (Auto) U Epithel Cells (Auto) 06/02/18 06/03/18 06/03/18 19:43 07:30 10:47 WBC MCH Seg Neutrophils % Seg Neutrophils # Creatinine POC Glucose 107 H 64 L 135 H Magnesium Urine pH Ur Specific [place] Urine WBC (Auto) U Epithel Cells (Auto) 06/04/18 06/04/18 06/05/18 00:08 20:55 10:23 WBC MCH Seg Neutrophils % Seg Neutrophils # Creatinine POC Glucose 111 H 132 H 117 H Magnesium Urine pH Ur Specific [place] Urine WBC (Auto) U Epithel Cells (Auto) 06/06/18 06/06/18 06/06/18 06:40 14:24 18:24 WBC MCH Seg Neutrophils % Seg Neutrophils # Creatinine POC Glucose 62 L 113 H 126 H Magnesium Urine pH Ur Specific [place] Urine WBC (Auto) U Epithel Cells (Auto) 06/06/18 06/07/18 06/07/18 22:24 05:41 22:12 WBC MCH Seg Neutrophils % Seg Neutrophils # Creatinine POC Glucose 56 L 64 L 52 L Magnesium Urine pH Ur Specific [place] Urine WBC (Auto) U Epithel Cells (Auto) 06/08/18 06/10/18 06/10/18 17:36 06:40 11:23 WBC MCH 27 L Seg Neutrophils % Seg Neutrophils # Creatinine POC Glucose 110 H 64 L Magnesium Urine pH Ur Specific [place] Urine WBC (Auto) U Epithel Cells (Auto) 06/10/18 06/11/18 06/12/18 14:49 08:37 05:59 WBC MCH Seg Neutrophils % Seg Neutrophils # Creatinine POC Glucose 112 H 69 L 61 L Magnesium Urine pH Ur Specific [place] Urine WBC (Auto) U Epithel Cells (Auto) 06/12/18 06/13/18 06/13/18 14:04 06:24 14:31 WBC MCH Seg Neutrophils % Seg Neutrophils # Creatinine POC Glucose 109 H 68 L 134 H Magnesium Urine pH Ur Specific [place] Urine WBC (Auto) U Epithel Cells (Auto) 06/14/18 09:21 WBC MCH Seg Neutrophils % Seg Neutrophils # Creatinine POC Glucose 116 H Magnesium Urine pH Ur Specific [place] Urine WBC (Auto) U Epithel Cells (Auto) Laboratory Results - last 24 hr 06/14/18 06/14/18 06/14/18 05:20 09:21 15:32 POC Glucose 85 116 H 81
[2018-06-15] MEDS: PRENATAL VITAMIN PO SCH (10:25)
[2018-06-15] MEDS: PEPCID PO SCH ×2 (10:31→13:29)
[2018-06-15] MEDS: TYLENOL PO PRN ×2 (13:30→22:05)
[2018-06-16] MEDS: LACTATED RINGERS 1,000 ML IV SCH (05:40)
[2018-06-16] MEDS: PEPCID PO SCH ×3 (05:43→23:40)
[2018-06-16] MEDS: PROCARDIA*For Tocolysis only PO SCH ×6 (05:55→23:39)
[2018-06-16] MEDS: PRENATAL VITAMIN PO SCH (10:26)
[2018-06-16] MEDS: AMBIEN PO PRN ×2 (23:38)
[2018-06-17] MEDS: PRENATAL VITAMIN PO SCH (10:12)
[2018-06-17] MEDS: PEPCID PO SCH ×2 (10:13→22:00)
--- NOTE | 2018-06-17 13:48 | Progress Note ---
Assessment and Plan - Patient Problems (1) 31 weeks gestation of Onset Date: 06/06/18 Current Visit: Yes Status: Resolved (2) Cervical cerclage suture present Onset Date: 05/02/18 Current Visit: Yes Status: Acute Qualifiers: Trimester: third trimester Qualified Code(s): O34.33 - Maternal care for cervical incompetence, third trimester (3) labor Onset Date: 05/02/18 Current Visit: Yes Status: Acute Qualifiers: labor trimester: third trimester labor delivery status: without delivery Qualified Code(s): O60.03 - labor without delivery, third trimester (4) 28 weeks gestation of Onset Date: 05/18/18 Current Visit: Yes Status: Resolved (5) 29 weeks gestation of Onset Date: 05/23/18 Current Visit: Yes Status: Resolved (6) Gestational diabetes mellitus (GDM) Onset Date: 05/23/18 Current Visit: Yes Status: Acute Qualifiers: Gestational diabetes mellitus control: diet-controlled (7) 30 weeks gestation of Onset Date: 05/30/18 Current Visit: Yes Status: Resolved (8) 32 weeks gestation of Onset Date: 06/14/18 Current Visit: Yes Status: Acute Plan to address problem: Assessment 1. 32 6/7 weeks, SIUP 2. Hx Incompetent cervix, cerclage in situ 3. [place]/17P started 2 days prior to admission 4. S/P steroid for lung maturity 5. S/P Magnesium Sulfate therapy 6. Short cervix; last exam 3 cm dilated 7. Per OB's report bulging membrane noted in office 8. Hx CHTN; not on meds, stable BPs 9. GDM; glucose 91-105 (outlier 128) Recommendations 1. Presently on Procardia 2. Antibiotics secondary to bulging membrane: Ampicillin and Erythromycin 3. S/P Dexamethasone for lung maturity 4. S/P Magnesium Sulfate for neuroprotection 5. [facility] to follow patient 6. Delivery recommended if compromise 7. Remove cerclage with evidence of labor 8. We recommend continued hospitalization at this point; if no change in vaginal exam we recommend consideration of outpatient follow-up 9. S/P Diabetic Teaching/education 10. Continue blood glucose monitoring 2 hours after meals and fasting 11. Continue [place]/17-P to 36 weeks Subjective - Subjective Date of service: 06/17/18 Principal diagnosis: IUP @ 32 6/7 weeks; Incompetent cervix, CHTN, gestational DMA1 Interval history: Patient is a 32 year old , LMP 10/30/17, EDC 08/06/18 at 32 6/7weeks gestation who was sent from the office for labor. This patient has been co-managed with [facility] for a history of cervical incompetence and she has a cerclage placed 2 months ago. She saw [facility] 2 weeks and sonogram showed funneling. She was offered Shelby and celestone for FLM. She did not start Shelby due to insurance issues. She went for a routine visit and reported that she has been feeling pelvic pressure and abdominal tightening for 2 days. She denied any fluid leakage or bleeding. She reports good movement. Exam in the office showed the cervix to be dilated 3 cm with bulging membranes and the cerclage suture was in place. She also has chronic HTN and has not been on any medication. She has been hospitalized and currently s/p IV Magnesium sulfate , IV Ampicillin, IV Zithromax and IM steroids for FLM and denies contractions. This morning she denies any contractions, fluid leakage or bleeding. She reports good movement, but complains of round ligament pains. Exam (05/09/18): cervix 3 cm/70%/high, cerclage in place, unchanged from admission). She also was diagnosed with GDM. Glucose has been controlled with ADA diet. Patient reports: movement normal, other (Patient reports vaginal discharge ), no new complaints, no loss of fluid, no vaginal bleeding, no contractions Objective - Vital Signs Vital Signs: Vital Signs - 12hr 06/17/18 06/17/18 06/17/18 07:47 07:49 12:40 Temperature 99.6 F Pulse Rate 97 H 89 Respiratory 20 Rate Blood Pressure 112/60 92/52 - Exam Abdomen: Present: normal appearance, soft FHR: category 1 Uterine Contraction Monitor Mode: External Uterine Contraction Pattern: Absent - Labs Labs: Abnormal Labs 04/30/18 04/30/18 04/30/18 16:20 16:20 16:20 WBC 11.8 H MCH 27 L Seg Neutrophils % 75.5 H Seg Neutrophils # 8.9 H Creatinine 0.6 L POC Glucose Magnesium Urine pH Ur Specific [place] Urine WBC (Auto) 50.0 H U Epithel Cells (Auto) 135.0 H 05/01/18 05/01/18 05/02/18 14:32 19:56 07:54 WBC MCH Seg Neutrophils % Seg Neutrophils # Creatinine POC Glucose Magnesium 3.50 H 4.30 H 4.40 H Urine pH Ur Specific [place] Urine WBC (Auto) U Epithel Cells (Auto) 05/02/18 05/02/18 05/03/18 14:41 Unknown 04:50 WBC MCH Seg Neutrophils % Seg Neutrophils # Creatinine POC Glucose Magnesium 4.20 H 4.30 H 4.30 H Urine pH Ur Specific [place] Urine WBC (Auto) U Epithel Cells (Auto) 05/03/18 05/03/18 05/03/18 05:33 12:51 17:36 WBC MCH Seg Neutrophils % Seg Neutrophils # Creatinine POC Glucose Magnesium 4.30 H 4.10 H 3.40 H Urine pH Ur Specific [place] Urine WBC (Auto) U Epithel Cells (Auto) 05/04/18 05/05/18 05/13/18 05:58 09:37 12:37 WBC MCH 27 L 26 L Seg Neutrophils % 80.5 H 79.0 H Seg Neutrophils # 8.5 H 8.5 H Creatinine POC Glucose Magnesium 3.00 H Urine pH Ur Specific [place] Urine WBC (Auto) U Epithel Cells (Auto) 05/20/18 05/20/18 05/21/18 06:56 17:01 06:15 WBC MCH Seg Neutrophils % Seg Neutrophils # Creatinine POC Glucose 61 L 62 L 68 L Magnesium Urine pH Ur Specific [place] Urine WBC (Auto) U Epithel Cells (Auto) 05/21/18 05/21/18 05/22/18 11:12 16:45 19:02 WBC MCH Seg Neutrophils % Seg Neutrophils # Creatinine POC Glucose 128 H 67 L 129 H Magnesium Urine pH Ur Specific [place] Urine WBC (Auto) U Epithel Cells (Auto) 05/23/18 05/23/18 05/24/18 08:43 16:52 07:59 WBC MCH Seg Neutrophils % Seg Neutrophils # Creatinine POC Glucose 129 H 68 L 63 L Magnesium Urine pH Ur Specific [place] Urine WBC (Auto) U Epithel Cells (Auto) 05/24/18 05/24/18 05/25/18 10:09 14:56 07:45 WBC MCH Seg Neutrophils % Seg Neutrophils # Creatinine POC Glucose 117 H 120 H 48 L Magnesium Urine pH Ur Specific [place] Urine WBC (Auto) U Epithel Cells (Auto) 05/25/18 05/25/18 05/26/18 10:42 22:08 08:28 WBC MCH Seg Neutrophils % Seg Neutrophils # Creatinine POC Glucose 126 H 112 H 63 L Magnesium Urine pH Ur Specific [place] Urine WBC (Auto) U Epithel Cells (Auto) 05/27/18 05/27/18 05/29/18 08:32 15:08 07:26 WBC MCH 27 L Seg Neutrophils % 73.3 H Seg Neutrophils # Creatinine POC Glucose 67 L 68 L Magnesium Urine pH Ur Specific [place] Urine WBC (Auto) U Epithel Cells (Auto) 05/29/18 05/29/18 05/30/18 11:26 19:03 05:53 WBC MCH Seg Neutrophils % Seg Neutrophils # Creatinine POC Glucose 115 H 63 L Magnesium Urine pH 8.0 H Ur Specific [place] 1.001 L Urine WBC (Auto) U Epithel Cells (Auto) 05/30/18 05/31/18 06/02/18 23:41 23:17 06:12 WBC MCH Seg Neutrophils % Seg Neutrophils # Creatinine POC Glucose 56 L 68 L 61 L Magnesium Urine pH Ur Specific [place] Urine WBC (Auto) U Epithel Cells (Auto) 06/02/18 06/03/18 06/03/18 19:43 07:30 10:47 WBC MCH Seg Neutrophils % Seg Neutrophils # Creatinine POC Glucose 107 H 64 L 135 H Magnesium Urine pH Ur Specific [place] Urine WBC (Auto) U Epithel Cells (Auto) 06/04/18 06/04/18 06/05/18 00:08 20:55 10:23 WBC MCH Seg Neutrophils % Seg Neutrophils # Creatinine POC Glucose 111 H 132 H 117 H Magnesium Urine pH Ur Specific [place] Urine WBC (Auto) U Epithel Cells (Auto) 06/06/18 06/06/18 06/06/18 06:40 14:24 18:24 WBC MCH Seg Neutrophils % Seg Neutrophils # Creatinine POC Glucose 62 L 113 H 126 H Magnesium Urine pH Ur Specific [place] Urine WBC (Auto) U Epithel Cells (Auto) 06/06/18 06/07/18 06/07/18 22:24 05:41 22:12 WBC MCH Seg Neutrophils % Seg Neutrophils # Creatinine POC Glucose 56 L 64 L 52 L Magnesium Urine pH Ur Specific [place] Urine WBC (Auto) U Epithel Cells (Auto) 06/08/18 06/10/18 06/10/18 17:36 06:40 11:23 WBC MCH 27 L Seg Neutrophils % Seg Neutrophils # Creatinine POC Glucose 110 H 64 L Magnesium Urine pH Ur Specific [place] Urine WBC (Auto) U Epithel Cells (Auto) 06/10/18 06/11/18 06/12/18 14:49 08:37 05:59 WBC MCH Seg Neutrophils % Seg Neutrophils # Creatinine POC Glucose 112 H 69 L 61 L Magnesium Urine pH Ur Specific [place] Urine WBC (Auto) U Epithel Cells (Auto) 06/12/18 06/13/18 06/13/18 14:04 06:24 14:31 WBC MCH Seg Neutrophils % Seg Neutrophils # Creatinine POC Glucose 109 H 68 L 134 H Magnesium Urine pH Ur Specific [place] Urine WBC (Auto) U Epithel Cells (Auto) 06/14/18 09:21 WBC MCH Seg Neutrophils % Seg Neutrophils # Creatinine POC Glucose 116 H Magnesium Urine pH Ur Specific [place] Urine WBC (Auto) U Epithel Cells (Auto)
[2018-06-17] MEDS: PROCARDIA*For Tocolysis only PO SCH ×2 (15:39→18:03)
[2018-06-17] MEDS ORDERED: ZOFRAN ONE (17:58)
[2018-06-17] MEDS: COLACE PO PRN (18:04)
[2018-06-17] MEDS ORDERED: ZOFRAN IV ONE (18:04)
[2018-06-18] MEDS: PEPCID PO SCH ×3 (00:12→23:37)
[2018-06-18] MEDS: PROCARDIA*For Tocolysis only PO SCH ×6 (00:12→23:37)
[2018-06-18] MEDS: AMBIEN PO PRN ×2 (00:19→23:37)
--- NOTE | 2018-06-18 09:35 | Progress Note ---
Assessment and Plan - Patient Problems (1) Cervical incompetence Current Visit: Yes Status: Acute Plan to address problem: Continue routine care. Continue weekly ultrasounds. Continue Q8 monitoring. No signs of labor progression. Continue weekly progesterone injections. (2) Gestational diabetes mellitus (GDM) Onset Date: 05/23/18 Current Visit: Yes Status: Acute Qualifiers: Gestational diabetes mellitus control: diet-controlled Plan to address problem: No medications. Blood glucose well controlled. Weekly BPP today (3) Chronic hypertension affecting Current Visit: Yes Status: Acute (4) 32 weeks gestation of Onset Date: 06/14/18 Current Visit: Yes Status: Acute Subjective - Subjective Principal diagnosis: IUP @ 31 6/7 weeks; Incompetent cervix, CHTN, gestational DMA1 Interval history: She denies loss of fluid, vaginal bleeding and reports good movement. She denies contractions. Patient reports: movement normal, other (Patient reports vaginal discharge ), no new complaints, no loss of fluid, no vaginal bleeding, no contractions Objective - Vital Signs Vital Signs: Vital Signs - 12hr 06/18/18 06/18/18 00:24 07:07 Temperature 98.9 F 98.3 F Pulse Rate 91 H Respiratory 20 Rate Blood Pressure 134/71 Blood Pressure 134/71 [Right] - Labs Labs: Abnormal Labs 04/30/18 04/30/18 04/30/18 16:20 16:20 16:20 WBC 11.8 H MCH 27 L Seg Neutrophils % 75.5 H Seg Neutrophils # 8.9 H Creatinine 0.6 L POC Glucose Magnesium Urine pH Ur Specific [place] Urine WBC (Auto) 50.0 H U Epithel Cells (Auto) 135.0 H 05/01/18 05/01/18 05/02/18 14:32 19:56 07:54 WBC MCH Seg Neutrophils % Seg Neutrophils # Creatinine POC Glucose Magnesium 3.50 H 4.30 H 4.40 H Urine pH Ur Specific [place] Urine WBC (Auto) U Epithel Cells (Auto) 05/02/18 05/02/18 05/03/18 14:41 Unknown 04:50 WBC MCH Seg Neutrophils % Seg Neutrophils # Creatinine POC Glucose Magnesium 4.20 H 4.30 H 4.30 H Urine pH Ur Specific [place] Urine WBC (Auto) U Epithel Cells (Auto) 05/03/18 05/03/18 05/03/18 05:33 12:51 17:36 WBC MCH Seg Neutrophils % Seg Neutrophils # Creatinine POC Glucose Magnesium 4.30 H 4.10 H 3.40 H Urine pH Ur Specific [place] Urine WBC (Auto) U Epithel Cells (Auto) 05/04/18 05/05/18 05/13/18 05:58 09:37 12:37 WBC MCH 27 L 26 L Seg Neutrophils % 80.5 H 79.0 H Seg Neutrophils # 8.5 H 8.5 H Creatinine POC Glucose Magnesium 3.00 H Urine pH Ur Specific [place] Urine WBC (Auto) U Epithel Cells (Auto) 05/20/18 05/20/18 05/21/18 06:56 17:01 06:15 WBC MCH Seg Neutrophils % Seg Neutrophils # Creatinine POC Glucose 61 L 62 L 68 L Magnesium Urine pH Ur Specific [place] Urine WBC (Auto) U Epithel Cells (Auto) 05/21/18 05/21/18 05/22/18 11:12 16:45 19:02 WBC MCH Seg Neutrophils % Seg Neutrophils # Creatinine POC Glucose 128 H 67 L 129 H Magnesium Urine pH Ur Specific [place] Urine WBC (Auto) U Epithel Cells (Auto) 05/23/18 05/23/18 05/24/18 08:43 16:52 07:59 WBC MCH Seg Neutrophils % Seg Neutrophils # Creatinine POC Glucose 129 H 68 L 63 L Magnesium Urine pH Ur Specific [place] Urine WBC (Auto) U Epithel Cells (Auto) 05/24/18 05/24/18 05/25/18 10:09 14:56 07:45 WBC MCH Seg Neutrophils % Seg Neutrophils # Creatinine POC Glucose 117 H 120 H 48 L Magnesium Urine pH Ur Specific [place] Urine WBC (Auto) U Epithel Cells (Auto) 05/25/18 05/25/18 05/26/18 10:42 22:08 08:28 WBC MCH Seg Neutrophils % Seg Neutrophils # Creatinine POC Glucose 126 H 112 H 63 L Magnesium Urine pH Ur Specific [place] Urine WBC (Auto) U Epithel Cells (Auto) 05/27/18 05/27/18 05/29/18 08:32 15:08 07:26 WBC MCH 27 L Seg Neutrophils % 73.3 H Seg Neutrophils # Creatinine POC Glucose 67 L 68 L Magnesium Urine pH Ur Specific [place] Urine WBC (Auto) U Epithel Cells (Auto) 05/29/18 05/29/18 05/30/18 11:26 19:03 05:53 WBC MCH Seg Neutrophils % Seg Neutrophils # Creatinine POC Glucose 115 H 63 L Magnesium Urine pH 8.0 H Ur Specific [place] 1.001 L Urine WBC (Auto) U Epithel Cells (Auto) 05/30/18 05/31/18 06/02/18 23:41 23:17 06:12 WBC MCH Seg Neutrophils % Seg Neutrophils # Creatinine POC Glucose 56 L 68 L 61 L Magnesium Urine pH Ur Specific [place] Urine WBC (Auto) U Epithel Cells (Auto) 06/02/18 06/03/18 06/03/18 19:43 07:30 10:47 WBC MCH Seg Neutrophils % Seg Neutrophils # Creatinine POC Glucose 107 H 64 L 135 H Magnesium Urine pH Ur Specific [place] Urine WBC (Auto) U Epithel Cells (Auto) 06/04/18 06/04/18 06/05/18 00:08 20:55 10:23 WBC MCH Seg Neutrophils % Seg Neutrophils # Creatinine POC Glucose 111 H 132 H 117 H Magnesium Urine pH Ur Specific [place] Urine WBC (Auto) U Epithel Cells (Auto) 06/06/18 06/06/18 06/06/18 06:40 14:24 18:24 WBC MCH Seg Neutrophils % Seg Neutrophils # Creatinine POC Glucose 62 L 113 H 126 H Magnesium Urine pH Ur Specific [place] Urine WBC (Auto) U Epithel Cells (Auto) 06/06/18 06/07/18 06/07/18 22:24 05:41 22:12 WBC MCH Seg Neutrophils % Seg Neutrophils # Creatinine POC Glucose 56 L 64 L 52 L Magnesium Urine pH Ur Specific [place] Urine WBC (Auto) U Epithel Cells (Auto) 06/08/18 06/10/18 06/10/18 17:36 06:40 11:23 WBC MCH 27 L Seg Neutrophils % Seg Neutrophils # Creatinine POC Glucose 110 H 64 L Magnesium Urine pH Ur Specific [place] Urine WBC (Auto) U Epithel Cells (Auto) 06/10/18 06/11/18 06/12/18 14:49 08:37 05:59 WBC MCH Seg Neutrophils % Seg Neutrophils # Creatinine POC Glucose 112 H 69 L 61 L Magnesium Urine pH Ur Specific [place] Urine WBC (Auto) U Epithel Cells (Auto) 06/12/18 06/13/18 06/13/18 14:04 06:24 14:31 WBC MCH Seg Neutrophils % Seg Neutrophils # Creatinine POC Glucose 109 H 68 L 134 H Magnesium Urine pH Ur Specific [place] Urine WBC (Auto) U Epithel Cells (Auto) 06/14/18 06/15/18 06/15/18 09:21 05:55 21:59 WBC MCH Seg Neutrophils % Seg Neutrophils # Creatinine POC Glucose 116 H 56 L 113 H Magnesium Urine pH Ur Specific [place] Urine WBC (Auto) U Epithel Cells (Auto) 06/16/18 06/17/18 06/17/18 19:03 05:58 20:13 WBC MCH Seg Neutrophils % Seg Neutrophils # Creatinine POC Glucose 108 H 54 L 69 L Magnesium Urine pH Ur Specific [place] Urine WBC (Auto) U Epithel Cells (Auto) 06/18/18 06:23 WBC MCH Seg Neutrophils % Seg Neutrophils # Creatinine POC Glucose 59 L Magnesium Urine pH Ur Specific [place] Urine WBC (Auto) U Epithel Cells (Auto) Laboratory Results - last 24 hr 06/15/18 06/15/18 06/16/18 05:55 21:59 11:06 POC Glucose 56 L 113 H 99 06/16/18 06/16/18 06/17/18 15:08 19:03 05:58 POC Glucose 103 108 H 54 L 06/17/18 06/17/18 06/18/18 06:57 20:13 06:23 POC Glucose 98 69 L 59 L
[2018-06-18] MEDS: PRENATAL VITAMIN PO SCH (11:11)
--- NOTE | 2018-06-18 14:47 | Ultrasound Report ---
ULTRASOUND BIOPHYSICAL PROFILE: History: well being Technique: Transabdominal ultrasound with Doppler interrogation. 2 - breathing movements 2 - movements 2 - posture and tone 2 - Qualitative amniotic fluid volume 8 - TOTAL SCORE OF POSSIBLE 8 Heart Rate (bpm) 135
--- NOTE | 2018-06-18 14:48 | Ultrasound Report ---
ULTRASOUND OB VELOCIMETRY UMBILICAL ARTERY HISTORY: IUP at 34 weeks. TECHNIQUE: Transabdominal ultrasound. Spectral Doppler interrogation was performed on 3 segments of the umbilical cord. FINDINGS: heart rate measures 137 beats per minute. The spectral waveforms are normal and persistent. No evidence for loss or reversal of end-diastolic flow. The resistive index average measures 0.7. The systolic/diastolic ratio average measures 3.5. IMPRESSION: Mildly elevated resistive indices.
[2018-06-18] MEDS: MILK OF MAGNESIA PO PRN (23:39)
[2018-06-19] MEDS: PROCARDIA*For Tocolysis only PO SCH ×4 (05:59→23:32)
[2018-06-19] MEDS: PEPCID PO SCH ×2 (09:34→22:27)
[2018-06-19] MEDS: PRENATAL VITAMIN PO SCH (09:34)
--- NOTE | 2018-06-19 10:33 | Progress Note ---
Assessment and Plan - Patient Problems (1) Cervical incompetence Current Visit: Yes Status: Acute Plan to address problem: Continue routine care. Continue weekly ultrasounds. Continue Q8 monitoring. No signs of labor progression. Continue weekly progesterone injections. (2) Gestational diabetes mellitus (GDM) Onset Date: 05/23/18 Current Visit: Yes Status: Acute Qualifiers: Gestational diabetes mellitus control: diet-controlled Plan to address problem: No medications. Blood glucose well controlled. Weekly BPPs (3) Chronic hypertension affecting Current Visit: Yes Status: Acute Plan to address problem: BP Stable - continue Labetolol (4) 33 weeks gestation of Current Visit: Yes Status: Acute Plan to address problem: [facility] consult for recommendation on timing of delivery requested. Subjective - Subjective Principal diagnosis: IUP @ 33 2/7 weeks; Incompetent cervix, CHTN, gestational DMA1 Interval history: She denies loss of fluid, vaginal bleeding and reports good movement. She denies contractions. Patient reports: movement normal, other (Patient reports vaginal discharge ), no new complaints, no loss of fluid, no vaginal bleeding, no contractions Objective - Vital Signs Vital Signs: Vital Signs - 12hr 06/19/18 06/19/18 06/19/18 00:04 06:13 07:55 Temperature 98.4 F 98.4 F 98.2 F Pulse Rate 94 H 94 H 95 H Respiratory 20 20 18 Rate Blood Pressure 112/61 130/74 111/62 Blood Pressure 112/61 130/74 111/62 [Right] - Exam FHR: auscultation normal - Labs Labs: Abnormal Labs 04/30/18 04/30/18 04/30/18 16:20 16:20 16:20 WBC 11.8 H MCH 27 L Seg Neutrophils % 75.5 H Seg Neutrophils # 8.9 H Creatinine 0.6 L POC Glucose Magnesium Urine pH Ur Specific [place] Urine WBC (Auto) 50.0 H U Epithel Cells (Auto) 135.0 H 05/01/18 05/01/18 05/02/18 14:32 19:56 07:54 WBC MCH Seg Neutrophils % Seg Neutrophils # Creatinine POC Glucose Magnesium 3.50 H 4.30 H 4.40 H Urine pH Ur Specific [place] Urine WBC (Auto) U Epithel Cells (Auto) 05/02/18 05/02/18 05/03/18 14:41 Unknown 04:50 WBC MCH Seg Neutrophils % Seg Neutrophils # Creatinine POC Glucose Magnesium 4.20 H 4.30 H 4.30 H Urine pH Ur Specific [place] Urine WBC (Auto) U Epithel Cells (Auto) 05/03/18 05/03/18 05/03/18 05:33 12:51 17:36 WBC MCH Seg Neutrophils % Seg Neutrophils # Creatinine POC Glucose Magnesium 4.30 H 4.10 H 3.40 H Urine pH Ur Specific [place] Urine WBC (Auto) U Epithel Cells (Auto) 05/04/18 05/05/18 05/13/18 05:58 09:37 12:37 WBC MCH 27 L 26 L Seg Neutrophils % 80.5 H 79.0 H Seg Neutrophils # 8.5 H 8.5 H Creatinine POC Glucose Magnesium 3.00 H Urine pH Ur Specific [place] Urine WBC (Auto) U Epithel Cells (Auto) 05/20/18 05/20/18 05/21/18 06:56 17:01 06:15 WBC MCH Seg Neutrophils % Seg Neutrophils # Creatinine POC Glucose 61 L 62 L 68 L Magnesium Urine pH Ur Specific [place] Urine WBC (Auto) U Epithel Cells (Auto) 05/21/18 05/21/18 05/22/18 11:12 16:45 19:02 WBC MCH Seg Neutrophils % Seg Neutrophils # Creatinine POC Glucose 128 H 67 L 129 H Magnesium Urine pH Ur Specific [place] Urine WBC (Auto) U Epithel Cells (Auto) 05/23/18 05/23/18 05/24/18 08:43 16:52 07:59 WBC MCH Seg Neutrophils % Seg Neutrophils # Creatinine POC Glucose 129 H 68 L 63 L Magnesium Urine pH Ur Specific [place] Urine WBC (Auto) U Epithel Cells (Auto) 05/24/18 05/24/18 05/25/18 10:09 14:56 07:45 WBC MCH Seg Neutrophils % Seg Neutrophils # Creatinine POC Glucose 117 H 120 H 48 L Magnesium Urine pH Ur Specific [place] Urine WBC (Auto) U Epithel Cells (Auto) 05/25/18 05/25/18 05/26/18 10:42 22:08 08:28 WBC MCH Seg Neutrophils % Seg Neutrophils # Creatinine POC Glucose 126 H 112 H 63 L Magnesium Urine pH Ur Specific [place] Urine WBC (Auto) U Epithel Cells (Auto) 05/27/18 05/27/18 05/29/18 08:32 15:08 07:26 WBC MCH 27 L Seg Neutrophils % 73.3 H Seg Neutrophils # Creatinine POC Glucose 67 L 68 L Magnesium Urine pH Ur Specific [place] Urine WBC (Auto) U Epithel Cells (Auto) 05/29/18 05/29/18 05/30/18 11:26 19:03 05:53 WBC MCH Seg Neutrophils % Seg Neutrophils # Creatinine POC Glucose 115 H 63 L Magnesium Urine pH 8.0 H Ur Specific [place] 1.001 L Urine WBC (Auto) U Epithel Cells (Auto) 05/30/18 05/31/18 06/02/18 23:41 23:17 06:12 WBC MCH Seg Neutrophils % Seg Neutrophils # Creatinine POC Glucose 56 L 68 L 61 L Magnesium Urine pH Ur Specific [place] Urine WBC (Auto) U Epithel Cells (Auto) 06/02/18 06/03/18 06/03/18 19:43 07:30 10:47 WBC MCH Seg Neutrophils % Seg Neutrophils # Creatinine POC Glucose 107 H 64 L 135 H Magnesium Urine pH Ur Specific [place] Urine WBC (Auto) U Epithel Cells (Auto) 06/04/18 06/04/18 06/05/18 00:08 20:55 10:23 WBC MCH Seg Neutrophils % Seg Neutrophils # Creatinine POC Glucose 111 H 132 H 117 H Magnesium Urine pH Ur Specific [place] Urine WBC (Auto) U Epithel Cells (Auto) 06/06/18 06/06/18 06/06/18 06:40 14:24 18:24 WBC MCH Seg Neutrophils % Seg Neutrophils # Creatinine POC Glucose 62 L 113 H 126 H Magnesium Urine pH Ur Specific [place] Urine WBC (Auto) U Epithel Cells (Auto) 06/06/18 06/07/18 06/07/18 22:24 05:41 22:12 WBC MCH Seg Neutrophils % Seg Neutrophils # Creatinine POC Glucose 56 L 64 L 52 L Magnesium Urine pH Ur Specific [place] Urine WBC (Auto) U Epithel Cells (Auto) 06/08/18 06/10/18 06/10/18 17:36 06:40 11:23 WBC MCH 27 L Seg Neutrophils % Seg Neutrophils # Creatinine POC Glucose 110 H 64 L Magnesium Urine pH Ur Specific [place] Urine WBC (Auto) U Epithel Cells (Auto) 06/10/18 06/11/18 06/12/18 14:49 08:37 05:59 WBC MCH Seg Neutrophils % Seg Neutrophils # Creatinine POC Glucose 112 H 69 L 61 L Magnesium Urine pH Ur Specific [place] Urine WBC (Auto) U Epithel Cells (Auto) 06/12/18 06/13/18 06/13/18 14:04 06:24 14:31 WBC MCH Seg Neutrophils % Seg Neutrophils # Creatinine POC Glucose 109 H 68 L 134 H Magnesium Urine pH Ur Specific [place] Urine WBC (Auto) U Epithel Cells (Auto) 06/14/18 06/15/18 06/15/18 09:21 05:55 21:59 WBC MCH Seg Neutrophils % Seg Neutrophils # Creatinine POC Glucose 116 H 56 L 113 H Magnesium Urine pH Ur Specific [place] Urine WBC (Auto) U Epithel Cells (Auto) 06/16/18 06/17/18 06/17/18 19:03 05:58 20:13 WBC MCH Seg Neutrophils % Seg Neutrophils # Creatinine POC Glucose 108 H 54 L 69 L Magnesium Urine pH Ur Specific [place] Urine WBC (Auto) U Epithel Cells (Auto) 06/18/18 06/18/18 06/18/18 06:23 15:45 19:31 WBC MCH Seg Neutrophils % Seg Neutrophils # Creatinine POC Glucose 59 L 125 H 110 H Magnesium Urine pH Ur Specific [place] Urine WBC (Auto) U Epithel Cells (Auto) 06/19/18 06:07 WBC MCH Seg Neutrophils % Seg Neutrophils # Creatinine POC Glucose 63 L Magnesium Urine pH Ur Specific [place] Urine WBC (Auto) U Epithel Cells (Auto) Laboratory Results - last 24 hr 06/18/18 06/18/18 06/19/18 15:45 19:31 06:07 POC Glucose 125 H 110 H 63 L
[2018-06-19] MEDS: ALUM-MAG HYDROX-SIMETH 200-200-20MG/5ML PO PRN (14:37)
[2018-06-19] MEDS: AMBIEN PO PRN (23:32)
[2018-06-20] MEDS: PROCARDIA*For Tocolysis only PO SCH ×4 (06:21→23:34)
[2018-06-20] MEDS: PRENATAL VITAMIN PO SCH (10:41)
[2018-06-20] MEDS: PEPCID PO SCH ×2 (10:42→23:06)
--- NOTE | 2018-06-20 16:48 | Consultation ---
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 - Obstetrical History : 3 #1 year: 2,017 Method of Delivery: Vaginal (delivered at 20 weeks, infant was nonviable.) Medications and Allergies Allergies Allergy/AdvReac Type Severity Reaction Status Date / Time No Known Allergies Allergy Unverified 04/30/18 16:04 Home Medications Medication Instructions Recorded Confirmed Last Taken Type Multivitamin Tablet 1 tab PO QDAY 05/01/18 05/01/18 2 Days Ago History ~04/29/18 Active Meds: Active Medications Acetaminophen (Tylenol) 650 mg PO Q4H PRN PRN Reason: Pain, Mild (1-3) Last Admin: 06/15/18 22:05 Dose: 650 mg Documented by: Al Hydrox/Mg Hydrox/Simethicone (Alum-Mag Hydrox-Simeth [phone]/5ml) 30 ml PO Q4H PRN PRN Reason: Indigestion Last Admin: 06/19/18 14:37 Dose: 30 ml Documented by: Docusate Sodium (Colace) 100 mg PO BID PRN PRN Reason: Constipation Last Admin: 06/17/18 18:04 Dose: 100 mg Documented by: Famotidine (Pepcid) 10 mg PO BID [facility] Last Admin: 06/20/18 10:42 Dose: 10 mg Documented by: Lactated Ringer's (Lactated Ringers) 1,000 mls @ 125 mls/hr IV DIRECT [facility] Last Admin: 06/16/18 05:40 Dose: 125 mls/hr Documented by: Magnesium Hydroxide (Milk Of Magnesia) 30 ml PO QDAY PRN PRN Reason: Constipation Last Admin: 06/18/18 23:39 Dose: 30 ml Documented by: Multivitamins/Iron/Calcium ( Vitamin) 1 each PO QDAY [facility] Last Admin: 06/20/18 10:41 Dose: 1 each Documented by: Nifedipine (Procardia*For Tocolysis Only*) 10 mg PO Q6HR [facility] Last Admin: 06/20/18 12:27 Dose: 10 mg Documented by: Zolpidem Tartrate (Ambien) 10 mg PO QHS PRN PRN Reason: Insomnia Last Admin: 06/19/18 23:32 Dose: 10 mg Documented by: - Vital Signs Vital signs: Vital Signs Pulse BP 113 H 125/80 04/30/18 15:56 04/30/18 15:56 Temp Pulse Resp BP Pulse Ox 98.5 F 96 H 16 105/65 97 06/20/18 04:30 06/20/18 14:20 06/20/18 04:30 06/20/18 14:20 06/18/18 15:44 Results Result Diagrams: 06/10/18 11:23 04/30/18 16:20 Abnormal lab results 06/19/18 06/20/18 06/20/18 Range/Units 21:02 06:29 14:22 POC Glucose 114 H 54 L 107 H (70-105) All other labs normal. Assessment and Plan ASSESSMENT / DIAGNOSIS 1. IUP at 33 weeks 2 days. 2. Hx Incompetent cervix, cerclage in situ 3. [place]/17P started 2 days ago 4. Status post steroids for lung maturity. 5. status post Magnesium Sulfate 6. labor. last exam 3 cm dilated 7. Per OB's report bulging membrane noted in office 8. Hx CHTN; not on meds, stable BPs RECOMMENDATIONS & ORDERS 1. See our previous consult. 2. [place] use of tocolytics consider Procardia. 3. Status post Antibiotics secondary to bulging membrane: Ampicillin and Erythromycin, may switch to PO 4. Status post steroids for lung maturity 5. status post Magnesium Sulfate 6. [facility] to follow patient 7. Delivery recommended if compromise 8. If there is evidence of labor remove cerclage 9. We recommend continued hospitalization at this point; however if patient remains quiescent and has NO change in vaginal exam we would recommend consideration of discharge home and outpatient follow-up. 10. Consider discharge home with follow-up at [facility] at discretion of OBGYN online marketing director either today or at 34 weeks gestation. Thank you for allowing us to participate in the care of this patient. We look forward to the opportunity to assist in her continued management. If you have any questions, we may be reached at [phone].
[2018-06-20] MEDS: MILK OF MAGNESIA PO PRN ×2 (23:06→23:08)
[2018-06-20] MEDS: AMBIEN PO PRN (23:34)
[2018-06-21] MEDS: TYLENOL PO PRN (05:16)
[2018-06-21] MEDS: PROCARDIA*For Tocolysis only PO SCH ×6 (05:44→21:48)
[2018-06-21] MEDS: PRENATAL VITAMIN PO SCH (10:35)
[2018-06-21] MEDS: PEPCID PO SCH ×2 (10:35→21:28)
[2018-06-22] MEDS: AMBIEN PO PRN (01:02)
[2018-06-22] MEDS: PROCARDIA*For Tocolysis only PO SCH ×3 (06:07→18:55)
[2018-06-22] MEDS: ALUM-MAG HYDROX-SIMETH 200-200-20MG/5ML PO PRN ×2 (08:10→15:35)
[2018-06-22] MEDS: PRENATAL VITAMIN PO SCH (09:54)
[2018-06-22] MEDS: PEPCID PO SCH (09:54)
--- NOTE | 2018-06-22 10:43 | Progress Note ---
Assessment and Plan - Patient Problems (1) labor Onset Date: 05/02/18 Current Visit: Yes Status: Acute Qualifiers: labor trimester: third trimester labor delivery status: without delivery Qualified Code(s): O60.03 - labor without delivery, third trimester Plan to address problem: Dexamethasone for FLM completed. Magnesium sulfate for neuroprotection and tocolysis discontinued. She is on procardia. S/P PO erythromycin and ampicillin. [facility] and NICU consult done. Continous monitoring. Continue [place] weekly. Cervix unchanged from admission. Sono done on 06/03, baby is vertex, ZACARIAS normal, BPP 8/8. (2) Cervical incompetence Current Visit: Yes Status: Acute (3) Cervical cerclage suture present Onset Date: 05/02/18 Current Visit: Yes Status: Acute Qualifiers: Trimester: third trimester Qualified Code(s): O34.33 - Maternal care for cervical incompetence, third trimester (4) Obesity Current Visit: Yes Status: Acute (5) Chronic hypertension affecting Current Visit: Yes Status: Acute Plan to address problem: BP has been stable. If elevated, will start anti-HTN and do toxemia labs. (6) Gestational diabetes Current Visit: Yes Status: Acute Plan to address problem: Continue FS monitoring fasting and 2-hr PP. Continue ADA diet. (7) UTI (urinary tract infection) Current Visit: Yes Status: Acute Plan to address problem: Urine culture. Ancef IV was given. Symptoms have subsided. (8) 33 weeks gestation of Current Visit: Yes Status: Acute Subjective - Subjective Date of service: 06/22/18 Principal diagnosis: IUP @ 33 2/7 weeks; Incompetent cervix, CHTN, gestational DMA1 Interval history: Patient is a 32 year old , LMP 10/30/17, EDC 08/06/18 at 33 weeks and 4 days gestation who was admitted for labor at 26 weeks gestation. This patient has been co-managed with [facility] for a history of cervical incompetence and she has a cerclage placed in 02/2018. She was treated with magnesium sulfate for tocolysis and neuroprotection, steroids for FLM completed, IV antibiotics for GBS prophylaxis which was later switched to PO ampicillin and erythomycin. [facility] consult was done and agreed with above management. NICU consult was done. She also has chronic HTN and A1GDM has not been on any medication. This AM, she denies any contractions, fluid leakage or bleeding. She reports good movement. Her crvix has remained unchanged and the cerclage in place. [facility] recommended discharging the patient home at 34 weeks if her status remains stable. Patient reports: movement normal, other (Patient reports vaginal discharge ), no new complaints, no loss of fluid, no vaginal bleeding, no contractions Objective - Vital Signs Vital Signs: Vital Signs - 12hr 06/22/18 06/22/18 06/22/18 01:01 01:04 04:13 Temperature 98.2 F 97.4 F L Pulse Rate 82 96 H Respiratory 16 16 Rate Blood Pressure 106/72 111/64 Blood Pressure [Right] 06/22/18 06/22/18 07:58 07:59 Temperature 97.9 F Pulse Rate 101 H 101 H Respiratory 18 Rate Blood Pressure 104/66 Blood Pressure 104/66 [Right] - Exam Cardiovascular: Normal S1, Normal S2 Lungs: Clear to auscultation Vulva: both: normal FHR: category 1 Uterine Contraction Monitor Mode: External Uterine Contraction Pattern: Absent Deep Tendon Reflex Grade: Normal +2 - Labs Labs: Abnormal Labs 04/30/18 04/30/18 04/30/18 16:20 16:20 16:20 WBC 11.8 H MCH 27 L Seg Neutrophils % 75.5 H Seg Neutrophils # 8.9 H Creatinine 0.6 L POC Glucose Magnesium Urine pH Ur Specific [place] Urine WBC (Auto) 50.0 H U Epithel Cells (Auto) 135.0 H 05/01/18 05/01/18 05/02/18 14:32 19:56 07:54 WBC MCH Seg Neutrophils % Seg Neutrophils # Creatinine POC Glucose Magnesium 3.50 H 4.30 H 4.40 H Urine pH Ur Specific [place] Urine WBC (Auto) U Epithel Cells (Auto) 05/02/18 05/02/18 05/03/18 14:41 Unknown 04:50 WBC MCH Seg Neutrophils % Seg Neutrophils # Creatinine POC Glucose Magnesium 4.20 H 4.30 H 4.30 H Urine pH Ur Specific [place] Urine WBC (Auto) U Epithel Cells (Auto) 05/03/18 05/03/18 05/03/18 05:33 12:51 17:36 WBC MCH Seg Neutrophils % Seg Neutrophils # Creatinine POC Glucose Magnesium 4.30 H 4.10 H 3.40 H Urine pH Ur Specific [place] Urine WBC (Auto) U Epithel Cells (Auto) 05/04/18 05/05/18 05/13/18 05:58 09:37 12:37 WBC MCH 27 L 26 L Seg Neutrophils % 80.5 H 79.0 H Seg Neutrophils # 8.5 H 8.5 H Creatinine POC Glucose Magnesium 3.00 H Urine pH Ur Specific [place] Urine WBC (Auto) U Epithel Cells (Auto) 05/20/18 05/20/18 05/21/18 06:56 17:01 06:15 WBC MCH Seg Neutrophils % Seg Neutrophils # Creatinine POC Glucose 61 L 62 L 68 L Magnesium Urine pH Ur Specific [place] Urine WBC (Auto) U Epithel Cells (Auto) 05/21/18 05/21/18 05/22/18 11:12 16:45 19:02 WBC MCH Seg Neutrophils % Seg Neutrophils # Creatinine POC Glucose 128 H 67 L 129 H Magnesium Urine pH Ur Specific [place] Urine WBC (Auto) U Epithel Cells (Auto) 05/23/18 05/23/18 05/24/18 08:43 16:52 07:59 WBC MCH Seg Neutrophils % Seg Neutrophils # Creatinine POC Glucose 129 H 68 L 63 L Magnesium Urine pH Ur Specific [place] Urine WBC (Auto) U Epithel Cells (Auto) 05/24/18 05/24/18 05/25/18 10:09 14:56 07:45 WBC MCH Seg Neutrophils % Seg Neutrophils # Creatinine POC Glucose 117 H 120 H 48 L Magnesium Urine pH Ur Specific [place] Urine WBC (Auto) U Epithel Cells (Auto) 05/25/18 05/25/18 05/26/18 10:42 22:08 08:28 WBC MCH Seg Neutrophils % Seg Neutrophils # Creatinine POC Glucose 126 H 112 H 63 L Magnesium Urine pH Ur Specific [place] Urine WBC (Auto) U Epithel Cells (Auto) 05/27/18 05/27/18 05/29/18 08:32 15:08 07:26 WBC MCH 27 L Seg Neutrophils % 73.3 H Seg Neutrophils # Creatinine POC Glucose 67 L 68 L Magnesium Urine pH Ur Specific [place] Urine WBC (Auto) U Epithel Cells (Auto) 05/29/18 05/29/18 05/30/18 11:26 19:03 05:53 WBC MCH Seg Neutrophils % Seg Neutrophils # Creatinine POC Glucose 115 H 63 L Magnesium Urine pH 8.0 H Ur Specific [place] 1.001 L Urine WBC (Auto) U Epithel Cells (Auto) 05/30/18 05/31/18 06/02/18 23:41 23:17 06:12 WBC MCH Seg Neutrophils % Seg Neutrophils # Creatinine POC Glucose 56 L 68 L 61 L Magnesium Urine pH Ur Specific [place] Urine WBC (Auto) U Epithel Cells (Auto) 06/02/18 06/03/18 06/03/18 19:43 07:30 10:47 WBC MCH Seg Neutrophils % Seg Neutrophils # Creatinine POC Glucose 107 H 64 L 135 H Magnesium Urine pH Ur Specific [place] Urine WBC (Auto) U Epithel Cells (Auto) 06/04/18 06/04/18 06/05/18 00:08 20:55 10:23 WBC MCH Seg Neutrophils % Seg Neutrophils # Creatinine POC Glucose 111 H 132 H 117 H Magnesium Urine pH Ur Specific [place] Urine WBC (Auto) U Epithel Cells (Auto) 06/06/18 06/06/18 06/06/18 06:40 14:24 18:24 WBC MCH Seg Neutrophils % Seg Neutrophils # Creatinine POC Glucose 62 L 113 H 126 H Magnesium Urine pH Ur Specific [place] Urine WBC (Auto) U Epithel Cells (Auto) 06/06/18 06/07/18 06/07/18 22:24 05:41 22:12 WBC MCH Seg Neutrophils % Seg Neutrophils # Creatinine POC Glucose 56 L 64 L 52 L Magnesium Urine pH Ur Specific [place] Urine WBC (Auto) U Epithel Cells (Auto) 06/08/18 06/10/18 06/10/18 17:36 06:40 11:23 WBC MCH 27 L Seg Neutrophils % Seg Neutrophils # Creatinine POC Glucose 110 H 64 L Magnesium Urine pH Ur Specific [place] Urine WBC (Auto) U Epithel Cells (Auto) 06/10/18 06/11/18 06/12/18 14:49 08:37 05:59 WBC MCH Seg Neutrophils % Seg Neutrophils # Creatinine POC Glucose 112 H 69 L 61 L Magnesium Urine pH Ur Specific [place] Urine WBC (Auto) U Epithel Cells (Auto) 06/12/18 06/13/18 06/13/18 14:04 06:24 14:31 WBC MCH Seg Neutrophils % Seg Neutrophils # Creatinine POC Glucose 109 H 68 L 134 H Magnesium Urine pH Ur Specific [place] Urine WBC (Auto) U Epithel Cells (Auto) 06/14/18 06/15/18 06/15/18 09:21 05:55 21:59 WBC MCH Seg Neutrophils % Seg Neutrophils # Creatinine POC Glucose 116 H 56 L 113 H Magnesium Urine pH Ur Specific [place] Urine WBC (Auto) U Epithel Cells (Auto) 06/16/18 06/17/18 06/17/18 19:03 05:58 20:13 WBC MCH Seg Neutrophils % Seg Neutrophils # Creatinine POC Glucose 108 H 54 L 69 L Magnesium Urine pH Ur Specific [place] Urine WBC (Auto) U Epithel Cells (Auto) 06/18/18 06/18/18 06/18/18 06:23 15:45 19:31 WBC MCH Seg Neutrophils % Seg Neutrophils # Creatinine POC Glucose 59 L 125 H 110 H Magnesium Urine pH Ur Specific [place] Urine WBC (Auto) U Epithel Cells (Auto) 06/19/18 06/19/18 06/20/18 06:07 21:02 06:29 WBC MCH Seg Neutrophils % Seg Neutrophils # Creatinine POC Glucose 63 L 114 H 54 L Magnesium Urine pH Ur Specific [place] Urine WBC (Auto) U Epithel Cells (Auto) 06/20/18 06/20/18 06/21/18 14:22 21:38 07:11 WBC MCH Seg Neutrophils % Seg Neutrophils # Creatinine POC Glucose 107 H 118 H 55 L Magnesium Urine pH Ur Specific [place] Urine WBC (Auto) U Epithel Cells (Auto) 06/21/18 06/21/18 06/22/18 09:15 14:15 06:11 WBC MCH Seg Neutrophils % Seg Neutrophils # Creatinine POC Glucose 145 H 106 H 60 L Magnesium Urine pH Ur Specific [place] Urine WBC (Auto) U Epithel Cells (Auto) Laboratory Results - last 24 hr 06/21/18 06/21/18 06/22/18 14:15 20:29 00:26 POC Glucose 106 H 80 91 06/22/18 06:11 POC Glucose 60 L - Results US- obstetric: report reviewed
--- NOTE | 2018-06-22 18:53 | Ultrasound Report ---
PROCEDURE: Ultrasound biophysical profile without nonstress test. TECHNIQUE: Sonographic evaluation for breathing, movement, tone, and amniotic flui d volume was performed. HISTORY: labor. COMPARISONS: Ultrasound biophysical profile without nonstress test 06/18/2018.. FINDINGS: Amniotic fluid volume 2 . breathin . movement: 2 . tone: 2 . Score: 8 of 8 . IMPRESSION: Normal biophysical profile . This document is electronically signed by Vernon Rizo MD., June 22 2018 06:50:42 PM ET
--- NOTE | 2018-06-22 19:03 | Ultrasound Report ---
PROCEDURE: Ultrasound umbilical cord duplex arterial ultrasound. TECHNIQUE: Duplex arterial imaging and measurements were performed of the umbilical cord. HISTORY: labor. COMPARISONS: Ultrasound umbilical cord duplex arterial ultrasound 06/18/2018. Dictation not available. FINDINGS: There is a normal arterial waveform. The waveform is persistent. The S/D ratio averages 3.1 which is within normal limits for a menstrual age of 33 weeks 4 days. The average resistive index is 0.68 whic h is also normal for the menstrual age. IMPRESSION: Normal S/D ratio and resistive index. This document is electronically signed by Vernon Rizo MD., June 22 2018 07:01:05 PM ET
--- NOTE | 2018-06-22 22:13 | Ultrasound Report ---
PROCEDURE: US OB FOLLOW UP TECHNIQUE: Real-time sonography performed for focused follow-up or re-evaluation of each size/ growth parameters and amniotic fluid or re-evaluation of suspected or confirmed abnormality on prior imaging. HISTORY: pretrem labor COMPARISONS: None . FINDINGS: FETUS IUP: Single living intrauterine . Position: Cephalic . Placental position: 8.4, without previa . Amniotic fluid volume: Normal . Heart rate and rhythm: 140 BPM, Regular . anatomic survey: Not performed . MEASUREMENTS BPD: 8.1 cm corresponding to 32 weeks and 3 days . HC: 29.4 cm corresponding to 32 weeks 3 days . AC: 30.7 cm corresponding to 34 weeks and 4 days . FL: 7.1 cm corresponding to 36 weeks and 3 days . Mean Gestational Age (composite criteria): 34 weeks . Ratio biometry: Normal . Estimated Weight: 2477 grams +/- grams. ounces +/- .ounces. percentile. Interval growth: Appropriate . Estimated Due Date (earliest scan): 08/03/2018 . IMPRESSION: 1. Single living intrauterine gestation at approximately 34 weeks . 2. EDC by US 08/03/2018 . This document is electronically signed by Sravan Martines MD., June 22 2018 10:10:34 PM ET
[2018-06-23] MEDS: PROCARDIA*For Tocolysis only PO SCH ×6 (00:29→23:48)
[2018-06-23] MEDS: AMBIEN PO PRN ×2 (00:30→23:48)
--- NOTE | 2018-06-23 08:52 | Progress Note ---
Assessment and Plan - Patient Problems (1) Cervical incompetence Current Visit: Yes Status: Acute Plan to address problem: Continue routine care. Continue weekly ultrasounds. Continue Q8 monitoring. No signs of labor progression. Continue weekly progesterone injections. (2) Gestational diabetes mellitus (GDM) Onset Date: 05/23/18 Current Visit: Yes Status: Acute Qualifiers: Gestational diabetes mellitus control: diet-controlled Plan to address problem: No medications. Blood glucose well controlled. Weekly BPPs (3) Chronic hypertension affecting Current Visit: Yes Status: Acute Plan to address problem: BP Stable - continue Labetolol (4) 33 weeks gestation of Current Visit: Yes Status: Acute Plan to address problem: [facility] consult for recommendation on timing of delivery requested. Subjective - Subjective Principal diagnosis: IUP @ 33 2/7 weeks; Incompetent cervix, CHTN, gestational DMA1 Interval history: She denies loss of fluid, vaginal bleeding and reports good movement. She denies contractions. Patient reports: movement normal, other (Patient reports vaginal discharge ), no new complaints, no loss of fluid, no vaginal bleeding, no contractions Objective - Vital Signs Vital Signs: Vital Signs - 12hr 06/23/18 06/23/18 06/23/18 00:07 06:25 08:11 Temperature 98.4 F Pulse Rate 86 92 H Respiratory 18 Rate Blood Pressure 108/59 101/58 06/23/18 08:32 Temperature Pulse Rate 95 H Respiratory Rate Blood Pressure 136/62 - Labs Labs: Abnormal Labs 04/30/18 04/30/18 04/30/18 16:20 16:20 16:20 WBC 11.8 H MCH 27 L Seg Neutrophils % 75.5 H Seg Neutrophils # 8.9 H Creatinine 0.6 L POC Glucose Magnesium Urine pH Ur Specific [place] Urine WBC (Auto) 50.0 H U Epithel Cells (Auto) 135.0 H 05/01/18 05/01/18 05/02/18 14:32 19:56 07:54 WBC MCH Seg Neutrophils % Seg Neutrophils # Creatinine POC Glucose Magnesium 3.50 H 4.30 H 4.40 H Urine pH Ur Specific [place] Urine WBC (Auto) U Epithel Cells (Auto) 05/02/18 05/02/18 05/03/18 14:41 Unknown 04:50 WBC MCH Seg Neutrophils % Seg Neutrophils # Creatinine POC Glucose Magnesium 4.20 H 4.30 H 4.30 H Urine pH Ur Specific [place] Urine WBC (Auto) U Epithel Cells (Auto) 05/03/18 05/03/18 05/03/18 05:33 12:51 17:36 WBC MCH Seg Neutrophils % Seg Neutrophils # Creatinine POC Glucose Magnesium 4.30 H 4.10 H 3.40 H Urine pH Ur Specific [place] Urine WBC (Auto) U Epithel Cells (Auto) 05/04/18 05/05/18 05/13/18 05:58 09:37 12:37 WBC MCH 27 L 26 L Seg Neutrophils % 80.5 H 79.0 H Seg Neutrophils # 8.5 H 8.5 H Creatinine POC Glucose Magnesium 3.00 H Urine pH Ur Specific [place] Urine WBC (Auto) U Epithel Cells (Auto) 05/20/18 05/20/18 05/21/18 06:56 17:01 06:15 WBC MCH Seg Neutrophils % Seg Neutrophils # Creatinine POC Glucose 61 L 62 L 68 L Magnesium Urine pH Ur Specific [place] Urine WBC (Auto) U Epithel Cells (Auto) 05/21/18 05/21/18 05/22/18 11:12 16:45 19:02 WBC MCH Seg Neutrophils % Seg Neutrophils # Creatinine POC Glucose 128 H 67 L 129 H Magnesium Urine pH Ur Specific [place] Urine WBC (Auto) U Epithel Cells (Auto) 05/23/18 05/23/18 05/24/18 08:43 16:52 07:59 WBC MCH Seg Neutrophils % Seg Neutrophils # Creatinine POC Glucose 129 H 68 L 63 L Magnesium Urine pH Ur Specific [place] Urine WBC (Auto) U Epithel Cells (Auto) 05/24/18 05/24/18 05/25/18 10:09 14:56 07:45 WBC MCH Seg Neutrophils % Seg Neutrophils # Creatinine POC Glucose 117 H 120 H 48 L Magnesium Urine pH Ur Specific [place] Urine WBC (Auto) U Epithel Cells (Auto) 05/25/18 05/25/18 05/26/18 10:42 22:08 08:28 WBC MCH Seg Neutrophils % Seg Neutrophils # Creatinine POC Glucose 126 H 112 H 63 L Magnesium Urine pH Ur Specific [place] Urine WBC (Auto) U Epithel Cells (Auto) 05/27/18 05/27/18 05/29/18 08:32 15:08 07:26 WBC MCH 27 L Seg Neutrophils % 73.3 H Seg Neutrophils # Creatinine POC Glucose 67 L 68 L Magnesium Urine pH Ur Specific [place] Urine WBC (Auto) U Epithel Cells (Auto) 05/29/18 05/29/18 05/30/18 11:26 19:03 05:53 WBC MCH Seg Neutrophils % Seg Neutrophils # Creatinine POC Glucose 115 H 63 L Magnesium Urine pH 8.0 H Ur Specific [place] 1.001 L Urine WBC (Auto) U Epithel Cells (Auto) 05/30/18 05/31/18 06/02/18 23:41 23:17 06:12 WBC MCH Seg Neutrophils % Seg Neutrophils # Creatinine POC Glucose 56 L 68 L 61 L Magnesium Urine pH Ur Specific [place] Urine WBC (Auto) U Epithel Cells (Auto) 06/02/18 06/03/18 06/03/18 19:43 07:30 10:47 WBC MCH Seg Neutrophils % Seg Neutrophils # Creatinine POC Glucose 107 H 64 L 135 H Magnesium Urine pH Ur Specific [place] Urine WBC (Auto) U Epithel Cells (Auto) 06/04/18 06/04/18 06/05/18 00:08 20:55 10:23 WBC MCH Seg Neutrophils % Seg Neutrophils # Creatinine POC Glucose 111 H 132 H 117 H Magnesium Urine pH Ur Specific [place] Urine WBC (Auto) U Epithel Cells (Auto) 06/06/18 06/06/18 06/06/18 06:40 14:24 18:24 WBC MCH Seg Neutrophils % Seg Neutrophils # Creatinine POC Glucose 62 L 113 H 126 H Magnesium Urine pH Ur Specific [place] Urine WBC (Auto) U Epithel Cells (Auto) 06/06/18 06/07/18 06/07/18 22:24 05:41 22:12 WBC MCH Seg Neutrophils % Seg Neutrophils # Creatinine POC Glucose 56 L 64 L 52 L Magnesium Urine pH Ur Specific [place] Urine WBC (Auto) U Epithel Cells (Auto) 06/08/18 06/10/18 06/10/18 17:36 06:40 11:23 WBC MCH 27 L Seg Neutrophils % Seg Neutrophils # Creatinine POC Glucose 110 H 64 L Magnesium Urine pH Ur Specific [place] Urine WBC (Auto) U Epithel Cells (Auto) 06/10/18 06/11/18 06/12/18 14:49 08:37 05:59 WBC MCH Seg Neutrophils % Seg Neutrophils # Creatinine POC Glucose 112 H 69 L 61 L Magnesium Urine pH Ur Specific [place] Urine WBC (Auto) U Epithel Cells (Auto) 06/12/18 06/13/18 06/13/18 14:04 06:24 14:31 WBC MCH Seg Neutrophils % Seg Neutrophils # Creatinine POC Glucose 109 H 68 L 134 H Magnesium Urine pH Ur Specific [place] Urine WBC (Auto) U Epithel Cells (Auto) 06/14/18 06/15/18 06/15/18 09:21 05:55 21:59 WBC MCH Seg Neutrophils % Seg Neutrophils # Creatinine POC Glucose 116 H 56 L 113 H Magnesium Urine pH Ur Specific [place] Urine WBC (Auto) U Epithel Cells (Auto) 06/16/18 06/17/18 06/17/18 19:03 05:58 20:13 WBC MCH Seg Neutrophils % Seg Neutrophils # Creatinine POC Glucose 108 H 54 L 69 L Magnesium Urine pH Ur Specific [place] Urine WBC (Auto) U Epithel Cells (Auto) 06/18/18 06/18/18 06/18/18 06:23 15:45 19:31 WBC MCH Seg Neutrophils % Seg Neutrophils # Creatinine POC Glucose 59 L 125 H 110 H Magnesium Urine pH Ur Specific [place] Urine WBC (Auto) U Epithel Cells (Auto) 06/19/18 06/19/18 06/20/18 06:07 21:02 06:29 WBC MCH Seg Neutrophils % Seg Neutrophils # Creatinine POC Glucose 63 L 114 H 54 L Magnesium Urine pH Ur Specific [place] Urine WBC (Auto) U Epithel Cells (Auto) 06/20/18 06/20/18 06/21/18 14:22 21:38 07:11 WBC MCH Seg Neutrophils % Seg Neutrophils # Creatinine POC Glucose 107 H 118 H 55 L Magnesium Urine pH Ur Specific [place] Urine WBC (Auto) U Epithel Cells (Auto) 06/21/18 06/21/18 06/22/18 09:15 14:15 06:11 WBC MCH Seg Neutrophils % Seg Neutrophils # Creatinine POC Glucose 145 H 106 H 60 L Magnesium Urine pH Ur Specific [place] Urine WBC (Auto) U Epithel Cells (Auto) 06/22/18 14:27 WBC MCH Seg Neutrophils % Seg Neutrophils # Creatinine POC Glucose 114 H Magnesium Urine pH Ur Specific [place] Urine WBC (Auto) U Epithel Cells (Auto) Laboratory Results - last 24 hr 06/22/18 06/22/18 11:11 14:27 POC Glucose 88 114 H
[2018-06-23] MEDS: PEPCID PO SCH ×4 (09:45→22:00)
[2018-06-23] MEDS: PRENATAL VITAMIN PO SCH (09:48)
[2018-06-23] MEDS: MILK OF MAGNESIA PO PRN (09:58)
[2018-06-23] MEDS: COLACE PO PRN (09:58)
[2018-06-23] MEDS: ALUM-MAG HYDROX-SIMETH 200-200-20MG/5ML PO PRN ×2 (09:58→23:47)
[2018-06-24] MEDS: TYLENOL PO PRN (07:49)
[2018-06-24] MEDS: PROCARDIA*For Tocolysis only PO SCH ×3 (07:50→17:59)
--- NOTE | 2018-06-24 09:57 | Progress Note ---
Assessment and Plan - Patient Problems (1) labor Onset Date: 05/02/18 Current Visit: Yes Status: Acute Qualifiers: labor trimester: third trimester labor delivery status: without delivery Qualified Code(s): O60.03 - labor without delivery, third trimester Plan to address problem: Dexamethasone for FLM completed. Magnesium sulfate for neuroprotection and tocolysis discontinued. She is on procardia. S/P PO erythromycin and ampicillin. [facility] and NICU consult done. Continous monitoring. Continue Mekena weekly. Cervix unchanged from admission. Sono done on 06/03, baby is vertex, ZACARIAS normal, BPP 8/8. (2) Cervical incompetence Current Visit: Yes Status: Acute (3) Cervical cerclage suture present Onset Date: 05/02/18 Current Visit: Yes Status: Acute Qualifiers: Trimester: third trimester Qualified Code(s): O34.33 - Maternal care for cervical incompetence, third trimester (4) Obesity Current Visit: Yes Status: Acute (5) Chronic hypertension affecting Current Visit: Yes Status: Acute Plan to address problem: BP has been stable. If elevated, will start anti-HTN and do toxemia labs. (6) Gestational diabetes Current Visit: Yes Status: Acute Plan to address problem: Continue FS monitoring fasting and 2-hr PP. Continue ADA diet. (7) UTI (urinary tract infection) Current Visit: Yes Status: Acute Plan to address problem: Urine culture. Ancef IV was given. Symptoms have subsided. (8) 33 weeks gestation of Current Visit: Yes Status: Acute Subjective - Subjective Date of service: 06/24/18 Principal diagnosis: IUP @ 33 2/7 weeks; Incompetent cervix, CHTN, gestational DMA1 Interval history: Patient is a 32 year old , LMP 10/30/17, EDC 08/06/18 at 33 weeks and 6 days gestation who was admitted for labor at 26 weeks gestation. This patient has been co-managed with [facility] for a history of cervical incompetence and she has a cerclage placed in 02/2018. She was treated with magnesium sulfate for tocolysis and neuroprotection, steroids for FLM completed, IV antibiotics for GBS prophylaxis which was later switched to PO ampicillin and erythomycin. [facility] consult was done and agreed with above management. NICU consult was done. She also has chronic HTN and A1GDM has not been on any medication. This AM, she denies any contractions, fluid leakage or bleeding. She reports good movement. Her cervix has remained unchanged and the cerclage in place. [facility] recommended discharging the patient home at 34 weeks if her status remains stable. Patient reports: movement normal, other (Patient reports vaginal discharge ), no new complaints, no loss of fluid, no vaginal bleeding, no contractions Objective - Vital Signs Vital Signs: Vital Signs - 12hr 06/24/18 07:55 Pulse Rate 98 H Blood Pressure 115/58 - Exam Cardiovascular: Normal S1, Normal S2 Lungs: Clear to auscultation Vulva: both: normal FHR: category 1 Uterine Contraction Monitor Mode: External Uterine Contraction Pattern: Absent Deep Tendon Reflex Grade: Normal +2 - Labs Labs: Abnormal Labs 04/30/18 04/30/18 04/30/18 16:20 16:20 16:20 WBC 11.8 H MCH 27 L Seg Neutrophils % 75.5 H Seg Neutrophils # 8.9 H Creatinine 0.6 L POC Glucose Magnesium Urine pH Ur Specific [place] Urine WBC (Auto) 50.0 H U Epithel Cells (Auto) 135.0 H 05/01/18 05/01/18 05/02/18 14:32 19:56 07:54 WBC MCH Seg Neutrophils % Seg Neutrophils # Creatinine POC Glucose Magnesium 3.50 H 4.30 H 4.40 H Urine pH Ur Specific [place] Urine WBC (Auto) U Epithel Cells (Auto) 05/02/18 05/02/18 05/03/18 14:41 Unknown 04:50 WBC MCH Seg Neutrophils % Seg Neutrophils # Creatinine POC Glucose Magnesium 4.20 H 4.30 H 4.30 H Urine pH Ur Specific [place] Urine WBC (Auto) U Epithel Cells (Auto) 05/03/18 05/03/18 05/03/18 05:33 12:51 17:36 WBC MCH Seg Neutrophils % Seg Neutrophils # Creatinine POC Glucose Magnesium 4.30 H 4.10 H 3.40 H Urine pH Ur Specific [place] Urine WBC (Auto) U Epithel Cells (Auto) 05/04/18 05/05/18 05/13/18 05:58 09:37 12:37 WBC MCH 27 L 26 L Seg Neutrophils % 80.5 H 79.0 H Seg Neutrophils # 8.5 H 8.5 H Creatinine POC Glucose Magnesium 3.00 H Urine pH Ur Specific [place] Urine WBC (Auto) U Epithel Cells (Auto) 05/20/18 05/20/18 05/21/18 06:56 17:01 06:15 WBC MCH Seg Neutrophils % Seg Neutrophils # Creatinine POC Glucose 61 L 62 L 68 L Magnesium Urine pH Ur Specific [place] Urine WBC (Auto) U Epithel Cells (Auto) 05/21/18 05/21/18 05/22/18 11:12 16:45 19:02 WBC MCH Seg Neutrophils % Seg Neutrophils # Creatinine POC Glucose 128 H 67 L 129 H Magnesium Urine pH Ur Specific [place] Urine WBC (Auto) U Epithel Cells (Auto) 05/23/18 05/23/18 05/24/18 08:43 16:52 07:59 WBC MCH Seg Neutrophils % Seg Neutrophils # Creatinine POC Glucose 129 H 68 L 63 L Magnesium Urine pH Ur Specific [place] Urine WBC (Auto) U Epithel Cells (Auto) 05/24/18 05/24/18 05/25/18 10:09 14:56 07:45 WBC MCH Seg Neutrophils % Seg Neutrophils # Creatinine POC Glucose 117 H 120 H 48 L Magnesium Urine pH Ur Specific [place] Urine WBC (Auto) U Epithel Cells (Auto) 05/25/18 05/25/18 05/26/18 10:42 22:08 08:28 WBC MCH Seg Neutrophils % Seg Neutrophils # Creatinine POC Glucose 126 H 112 H 63 L Magnesium Urine pH Ur Specific [place] Urine WBC (Auto) U Epithel Cells (Auto) 05/27/18 05/27/18 05/29/18 08:32 15:08 07:26 WBC MCH 27 L Seg Neutrophils % 73.3 H Seg Neutrophils # Creatinine POC Glucose 67 L 68 L Magnesium Urine pH Ur Specific [place] Urine WBC (Auto) U Epithel Cells (Auto) 05/29/18 05/29/18 05/30/18 11:26 19:03 05:53 WBC MCH Seg Neutrophils % Seg Neutrophils # Creatinine POC Glucose 115 H 63 L Magnesium Urine pH 8.0 H Ur Specific [place] 1.001 L Urine WBC (Auto) U Epithel Cells (Auto) 05/30/18 05/31/18 06/02/18 23:41 23:17 06:12 WBC MCH Seg Neutrophils % Seg Neutrophils # Creatinine POC Glucose 56 L 68 L 61 L Magnesium Urine pH Ur Specific [place] Urine WBC (Auto) U Epithel Cells (Auto) 06/02/18 06/03/18 06/03/18 19:43 07:30 10:47 WBC MCH Seg Neutrophils % Seg Neutrophils # Creatinine POC Glucose 107 H 64 L 135 H Magnesium Urine pH Ur Specific [place] Urine WBC (Auto) U Epithel Cells (Auto) 06/04/18 06/04/18 06/05/18 00:08 20:55 10:23 WBC MCH Seg Neutrophils % Seg Neutrophils # Creatinine POC Glucose 111 H 132 H 117 H Magnesium Urine pH Ur Specific [place] Urine WBC (Auto) U Epithel Cells (Auto) 06/06/18 06/06/18 06/06/18 06:40 14:24 18:24 WBC MCH Seg Neutrophils % Seg Neutrophils # Creatinine POC Glucose 62 L 113 H 126 H Magnesium Urine pH Ur Specific [place] Urine WBC (Auto) U Epithel Cells (Auto) 06/06/18 06/07/18 06/07/18 22:24 05:41 22:12 WBC MCH Seg Neutrophils % Seg Neutrophils # Creatinine POC Glucose 56 L 64 L 52 L Magnesium Urine pH Ur Specific [place] Urine WBC (Auto) U Epithel Cells (Auto) 06/08/18 06/10/18 06/10/18 17:36 06:40 11:23 WBC MCH 27 L Seg Neutrophils % Seg Neutrophils # Creatinine POC Glucose 110 H 64 L Magnesium Urine pH Ur Specific [place] Urine WBC (Auto) U Epithel Cells (Auto) 06/10/18 06/11/18 06/12/18 14:49 08:37 05:59 WBC MCH Seg Neutrophils % Seg Neutrophils # Creatinine POC Glucose 112 H 69 L 61 L Magnesium Urine pH Ur Specific [place] Urine WBC (Auto) U Epithel Cells (Auto) 06/12/18 06/13/18 06/13/18 14:04 06:24 14:31 WBC MCH Seg Neutrophils % Seg Neutrophils # Creatinine POC Glucose 109 H 68 L 134 H Magnesium Urine pH Ur Specific [place] Urine WBC (Auto) U Epithel Cells (Auto) 06/14/18 06/15/18 06/15/18 09:21 05:55 21:59 WBC MCH Seg Neutrophils % Seg Neutrophils # Creatinine POC Glucose 116 H 56 L 113 H Magnesium Urine pH Ur Specific [place] Urine WBC (Auto) U Epithel Cells (Auto) 06/16/18 06/17/18 06/17/18 19:03 05:58 20:13 WBC MCH Seg Neutrophils % Seg Neutrophils # Creatinine POC Glucose 108 H 54 L 69 L Magnesium Urine pH Ur Specific [place] Urine WBC (Auto) U Epithel Cells (Auto) 06/18/18 06/18/18 06/18/18 06:23 15:45 19:31 WBC MCH Seg Neutrophils % Seg Neutrophils # Creatinine POC Glucose 59 L 125 H 110 H Magnesium Urine pH Ur Specific [place] Urine WBC (Auto) U Epithel Cells (Auto) 06/19/18 06/19/18 06/20/18 06:07 21:02 06:29 WBC MCH Seg Neutrophils % Seg Neutrophils # Creatinine POC Glucose 63 L 114 H 54 L Magnesium Urine pH Ur Specific [place] Urine WBC (Auto) U Epithel Cells (Auto) 06/20/18 06/20/18 06/21/18 14:22 21:38 07:11 WBC MCH Seg Neutrophils % Seg Neutrophils # Creatinine POC Glucose 107 H 118 H 55 L Magnesium Urine pH Ur Specific [place] Urine WBC (Auto) U Epithel Cells (Auto) 06/21/18 06/21/18 06/22/18 09:15 14:15 06:11 WBC MCH Seg Neutrophils % Seg Neutrophils # Creatinine POC Glucose 145 H 106 H 60 L Magnesium Urine pH Ur Specific [place] Urine WBC (Auto) U Epithel Cells (Auto) 06/22/18 06/23/18 06/23/18 14:27 10:24 19:37 WBC MCH Seg Neutrophils % Seg Neutrophils # Creatinine POC Glucose 114 H 113 H 115 H Magnesium Urine pH Ur Specific [place] Urine WBC (Auto) U Epithel Cells (Auto) Laboratory Results - last 24 hr 06/23/18 06/23/18 10:24 19:37 POC Glucose 113 H 115 H - Results US- obstetric: report reviewed
[2018-06-24] MEDS: PRENATAL VITAMIN PO SCH (10:24)
[2018-06-24] MEDS: PEPCID PO SCH ×2 (10:25→21:42)
[2018-06-24] MEDS: AMBIEN PO PRN (23:58)
[2018-06-25] MEDS: PROCARDIA*For Tocolysis only PO SCH ×4 (00:01→12:00)
[2018-06-25 08:11] VITALS: BP 122/64
[2018-06-25] MEDS: PRENATAL VITAMIN PO SCH (10:44)
[2018-06-25] MEDS: ALUM-MAG HYDROX-SIMETH 200-200-20MG/5ML PO PRN (10:45)
--- NOTE | 2018-06-25 11:21 | Progress Note ---
Assessment and Plan - Patient Problems (1) labor Onset Date: 05/02/18 Current Visit: Yes Status: Acute Qualifiers: labor trimester: third trimester labor delivery status: without delivery Qualified Code(s): O60.03 - labor without delivery, third trimester Plan to address problem: Dexamethasone for FLM completed. Magnesium sulfate for neuroprotection and tocolysis discontinued. She is on procardia. S/P PO erythromycin and ampicillin. [facility] and NICU consult done. Continous monitoring. Continue Mekena weekly. Cervix unchanged from admission. Sono done on 06/22, baby is vertex, ZACARIAS normal, BPP 8/8. Patient desires to go home and [facility] recommended discharging her home if not cervical changes or contraction and if status remains reassuring. Sonogram ordered for BPP and ZACARIAS. If normal, will discharge her home with precautions to follow up in [facility] office and [facility] on 06/29. Pt advised to continue bedrest and avoid sexual intercourse. Cerclage is to be removed at 36 weeks. (2) Cervical incompetence Current Visit: Yes Status: Acute (3) Cervical cerclage suture present Onset Date: 05/02/18 Current Visit: Yes Status: Acute Qualifiers: Trimester: third trimester Qualified Code(s): O34.33 - Maternal care for cervical incompetence, third trimester (4) Obesity Current Visit: Yes Status: Acute (5) Chronic hypertension affecting Current Visit: Yes Status: Acute (6) Gestational diabetes Current Visit: Yes Status: Acute Plan to address problem: Continue FS monitoring fasting and 2-hr PPb at home. Continue ADA diet. (7) UTI (urinary tract infection) Current Visit: Yes Status: Acute Plan to address problem: Ancef IV was given. Symptoms have subsided. (8) 34 weeks gestation of Current Visit: Yes Status: Acute Subjective - Subjective Date of service: 06/25/18 Principal diagnosis: IUP @ 33 2/7 weeks; Incompetent cervix, CHTN, gestational DMA1 Interval history: Patient is a 32 year old , LMP 10/30/17, EDC 08/06/18 at 34 weeks gestation who was admitted for labor at 26 weeks gestation. This patient has been co-managed with [facility] for a history of cervical incompetence and she has a cerclage placed in 02/2018. She was treated with magnesium sulfate for tocolysis and neuroprotection, steroids for FLM completed, IV antibiotics for GBS prophylaxis which was later switched to PO ampicillin and erythomycin. [facility] consult was done and agreed with above management. NICU consult was done. She also has chronic HTN and A1GDM has not been on any medication. This AM, she denies any contractions, fluid leakage or bleeding. She reports good movement. Her cervix has remained unchanged and the cerclage in place. [facility] recommended discharging the patient home at 34 weeks if her status remains stable. Patient reports: movement normal, other (Patient reports vaginal discharge ), no new complaints, no loss of fluid, no vaginal bleeding, no contractions Objective - Vital Signs Vital Signs: Vital Signs - 12hr 06/25/18 06/25/18 06/25/18 00:00 04:35 08:09 Temperature 97.0 F L 97.1 F L Pulse Rate 94 H 83 94 H Respiratory 18 16 Rate Blood Pressure 102/70 107/61 122/64 Blood Pressure 102/70 [Left] Blood Pressure 107/61 [Right] - Exam Cardiovascular: Normal S1, Normal S2 Lungs: Clear to auscultation Vulva: both: normal Uterine Contraction Monitor Mode: External Cervical Dilatation: 3 Cervical Effacement Percentage: 70 station: -3 Uterine Contraction Pattern: Absent Deep Tendon Reflex Grade: Normal +2 - Labs Labs: Abnormal Labs 04/30/18 04/30/18 04/30/18 16:20 16:20 16:20 WBC 11.8 H MCH 27 L Seg Neutrophils % 75.5 H Seg Neutrophils # 8.9 H Creatinine 0.6 L POC Glucose Magnesium Urine pH Ur Specific [place] Urine WBC (Auto) 50.0 H U Epithel Cells (Auto) 135.0 H 05/01/18 05/01/18 05/02/18 14:32 19:56 07:54 WBC MCH Seg Neutrophils % Seg Neutrophils # Creatinine POC Glucose Magnesium 3.50 H 4.30 H 4.40 H Urine pH Ur Specific [place] Urine WBC (Auto) U Epithel Cells (Auto) 05/02/18 05/02/18 05/03/18 14:41 Unknown 04:50 WBC MCH Seg Neutrophils % Seg Neutrophils # Creatinine POC Glucose Magnesium 4.20 H 4.30 H 4.30 H Urine pH Ur Specific [place] Urine WBC (Auto) U Epithel Cells (Auto) 05/03/18 05/03/18 05/03/18 05:33 12:51 17:36 WBC MCH Seg Neutrophils % Seg Neutrophils # Creatinine POC Glucose Magnesium 4.30 H 4.10 H 3.40 H Urine pH Ur Specific [place] Urine WBC (Auto) U Epithel Cells (Auto) 05/04/18 05/05/18 05/13/18 05:58 09:37 12:37 WBC MCH 27 L 26 L Seg Neutrophils % 80.5 H 79.0 H Seg Neutrophils # 8.5 H 8.5 H Creatinine POC Glucose Magnesium 3.00 H Urine pH Ur Specific [place] Urine WBC (Auto) U Epithel Cells (Auto) 05/20/18 05/20/18 05/21/18 06:56 17:01 06:15 WBC MCH Seg Neutrophils % Seg Neutrophils # Creatinine POC Glucose 61 L 62 L 68 L Magnesium Urine pH Ur Specific [place] Urine WBC (Auto) U Epithel Cells (Auto) 05/21/18 05/21/18 05/22/18 11:12 16:45 19:02 WBC MCH Seg Neutrophils % Seg Neutrophils # Creatinine POC Glucose 128 H 67 L 129 H Magnesium Urine pH Ur Specific [place] Urine WBC (Auto) U Epithel Cells (Auto) 05/23/18 05/23/18 05/24/18 08:43 16:52 07:59 WBC MCH Seg Neutrophils % Seg Neutrophils # Creatinine POC Glucose 129 H 68 L 63 L Magnesium Urine pH Ur Specific [place] Urine WBC (Auto) U Epithel Cells (Auto) 05/24/18 05/24/18 05/25/18 10:09 14:56 07:45 WBC MCH Seg Neutrophils % Seg Neutrophils # Creatinine POC Glucose 117 H 120 H 48 L Magnesium Urine pH Ur Specific [place] Urine WBC (Auto) U Epithel Cells (Auto) 05/25/18 05/25/18 05/26/18 10:42 22:08 08:28 WBC MCH Seg Neutrophils % Seg Neutrophils # Creatinine POC Glucose 126 H 112 H 63 L Magnesium Urine pH Ur Specific [place] Urine WBC (Auto) U Epithel Cells (Auto) 05/27/18 05/27/18 05/29/18 08:32 15:08 07:26 WBC MCH 27 L Seg Neutrophils % 73.3 H Seg Neutrophils # Creatinine POC Glucose 67 L 68 L Magnesium Urine pH Ur Specific [place] Urine WBC (Auto) U Epithel Cells (Auto) 05/29/18 05/29/18 05/30/18 11:26 19:03 05:53 WBC MCH Seg Neutrophils % Seg Neutrophils # Creatinine POC Glucose 115 H 63 L Magnesium Urine pH 8.0 H Ur Specific [place] 1.001 L Urine WBC (Auto) U Epithel Cells (Auto) 05/30/18 05/31/18 06/02/18 23:41 23:17 06:12 WBC MCH Seg Neutrophils % Seg Neutrophils # Creatinine POC Glucose 56 L 68 L 61 L Magnesium Urine pH Ur Specific [place] Urine WBC (Auto) U Epithel Cells (Auto) 06/02/18 06/03/18 06/03/18 19:43 07:30 10:47 WBC MCH Seg Neutrophils % Seg Neutrophils # Creatinine POC Glucose 107 H 64 L 135 H Magnesium Urine pH Ur Specific [place] Urine WBC (Auto) U Epithel Cells (Auto) 06/04/18 06/04/18 06/05/18 00:08 20:55 10:23 WBC MCH Seg Neutrophils % Seg Neutrophils # Creatinine POC Glucose 111 H 132 H 117 H Magnesium Urine pH Ur Specific [place] Urine WBC (Auto) U Epithel Cells (Auto) 06/06/18 06/06/18 06/06/18 06:40 14:24 18:24 WBC MCH Seg Neutrophils % Seg Neutrophils # Creatinine POC Glucose 62 L 113 H 126 H Magnesium Urine pH Ur Specific [place] Urine WBC (Auto) U Epithel Cells (Auto) 06/06/18 06/07/18 06/07/18 22:24 05:41 22:12 WBC MCH Seg Neutrophils % Seg Neutrophils # Creatinine POC Glucose 56 L 64 L 52 L Magnesium Urine pH Ur Specific [place] Urine WBC (Auto) U Epithel Cells (Auto) 06/08/18 06/10/18 06/10/18 17:36 06:40 11:23 WBC MCH 27 L Seg Neutrophils % Seg Neutrophils # Creatinine POC Glucose 110 H 64 L Magnesium Urine pH Ur Specific [place] Urine WBC (Auto) U Epithel Cells (Auto) 06/10/18 06/11/18 06/12/18 14:49 08:37 05:59 WBC MCH Seg Neutrophils % Seg Neutrophils # Creatinine POC Glucose 112 H 69 L 61 L Magnesium Urine pH Ur Specific [place] Urine WBC (Auto) U Epithel Cells (Auto) 06/12/18 06/13/18 06/13/18 14:04 06:24 14:31 WBC MCH Seg Neutrophils % Seg Neutrophils # Creatinine POC Glucose 109 H 68 L 134 H Magnesium Urine pH Ur Specific [place] Urine WBC (Auto) U Epithel Cells (Auto) 06/14/18 06/15/18 06/15/18 09:21 05:55 21:59 WBC MCH Seg Neutrophils % Seg Neutrophils # Creatinine POC Glucose 116 H 56 L 113 H Magnesium Urine pH Ur Specific [place] Urine WBC (Auto) U Epithel Cells (Auto) 06/16/18 06/17/18 06/17/18 19:03 05:58 20:13 WBC MCH Seg Neutrophils % Seg Neutrophils # Creatinine POC Glucose 108 H 54 L 69 L Magnesium Urine pH Ur Specific [place] Urine WBC (Auto) U Epithel Cells (Auto) 06/18/18 06/18/18 06/18/18 06:23 15:45 19:31 WBC MCH Seg Neutrophils % Seg Neutrophils # Creatinine POC Glucose 59 L 125 H 110 H Magnesium Urine pH Ur Specific [place] Urine WBC (Auto) U Epithel Cells (Auto) 06/19/18 06/19/18 06/20/18 06:07 21:02 06:29 WBC MCH Seg Neutrophils % Seg Neutrophils # Creatinine POC Glucose 63 L 114 H 54 L Magnesium Urine pH Ur Specific [place] Urine WBC (Auto) U Epithel Cells (Auto) 06/20/18 06/20/18 06/21/18 14:22 21:38 07:11 WBC MCH Seg Neutrophils % Seg Neutrophils # Creatinine POC Glucose 107 H 118 H 55 L Magnesium Urine pH Ur Specific [place] Urine WBC (Auto) U Epithel Cells (Auto) 06/21/18 06/21/18 06/22/18 09:15 14:15 06:11 WBC MCH Seg Neutrophils % Seg Neutrophils # Creatinine POC Glucose 145 H 106 H 60 L Magnesium Urine pH Ur Specific [place] Urine WBC (Auto) U Epithel Cells (Auto) 06/22/18 06/23/18 06/23/18 14:27 10:24 19:37 WBC MCH Seg Neutrophils % Seg Neutrophils # Creatinine POC Glucose 114 H 113 H 115 H Magnesium Urine pH Ur Specific [place] Urine WBC (Auto) U Epithel Cells (Auto) 06/24/18 06/24/18 06/24/18 07:02 10:29 19:29 WBC MCH Seg Neutrophils % Seg Neutrophils # Creatinine POC Glucose 61 L 116 H 107 H Magnesium Urine pH Ur Specific [place] Urine WBC (Auto) U Epithel Cells (Auto) 06/25/18 05:52 WBC MCH Seg Neutrophils % Seg Neutrophils # Creatinine POC Glucose 64 L Magnesium Urine pH Ur Specific [place] Urine WBC (Auto) U Epithel Cells (Auto) Laboratory Results - last 24 hr 06/24/18 06/25/18 19:29 05:52 POC Glucose 107 H 64 L - Results US- obstetric: report reviewed
--- NOTE | 2018-06-25 12:55 | Ultrasound Report ---
ULTRASOUND OB VELOCIMETRY UMBILICAL ARTERY HISTORY: labor. TECHNIQUE: Transabdominal ultrasound. Spectral Doppler interrogation was performed on 3 segments of the umbilical cord. FINDINGS: heart rate measures 138 beats per minute. The spectral waveforms are normal and persistent. No evidence for loss or reversal of end-diastolic flow. The resistive index average measures 0.78. The systolic/diastolic ratio average measures 4.62. IMPRESSION: Elevated resistive indices.
--- NOTE | 2018-06-25 12:56 | Ultrasound Report ---
ULTRASOUND OB LIMITED History: labor Technique: Transabdominal ultrasound with Doppler interrogation. Gestation: Single Position: Cephalic Amniotic Fluid: Normal ZACARIAS = 15.1 cm Heart Rate: 143 BPM
== END 2018-06-25 13:52 | disposition home or self-care (01) | DRG 781 ==
LOC: LD 15:32
PROVIDERS: ADMIT Obstetrics & Gynecology; ATTEND Obstetrics & Gynecology
DX: O34.33 Maternal care for cervical incompetence, third trimester (principal); O10.913 Unspecified pre-existing hypertension complicating pregnancy, third trimester; O60.03 Preterm labor without delivery, third trimester; O99.213 Obesity complicating pregnancy, third trimester; O23.43 Unspecified infection of urinary tract in pregnancy, third trimester; O24.419 Gestational diabetes mellitus in pregnancy, unspecified control; E66.9 Obesity, unspecified; Z71.3 Dietary counseling and surveillance; Z3A.26 26 weeks gestation of pregnancy
CPT/HCPCS: 36415; 59025; 76815; 76816; 76819; 76820; 81001; 82565; 82951; 82962; 83615; 83735; 84450; 84460; 85025; 85027; 86850; 86900; 86901; G0378; J0290; J0456; J0690; J1100; J2405; J2590; J3475; J7050; J7120

== ENCOUNTER 2019-06-09 20:59 | Emergency (ER) | payer SELFPAY ==
[2019-06-09 23:28] VITALS: BP 146/89
[2019-06-10] MEDS ORDERED: ONDANSETRON 4 MG/2 ML INJ IV ONE (03:01)
[2019-06-10] MEDS ORDERED: KETOROLAC 30 MG/1 ML INJ IV ONE (03:01)
[2019-06-10] MEDS ORDERED: BUTALB/ACETAMINOPHEN/CAFFEINE TAB PO ONE (03:01)
[2019-06-10 04:38] LABS: Basophils # (Auto) 0.1 K/mm3 (0.0-0.1); Basophils % (Auto) 0.6 % (0.0-1.8); Eosinophils # (Auto) 0.1 K/mm3 (0.0-0.4); Eosinophils % (Auto) 1.1 % (0.0-4.3); Hematocrit 36.1 % (30.3-42.9); Hemoglobin 11.9 gm/dl (10.1-14.3); Lymphocytes # (Auto) 2.5 K/mm3 (1.2-5.4); Lymphocytes % (Auto) 25.4 % (13.4-35.0); Mean Corpuscular HGB Conc 33 % (30-34); Mean Corpuscular Volume 79 fl (79-97); Monocytes # (Auto) 0.7 K/mm3 (0.0-0.8); Monocytes % (Auto) 7.4 % (0.0-7.3); Platelet Count 255 K/mm3 (140-440); Red Blood Count 4.56 M/mm3 (3.65-5.03); Red Cell Distribution Width 14.7 % (13.2-15.2)
[2019-06-10 04:51] LABS: Alanine Aminotransferase 13 units/L (7-56); BUN/Creatinine Ratio 10; Blood Urea Nitrogen 8 mg/dL (7-17); Calcium 9.3 mg/dL (8.4-10.2); Hemolysis Index 1
--- NOTE | 2019-06-10 05:20 | Cat Scan Report ---
Head CT without intravenous contrast INDICATION: Headache x5 days COMPARISON: None FINDINGS: The ventricles are normal in size and position. No hemorrhage or extra-axial fluid collecti on. No edema or mass effect. No focal infarct seen. Portions of the sinuses visualized show a small a ir-fluid level in the right maxillary sinus mucosal thickening of the left maxillary sinus. In additi on there is extensive opacification of the ethmoid air cells and there are air-fluid levels in both s phenoid sinuses. The mastoid air cells are well aerated. Frontal sinuses are clear. No skull fracture identified. IMPRESSION: Extensive pansinusitis. No intracranial abnormality. Automated exposure control was utilized to diminish radiation dose Signer Name: Riley Melton MD Signed: 06/10/2019 5:16 AM Workstation Name: [id number]
--- NOTE | 2019-06-10 06:25 | Emergency Department Report ---
ED Headache HPI - General Chief Complaint: Headache Stated Complaint: HEAD PAIN Source: patient Exam Limitations: no limitations - History of Present Illness Initial Comments: Patient is 33-year-old -[place] female with no past medical history presents to the ED with complaint of acute onset persistent severe frontal sinus pressure, headache, and generalized weakness for the last 1 week, worse in the last 4 days. Patient states that the headache gets worse whenever she moves around or when she bends. Patient denies fever, chills, dizziness, syncope, chest pain, shortness of breath, sore throat, change in vision, cough, neck pain, back pain, traumatic injury or seizures. Patient states that she has been taking [id number] medications with no relief. Timing/Duration: 1 week, waxing and waning Quality: severe, pressure, sharp Head Injury Location: frontal, temporal, occipital Recent Head Trauma: no recent headache/trauma Modifying Factors: improves with: movement Associated Symptoms: denies symptoms, facial pain, nausea/vomiting, nasal congestion. denies: confusion, fatigue, fever/chills, flushing, loss of consciousness, nasal drainage, numbness in legs/feet, seizures, sinus infection, stiff neck, vision changes, weakness Allergies/Adverse Reactions: Allergies No Known Allergies Allergy (Unverified 04/30/18 16:04) Home Medications: Ambulatory Orders Multivitamin Tablet 1 tab PO QDAY 05/01/18 NIFEdipine [Procardia] 10 mg PO Q6HR 30 Days #90 capsule 06/21/18 Amoxicillin/Potassium Clav [Augmentin 875-125 Tablet] 1 each PO Q12H #20 tablet 06/10/19 Butalb/Acetamin/Caff 50-325-40 [Fioricet 50-325-40] 1 - 2 tab PO Q6HR PRN #15 tab 06/10/19 Ketorolac [Toradol] 10 mg PO Q8H PRN #20 tablet 06/10/19 Ondansetron [Zofran Odt] 4 mg PO Q6HR PRN #15 tab.rapdis 06/10/19 ED Review of Systems ROS: Stated complaint: HEAD PAIN Other details as noted in HPI Constitutional: denies: chills, fever Eyes: denies: eye pain, eye discharge, vision change ENT: congestion, other (Frontal and maxillary sinus pressure). denies: ear pain, throat pain Respiratory: denies: cough, shortness of breath, wheezing Cardiovascular: denies: chest pain, palpitations Endocrine: no symptoms reported Gastrointestinal: nausea, vomiting. denies: abdominal pain, diarrhea Genitourinary: denies: urgency, dysuria, discharge Musculoskeletal: denies: back pain, joint swelling, arthralgia Skin: denies: rash, lesions Neurological: headache. denies: weakness, paresthesias Psychiatric: denies: anxiety, depression Hematological/Lymphatic: denies: easy bleeding, easy bruising ED Past Medical Hx - Past Medical History Hx Hypertension: Yes Hx Congestive Heart Failure: No Hx Diabetes: No Hx Deep Vein Thrombosis: No Hx Renal Disease: No Hx Sickle Cell Disease: No Hx Seizures: No Hx Asthma: No Hx COPD: No Hx HIV: No - Surgical History Additional Surgical History: ecoptic preg. - Social History Smoking Status: Never Smoker Substance Use Type: None - Medications Home Medications: Home Medications Medication Instructions Recorded Confirmed Last Taken Type Multivitamin Tablet 1 tab PO QDAY 05/01/18 05/01/18 2 Days Ago History ~04/29/18 NIFEdipine [Procardia] 10 mg PO Q6HR 30 Days #90 capsule 06/21/18 Unknown Rx Amoxicillin/Potassium Clav 1 each PO Q12H #20 tablet 06/10/19 Unknown Rx [Augmentin 875-125 Tablet] Butalb/Acetamin/Caff 50-325-40 1 - 2 tab PO Q6HR PRN #15 tab 06/10/19 Unknown Rx [Fioricet 50-325-40] Ketorolac [Toradol] 10 mg PO Q8H PRN #20 tablet 06/10/19 Unknown Rx Ondansetron [Zofran Odt] 4 mg PO Q6HR PRN #15 tab.rapdis 06/10/19 Unknown Rx ED Physical Exam - General Limitations: No Limitations General appearance: alert, in no apparent distress - Head Head exam: Present: atraumatic, normocephalic, normal inspection - Eye Eye exam: Present: normal appearance, PERRL, EOMI Pupils: Present: normal accommodation - ENT ENT exam: Present: normal orophraynx, mucous membranes moist, TM's normal bilaterally, normal external ear exam, other (Palpable frontal and maxillary sinus tenderness) - Neck Neck exam: Present: normal inspection, full ROM - Respiratory Respiratory exam: Present: normal lung sounds bilaterally. Absent: respiratory distress, wheezes, rales, stridor, chest wall tenderness, accessory muscle use, decreased breath sounds - Cardiovascular Cardiovascular Exam: Present: normal rhythm, tachycardia, normal heart sounds. Absent: systolic murmur, diastolic murmur, rubs, gallop - GI/Abdominal GI/Abdominal exam: Present: soft, normal bowel sounds. Absent: tenderness, guarding, hyperactive bowel sounds, hypoactive bowel sounds, organomegaly - Extremities Exam Extremities exam: Present: normal inspection, full ROM, normal capillary refill - Back Exam Back exam: Present: normal inspection, full ROM. Absent: tenderness, CVA tenderness (R), muscle spasm, paraspinal tenderness, vertebral tenderness - Neurological Exam Neurological exam: Present: alert, oriented X3, CN II-XII intact, normal gait, reflexes normal - Psychiatric Psychiatric exam: Present: normal affect, normal mood - Skin Skin exam: Present: warm, dry, intact, normal color. Absent: rash ED Course Vital Signs 06/09/19 23:27 Temperature 99 F Pulse Rate 106 H Respiratory 19 Rate Blood Pressure 146/89 [Right] O2 Sat by Pulse 99 Oximetry ED Medical Decision Making - Lab Data Result diagrams: 06/10/19 03:52 06/10/19 03:52 - Radiology Data Radiology results: report reviewed, [place] [address] Cat Scan Report Signed Patient: KIT FELDMAN MR #: [id number] : 1985 Acct:[id number] Age/Sex: 33 / F ADM Date: 06/09/19 Loc: ED Attending Dr: Ordering Physician: CISCO ROPER Date of Service: 06/10/19 Procedure(s): CT head/brain wo con Accession Number(s): [id number] cc: CISCO ROPER Head CT without intravenous contrast INDICATION: Headache x5 days COMPARISON: None FINDINGS: The ventricles are normal in size and position. No hemorrhage or extra-axial fluid collection. No edema or mass effect. No focal infarct seen. Portions of the sinuses visualized show a small air-fluid level in the right maxillary sinus mucosal thickening of the left maxillary sinus. In addition there is extensive opacification of the ethmoid air cells and there are air-fluid levels in both sphenoid sinuses. The mastoid air cells are well aerated. Frontal sinuses are clear. No skull fracture identified. IMPRESSION: Extensive pansinusitis. No intracranial abnormality. Automated exposure control was utilized to diminish radiation dose Signer Name: Riley Melton MD Signed: 06/10/2019 5:16 AM Workstation Name: [id number] Transcribed By: AMBROSE Dictated By: Riley Melton MD Electronically Authenticated By: Riley Melton MD Signed Date/Time: 06/10/19515 DD/ 2 TD/TT: - Medical Decision Making This is a 33-year-old female who presented to the ED with persistent frontal and maxillary pressure and headache with nausea and vomiting for the last 1 week worse in the last 4 days. In the ED, patient is alert and oriented x3 and is not in any distress but slightly tachycardic in triage. Patient was treated in the ED for headache and lab test results were reviewed and are all nonactionable. The head CT scan without contrast showed ventricles are normal in size and position. No hemorrhage or extra-axial fluid collection. No edema or mass effect. No focal infarct seen. Portions of the sinuses visualized show a small air-fluid level in the right maxillary sinus mucosal thickening of the left maxillary sinus. In addition there is extensive opacification of the ethmoid air cells and there are air-fluid levels in both sphenoid sinuses. The mastoid air cells are well aerated. Frontal sinuses are clear. No skull frac ture identified. On reevaluation, patient's headache is resolved and patient was discharged home on pain medications and antibiotics and was advised to follow-up with her primary care physician in 7 to 10 days for reevaluation. Patient was advised return to the ED immediately if symptoms get worse. - Differential Diagnosis sinusitis; sinus headache; SAH; Migraine headache Critical care attestation.: If time is entered above; I have spent that time in minutes in the direct care of this critically ill patient, excluding procedure time. ED Disposition Clinical Impression: Acute non-recurrent pansinusitis, Sinus headache Disposition: - TO HOME OR SELFCARE Is pt being admited?: No Does the pt Need Aspirin: No Condition: Stable Instructions: Acute Bacterial Rhinosinusitis (ED), Acute Headache (ED) Additional Instructions: Take medications with food, drink plenty of fluids and follow-up with your primary care physician in 7 to 10 days for reevaluation. Return to the ED immediately if symptoms get worse. Prescriptions: Amoxicillin/Potassium Clav [Augmentin 875-125 Tablet] 1 each PO Q12H #20 tablet Butalb/Acetamin/Caff 50-325-40 [Fioricet 50-325-40] 1 - 2 tab PO Q6HR PRN #15 tab PRN Reason: Headache Ketorolac [Toradol] 10 mg PO Q8H PRN #20 tablet PRN Reason: Pain Ondansetron [Zofran Odt] 4 mg PO Q6HR PRN #15 tab.rapdis PRN Reason: Nausea Referrals: [facility] [Outside] - 3-5 Days Time of Disposition: 06:29 Print Language: [place]APORE[place]
== END 2019-06-10 07:15 | disposition home or self-care (01) ==
LOC: ED 20:59
DX: J01.40 Acute pansinusitis, unspecified (principal); R51 Headache; Z98.890 Other specified postprocedural states; Z79.899 Other long term (current) drug therapy
CPT/HCPCS: 36415; 70450; 80053; 84484; 84703; 85025; 96374; 96375; 99284; J1885; J2405